=== PATIENT | female | born 1990 | race Caucasian/White ===

== ENCOUNTER 2022-08-02 18:51 | Emergency (ER) | payer SELFPAY ==
[2022-08-02 18:55] VITALS: BP 139/89; PULSE 86; RESP 18; TEMP 36.3; O2SAT 96; BMI 42.0
--- NOTE | 2022-08-02 19:04 | ED.NURSE ---
beata HARVEY contacted and will send an officier for report
--- NOTE | 2022-08-02 19:13 | ED_ITS ---
HPI - General Adult General Chief complaint: Animal Bite Stated complaint: scratch on face from dog Time Seen by Provider: 08/02/22 18:52 History of Present Illness HPI narrative: This 32-year-old female comes in with an injury to her left eyebrow that occurred just prior to arrival. She states that the family dog which is a Great Romario jumped up and accidentally hit her in the left eyebrow area. She is not sure if it was the dog's paw or head that hit her. She was wearing glasses. Her lens fell out of the glass but did not break. She has a 2 cm linear laceration on the upper border of her left eyebrow. She did not have loss of consciousness. She is not describing any other injury does not have any neurologic deficits. She states that her tetanus was updated about 6 or 7 years ago. Related Data Previous Rx's Medication Instructions Recorded levonorgestrel 0.15 mg-ethinyl 1 tab PO QDAY #91 ea 10/14/21 estradiol 30 mcg tablets,3 mos pack(91) (Jarrett) cetirizine 10 mg capsule (Zyrtec) 10 mg PO QDAY PRN allergy symptoms 12/31/21 #90 caps fluoxetine 40 mg capsule 40 mg PO QDAY #90 caps 12/31/21 Allergies Allergy/AdvReac Type Severity Reaction Status Date / Time doxycycline Allergy Unknown Verified 12/31/21 10:56 Penicillins Allergy Unknown Verified 12/31/21 10:56 Peanut-containing drug Allergy Unknown Uncoded 12/31/21 10:56 products Trazadone Allergy Unknown Uncoded 12/31/21 10:56 Review of Systems Status of ROS: Reports: 10 or more systems reviewed and unremarkable except as noted in History and below Narrative: Constitutional: No fevers, no weight gain or loss. Eyes: No discharge. No vision changes. HENT: No congestion, no sore throat, no ear pain. Cardiovascular: No chest pain, no palpitations. Respiratory: No shortness of breath, no wheezes, no cough. Gastrointestinal: No abdominal pain, no vomiting, no diarrhea. Genitourinary: No dysuria, no hematuria. Musculoskeletal: Normal range of motion. Skin: No rashes, no pruritis. Neurological: No dizziness, weakness, speech change. Endo/Heme/Allergies: No bruising or bleeding. No polydipsia. Pysch: no suicidality, no anxiety, no insomnia. All other systems reviewed and are negative. [facility] Medical History (Updated 08/02/22 @ 19:17 by Elmo Rubio MD) OCD (obsessive compulsive disorder) ?F42.9 - Obsessive-compulsive disorder, unspecified (ICD-10) Obesity ?E66.9 - Obesity, unspecified (ICD-10) Microscopic hematuria ?R31.29 - Other microscopic hematuria (ICD-10) Hepatitis B carrier ?B18.1 - Chronic viral hepatitis B without delta-agent (ICD-10) Depression ?F32.A - Depression, unspecified (ICD-10) Anxiety ?F41.9 - Anxiety disorder, unspecified (ICD-10) Surgical History (Updated 12/31/21 @ 08:31 by Zina Neumann PA-C) No history of previous surgery Family History (Updated 12/31/21 @ 08:30 by Zina Neumann PA-C) Unknown Adopted Social History (Updated 12/31/21 @ 08:32 by Zina Neumann PA-C) 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 Little interest or pleasure in doing things: not at all Feeling down, depressed, or hopeless: several days Exam Narrative: Exam Narrative: Constitutional: Well-developed, well-nourished, no acute distress. HEENT: 2 cm linear laceration just above the left eyebrow. Mild associated swelling. Neck: Normal range of motion. Nontender. Supple. Heart: Intact distal pulses. Lungs: No chest discomfort. No wheezes, rhonchi, or rales. Abdomen: Nontender. Back: Normal range of motion. Extremities: Normal range of motion. No injury. Skin: Intact. No rash. Warm. No erythema or pallor. Neurologic: No altered sensation. No weakness. Alert and oriented. Psychiatric: No suicidality. No anxiety or depression. No insomnia. Nursing notes and vitals signs are reviewed. Const: Vital Signs, click to edit/add: Vital Signs - 24 hr 08/02/22 18:55 Temperature 97.4 F L Pulse Rate [Right Pulse Oximeter] 86 Respiratory Rate 18 Blood Pressure [Ri ght Upper Arm] 139/89 Pulse Oximetry 96 Oxygen Delivery Me thod Room Air Course Vital Signs Vital signs: Initial Vital Signs Temperature 97.4 F L 05/02/23 18:55 Temperature Source Temporal Artery Scan 08/02/22 18:55 Pulse Rate 86 08/02/22 18:55 Respiratory Rate 18 08/02/22 18:55 Blood Pressure 139/89 08/02/22 18:55 Blood Pressure Mean 105 08/02/22 18:55 Blood Pressure Position Sitting 08/02/22 18:55 Pulse Oximetry 96 08/02/22 18:55 Oxygen Delivery Method Room Air 08/02/22 18:55 Vital Signs Temperature 97.4 F L 08/02/22 18:55 Pulse Rate 86 08/02/22 18:55 Respiratory Rate 18 08/02/22 18:55 Blood Pressure 139/89 08/02/22 18:55 Pulse Oximetry 96 08/02/22 18:55 Oxygen Delivery Method Room Air 08/02/22 18:55 Temperature 97.4 F L 08/02/22 18:55 Pulse Rate 86 08/02/22 18:55 Respiratory Rate 18 08/02/22 18:55 Blood Pressure 139/89 08/02/22 18:55 Pulse Oximetry 96 08/02/22 18:55 Oxygen Delivery Method Room Air 08/02/22 18:55 Medical Decision Making MDM Narrative Medical decision making narrative: This patient has a laceration to her left eyebrow from a a family dog who is up-to-date on all vaccinations and appears healthy. The wound edges of the laceration are very well approximated. I did cleanse the wound and recommended Dermabond repair. This was agreeable to the patient. Instructions were given regarding wound care. Discharge Plan Discharge Clinical Impression: Laceration of eyebrow, left Patient Disposition: Home, Self-Care Condition: Stable Additional Instructions: Keep wound clean and dry. Follow up with MD or return if worsening. Prescriptions: No Action fluoxetine 40 mg capsule 40 mg PO QDAY Qty: 90 3RF Zyrtec 10 mg capsule 10 mg PO QDAY PRN (Reason: allergy symptoms) Qty: 90 3RF levonorgestrel-ethinyl estrad [Jolessa] 0.15 mg-30 mcg (91) tablets,dose pack,3 month 1 tab PO QDAY Qty: 91 2RF Follow Up/Referrals: Provider,Not a Local [Primary Care Provider] - Stand Alone Forms: [employer] Info Instructions
== END 2022-08-02 19:47 | disposition home or self-care (01) ==
LOC: ED 19:30
PROVIDERS: Emergency Provider Emergency Medicine Emergency Medical Services
DX: S01.112A Laceration without foreign body of left eyelid and periocular area, initial encounter (principal); W54.1XXA Struck by dog, initial encounter
CPT/HCPCS: 99282; 99283; 99284

== ENCOUNTER 2022-10-27 08:53 | Outpatient (CLI) | payer BC, SELFPAY | END 2022-10-27 08:54 | disposition home or self-care (01) | PROVIDERS: Visit Provider Registered Nurse | DX: Z01.419 Encounter for gynecological examination (general) (routine) without abnormal findings (principal); R63.5 Abnormal weight gain; E66.9 Obesity, unspecified; N91.2 Amenorrhea, unspecified; Z13.6 Encounter for screening for cardiovascular disorders; Z13.1 Encounter for screening for diabetes mellitus | CPT/HCPCS: 80061; 82947; 84443 ==

== ENCOUNTER 2022-12-11 15:16 | Emergency (ER) | payer BC, SELFPAY ==
[2022-12-11 15:21] VITALS: BP 140/87; PULSE 81; RESP 16; TEMP 36.6; O2SAT 96; BMI 45.7
--- NOTE | 2022-12-11 15:52 | ED.PREGNANCY ---
HPI - General Time Seen by Provider: 15:52 Date Seen: 12/11/22 Chief complaint: Vaginal Bleeding Stated complaint: 6 wks , bleeding Time Seen by Provider: 12/11/22 15:47 Source: patient, RN notes reviewed and old records reviewed Mode of arrival: ambulatory Limitations: no limitations History of Present Illness HPI Narrative: Patient is a 32-year-old female coming in just over 6 weeks with complaint of vaginal bleeding and cramping. She states it feels like her menstrual cycle. She will get some GI symptoms with that, have stomach discomfort. She had 2 days of light spotting and then today started bleeding more like a menstrual cycle. She has had no fevers chills, no vaginal discharge prior to this, no urinary symptoms. She is going to follow up with Ob here. Her last was 14 years ago. Knows her blood type was O but does not recollect getting RhoGAM. Thus, reviewed with her that we will check her blood type. She is admittedly anxious about this. MD Complaint: vaginal bleeding Patient : Yes Related Data : 2 Para: 1 Total number of abortions (spontaneous and elective): 0 Home Medications Medication Instructions Recorded Confirmed magnesium 12/11/22 Previous Rx's Medication Instructions Recorded cetirizine 10 mg capsule (Zyrtec) 10 mg PO QDAY PRN allergy symptoms 12/31/21 #90 caps fluoxetine 40 mg capsule 40 mg PO QDAY #90 caps 10/27/22 multivitamin no.47-iron fum 27 1 cap PO DAILY #100 caps 10/27/22 mg-folate no.1 1 mg-dha 300 mg capsule (PNV-DHA) vitamin#30 30 mg iron-10 1 cap PO DAILY #90 caps 10/27/22 mg iron-folic acid 1 mg-omg3 capsule Allergies Allergy/AdvReac Type Severity Reaction Status Date / Time doxycycline Allergy Unknown Verified 12/11/22 15:26 Penicillins Allergy Unknown Verified 12/11/22 15:26 Peanut-containing drug Allergy Unknown Uncoded 10/27/22 08:34 products Trazadone Allergy Unknown Uncoded 10/27/22 08:34 Review of Systems Narrative: As per HPI. 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 Smoking Status: Never smoker How often do you have a drink containing alcohol: never AUDIT-C Alcohol total score: 0 Non-prescribed substance use: denies use Little interest or pleasure in doing things: not at all Feeling down, depressed, or hopeless: not at all service: No Exam Const: Vital Signs, click to edit/add: Vital Signs - 24 hr 12/11/22 15:21 Temperature 97.9 F Pulse Rate [Left P ulse Oximeter] 81 Respiratory Rate 16 Blood Pressure [Ri ght Upper Arm] 140/87 H Pulse Oximetry 96 Oxygen Delivery Me thod Room Air This 32-year-old female is alert, interactive no apparent distress. Pupils are equal round, sclera clear, conjugate gaze. Symmetrical facial function. Able to speak in complete sentences. Neck is supple, no masses, no thyromegaly masses or nodules. Lungs are clear, good air entry no wheezing or crackles. CV regular rate rhythm no murmur, normal S1 and S2. Abdomen is soft, nontender, no organomegaly noted. Certainly no rebound or guarding noted. Documenting provider has reviewed patient's vital signs: yes Course Course ED Course: We discussed that she will need a blood draw, do not feel with her presentation at this time that she needs any IV or resuscitation from fluids. She seems quite hemodynamically stable. Reviewed that we would be getting a quantitative beta HCG, CBC and a blood type. We did briefly review RhoGAM in patient's bleeding who have Rh negative factor. We will obtain an ultrasound as well. Reevaluation(s) Time of Reevaluation #1: 18:33 Reevaluation #1: Reviewed ultrasound report and labs with patient. The hCG is extremely low, it is unlikely if she was right about being just over 6 weeks that this is anything but a miscarriage. She does understand that the hCG needs to be followed however. If it is going up, further imaging will need to be done. She understands if she does have heavy symptomatic bleeding start, severe abdominal pain that she does need to return to the ER for further evaluation. Otherwise, schedule follow-up through [facility] next week. Vital Signs Vital signs: Initial Vital Signs Temperature 97.9 F 12/11/22 15:21 Temperature Source Temporal Artery Scan 12/11/22 15:21 Pulse Rate 81 12/11/22 15:21 Respiratory Rate 16 12/11/22 15:21 Blood Pressure 140/87 H 12/11/22 15:21 Blood Pressure Mean 104 12/11/22 15:21 Blood Pressure Position Sitting 12/11/22 15:21 Pulse Oximetry 96 12/11/22 15:21 Oxygen Delivery Method Room Air 12/11/22 15:21 Vital Signs Temperature 97.9 F 12/11/22 15:21 Pulse Rate 81 12/11/22 15:21 Respiratory Rate 16 12/11/22 15:21 Blood Pressure 140/87 H 12/11/22 15:21 Pulse Oximetry 96 12/11/22 15:21 Oxygen Delivery Method Room Air 12/11/22 15:21 Temperature 97.9 F 12/11/22 15:21 Pulse Rate 81 12/11/22 15:21 Respiratory Rate 16 12/11/22 15:21 Blood Pressure 140/87 H 12/11/22 15:21 Pulse Oximetry 96 12/11/22 15:21 Oxygen Delivery Method Room Air 12/11/22 15:21 MDM - OB/Uterine Contractions Lab Data Attestation: I reviewed the patient's lab results. Labs: Lab Results 12/11/22 Range/Units 16:23 WBC 13.11 H (4.50-11.00) K/uL RBC 5.37 H (4.00-5.20) m/uL Hgb 15.0 (12.0-16.0) gm/dL Hct 45.9 (33.0-51.0) % MCV 86 (80-100) fL MCH 28 (26-34) pg MCHC 33 (32-36) gm/dL RDW Coeff of Bertha 12.4 (11.5-15.5) % Plt Count 326 (140-440) K/uL Neut % (Auto) 66.8 (42.0-72.0) % Lymph % (Auto) 21.1 (20-44) % Millard % (Auto) 9.6 (0.0-11.0) % Eos % (Auto) 1.6 (0.0-7.0) % Baso % (Auto) 0.2 (0.0-3.0) % Neut # (Auto) 8.80 H (1.7-7.0) K/uL Lymph # (Auto) 2.80 (0.90-2.90) K/uL Millard # (Auto) 1.30 H (0.00-0.90) K/UL Eos # (Auto) 0.20 (0.00-0.50) K/uL Baso # (Auto) 0.00 (0.00-0.30) K/uL Abs Immat Gran (auto) 0.10 (0.00-0.30) K/uL Imm/Tot Granulo (auto) 0.7 % Sodium 139 (135-149) mmol/L Potassium 3.8 (3.6-5.1) mmol/L Chloride 105 (96-114) mmol/L Carbon Dioxide 24 (20-32) mmol/L Anion Gap 10 (7-15) mEq/L BUN 14 (5-24) mg/dL Creatinine 0.7 (0.5-1.5) mg/dL Estimated Creat Clear 82.88 Estimated GFR 118 ml/min Glucose 79 (60-115) mg/dL Calcium 9.6 (8.4-10.6) mg/dL HCG, Quant 7.83 mIU/mL Blood Type O Positive Imaging Data US early OB: Attestation: I have reviewed the pertinent imaging results. Radiologist's impression: Patient: JULY AUNDREA Facility:?[facility] Patient ID:?[id number] Site Patient ID:?[id number]. Site :?1990 Study:?US OB Pelvis OB TV-12/11/2022 5:02:31 PM Ordering Physician:Lynnette Sanderson Final Report: INDICATION: Bleeding, cramping COMPARISON: None. TECHNIQUE: Real-time gagnon-scale imaging of the pelvis was performed. FINDINGS: No intrauterine is present. The endometrium is mildly heterogeneous and measures 1.1 cm. No endometrial fluid. The uterus measures 8.4 x 3.5 x 5.0 cm. No uterine fibroid. Right ovary measures 4.0 x 1.9 x 2.1 cm. Right parovarian cyst is present measuring 1.6 x 1.5 x 1.5 cm. Left ovary measures 2.6 x 2.0 x 1.9 cm. Normal blood flow to both ovaries. No ectopic or excess pelvic free fluid. IMPRESSION: No intrauterine or ectopic . Dictated by Esau Solomon MD @ 12/11/2022 5:56:37 PM (Electronic Signature) Critical Care Time Critical Care Time Critical Care Time: No Discharge Plan Discharge Clinical Impression: Miscarriage Patient Disposition: Home, Self-Care Condition: Stable Instructions: Miscarriage (ED) Additional Instructions: HCG level is only at 7.83, but still needs to be followed. [facility] to have follow up scheduled and the repeat level of the HCG done. If the bleeding is becoming so heavy that you are symptomatic (like lightheaded, dizzy with standing) or profuse bleeding, need to return to the ED for further evaluation. A miscarriage usually is like a heavy more prolonged period that you would normally experience. Prescriptions: No Action Zyrtec 10 mg capsule 10 mg PO QDAY PRN (Reason: allergy symptoms) Qty: 90 3RF PNV #[id number] acid-omega3 30 mg iron-10 mg iron-1 mg capsule 1 cap PO DAILY Qty: 90 3RF fluoxetine 40 mg capsule 40 mg PO QDAY Qty: 90 3RF magnesium PNV-DHA 27 mg iron-1 mg -300 mg capsule 1 cap PO DAILY Qty: 100 0RF Hold Instructions: pg Follow Up/Referrals: Provider,Not a Local [Referring] - Stand Alone [facility]
--- NOTE | 2022-12-11 16:02 | CRLHL7_ITS ---
For Patients: As a result of the Century Cures Act, medical imaging exams and procedure reports are released immediately into your electronic medical record. You may view this report before your referring provider. If you have questions, please contact your health care provider. INDICATION: Bleeding, cramping COMPARISON: None. TECHNIQUE: Real-time gagnon-scale imaging of the pelvis was performed. FINDINGS: No intrauterine is present. The endometrium is mildly heterogeneous and measures 1.1 cm. No endometrial fluid. The uterus measures 8.4 x 3.5 x 5.0 cm. No uterine fibroid. Right ovary measures 4.0 x 1.9 x 2.1 cm. Right parovarian cyst is present measuring 1.6 x 1.5 x 1.5 cm. Left ovary measures 2.6 x 2.0 x 1.9 cm. Normal blood flow to both ovaries. No ectopic or excess pelvic free fluid. IMPRESSION: No intrauterine or ectopic . Dictated by Esau Solomon MD @ 12/11/2022 5:56:37 PM (Electronically Signed)
[2022-12-11 16:33] LABS: Basophils Percent Auto 0.2 % (0.0-3.0); Eosinophils Percent Auto 1.6 % (0.0-7.0); Hematocrit 45.9 % (33.0-51.0); Immature Granulocytes Pct Auto 0.7 %; Lymphocytes Percent Auto 21.1 % (20-44); Mean Corpuscular HGB Conc 33 gm/dL (32-36); Mean Corpuscular Hemoglobin 28 pg (26-34); Mean Corpuscular Volume 86 fL (80-100); Monocytes Percent Auto 9.6 % (0.0-11.0); Neutrophils Percent Auto 66.8 % (42.0-72.0); Platelet Count* 326 K/uL (140-440); RDW Coefficient of Variation % 12.4 % (11.5-15.5); Red Blood Count 5.37 m/uL (4.00-5.20); White Blood Count* 13.11 K/uL (4.50-11.00)
[2022-12-11 16:42] LABS: Slide Review Reflex No
[2022-12-11 16:46] LABS: Chloride* 105 mmol/L (96-114); Potassium* 3.8 mmol/L (3.6-5.1); Sodium* 139 mmol/L (135-149)
[2022-12-11 16:48] LABS: Creatinine* 0.7 mg/dL (0.5-1.5); Est. Creatinine Clearance* 82.88; Estimated Glomerular Filt Rate 118 ml/min
[2022-12-11 16:49] LABS: Anion Gap 10 mEq/L (7-15); Blood Urea Nitrogen* 14 mg/dL (5-24); Calcium* 9.6 mg/dL (8.4-10.6); Carbon Dioxide* 24 mmol/L (20-32); Glucose* 79 mg/dL (60-115)
[2022-12-11 17:06] LABS: HCG Quantitative* 7.83 mIU/mL
== END 2022-12-11 18:55 | disposition home or self-care (01) ==
PROVIDERS: Emergency Provider Family Medicine; PCP Physician Assistant
DX: O03.9 Complete or unspecified spontaneous abortion without complication (principal)
CPT/HCPCS: 36415; 76817; 80048; 84702; 85025; 86900; 86901; 93976; 99284

== ENCOUNTER 2022-12-14 08:01 | Outpatient (CLI) | payer BC, SELFPAY | END 2022-12-14 08:02 | disposition home or self-care (01) | LOC: NFLDREF 08:02 | PROVIDERS: PCP Physician Assistant; Visit Provider Obstetrics & Gynecology | DX: O03.9 Complete or unspecified spontaneous abortion without complication (principal) | CPT/HCPCS: 84702 ==

== ENCOUNTER 2023-01-24 11:26 | Outpatient (CLI) | payer BC, SELFPAY | END 2023-01-24 11:27 | disposition home or self-care (01) | LOC: FRMREF 16:00 | PROVIDERS: PCP Physician Assistant; Visit Provider Obstetrics & Gynecology | DX: O03.9 Complete or unspecified spontaneous abortion without complication (principal) | CPT/HCPCS: 84702 ==

== ENCOUNTER 2023-02-17 09:57 | Outpatient (CLI) | payer BC, SELFPAY ==
--- NOTE | 2023-02-17 10:15 | CRLHL7_ITS ---
For Patients: As a result of the Century Cures Act, medical imaging exams and procedure reports are released immediately into your electronic medical record. You may view this report before your referring provider. If you have questions, please contact your health care provider. INDICATION: First trimester scan, establish dates. COMPARISON: 12/11/2022 TECHNIQUE: Real-time gagnon-scale imaging of the pelvis was performed. FINDINGS: Sonographic imaging demonstrates a single living intrauterine gestation. The embryo demonstrates a regular cardiac rate measuring 139 beats per minute. The embryo`s crown-rump length measurement of 1.2 cm corresponds to a gestational age of 7 weeks 3 days with a sonographic due date of 10/03/2023. There is a normal-appearing yolk sac. There are no gross abnormalities noted within the embryo at this early state of development. The gestational sac has a normal appearance. There is no evidence of a perigestational hemorrhage. The amount of fluid within the sac appears appropriate for gestational age. The cervix is closed. The myometrium appears normal. The ovaries are of normal size. Simple paraovarian cyst measures 1.9 x 1.6 x 1.8 cm. Corpus luteal right ovarian cyst measures 2.0 x 1.6 x 2.0 cm. There are no suspicious fluid collections noted in the cul-de-sac. IMPRESSION: Single living intrauterine with sonographic gestational age 7 weeks 3 days and sonographic due date 10/03/2023. Dictated by Esau Solomon MD @ 02/17/2023 11:14:48 AM (Electronically Signed)
== END 2023-02-17 09:58 | disposition home or self-care (01) ==
LOC: US 09:59
PROVIDERS: Visit Provider Physician Assistant
DX: Z34.91 Encounter for supervision of normal pregnancy, unspecified, first trimester (principal); Z3A.01 Less than 8 weeks gestation of pregnancy
CPT/HCPCS: 76817; 86592; 86703; 86704; 86706; 86762; 86787; 86803; 86850; 86900; 86901; 87086; 87340

== ENCOUNTER 2023-06-15 08:15 | Outpatient (CLI) | payer BC, SELFPAY | END 2023-06-15 08:16 | disposition home or self-care (01) | LOC: NFLDREF 06-16 07:47 | PROVIDERS: Visit Provider Advanced Practice Midwife | DX: Z34.82 Encounter for supervision of other normal pregnancy, second trimester (principal) | CPT/HCPCS: 82951; 82952 ==

== ENCOUNTER 2023-07-19 13:40 | Outpatient (CLI) | payer BC, SELFPAY ==
[2023-07-19] VITALS (7 sets, daily range): BP systolic 119–122; BP diastolic 62–64; PULSE 94–102; RESP 18; TEMP 37.1; O2SAT 90–95
--- OUTSIDE RECORDS SUMMARY | 2023-07-19 13:53 | XMS_ITS | Encounter Summary ---
Author Name Unknown Organization [place] Address [address] [place] [address] Care Team Providers Care Clay Dry Press Helper Name Role Phone Mj Oliver PA-C Primary Care Provide r Reason for Referral * Consultation (Routine: Next available opening) - Pending Review Specialty Diagnoses / Procedures Referred By Contac t Referred To Contact Diagnoses Hepatitis B carrier (H) Mohsen Lundy MD [address] [address] Referral ID Status Reason Start Date Expiration Date V isits Requested Visits Authorized [id number] Pending Review 03/23/2023 03/22/2024 1 1 Question Answer MFM Consult Yes Comments [facility] radiologic and comp Us OS ANALYST * Diagnostic Imaging Ultrasound (Routine) - Pending Review Specialty Diagnoses / Procedures Referred By Contac t Referred To Contact Radiology. Diagnoses Hepatitis B carrier (H) Procedures [facility] US Comprehensive Single Mohsen Lundy MD [address] [address] Referral ID Status Reason Start Date Expiration Date V isits Requested Visits Authorized [id number] Pending Review 03/23/2023 03/22/2024 1 1 OS ANALYST Encounter Details Date Type Department Care Team (Late st Contact Info) Description 03/23/2023 Orders Only [facility] Maternal Medicine [place] [id number] Marquita To RN Hepatitis B carrier (H) (Primary Dx) Social History Tobacco Use Types Packs/Day Years Used Date Smoking Tobacco: Every Day Cigarettes Smokeless Tobacco: Never Comments:7-9 cigs a day Alcohol Use Standard Drinks/Week Comments No 0 (1 standard drink = 0.6 oz pur e alcohol) Adolescent Education Answer Date Record ed Getting School Help Needed Not on file 01/08 Sex and Gender Information Value Date Recorded Sex Assigned at Not on file Gender Identity Not on file Sexual Orientation Not on file documented as of this encounter Plan of Treatment Scheduled Referrals Name Type Priority Associated Diagnoses Orde r Schedule [facility] Office Visit Referral Routine: Next available opening Hepatitis B carrier (H) Expected: 03/23/2023 (Approximate), Expires: 03/23/2024 documented as of this encounter Results * [facility] Comprehensive Single (05/05/2023 2:39 PM COGNOS ANALYST) Anatomical Region Laterality Modality Ultrasound 05/05/2023 1:32 PM COGNOS ANALYST Impressions 05/05/2023 4:01 PM COGNOS ANALYST IMPRESSION ----- 1. Forman intrauterine at 18w 3d gestational age here for evaluation of anatomy. 2. No anomalies commonly detected by ultrasound or soft markers of aneuploidy were identified in the detailed anatomic survey within the limits of ultrasound, however some views were suboptimal, as described above. 3. Growth parameters and estimated weight were consistent with established dates. 4. The amniotic fluid volume appeared normal. 5. On transabdominal imaging the cervix appears long and closed. Narrative 05/05/2023 4:01 PM COGNOS ANALYST ?Comprehensive ----- Pat. Name: July ? Study Date: ??05/05/2023 1:32pm Pat. NO: ??[id number] ?Referring ??MD: JONN GIRON Site: [facility] ? Aurist: Bladimir Cox RDMS : ??1990 ?Age: ?? 33 ----- INDICATION ----- Elevated BMI: 46. Chronic viral Hepatitis B. METHOD ----- Transabdominal ultrasound examination. View: Suboptimal view: limited by maternal body habitus. Suboptimal view: limited by position ----- Forman . Number of fetuses: 1 DATING ----- ? Date ?Details ?Gest. age ?KIARA Prior assessment ? 02/17/2023 ? GA: 7 w + 3 d ? 18 w + 3 d ? 10/03/2023 U/S ? 05/05/2023 ?based upon AC, BPD, Femur, HC ? 18 w + 1 d ? 10/05/2023 Assigned dating ?Dating performed on 05/05/2023, based on the prior assessment (on 02/17/2023) ? 18 w + 3 d ? 10/03/2023 GENERAL EVALUATION ----- Cardiac activity present. FHR 144 bpm. movements present. Presentation cephalic. Placenta Anterior, No Previa, > 2 cm from internal os. Umbilical cord 3 vessel cord. Amniotic fluid Amount of AF: normal. MVP 3.3 cm. BIOMETRY ----- Main Biometry: BPD ?38.4 ?mm ? 17w 5d ?Hadlock OFD ?56.4 ?mm ? 18w 4d ?Nicolaides HC ?152.8 ?mm ?18w 2d ?Hadlock Cerebellum tr ?18.3 ? mm ?18w 1d ?Nicolaides AC ?130.3 ?mm ?18w 4d ?51% ?Hadlock Femur ?26.8 ? mm ?18w 1d ?Hadlock Humerus ?26.5 ?mm ? 18w 3d ?Viral Weight Calculation: EFW ? 235 ? g ? 39% ?Hadlock EFW (lb,oz) ? 0 lb 8 ?oz EFW by ?[facility] ([id number]) Head / Face / Neck Biometry: Screen Printing Stencil Preparer ? 6.0 ? mm CM ?1.9 ? mm Nasal bone ? 5.7 ? mm Nuchal fold ? 3.4 ? mm ANATOMY ----- The following structures appear normal: Head / Neck ? Cranium. Head size. Head shape. Lateral ventricles. Choroid plexus. Midline falx. Cavum septi pellucidi. Cerebellum. Cisterna magna. ? Parenchyma. Thalami. Vermis. ? Neck. Nuchal fold. Face ? Lips. Profile. Nose. Maxilla. Orbits. Lens. Heart / Thorax ?LVOT view. Situs. Bicaval view. Ductal arch view. Superior vena cava. Inferior vena cava. 3-vessel view. Cardiac position. Cardiac size. Cardiac ? rhythm. ? Right lung. Left lung. Abdomen ? Abdominal wall. Cord insertion. Stomach. Bladder. Liver. Bowel. Genitals. Spine ?Cervical spine. Thoracic spine. Lumbar spine. Extremities / Skeleton ?Right arm. Right hand. Left arm. Left hand. Right leg. Left leg. Left foot. The following structures could not be adequately visualized: Face ? Mandible. Heart / Thorax ?4-chamber view: Suboptimal apical view. RVOT view. Aortic arch view. 1-uzikzy-gbccuzs view. ? Diaphragm. Abdomen ? Kidneys. Spine ?Sacral spine. Extremities / Skeleton ?Right foot. Gender: female. MATERNAL STRUCTURES ----- Cervix ?Visualized ? Appearance: Appears Closed ? Approach - Transabdominal: Cervical length 43.5 mm Right Ovary ?Visualized Left Ovary ?Visualized RECOMMENDATION ----- Thank-you for referring your patient for ultrasound assessment. I discussed the findings on today's ultrasound with the patient. I reviewed the limitations of ultrasound both in detecting aneuploidy and structural abnormalities. Ultrasound, when views completed, can routinely detect 80-90% of structural abnormalities. She had low risk cell free DNA for genetic screening this per patient report, however, results are not available for review. Follow-up is scheduled here in three weeks to reassess anatomy that was suboptimally seen today. Following this recommend growth assessment at 28 and 34 weeks followed by weekly testing at 34 weeks. Return to primary provider for continued care. If you have questions regarding today's evaluation or if we can be of further service, please contact the [facility]. anomalies may be present but not detected Please see separate note in epic for the complete details of today's MFM consultation. Procedure Note Chloe Crowder MD - 05/05/2023 Comprehensive ----- Pat. Name: AUNDREAJuly Study Date: 05/05/2023 1:32pm Pat. NO: [id number] Referring MD: JONN GIRON Site: [facility] Aurist: Bladimir Cox RDMS : 1990 Age: 33 ----- INDICATION ----- Elevated BMI: 46. Chronic viral Hepatitis B. METHOD ----- Transabdominal ultrasound examination. View: Suboptimal view: limited bymaternal body habitus. Suboptimal view: limited by position ----- Forman . Number of fetuses: 1 DATING ----- DateDetailsGest. age KIARA Prior assessment 02/17/2023 GA: 7 w +3 d18 w + 3 d 10/03/2023 U/S 05/05/2023ased upon AC, BPD, Femur, HC18 w + 1 d 10/05/2023 Assigned dating Dating performed on 05/05/2023, based onthe prior assessment (on 02/17/2023) 18 w + 3 10/03/2023 GENERAL EVALUATION ----- Cardiac activity present. FHR 144 bpm. movements present. Presentation cephalic. Placenta Anterior, No Previa, > 2 cm from internal os. Umbilical cord 3 vessel cord. Amniotic fluid Amount of AF: normal. MVP 3.3 cm. BIOMETRY ----- Main Biometry: BPD 38.4 mm17w 5d Hadlock OFD 56.4 mm18w 4d Nicolaides HC 152.8 mm18w 2d Hadlock Cerebellum tr 18.3 mm18w 1d Nicolaides AC 130.3 mm18w 4d 51% Hadlock Femur 26.8 mm18w 1d Hadlock Humerus 26.5 mm18w 3d Viral Weight Calculation: EFW 235 g39% Hadlock EFW (lb,oz) 0 lb 8 oz EFW by Hadlock ([id number]) Head / Face / Neck Biometry: Screen Printing Stencil Preparer 6.0 mm CM 1.9 mm Nasal bone 5.7 mm Nuchal fold 3.4 mm ANATOMY ----- The following structures appear normal: Head / Neck Cranium. Head size. Head shape.Lateral ventricles. Choroid plexus. Midline falx. Cavum septi pellucidi.Cerebellum. Cisterna magna. Parenchyma. Thalami. Vermis. Neck. Nuchal fold. Face Lips. Profile. Nose. Maxilla.Orbits. Lens. Heart / Thorax LVOT view. Situs. Bicaval view. Ductalarch view. Superior vena cava. Inferior vena cava. 3-vessel view. Cardiacposition. Cardiac size. Cardiac rhythm. Right lung. Left lung. Abdomen Abdominal wall. Cord insertion.Stomach. Bladder. Liver. Bowel. Genitals. Spine Cervical spine. Thoracic spine.Lumbar spine. Extremities / Skeleton Right arm. Right hand. Left arm. Lefthand. Right leg. Left leg. Left foot. The following structures could not be adequately visualized: Face Mandible. Heart / Thorax 4-chamber view: Suboptimal apicalview. RVOT view. Aortic arch view. 3-snqqqt-uwrqbeh view. Diaphragm. Abdomen Kidneys. Spine Sacral spine. Extremities / Skeleton Right foot. Gender: female. MATERNAL STRUCTURES ----- Cervix Visualized Appearance: Appears Closed Approach - Transabdominal:Cervical length 43.5 mm Right Ovary Visualized Left Ovary Visualized RECOMMENDATION ----- Thank-you for referring your patient for ultrasound assessment. I discussed the findings on today's ultrasound with the patient. Ireviewed the limitations of ultrasound both in detecting aneuploidy andstructural abnormalities. Ultrasound, when views completed, can routinely detect 80-90% of structuralabnormalities. She had low risk cell free DNA for genetic screeningthis per patient report, however, results are not available for review. Follow-up is scheduled here in three weeks to reassess anatomy that wassuboptimally seen today. Following this recommend growth assessment at 28and 34 weeks followed by weekly testing at 34 weeks. Return to primary provider for continued care. If you have questions regarding today's evaluation or if we can be offurther service, please contact the [facility]. anomalies may be present but not detected Please see separate note in epic for the complete details of today's MFMconsultation. IMPRESSION ----- 1. Forman intrauterine at 18w 3d gestational age here forevaluation of anatomy. 2. No anomalies commonly detected by ultrasound or soft markers ofaneuploidy were identified in the detailed anatomic survey withinthe limits of ultrasound, however some views were suboptimal, as described above. 3. Growth parameters and estimated weight were consistent withestablished dates. 4. The amniotic fluid volume appeared normal. 5. On transabdominal imaging the cervix appears long and closed. Mohsen Lundy MD [facility] US ORDERABLE S documented in this encounter Visit Diagnoses Diagnosis Hepatitis B carrier (H)- Primary Hepatitis B carrier Hepatitis B carrier (H) Hepatitis B carrier documented in this encounter Care Teams Clay Dry Press Helper Relationship Specialty Start Date End Date Mj Oliver PA-C [address] [address] PCP - General Family Practice 04/24/11 documented as of this encounter
--- OUTSIDE RECORDS SUMMARY | 2023-07-19 13:53 | XMS_ITS | Encounter Summary ---
Author Name Unknown Organization [place] Address [address] [place] [address] Care Team Providers Care Director Of Food And Nutrition Services Name Role Phone Mj Oliver PA-C Primary Care Provide r Reason for Referral * Diagnostic Imaging Ultrasound (Routine) - Pending Review Specialty Diagnoses / Procedures Referred By Contac t Referred To Contact Radiology. Diagnoses Encounter for follow-up ultrasound of anatomy Procedures [facility] US Comprehensive Single F/U Chloe Crowder MD [address] [place] [address] Referral ID Status Reason Start Date Expiration Date V isits Requested Visits Authorized [id number] Pending Review 05/05/2023 05/04/2024 1 1 UTER SYSTEMS TECHNOLOGY INSTRUCTOR Reason for Visit * Diagnostic Imaging Ultrasound (Routine) - Pending Review Specialty Diagnoses / Procedures Referred By Contac t Referred To Contact Radiology. Diagnoses Encounter for follow-up ultrasound of anatomy Procedures [facility] US Comprehensive Single F/U Chloe Crowder MD [address] [facility] [address] [facility] [address] [place] [address] Referral ID Status Reason Start Date Expiration Date V isits Requested Visits Authorized [id number] Pending Review 05/05/2023 05/04/2024 1 1 Encounter Details Date Type Department Care Team (Latest Contact Info) Description 06/09/2023 2:11 PM COMPUTER SYSTEMS TECHNOLOGY INSTRUCTOR - 06/09/2023 11:59 PM COMPUTER SYSTEMS TECHNOLOGY INSTRUCTOR Hospital Encounter [facility] [place] [address] [place] [address] Chloe Crowder MD [address] [place] [address] Skip Hilliard MD [address] [place] [address] Encounter for follow-up ultrasound of anatomy Discharge Disposition: Home or Self Care Social History Tobacco Use Types Packs/Day Years Used Date Smoking Tobacco: Every Day Cigarettes Smokeless Tobacco: Never Comments:7-9 cigs a day Alcohol Use Standard Drinks/Week Comments No 0 (1 standard drink = 0.6 oz pur e alcohol) Adolescent Education Answer Date Record ed Getting School Help Needed Not on file 01/08 Estimated Date of Delivery Comme nts Yes 10/03/2023 Based on Ultraso und Sex and Gender Information Value Date Recorded Sex Assigned at Not on file Gender Identity Not on file Sexual Orientation Not on file documented as of this encounter Medications at Time of Discharge Medication Sig Dispensed Refills Start Date End Date albuterol (PROVENTIL HFA: VENTOLIN HFA) 108 (90 BASE) MCG/ACT inhalerIndications:Int ermittent asthma Inhale 2 puffs into the lungs every 6 hours as needed for shortness of breath / dyspnea. 1 Inhaler 0 05/19/2011 cephALEXin (KEFLEX) 500 MG capsuleIndications:Hid radenitis suppurativa Take 1 capsule (500 mg) by mouth 2 times daily 60 capsule 1 02/19/2016 cetirizine (ZYRTEC) 10 MG tabletIndications:Itch ing Take 1 tablet (10 mg) by mouth daily Need appointment for refills 30 tablet 03/08/2017 clindamycin (CLINDAMAX) 1 % lotionIndications:Hidr adenitis suppurativa Apply topically 2 times daily 60 mL 11 06/23/2015 CLONAZEPAM PO Take 5 mg by mouth Once daily doxycycline Monohydrate 100 MG TABSIndications:Hidrad enitis suppurativa 1 tab PO BID 60 tablet 2 06/23/2015 fluconazole (DIFLUCAN) 200 MG tabletIndications:Hidr adenitis suppurativa 1 tab PO at symptom onset, 1 tab PO 3 days later if sx still present 30 tablet 2 06/23/2015 hydrOXYzine (ATARAX) 25 MG tabletIndications:Itch ing Take 1-2 tablets (25-50 mg) by mouth At Bedtime 180 tablet 06/27/2017 levonorgestrel-ethinyl estradiol (SEASONALE) 0.15-0.03 MG per tabletIndications:Cont raception Take 1 tablet by mouth daily 91 tablet 3 04/29/2014 documented as of this encounter Plan of Treatment Not on file documented as of this encounter Procedures Procedure Name Priority Date/Time Associated Diagnosis Comments [facility] US COMPREHENSIVE SINGLE F/U Routine 06/09/2023 3:09 PM COMPUTER SYSTEMS TECHNOLOGY INSTRUCTOR Encounter for follow-up ultrasound of anatomy documented in this encounter Results * [facility] US Comprehensive Single F/U (06/09/2023 3:09 PM COMPUTER SYSTEMS TECHNOLOGY INSTRUCTOR) Anatomical Region Laterality Modality Ultrasound 06/09/2023 2:18 PM COMPUTER SYSTEMS TECHNOLOGY INSTRUCTOR Impressions 06/09/2023 3:19 PM COMPUTER SYSTEMS TECHNOLOGY INSTRUCTOR IMPRESSION ----- 1) Growth parameters and estimated weight were consistent with appropriate for gestational age pattern of growth. 2) anatomy appeared normal for gestational age. Narrative 06/09/2023 3:19 PM COMPUTER SYSTEMS TECHNOLOGY INSTRUCTOR ?Comp Follow Up ----- Pat. Name: AUNDREA, JULY ? Study Date: ??06/09/2023 2:18pm Pat. NO: ??[id number] ?Referring ??MD: JONN GIRON Site: [facility] ? Blending Tank Helper: Bladimir Cox RDMS : ??1990 ?Age: ?? 33 ----- INDICATION ----- Suboptimal anatomy on prior u/s. Elevated BMI: 46. Chronic viral Hepatitis B. METHOD ----- Transabdominal ultrasound examination. View: Sufficient ----- Forman . Number of fetuses: 1 DATING ----- ? Date ?Details ?Gest. age ?KIARA Prior assessment ? 02/17/2023 ? GA: 7 w + 3 d ? 23 w + 3 d ? 10/03/2023 U/S ? 06/09/2023 ?based upon AC, BPD, Femur, HC ? 22 w + 5 d ? 10/08/2023 Assigned dating ?Dating performed on 05/05/2023, based on the prior assessment (on 02/17/2023) ? 23 w + 3 d ? 10/03/2023 GENERAL EVALUATION ----- Cardiac activity present. FHR 146 bpm. movements present. Presentation cephalic. Placenta Anterior, No Previa, > 2 cm from internal os. Umbilical cord 3 vessel cord. Amniotic fluid Amount of AF: normal. MVP 3.9 cm. BIOMETRY ----- Main Biometry: BPD ?52.0 ?mm ? 21w 5d ?Hadlock OFD ?74.8 ?mm ? 23w 0d ?Nicolaides HC ?203.8 ?mm ?22w 4d ?Hadlock Cerebellum tr ?25.6 ? mm ?23w 4d ?Nicolaides AC ?182.5 ?mm ?23w 1d ?30% ?Hadlock Femur ?40.9 ? mm ?23w 2d ?Hadlock Weight Calculation: EFW ? 556 ? g ? 25% ?Hadlock EFW (lb,oz) ? 1 lb 4 ?oz EFW by ?Hadlock ([id number]) Head / Face / Neck Biometry: CM ?5.9 ? mm ANATOMY ----- The following structures appear normal: Head / Neck ? Cranium. Head size. Head shape. Lateral ventricles. Midline falx. Cavum septi pellucidi. Cerebellum. Cisterna magna. Thalami. Face ? Lips. Profile. Nose. Maxilla. Mandible. Heart / Thorax ?4-chamber view. RVOT view. LVOT view. Aortic arch view. 6-qmijgn-aiwmqmg view. ? Diaphragm. Abdomen ? Stomach. Kidneys. Bladder. Spine ?Cervical spine. Thoracic spine. Lumbar spine. Sacral spine. Extremities / Skeleton ?Right foot. Gender: female. MATERNAL STRUCTURES ----- Cervix ?Suboptimal Right Ovary ?Not examined Left Ovary ?Not examined RECOMMENDATION ----- We discussed the findings on today's ultrasound with the patient. We recommend that you assess growth at 28 and 34 weeks and begin weekly testing at 34 weeks. Return to primary provider for continued care. Thank-you for the opportunity to participate in the care of this patient. If you have questions regarding today's evaluation or if we can be of further service, please contact the [facility]. anomalies may be present but not detected Procedure Note Skip Hilliard MD - 06/09/2023 Comp Follow Up ----- Pat. Name: AUNDREAJuly Study Date: 06/09/2023 2:18pm Pat. NO: [id number] Referring MD: JONN GIRON Site: [facility] Blending Tank Helper: Bladimir Cox RDMS : 1990 Age: 33 ----- INDICATION ----- Suboptimal anatomy on prior u/s. Elevated BMI: 46. Chronic viral Hepatitis B. METHOD ----- Transabdominal ultrasound examination. View: Sufficient ----- Forman . Number of fetuses: 1 DATING ----- DateDetailsGest. age KIARA Prior assessment 02/17/2023 GA: 7 w +3 d23 w + 3 d 10/03/2023 U/S 06/09/2023ased upon AC, BPD, Femur, HC22 w + 5 d 10/08/2023 Assigned dating Dating performed on 05/05/2023, based onthe prior assessment (on 02/17/2023) 23 w + 3 10/03/2023 GENERAL EVALUATION ----- Cardiac activity present. FHR 146 bpm. movements present. Presentation cephalic. Placenta Anterior, No Previa, > 2 cm from internal os. Umbilical cord 3 vessel cord. Amniotic fluid Amount of AF: normal. MVP 3.9 cm. BIOMETRY ----- Main Biometry: BPD 52.0 mm21w 5d Hadlock OFD 74.8 mm23w 0d Nicolaides HC 203.8 mm22w 4d Hadlock Cerebellum tr 25.6 mm23w 4d Nicolaides AC 182.5 mm23w 1d 30% Hadlock Femur 40.9 mm23w 2d Hadlock Weight Calculation: EFW 556 g25% Hadlock EFW (lb,oz) 1 lb 4 oz EFW by Serjio ([id number]) Head / Face / Neck Biometry: CM 5.9 mm ANATOMY ----- The following structures appear normal: Head / Neck Cranium. Head size. Head shape.Lateral ventricles. Midline falx. Cavum septi pellucidi. Cerebellum.Cisterna magna. Thalami. Face Lips. Profile. Nose. Maxilla.Mandible. Heart / Thorax 4-chamber view. RVOT view. LVOT view.Aortic arch view. 4-xdpapp-vvnwjgh view. Diaphragm. Abdomen Stomach. Kidneys. Bladder. Spine Cervical spine. Thoracic spine.Lumbar spine. Sacral spine. Extremities / Skeleton Right foot. Gender: female. MATERNAL STRUCTURES ----- Cervix Suboptimal Right Ovary Not examined Left Ovary Not examined RECOMMENDATION ----- We discussed the findings on today's ultrasound with the patient. We recommend that you assess growth at 28 and 34 weeks and beginweekly testing at 34 weeks. Return to primary provider for continued care. Thank-you for the opportunity to participate in the care of this patient.If you have questions regarding today's evaluation or if we can be offurther service, please contact the [facility]. anomalies may be present but not detected IMPRESSION ----- 1) Growth parameters and estimated weight were consistent withappropriate for gestational age pattern of growth. 2) anatomy appeared normal for gestational age. Chloe Crowder MD [facility] US ORDERABLE S documented in this encounter Visit Diagnoses Diagnosis Encounter for follow-up ultrasound of anatomy documented in this encounter Care Teams Director Of Food And Nutrition Services Relationship Specialty Start Date End Date Mj Oliver PA-C [address] [address] PCP - General Family Practice 04/24/11 documented as of this encounter
--- OUTSIDE RECORDS SUMMARY | 2023-07-19 13:53 | XMS_ITS | Encounter Summary ---
Author Name Unknown Organization [place] Address [address] [place] [address] Care Team Providers Care Composing Room Machinist Apprentice Name Role Phone Unavailable Primary Care Provider Unavailabl e Encounter Details Date Type Department Care Team (Late st Contact Info) Description 04/06/2008 11:30 AM [facility] [address] [place] [phone] Elmo Roa MD [address] [place] [address] Social History Tobacco Use Types Packs/Day Years [...]
--- OUTSIDE RECORDS SUMMARY | 2023-07-19 13:53 | XMS_ITS | Encounter Summary ---
Author Name Unknown Organization [place] Address [address] [place] [address] Care Team Providers Care Dielectric Tester Name Role Phone Mj Oliver PA-C Primary Care Provide r Encounter Details Date Type Department Care Team (Late st Contact Info) Description 12/13/2011 [facility] [place] [address] [address] [facility] Social History Tobacco Use Types Packs/Day Years Used Date Smoking Tobacco: Every Day Cigarettes Smokeless Tobacco: Never Comments:7-9 cigs a day Alcohol Use Standard Drinks/Week Comments No 0 (1 standard drink = 0.6 oz pur e alcohol) Sex and Gender Information Value Date Recorded Sex Assigned at Not on file Gender Identity Not on file Sexual Orientation Not on file documented as of this encounter Plan of Treatment Not on file documented as of this encounter Visit Diagnoses Not on filedocumented in this encounter Care Teams Dielectric Tester Relationship Specialty Start Date End Date jM Oliver PA-C [address] [address] PCP - General Family Practice 04/24/11 documented as of this encounter
--- OUTSIDE RECORDS SUMMARY | 2023-07-19 13:53 | XMS_ITS | Encounter Summary ---
Author Name Unknown Organization [place] Address [address] [place] [address] Care Team Providers Care Press Supervisor Name Role Phone Mj Oliver PA-C Primary Care Provide r Encounter Details Date Type Department Care Team (Late st Contact Info) Description 07/06/2012 [facility] [place] [address] [address] [facility] Social History Tobacco Use Types Packs/Day [...] on filedocumented in this encounter Care Teams Press Supervisor Relationship Specialty Start Date End Date Mj Oliver PA-C [address] [address] PCP - General Family Practice 04/24/11 documented as of this encounter
--- OUTSIDE RECORDS SUMMARY | 2023-07-19 13:53 | XMS_ITS | Clinical Summary ---
Author Name Unknown Organization [facility] Address [address] [place] [address] Care Team Providers Care Compressed Air Pile Driver Operator Name Role Phone Mj Oliver PA-C Primary Care Provide r Allergies Active Allergy Reactions Criticality Noted Date Comments Doxycycline Diarrhea,GI Disturbance 07/21/2015 Penicillins Rash Low 07/21/2015 Medications Medication Sig Dispensed Refills Start Date End Date Status albuterol (PROVENTIL HFA: VENTOLIN HFA) 108 (90 BASE) MCG/ACT inhalerIndications: Intermittent asthma Inhale 2 puffs into the lungs every 6 hours as needed for shortness of breath / dyspnea. 1 Inhaler 0 05/19/2011 Active CLONAZEPAM PO Take 5 mg by mouth Once daily Active levonorgestrel-ethi nyl estradiol (SEASONALE) 0.15-0.03 MG per tabletIndications:C ontraception Take 1 tablet by mouth daily 91 tablet 3 04/29/2014 Active clindamycin (CLINDAMAX) 1 % lotionIndications:H idradenitis suppurativa Apply topically 2 times daily 60 mL 11 06/23/2015 Active doxycycline Monohydrate 100 MG TABSIndications:Hid radenitis suppurativa 1 tab PO BID 60 tablet 2 06/23/2015 Active fluconazole (DIFLUCAN) 200 MG tabletIndications:H idradenitis suppurativa 1 tab PO at symptom onset, 1 tab PO 3 days later if sx still present 30 tablet 2 06/23/2015 Active cephALEXin (KEFLEX) 500 MG capsuleIndications: Hidradenitis suppurativa Take 1 capsule (500 mg) by mouth 2 times daily 60 capsule 1 02/19/2016 Active cetirizine (ZYRTEC) 10 MG tabletIndications:I rani Take 1 tablet (10 mg) by mouth daily Need appointment for refills 30 tablet 03/08/2017 Active hydrOXYzine (ATARAX) 25 MG tabletIndications:I tching Take 1-2 tablets (25-50 mg) by mouth At Bedtime 180 tablet 06/27/2017 Active Active Problems Problem Noted Date Diagnosed Date Encounter for routine gynecological examination 05/18/2013 Overview: Problem list name updated by automated process. Provider to review GERD (gastroesophageal reflux disease) 1 Mixed anxiety depressive disorder 01/20/2011 Overview: (Problem list name updated by automated process. 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 Age 20. Plan colp per MD 03/16/11: [facility] - BRAEDEN I. Plan pap in 6 months. 11/03/11: NIL pap. Plan pap in 6 months. 07/03/12 Lost to pap tracking 05/14/13: NIL pap, neg HPV. Plan pap in 3 years. Hepatitis B carrier 03/05/2008 Overview: Hep B core arnav + LFTs normal 02/2008. Notify peds at delivery, baby will need Hep B immunoglobulin and vaccine AVOID OPERATIVE DELIVERY, SCALP ELECTRODES, ETC Estimated Date of Delivery Comme nts Yes 10/03/2023 Based on Ultraso und Resolved Problems Problem Noted Date Diagnosed Date Resolved Date Asthma, mild intermittent 01/20/2011 Asthma, mild intermittent 01/20/2011 Depressive state 04/30/2008 01/20/2011 Supervision of other high-risk 03/25/2008 01/20/2011 Overview: Problem list name updated by automated process. Provider to review Encounters Date Type Department Care Team Description 06/09/2023 2:45 PM SOCIAL SCIENCE TEACHER Office Visit [facility] [place] [address] [place] [address] Chloe Crowder MD Rauk, Skip Stone MD Encounter for follow-up ultrasound of anatomy (Primary Dx) 06/09/2023 2:11 PM SOCIAL SCIENCE TEACHER - 06/09/2023 11:59 PM SOCIAL SCIENCE TEACHER Hospital Encounter [facility] [place] [address] [place] [phone] Chloe Crowder MD Rauk, Skip Stone MD Encounter for follow-up ultrasound of anatomy Discharge Disposition: Home or Self Care 06/09/2023 Travel 05/05/2023 2:15 PM SOCIAL SCIENCE TEACHER Office Visit [facility] [place] [address] [place] [phone] Chloe Crowder MD Encounter for follow-up ultrasound of anatomy (Primary Dx); Hepatitis B carrier (H) 05/05/2023 1:30 PM SOCIAL SCIENCE TEACHER - 05/05/2023 11:59 PM SOCIAL SCIENCE TEACHER Hospital Encounter [facility] [place] [address] [place] [phone] Chloe Crowder MD Hepatitis B carrier (H) Discharge Disposition: Home or Self Care 05/05/2023 Travel 04/26/2023 PRE VISIT [place] [address] [place] [phone] Anuja Jimenez, ANAY Ultrasound (L2-chronic hep B) from Last 3 Months Immunizations Name Administration Dates Next Due HPV 10/26/2006 MMR 11/19/2002 TD,PF 7+ (Tenivac) 10/02/2003,11/19/2002 TDAP (Adacel,Boostrix) 04/22/2011 Family History * Patient is adopted Medical History Relation Comments Unknown/Adopted No family hx of Social History Tobacco Use Types Packs/Day Years [...] on file Sexual Orientation Not on file Last Filed Vital Signs Vital Sign Reading Time Taken Comments Blood Pressure 135/75 02/19/2016 11:55 AM SOCIAL SCIENCE TEACHER Pulse 93 02/19/2016 11:55 AM SOCIAL SCIENCE TEACHER Temperature 36.6 ??C (97.9 ??F) 05/30/2013 9:57 AM CS T Respiratory Rate 16 06/20/2011 2:44 PM CDT Oxygen Saturation 97% 02/19/2016 11:55 AM SOCIAL SCIENCE TEACHER Inhaled Oxygen Concentration - - Weight 59 kg (130 lb) 05/30/2013 9:57 AM SOCIAL SCIENCE TEACHER Height 152.4 cm (5') 05/30/2013 9:57 AM SOCIAL SCIENCE TEACHER Body Mass Index 25.39 05/30/2013 9:57 AM SOCIAL SCIENCE TEACHER Plan of Treatment Health Maintenance Due Date Last Done Comments ADVANCE CARE PLANNING 1990 ANNUAL REVIEW OF HM ORDERS 1990 ASTHMA CONTROL TEST 1990 Pneumococcal Vaccine: Pediatrics (0 to 5 Years) and At-Risk Patients (6 to 64 Years) (1 of 2 - PCV) 02/24/1996 HEPATITIS C SCREENING 02/24/2008 HEPATITIS A IMMUNIZATION (1 of 2 - Risk 2-dose series) 2009 NICOTINE/TOBACCO CESSATION COUNSELING Q 1 YR 04/30/2009 04/30/2008, 04/09/2008, 02/29/2008 ASTHMA ACTION PLAN 02/20/2014 02/20/2013, 0 04/22/2011, 01/20/2011 HPV IMMUNIZATION (3 - 3-dose series) 03/04/2014 12/10/2013, 10/26/2006, 10/26/2006 YEARLY PREVENTIVE VISIT 04/13/2018 04/13/19 18, 05/14/2013, 05/13/2013, Additional history exists COVID-19 Vaccine ( - 2022- season) 2022 INFLUENZA VACCINE (#1) 2022 MATERNAL SCREENING DISCUSSION 03/07/2023 PHQ-2 (once per calendar year) 2023 OBGCT (OB) 06/13/2023 DTAP/TDAP/TD IMMUNIZATION (5 - Td or Tdap) 12/11/2023 12/10/2013, 04/22/2011, 10/02/2003, Additional history exists PAP 07/13/2024 07/13/2021, 07/02, 05/14/2013, Additional history exists HIV SCREENING Completed 02/29/2008 IPV IMMUNIZATION Aged Out No longer e ligible based on patient's age to complete this topic MENINGITIS IMMUNIZATION Aged Out No l onger eligible based on patient's age to complete this topic RSV MONOCLONAL ANTIBODY Aged Out No l onger eligible based on patient's age to complete this topic RSV VACCINE ( & 60+) (No Doses Required) Completed Procedures Procedure Name Priority Date/Time Associated Diagnosis Comments [facility] US COMPREHENSIVE SINGLE F/U Routine 06/09/2023 3:09 PM SOCIAL SCIENCE TEACHER Encounter for follow-up ultrasound of anatomy [facility] US COMPREHENSIVE SINGLE Routine 05/05/2023 2:39 PM SOCIAL SCIENCE TEACHER Hepatitis B carrier (H) ASTHMA ACTION PLAN Routine 02/20/2013 10 :19 AM SOCIAL SCIENCE TEACHER Intermittent asthma HCL HIV 1 & 2 ANTIBODY Routine 8 1:52 PM SOCIAL SCIENCE TEACHER Supervision of Other Normal HCL PAP SMEAR Routine 08/26/1998 1:18 PM CDT Gynecologic Examination from Last 3 Months or Most Recently Relevant to Health Maintenance Results * [facility] US Comprehensive Single F/U (06/09/2023 3:09 PM SOCIAL SCIENCE TEACHER) Anatomical Region Laterality Modality Ultrasound 06/09/2023 2:18 PM SOCIAL SCIENCE TEACHER Impressions 06/09/2023 3:19 PM SOCIAL SCIENCE TEACHER IMPRESSION ----- 1) Growth parameters and estimated weight were consistent with appropriate for gestational age pattern of growth. 2) anatomy appeared normal for gestational age. Narrative 06/09/2023 3:19 PM SOCIAL SCIENCE TEACHER ?Comp Follow Up ----- Pat. Name: AUNDREAJuly ? Study Date: ??06/09/2023 2:18pm Pat. NO: ??[id number] ?Referring ??MD: JONN GIRON Site: ??[facility] ? Tablet Tester: Bladimir Cox RDMS : ??1990 ?Age: ?? [...] 1 lb 4 ?oz EFW by ?Hadlock ([id number]) Head / Face / Neck Biometry: CM ?5.9 ? mm ANATOMY ----- The following structures appear normal: Head / Neck ? Cranium. Head size. Head shape. Lateral ventricles. Midline falx. Cavum septi pellucidi. Cerebellum. Cisterna magna. Thalami. Face ? Lips. Profile. Nose. Maxilla. Mandible. Heart / Thorax ?4-chamber view. RVOT view. LVOT view. Aortic arch view. 6-ixydod-rpzcqoh view. ? Diaphragm. Abdomen ? Stomach. Kidneys. [...] AUNDREAJuly Study Date: 06/09/2023 2:18pm Pat. NO: [id number] Referring MD: JONN GIRON Site: [facility] Tablet Tester: Bladimir Cox RDMS : 1990 Age: 33 [...] (lb,oz) 1 lb 4 oz EFW by Hadlock ([id number]-FL) Head / Face / Neck Biometry: CM 5.9 mm ANATOMY ----- The following structures appear normal: Head / Neck Cranium. Head size. Head shape.Lateral ventricles. Midline falx. Cavum septi pellucidi. Cerebellum.Cisterna magna. Thalami. Face Lips. Profile. Nose. Maxilla.Mandible. Heart / Thorax 4-chamber view. RVOT view. LVOT view.Aortic arch view. 2-iqntcl-tmhepmk view. Diaphragm. Abdomen Stomach. Kidneys. Bladder. Spine [...] normal for gestational age. Chloe Crowder MD [facility] US ORDERABLE S * [facility] US Comprehensive Single (05/05/2023 2:39 PM SOCIAL SCIENCE TEACHER) Anatomical Region Laterality Modality Ultrasound 05/05/2023 1:32 PM SOCIAL SCIENCE TEACHER Impressions 05/05/2023 4:01 PM SOCIAL SCIENCE TEACHER IMPRESSION ----- 1. Forman intrauterine at 18w [...] long and closed. Narrative 05/05/2023 4:01 PM SOCIAL SCIENCE TEACHER ?Comprehensive ----- Pat. Name: July ? Study Date: ??05/05/2023 1:32pm Pat. NO: ??[id number] ?Referring ??: JONN GIRON Site: ??[facility] ? Tablet Tester: Bladimir Cox RDMS : ??1990 ?Age: ?? [...] Biometry: BPD ?38.4 ?mm ? 17w 5d ?Serjio OFMaria Teresa ?56.4 ?mm ? 18w 4d ?Nicolaides HC ?152.8 ?mm ?18w 2d ?Hadlock Cerebellum tr ?18.3 ? mm ?18w 1d ?Nicolaides AC ?130.3 ?mm ?18w 4d ?51% ?Hadlock Femur ?26.8 ? mm ?18w 1d ?Hadlock Humerus ?26.5 ?mm ? 18w 3d ?Viral Weight Calculation: EFW ? 235 ? g ? 39% ?Hadlock EFW (lb,oz) ? 0 lb 8 ?oz EFW by ?Hadlock ([id number]) Head / Face / Neck Biometry: Medical Equipment Repairer ? 6.0 ? mm CM ?1.9 ? [...] apical view. RVOT view. Aortic arch view. 0-hwvysk-yvfraby view. ? Diaphragm. Abdomen ? Kidneys. Spine [...] AUNDREAJuly Study Date: 05/05/2023 1:32pm Pat. NO: [id number] Referring MD: JONN GIRON Site: [facility] Tablet Tester: Bladimir Cox RDMS : 1990 Age: 33 [...] 0 lb 8 oz EFW by Hadlock ([id number]-FL) Head / Face / Neck Biometry: Medical Equipment Repairer 6.0 mm CM 1.9 mm Nasal bone [...] Suboptimal apicalview. RVOT view. Aortic arch view. 8-tqnzdz-lpaozrr view. Diaphragm. Abdomen Kidneys. Spine Sacral spine. [...] appears long and closed. Mohsen Lundy MD [facility] US ORDERABLE S * HIV Screening (02/29/2008 1:52 PM SOCIAL SCIENCE TEACHER) Pathologist [facility] HIV 1&2 Antibody Negative NEG [facility] 02/29/2008 1:52 PM SOCIAL SCIENCE TEACHER 02/29/2008 1:53 PM SOCIAL SCIENCE TEACHER Iza Mancilla MD LABORATORY [facility] * PAP SMEAR (08/26/1998 1:18 PM CDT) Pathologist [facility] Unlabelled [facility] Source VAG,CERV,E NDOCERV [facility] LMP POST [facility] PARA 3 [facility] 2 [facility] Clinical History DNR [facility] Therapy DNR [facility] Last Pap Diagnosis WITHIN NORMAL LIMITS [facility] PAP Date [id number] [facility] Specimen # DNR [facility] Tissue DNR [facility] Tissue Date DNR [facility] Statement of Adequacy [facility] Comment: SATISFACTORY FOR INTERPRETATION POST MENOPAUSAL PATIENT. ??NO ENDOCERVICAL CELLS SEEN. General Categorization DNR [facility] Descriptive Diagnosis [facility] Comment: WITHIN NORMAL LIMITS ATROPHIC CELL PATTERN Recommendations DNR QUES [facility] DNR 114,,,,,, [facility] DNR DNR [facility] DNR DNR [facility] DNR DNR [facility] . [facility] Comment: ?PAP SMEARS ARE SUBJECT TO BOTH FALSE NEGATIVE AND FALSE ? POSITIVE RESULTS EVIDENCED BY DATA PUBLISHED IN THE ? MEDICAL LITERATURE. ??YOUR PATIENT'S RESULT SHOULD BE ? INTERPRETED IN THIS CONTEXT, TOGETHER WITH THE PATIENT'S ? HISTORY AND CLINICAL FINDINGS. TESTING LOCATION ? THIS TEST [facility]FOR[facility] AT [facility] ? [address] [facility]. [id number] ? PHONE NUMBERS FOR CYTOLOGY INQUIRES, INCLUDING SLIDE REQUESTS ? EXT. [id number] ?? EXT. [id number] 08/24/1998 Fannie Hart MD LABORATORY Performing Organization Address City/State/[facility] Co de Phone Number [facility] from Last 3 Months or Most Recently Relevant to Health Maintenance Care Teams Compressed Air Pile Driver Operator Relationship Specialty Start Date End Date Mj Oliver PA-C [address] [address] PCP - General Family Practice 04/24/11
--- OUTSIDE RECORDS SUMMARY | 2023-07-19 13:53 | XMS_ITS | Encounter Summary ---
Author Name Unknown Organization [facility] Address [address] [address] Care Team Providers Care Music Box Mechanic Name Role Phone Mj Oliver PA-C Primary Care Provide r Reason for Visit * Reason Comments Ultrasound L2-chronic hep B Encounter Details Date Type Department Care Team (Late st Contact Info) Description 04/26/2023 PRE VISIT [facility] [place] [address] [facility] [place] [address] Anuja Jimenez RN Ultrasound (L2-chronic hep B) Social History Tobacco Use Types Packs/Day Years [...] on filedocumented in this encounter Care Teams Music Box Mechanic Relationship Specialty Start Date End Date Mj Oliver PA-C [address] [address] PCP - General Family Practice 04/24/11 documented as of this encounter
--- OUTSIDE RECORDS SUMMARY | 2023-07-19 13:53 | XMS_ITS | Encounter Summary ---
Author Name Unknown Organization [place] Address [facility] [place] [address] Care Team Providers Care Visual Lead Name Role Phone Mj Oliver PA-C Primary Care Provide r Reason for Visit * Reason Comments Ultrasound RL2- Subopt anatomy Encounter Details Date Type Department Care Team (Late st Contact Info) Description 06/09/2023 2:45 PM BANK SALES AND SERVICE MANAGER Office Visit [facility] [place] [address] [place] [address] Chloe Crowder MD [address] [place] [address] Skip Hilliard MD [address] [place] [address] Encounter for follow-up ultrasound of anatomy (Primary Dx) Social History Tobacco Use Types [...] on file documented as of this encounter Progress Notes * Skip Hilliard MD - 06/09/2023 2:45 PM CST Please see Imaging tab under Chart Review for details of today's US at the [facility]. Skip Hilliard MD Maternal- Medicine SALES AND SERVICE MANAGER documented in this encounter Nursing Notes * Loretta Zapata RN - 06/09/2023 2:45 PM CST Patient reports positive movement, denies pain, denies contractions/pre- term labor, leaking of fluid, or bleeding. Patient denies headache, visual changes, nausea/vomiting, epigastric pain related to preeclampsia. Education provided to patient on RL2. SBAR given to [facility] MD, see their note in Epic. Loretta Zapata RN SALES AND SERVICE MANAGER documented in this encounter Plan of Treatment Not on file documented as of this encounter Visit Diagnoses Diagnosis Encounter for follow-up ultrasound of anatomy- Primary documented in this encounter Care Teams Visual Lead Relationship Specialty Start Date End Date Mj Oliver PA-C [address] [address] PCP - General Family Practice 04/24/11 documented as of this encounter
--- OUTSIDE RECORDS SUMMARY | 2023-07-19 13:53 | XMS_ITS | Encounter Summary ---
Author Name Unknown Organization [place] Address [facility] [place] [address] Care Team Providers Care Clerk Name Role Phone Mj Oliver PA-C Primary Care Provide r Reason for Referral * Diagnostic Imaging Ultrasound (Routine) - Pending Review Specialty Diagnoses / Procedures Referred By Juana morales Referred To Contact Radiology. Diagnoses Encounter for follow-up ultrasound of anatomy Procedures [facility] US Comprehensive Single F/U Chloe Crowder MD [address] [facility] [address] [place] [address] Referral ID Status Reason Start Date Expiration Date V isits Requested Visits Authorized [id number] Pending Review 05/05/2023 05/04/2024 1 1 CONSULTANT Reason for Visit * Reason Comments Ultrasound L2-chronic viral hep atitis b * Consultation (Routine: Next available opening) - Pending Review Specialty Diagnoses / Procedures Referred By Juana morales Referred To Contact Diagnoses Hepatitis B carrier (H) Mohsen Lundy MD [address] [place] [address] Referral ID Status Reason Start Date Expiration Date V isits Requested Visits Authorized [id number] Pending Review 03/23/2023 03/22/2024 1 1 Encounter Details Date Type Department Care Team ([facility] st Contact Info) Description 05/05/2023 2:15 PM FARM CONSULTANT Office Visit [facility] Maternal Medicine [facility] [address] [place] [address] Chloe Crowder MD [address] [facility] [address] [place] [address] Encounter for follow-up ultrasound of anatomy (Primary Dx); Hepatitis B carrier (H) Social History Tobacco Use Types Packs/Day Years [...] as of this encounter Progress Notes * Chloe Crowder MD - 05/05/2023 2:15 PM CST Images from the original note were not included. Maternal- Medicine Consultation Zina Hernandez : 1990 REFERRAL: Zina Hernandez is a [address] by Dr[address] Giron for MFM consultation. HPI: Zina Hernandez is a 33 year old at 18w3d by 7w3d US in the setting of no LMP here for MFM consultation regarding Hepatitis B infection. She is here with her partner. Regarding her hepatitis B diagnosis, she has had this diagnosis since childhood. 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 On review of records, only relevant labs available for review include Hep BsAntigen positive; Hep Bs Antibody negative; Hep Bc Antibody positive. There is no viral load, Hep Be Antigen or liver enzymes available for review. Regarding her anxiety/depression, she is doing well on fluoxetine 40mg daily. She has a history of PCN allergy, she reports about 8 years ago after exposure to penicillin she noted hives. She took benadryl for this reaction. She has not had repeat exposure since. Obstetrics History: OB History Para Term AB Living 3 1 1 0 1 1 SAB IAB Ectopic Multiple Live Births 1 0 0 0 0 # Outcome Date GA Lbr Matt/2nd Weight Sex Delivery Anes PTL Lv 3 Current 2 SAB 12/2022 1 Term 10/15/08 38w0d 2.551 kg (5 lb 10 oz) F Vag-Spont Gynecologic History: - Menstrual history: LMP: unknown Past Medical History: Past Medical History: Diagnosis Date ADD (attention deficit disorder with hyperactivity) Asthma, mild intermittent Depression, anxiety 01/20/2011 Generalized anxiety disorder Hepatitis B dormant LSIL (low grade squamous intraepithelial lesion) on Pap smear 01/2011 BRAEDEN I on colp Past Surgical History: Past Surgical History: Procedure Laterality Date NO HISTORY OF SURGERY Current Medications: Prior to Admission medications Medication Sig Last Dose Taking? Auth Provider Longterm End Date albuterol (PROVENTIL HFA: VENTOLIN HFA) 108 (90 BASE) MCG/ACT inhaler Inhale 2 puffs into the lungsevery 6 hours as needed for shortness of breath / dyspnea. Mj Oliver PA-C cephALEXin (KEFLEX) 500 MG capsule Take 1 capsule (500 mg) by mouth 2 times daily Pauly Jimenes PA-C cetirizine (ZYRTEC) 10 MG tablet Take 1 tablet (10 mg) by mouth daily Need appointment for refills Pauly Jimenes PA-C clindamycin (CLINDAMAX) 1 % lotion Apply topically 2 times daily Pauly Jimenes PA-C CLONAZEPAM PO Take 5 mg by mouth Once daily Reported, Patient Yes doxycycline Monohydrate 100 MG TABS 1 tab PO BID Pauly Jimenes PA-C fluconazole (DIFLUCAN) 200 MG tablet 1 tab PO at symptom onset, 1 tab PO 3 days later if sx still present Pauly Jimenes PA-C hydrOXYzine (ATARAX) 25 MG tablet Take 1-2 tablets (25-50 mg) by mouth At Bedtime Pauly Jimenes PA-C levonorgestrel-ethinyl estradiol (SEASONALE) 0.15-0.03 MG per tablet Take 1 tablet by mouth daily Claire Pierre, DO Yes Allergies: Doxycycline and Penicillins Social History: Denies use of alcohol, drugs or smoking. Family History: Denies history of genetic disorders or congenital anomalies for her partner (she is adopted). ROS: 10-point ROS negative except as in HPI PHYSICAL EXAM: Deferred ASSESSMENT/PLAN: Zina Hernandez is a 33 year old at 18w3d by 7w3d US in the setting of no LMP here for MFM consultation regarding Hepatitis B infection. Hepatitis B Hepatitis B is virus which is typically acquired through direct contact with bodily fluids of a carrier, and may also be vertically transmitted between the mother and the child during childbirth or transplacentally. Chronic carriers with persistent viral load have increased risks of longer term sequelae such as liver damage, cirrhosis and hepatocellular carcinoma (patient with unknown viral load). Although vertical transmission of Hepatitis B may be as high as 85-95% in women with primary infection in , chronic carriers have a lower transmission rate dependent upon whether the EAg/EAb are postiive or negative. It is important to assess for co-infection with other viruses including h epatitis A, hepatitis C (negative), and HIV (negative). immunoprophylaxis reduces the riskof HB transmission by 85-95%. Lamivudine and tenofovir are being explored to decrease transmission,especially in patients co- infected with HIV and HBV, and those with HBEAg. Recommendations: Strongly encourage establishing care with gastroenterology for both and lifetime management. Obtain HB DNA viral load level, liver panel, and HBeAg and anti-HBe. Based on results of above labs may be candidate for antiviral treatment by gastroenterology if viral load is high. If initial viral load is low, repeat testing at 26-28 weeks and consider initiating antiviral medication for reduction of maternal to child transmission. Check liver function tests every trimester or as indicated. Send laboratory tests to evaluate for co-infection with hepatitis A. If non- immune to hepatitis A, recommend immunization. Avoid internal monitoring or invasive procedures intrapartum. Avoid operative vaginal delivery if possible. delivery reserved for routine obstetric conditions. Evaluation of by pediatricians after delivery. Hepatitis B IgG and vaccination should be provided to the within 12 hours of delivery. is not contraindicated if the receives both. Other Recommendations: referral to allergy/immunology for penicillin allergy testing (patient declines in ) Follow up in 3 weeks to reassess suboptimally visualized anatomy. Growth ultrasound at 28 and 34 weeks. Weekly testing starting at 34 weeks. Continue low dose aspirin. Thank you for allowing us to participate in the care of your patient. Please do not hesitate to contact us if you have further questions regarding the management of your patient. I have seen and evaluated the patient. I spent a total of 60 minutes on the date of this encounter including preparing to see the patient (reviewing medical records/tests), counseling and discussing the plan of care, documenting the visit in the electronic medical record, and communicating with other health rn home care and/or care coordination. Chloe Crowder MD Maternal Medicine 05/05/2023 3:36 PM CONSULTANT documented in this encounter Nursing Notes * Anuja Jimenez, NAAY - 05/05/2023 2:15 PM CST Patient presents to [facility] for L2 at 18w3d due to chronic viral hep b. Positive movement. DeniesLOF, vaginal bleeding or cramping/contractions. SBAR given to [facility] MD, see their note in Epic. CONSULTANT documented in this encounter Plan of Treatment Not on file documented as of this encounter Results * [facility] US Comprehensive Single F/U (06/09/2023 3:09 PM FARM CONSULTANT) Anatomical Region Laterality Modality Ultrasound 06/09/2023 2:18 PM FARM CONSULTANT Impressions 06/09/2023 3:19 PM FARM CONSULTANT IMPRESSION ----- 1) Growth parameters and estimated weight were consistent with appropriate for gestational age pattern of growth. 2) anatomy appeared normal for gestational age. Narrative 06/09/2023 3:19 PM FARM CONSULTANT ?Comp Follow Up ----- Pat. Name: July ? Study Date: ??06/09/2023 2:18pm Pat. NO: ??[id number] ?Referring ??MD: JONN GIRON Site: ??[facility] ? Incubator Operator: Bladimir Cox RDMS : ??1990 ?Age: ?? [...] 1 lb 4 ?oz EFW by ?Hadlock ([id number]) Head / Face / Neck Biometry: CM ?5.9 ? mm ANATOMY ----- The following structures appear normal: Head / Neck ? Cranium. Head size. Head shape. Lateral ventricles. Midline falx. Cavum septi pellucidi. Cerebellum. Cisterna magna. Thalami. Face ? Lips. Profile. Nose. Maxilla. Mandible. Heart / Thorax ?4-chamber view. RVOT view. LVOT view. Aortic arch view. 6-jkxcud-zirxanh view. ? Diaphragm. Abdomen ? Stomach. Kidneys. [...] AUNDREAJuly Study Date: 06/09/2023 2:18pm Pat. NO: [id number] Referring MD: JONN GIRON Site: [facility] Incubator Operator: Bladimir Cox RDMS : 1990 Age: 33 [...] 1 lb 4 oz EFW by Hadlock ([id number]) Head / Face / Neck Biometry: CM 5.9 mm ANATOMY ----- The following structures appear normal: Head / Neck Cranium. Head size. Head shape.Lateral ventricles. Midline falx. Cavum septi pellucidi. Cerebellum.Cisterna magna. Thalami. Face Lips. Profile. Nose. Maxilla.Mandible. Heart / Thorax 4-chamber view. RVOT view. LVOT view.Aortic arch view. 2-mzfqlr-nbxkhyb view. Diaphragm. Abdomen Stomach. Kidneys. Bladder. Spine [...] normal for gestational age. Chloe Crowder MD [facility] US ORDERABLE S documented in this encounter Visit Diagnoses Diagnosis Encounter for follow-up ultrasound of anatomy- Primary Hepatitis B carrier (H) Hepatitis B carrier Encounter for follow-up ultrasound of anatomy documented in this encounter Care Teams Clerk Relationship Specialty Start Date End Date Mj Oliver PA-C [address] [address] PCP - General Family Practice 04/24/11 documented as of this encounter
--- OUTSIDE RECORDS SUMMARY | 2023-07-19 13:53 | XMS_ITS | Encounter Summary ---
Author Name Unknown Organization [place] Address [address] [place] [address] Care Team Providers Care Aviation Ordnance Officer Name Role Phone Mj Oliver PA-C Primary Care Provide r Encounter Details Date Type Department Care Team (Late st Contact Info) Description 11/18/2011 [facility] Medical Advice [address] [address] [facility] Social History Tobacco Use Types Packs/Day [...] on filedocumented in this encounter Care Teams Aviation Ordnance Officer Relationship Specialty Start Date End Date Mj Oliver PA-C [address] [address] PCP - General Family Practice 04/24/11 documented as of this encounter
--- OUTSIDE RECORDS SUMMARY | 2023-07-19 13:53 | XMS_ITS | Referral Summary ---
Author Name Unknown Organization [place] Address [address] [place] [address] Care Team Providers Care Javascript Programmer Name Role Phone jM Oliver PA-C Primary Care Provide r Encounters Date Type Department Care Team Description 06/09/2023 Travel 06/09/2023 2:45 PM CANINE SERVICE TEACHER Office Visit [facility] Medicine [place] [address] [place] [address] Chloe Crowedr MD Rauk, Skip Stone MD Encounter for follow-up ultrasound of anatomy (Primary Dx) 06/09/2023 2:11 PM CANINE SERVICE TEACHER - 06/09/2023 11:59 PM CANINE SERVICE TEACHER Hospital Encounter [facility] Medicine [facility] [address] [place] [address] Chloe Crowder MD Rauk, Phillip Neil, MD Encounter for follow-up ultrasound of anatomy Discharge Disposition: Home or Self Care 05/05/2023 Travel 05/05/2023 1:30 PM CANINE SERVICE TEACHER - 05/05/2023 11:59 PM CANINE SERVICE TEACHER Hospital Encounter [facility] Medicine [facility] [address] [place] [address] Chloe Crowder MD Hepatitis B carrier (H) Discharge Disposition: Home or Self Care 05/05/2023 2:15 PM CANINE SERVICE TEACHER Office Visit [facility] Medicine [facility] [address] [place] [address] Chloe Crowder MD Encounter for follow-up ultrasound of anatomy (Primary Dx); Hepatitis B carrier (H) 04/26/2023 PRE VISIT [facility] Maternal Medicine [facility] [address] [place] [address] Anuja Jimenez RN Ultrasound (L2-chronic hep B) from Last 3 Months Allergies Active Allergy Reactions Criticality Noted Date [...] 02/19/2016 Active cetirizine (ZYRTEC) 10 MG tabletIndications:I tching Take 1 tablet (10 mg) by mouth [...] Age 20. Plan colp per MD 03/16/11: [place] - BRAEDEN I. Plan pap in 6 [...] updated by automated process. Provider to review Immunizations Name Administration Dates Next Due HPV 10/26/2006 MMR 11/19/2002 TD,PF 7+ (Tenivac) 10/02/2003,11/19/2002 TDAP (Adacel,Boostrix) 04/22/2011 Social History Tobacco Use Types Packs/Day Years [...] Comments Blood Pressure 135/75 02/19/2016 11:55 AM CANINE SERVICE TEACHER Pulse 93 02/19/2016 11:55 AM CANINE SERVICE TEACHER Temperature 36.6 ??C (97.9 ??F) 05/30/2013 9:57 AM CS T Respiratory Rate 16 06/20/2011 2:44 PM CDT Oxygen Saturation 97% 02/19/2016 11:55 AM CANINE SERVICE TEACHER Inhaled Oxygen Concentration - - Weight 59 kg (130 lb) 05/30/2013 9:57 AM CANINE SERVICE TEACHER Height 152.4 cm (5') 05/30/2013 9:57 AM CANINE SERVICE TEACHER Body Mass Index 25.39 05/30/2013 9:57 AM CANINE SERVICE TEACHER Plan of Treatment Not on file Procedures Procedure Name Priority Date/Time Associated Diagnosis Comments [facility] US COMPREHENSIVE SINGLE F/U Routine 06/09/2023 3:09 PM CANINE SERVICE TEACHER Encounter for follow-up ultrasound of anatomy [facility] US COMPREHENSIVE SINGLE Routine 05/05/2023 2:39 PM CANINE SERVICE TEACHER Hepatitis B carrier (H) ASTHMA ACTION PLAN Routine 02/20/2013 10 :19 AM CANINE SERVICE TEACHER Intermittent asthma HCL HIV 1 & 2 ANTIBODY Routine 8 1:52 PM CANINE SERVICE TEACHER Supervision of Other Normal HCL PAP SMEAR Routine 08/26/1998 1:18 PM CDT Gynecologic Examination from Last 3 Months or Most Recently Relevant to Health Maintenance Results * [facility] US Comprehensive Single F/U (06/09/2023 3:09 PM CANINE SERVICE TEACHER) Anatomical Region Laterality Modality Ultrasound 06/09/2023 2:18 PM CANINE SERVICE TEACHER Impressions 06/09/2023 3:19 PM CANINE SERVICE TEACHER IMPRESSION ----- 1) Growth parameters and estimated weight were consistent with appropriate for gestational age pattern of growth. 2) anatomy appeared normal for gestational age. Narrative 06/09/2023 3:19 PM CANINE SERVICE TEACHER ?Comp Follow Up ----- Pat. Name: July ? Study Date: ??06/09/2023 2:18pm Pat. NO: ??[id number] ?Referring ??MD: JONN GIRON Site: ??[facility] ? Assistant Professor Of Surgery: Bladimir Cox RDMS : ??1990 ?Age: ?? [...] Biometry: BPD ?52.0 ?mm ? 21w 5d ?Serjio JIANG ?74.8 ?mm ? 23w 0d ?Nicolaides ?203.8 ?mm ?22w 4d ?Hadlock Cerebellum tr ?25.6 ? mm ?23w 4d ?Nicolaides AC ?182.5 ?mm ?23w 1d ?30% ?Hadlock Femur ?40.9 ? mm ?23w 2d ?Hadlock Weight Calculation: EFW ? 556 ? g ? 25% ?Hadlock EFW (lb,oz) ? 1 lb 4 ?oz EFW by ?Hadlock ([id number]-FL) Head / Face / Neck Biometry: CM ?5.9 ? mm ANATOMY ----- The following structures appear normal: Head / Neck ? Cranium. Head size. Head shape. Lateral ventricles. Midline falx. Cavum septi pellucidi. Cerebellum. Cisterna magna. Thalami. Face ? Lips. Profile. Nose. Maxilla. Mandible. Heart / Thorax ?4-chamber view. RVOT view. LVOT view. Aortic arch view. 8-ggbwpu-cqfnetg view. ? Diaphragm. Abdomen ? Stomach. Kidneys. [...] AUNDREAJuly Study Date: 06/09/2023 2:18pm Pat. NO: [id number] Referring MD: JONN GIRON Site: [facility] Assistant Professor Of Surgery: Bladimir Cox RDMS : 1990 Age: 33 ----- INDICATION ----- Suboptimal anatomy on prior u/s. Elevated BMI: 46. Chronic viral Hepatitis B. METHOD ----- Transabdominal ultrasound examination. View: Sufficient ----- Forman . Number of fetuses: 1 DATING ----- DateDetailsGest. age KIARA Prior assessment 02/17/2023 GA: 7 w +3 d23 w + 3 d 10/03/2023 U/S 4based upon AC, BPD, Femur, HC22 w + [...] 1 lb 4 oz EFW by Hadlock ([id number]-HG-HB-FL) Head / Face / Neck Biometry: CM 5.9 mm ANATOMY ----- The following structures appear normal: Head / Neck Cranium. Head size. Head shape.Lateral ventricles. Midline falx. Cavum septi pellucidi. Cerebellum.Cisterna magna. Thalami. Face Lips. Profile. Nose. Maxilla.Mandible. Heart / Thorax 4-chamber view. RVOT view. LVOT view.Aortic arch view. 6-ysejtm-kxtomdn view. Diaphragm. Abdomen Stomach. Kidneys. Bladder. Spine [...] normal for gestational age. Chloe Crowder MD [facility] US ORDERABLE S [facility] Comprehensive Single (05/05/2023 2:39 PM CANINE SERVICE TEACHER) Anatomical Region Laterality Modality Ultrasound 05/05/2023 1:32 PM CANINE SERVICE TEACHER Impressions 05/05/2023 4:01 PM CANINE SERVICE TEACHER IMPRESSION ----- 1. Forman intrauterine at [...] long and closed. Narrative 05/05/2023 4:01 PM CANINE SERVICE TEACHER ?Comprehensive ----- Pat. Name: July ? Study Date: ??05/05/2023 1:32pm Pat. NO: ??[id number] ?Referring ??: JONN GIRON Site: ??[facility] ? Assistant Professor Of Surgery: Bladimir Cox RDMS : ??1990 ?Age: ?? [...] 0 lb 8 ?oz EFW by ?Hadlock ([id number]-EX-MF-FL) Head / Face / Neck Biometry: Outcomes Analyst ? 6.0 ? mm CM ?1.9 ? [...] apical view. RVOT view. Aortic arch view. 1-vcvxlr-lvswyrl view. ? Diaphragm. Abdomen ? Kidneys. Spine [...] MD - 05/05/2023 Comprehensive ----- Pat. Name: July Study Date: 05/05/2023 1:[facility] Pat. NO: [id number] Referring MD: JONN GIRON Site: [facility] Assistant Professor Of Surgery: Bladimir Cox RDMS : 1990 Age: 33 [...] 0 lb 8 oz EFW by Hadlock ([id number]-FL) Head / Face / Neck Biometry: Outcomes Analyst 6.0 mm CM 1.9 mm Nasal bone [...] Suboptimal apicalview. RVOT view. Aortic arch view. 7-zlstxh-ppumbza view. Diaphragm. Abdomen Kidneys. Spine Sacral spine. [...] epic [facility] the [facility] IMPRESSION ----- 1. Forman intrauterine at 18w [...] appears long and closed. Mohsen Lundy MD [facility] US ORDERABLE S * HIV Screening (02/29/2008 1:52 PM CANINE SERVICE TEACHER) Pathologist [facility] HIV 1&2 Antibody Negative NEG [facility] 02/29/2008 1:52 PM CANINE SERVICE TEACHER 02/29/2008 1:53 PM CANINE SERVICE TEACHER Iza Mancilla MD LABORATORY [facility] * PAP SMEAR (08/26/1998 1:18 PM CDT) Pathologist [facility] Biopsy Sent DNR [facility] Source VAG,CERV,E NDOCERV [facility] LMP POST [facility] PARA 3 [facility] 2 [facility] Clinical History DNR [facility] Therapy DNR [facility] Last Pap Diagnosis WITHIN NORMAL LIMITS [facility] PAP Date [id number] [facility] Specimen # DNR [facility] Tissue DNR [facility] Tissue Date DNR [facility] Statement of Adequacy [facility] Comment: SATISFACTORY FOR INTERPRETATION POST MENOPAUSAL PATIENT. ??NO ENDOCERVICAL CELLS SEEN. General Categorization DNR [facility] Descriptive Diagnosis [facility] Comment: WITHIN NORMAL LIMITS ATROPHIC CELL PATTERN Recommendations DNR [facility] DNR 114,,,,,, [facility] DNR DNR [facility] DNR DNR [facility] DNR DNR [facility] . [facility] Comment: ?PAP SMEARS ARE SUBJECT TO BOTH FALSE NEGATIVE AND FALSE ? POSITIVE RESULTS EVIDENCED BY DATA PUBLISHED IN THE ? MEDICAL LITERATURE. ??YOUR PATIENT'S RESULT SHOULD BE ? INTERPRETED IN THIS CONTEXT, TOGETHER WITH THE PATIENT'S ? HISTORY AND CLINICAL FINDINGS. TESTING LOCATION ? THIS [facility]FOR[facility] [address]. [id number] ? PHONE NUMBERS FOR CYTOLOGY INQUIRES, INCLUDING SLIDE REQUESTS ? EXT. [id number] ?? EXT. [id number] 08/24/1998 Fannie Hart MD LABORATORY Performing Organization Address City/State/[facility] Co de Phone Number [facility] from Last 3 Months or Most Recently Relevant to Health Maintenance Care Teams Javascript Programmer Relationship Specialty Start Date End Date Mj Oliver PA-C [address] [address] PCP - General Family Practice 04/24/11
--- OUTSIDE RECORDS SUMMARY | 2023-07-19 13:53 | XMS_ITS | Clinical Summary ---
Author Name Unknown Organization [facility] Address [place], [place] [address] Care Team Providers Care Director Advertising Name Role Phone None Primary Care Provider Unavailabl e Allergies Active Allergy Reactions Criticality Noted Date Comments Morphine Nausea And Vomiting 12/08/2012 Medications Medication Sig Dispensed Refills Start Date End Date Status clonazePAM (KLONOPIN) 0.5 mg tablet Take 0.5 mg by mouth 2 times daily if needed. Active HYDROcodone-acetam inophen, 5-325 mg, (NORCO) per tablet Take 1 tablet by mouth every 4 hours if needed for Pain. Max acetaminophen dose: 4000mg in 24 hrs. 15 tablet 0 12/08/2012 Active Active Problems Problem Noted Date Diagnosed Date Normal vaginal delivery 10/15/2008 Smoker 10/15/2008 Depression 10/15/2008 Hepatitis B carrier 10/15/2008 Adult BMI 30+ 10/15/2008 Unspecified asthma(493.90) 10/15/2008 Resolved Problems Problem Noted Date Diagnosed Date Resolved Date Supervision of normal first 10/15/2008 10/17/2008 Social History Tobacco Use Types Packs/Day Years Used Date Smoking Tobacco: Every Day Cigarettes 0.5 4 Alcohol Use Standard Drinks/Week Comments No 0 (1 standard drink = 0.6 oz pur e alcohol) Sex and Gender Information Value Date Recorded Sex Assigned at Not on file Gender Identity Not on file Sexual Orientation Not on file Obstetrics History Para Term AB IAB SAB Ectopic Multiple Livin g Live Births 1 0 0 0 0 0 0 0 0 0 Date Outcome GA Total Labor Labor/2nd/3rd Weight Sex Delivery Anes PTL Lynne A1 A5 Name Cl in Comments:System Genera doyle. Please review and update details. Last Filed Vital Signs Vital Sign Reading Time Taken Comments Blood Pressure 128/56 12/08/2012 2:09 AM CDT Pulse 92 12/08/2012 2:09 AM CDT Temperature 37.1 ??C (98.8 ??F) 12/08/2012 12:47 AM C DT Respiratory Rate 16 12/08/2012 12:47 AM CDT Oxygen Saturation 99% 12/08/2012 2:09 AM CDT Inhaled Oxygen Concentration - - Weight 48.5 kg (107 lb) 12/08/2012 12:47 AM CDT Height 152.4 cm (5') 12/08/2012 12:47 AM CDT Body Mass Index 20.9 12/08/2012 12:47 AM CDT Plan of Treatment Health Maintenance Due Date Last Done Comments Tdap 2001 Depression screening for age 12+ 2002 HIV for age 15-65 2005 BMI (ht and wt on same day) for age 18+ 02/24/2008 Hepatitis C screening for ag e 18-79 02/24/2008 Tetanus booster 2010 COVID-19 vaccine series (2022- season) 2022 Influenza for age 9-49 12/03/2023 Pap test for age 21-65 07/13/2024 , 07/13/2021 Pneumococcal series for age 6-64 Aged Out No longer eligible b ased on patient's age to complete this topic Procedures Procedure Name Priority Date/Time Associated Diagnosis Comments HPV THIN PREP Routine 07/13/2021 5:30 PM CDT from Last 3 Months or Most Recently Relevant to Health Maintenance Results * HPV HIGH RISK (07/13/2021 5:30 PM CDT) TYPE 16 Negative Negative 07/16/2021 2:43 PM CDT [facility] TYPE 18 Negative Negative 07/16/2021 2:43 PM CDT [facility] OTHER HIGH RISK TYPES Negative Negative 07/16/2021 2:43 PM CDT [facility] Other (Cervical/Vagina l) 07/13/2021 5:30 PM CDT 07/15/2021 8:15 AM CDT Narrative [facility] - 07/16/2021 2:43 PM CDT HPV types 16, 18, 31, 33, 35, 39, 45, 51, 52, 56, 58, 59, 66 and 68 DNA were undetectable or below the pre-set threshold. Methodology: Junior Job 4800 HPV Test July Nel [facility] [address] [place] [address], from Last 3 Months or Most Recently Relevant to Health Maintenance Advance Directives * Full Code (Latest Code Status on File) Date Activated Date Inactivated Comments 10/15/2008 7:15 AM 10/17/2008 7:25 PM * Full Code Date Activated Date Inactivated Comments 10/14/2008 7:48 PM 10/15/2008 7:15 AM Care Teams Director Advertising Relationship Specialty Start Date End Date None . PCP - General 12/08/12
--- OUTSIDE RECORDS SUMMARY | 2023-07-19 13:53 | XMS_ITS | Encounter Summary ---
Author Name Unknown Organization [facility] Address [address] [place] [address] Care Team Providers Care Hay Sorter Name Role Phone Mj Oliver PA-C Primary Care Provide r Encounter Details Date Type Department Care Team (Latest Contact Info) Description 06/09/2023 Travel Social History Tobacco Use Types Packs/Day Years [...] on filedocumented in this encounter Care Teams Hay Sorter Relationship Specialty Start Date End Date Mj Oliver PA-C [address] [address] PCP - General Family Practice 04/24/11 documented as of this encounter
--- OUTSIDE RECORDS SUMMARY | 2023-07-19 13:53 | XMS_ITS | Encounter Summary ---
Author Name Unknown Organization [facility] Address [address] [place] [address] Care Team Providers Care Supervisor Pre Wave Name Role Phone Mj Oliver PA-C Primary Care Provide r Encounter Details Date Type Department Care Team (Latest Contact Info) Description 05/05/2023 Travel Social History Tobacco Use Types Packs/Day [...] on filedocumented in this encounter Care Teams Supervisor Pre Wave Relationship Specialty Start Date End Date Mj Oliver PA-C [address] [address] PCP - General Family Practice 04/24/11 documented as of this encounter
--- OUTSIDE RECORDS SUMMARY | 2023-07-19 13:53 | XMS_ITS | Encounter Summary ---
Author Name Unknown Organization [facility] Address [address] [place] [address] Care Team Providers Care Medicaid Nurse Name Role Phone Mj Oliver PA-C Primary Care Provide r Encounter Details Date Type Department Care Team (Late st Contact Info) Description 07/06/2017 MyC Medical Advice [address] [address] Peri Carter RN Social History Tobacco Use Types Packs/Day Years [...] on filedocumented in this encounter Care Teams Medicaid Nurse Relationship Specialty Start Date End Date Mj Oliver PA-C [address] [address] PCP - General Family Practice 04/24/11 documented as of this encounter
--- OUTSIDE RECORDS SUMMARY | 2023-07-19 13:53 | XMS_ITS | Encounter Summary ---
Author Name Unknown Organization [facility] Address [address] [place] [address] Care Team Providers Care Acupressurist Name Role Phone Mj Oliver PA-C Primary Care Provide r Reason for Referral * Diagnostic Imaging Ultrasound (Routine) - Pending Review Specialty Diagnoses / Procedures Referred By Contac t Referred To Contact Radiology. Diagnoses Hepatitis B carrier (H) Procedures [facility] US Comprehensive Single Mohsen Lundy MD [address] [place] [address] Referral ID Status Reason Start Date Expiration Date V isits Requested Visits Authorized [id number] Pending Review 03/23/2023 03/22/2024 1 1 PAINTER Reason for Visit * Diagnostic Imaging Ultrasound (Routine) - Pending Review Specialty Diagnoses / Procedures Referred By Contac t Referred To Contact Radiology. Diagnoses Hepatitis B carrier (H) Procedures [facility] US Comprehensive Mohsen Elizabeth MD [address] [address] Referral ID Status Reason Start Date Expiration Date V isits Requested Visits Authorized [id number] Pending Review 03/23/2023 03/22/2024 1 1 Encounter Details Date Type Department Care Team (Latest Contact Info) Description 05/05/2023 1:30 PM ACID PAINTER - 05/05/2023 11:59 PM ACID PAINTER Hospital Encounter [facility] Maternal Medicine [facility] [address] [facility] [address] [place] [address] Chloe Crowder MD [address] [place] [address] Hepatitis B carrier (H) Discharge Disposition: Home or Self Care Social [...] Procedure Name Priority Date/Time Associated Diagnosis Comments [facility] US COMPREHENSIVE SINGLE Routine 05/05/2023 2:39 PM ACID PAINTER Hepatitis B carrier (H) documented in this encounter Results * [facility] US Comprehensive Single (05/05/2023 2:39 PM ACID PAINTER) Anatomical Region Laterality Modality Ultrasound 05/05/2023 1:32 PM ACID PAINTER Impressions 05/05/2023 4:01 PM ACID PAINTER IMPRESSION ----- 1. Forman intrauterine at 18w [...] long and closed. Narrative 05/05/2023 4:01 PM ACID PAINTER ?Comprehensive ----- Pat. Name: AUNDREA, JULY ? Study Date: ??05/05/2023 1:32pm Pat. NO: ??[id number] ?Referring ??MD: JONN GIRON Site: [facility] ? Traffic Signal Mechanic: Bladimir Cox RDMS : ??1990 ?Age: ?? [...] 0 lb 8 ?oz EFW by ?Hadlock ([id number]) Head / Face / Neck Biometry: Relations Liaison ? 6.0 ? mm CM ?1.9 ? [...] apical view. RVOT view. Aortic arch view. 6-yklqbl-qvqfxvg view. ? Diaphragm. Abdomen ? Kidneys. Spine [...] ----- Pat. Name: July Study Date: 05/05/2023 1:32pm Pat. NO: [id number] Referring MD: JONN GIRON Site: [facility] Traffic Signal Mechanic: Bladimir Cox RDMS : 1990 Age: 33 [...] 0 lb 8 oz EFW by Hadlock ([id number]) Head / Face / Neck Biometry: Relations Liaison 6.0 mm CM 1.9 mm Nasal bone [...] Suboptimal apicalview. RVOT view. Aortic arch view. 3-ybiibg-lmcwlth view. Diaphragm. Abdomen Kidneys. Spine Sacral spine. [...] today's evaluation or if [facility], please contact the [facility]. [...] appears long and closed. Mohsen Lundy MD [facility] US ORDERABLE S documented in this encounter Visit Diagnoses Diagnosis Hepatitis B carrier (H) Hepatitis B carrier documented in this encounter Care Teams Acupressurist Relationship Specialty Start Date End Date Mj Oliver PA-C [address] [address] PCP - General Family Practice 04/24/11 documented as of this encounter
--- NOTE | 2023-07-19 15:35 | PC.OBNST ---
NST Note NST Note Start: 07/19/23 13:56 Freq: ONCE Status: Active Protocol: Document 07/19/23 14:42 WK (Rec: 07/19/23 15:35 WK [id number]) NST Note 3 Para (# of births) 1 EDC 10/03/23 Gestational Age In Weeks & Days 29 Weeks & 1 Days Patient Presented with Complaint(s) of Other Other Complaints Pt presents to the Center for evaluation after talking to [facility] triage nurse. Pt c/o eye floaters and at times appear metallic. HUTCHISON, intense heartburn and edema. Upon arrival pt denies floaters and HUTCHISON. Does c/o intense heartburn and edema of her hands. Reactive Yes ANAY Green RNC Date 07/19/23 Reactive Yes ANAY Mueller cNM Date 07/19/23 OB NST charge Yes Complete NST Note via Write Note Yes The provider's electronic signature indicates the NST is reactive/appropriate for gestational age. *Note to provider: If an addendum is required, open the patient's chart and click on the note under the Nurse/Allied Health tab.
== END 2023-07-19 15:02 | disposition home or self-care (01) ==
LOC: OB OUT 13:49 → OB 13:50
PROVIDERS: Visit Provider Advanced Practice Midwife
DX: O26.893 Other specified pregnancy related conditions, third trimester (principal); R51.9 Headache, unspecified; R12 Heartburn; Z3A.29 29 weeks gestation of pregnancy
CPT/HCPCS: 59025; G0463

== ENCOUNTER 2023-07-28 14:55 | Outpatient (CLI) | payer BC, SELFPAY ==
--- OUTSIDE RECORDS SUMMARY | 2023-08-02 07:22 | XMS_ITS | Referral Summary ---
Author Name Unknown Organization [facility] Address [address] [place] [address] Care Team Providers Care Marketing Teacher Name Role Phone Mj Oliver PA-C Primary Care Provide r Encounters Date Type Department Care Team Description 06/09/2023 Travel 06/09/2023 2:45 PM CHURCH BUSINESS ADMINISTRATOR Office Visit [facility] Medicine [place] [address] [place] [address] Chloe Crowder MD Rauk, Skip Stone MD Encounter for follow-up ultrasound of anatomy (Primary Dx) 06/09/2023 2:11 PM CHURCH BUSINESS ADMINISTRATOR - 06/09/2023 11:59 PM CHURCH BUSINESS ADMINISTRATOR Hospital Encounter [facility] Medicine [facility] [address] [place] [address] Chloe Crowder MD Rauk, Phillip Neil, MD Encounter for follow-up ultrasound of anatomy Discharge Disposition: Home or Self Care 05/05/2023 Travel 05/05/2023 1:30 PM CHURCH BUSINESS ADMINISTRATOR - 05/05/2023 11:59 PM CHURCH BUSINESS ADMINISTRATOR Hospital Encounter [facility] Medicine [facility] [address] [place] [address] Chloe Crowder MD Hepatitis B carrier (H) Discharge Disposition: Home or Self Care 05/05/2023 2:15 PM CHURCH BUSINESS ADMINISTRATOR Office Visit [facility] Medicine [facility] [address] [place] [address] Chloe Crowder MD Encounter for follow-up ultrasound of anatomy (Primary Dx); Hepatitis B carrier (H) from Last 3 Months Allergies Active Allergy [...] Age 20. Plan colp per MD 03/16/11: [place] - BRAEDEN I. Plan pap in 6 [...] Comments Blood Pressure 135/75 02/19/2016 11:55 AM CHURCH BUSINESS ADMINISTRATOR Pulse 93 02/19/2016 11:55 AM CHURCH BUSINESS ADMINISTRATOR Temperature 36.6 ??C (97.9 ??F) 05/30/2013 9:57 AM CS T Respiratory Rate 16 06/20/2011 2:44 PM CDT Oxygen Saturation 97% 02/19/2016 11:55 AM CHURCH BUSINESS ADMINISTRATOR Inhaled Oxygen Concentration - - Weight 59 kg (130 lb) 05/30/2013 9:57 AM CHURCH BUSINESS ADMINISTRATOR Height 152.4 cm (5') 05/30/2013 9:57 AM CHURCH BUSINESS ADMINISTRATOR Body Mass Index 25.39 05/30/2013 9:57 AM CHURCH BUSINESS ADMINISTRATOR Plan of Treatment Not on file Procedures Procedure Name Priority Date/Time Associated Diagnosis Comments [facility] US COMPREHENSIVE SINGLE F/U Routine 06/09/2023 3:09 PM CHURCH BUSINESS ADMINISTRATOR Encounter for follow-up ultrasound of anatomy [facility] US COMPREHENSIVE SINGLE Routine 05/05/2023 2:39 PM CHURCH BUSINESS ADMINISTRATOR Hepatitis B carrier (H) ASTHMA ACTION PLAN Routine 02/20/2013 10 :19 AM CHURCH BUSINESS ADMINISTRATOR Intermittent asthma HCL HIV 1 & 2 ANTIBODY Routine 8 1:52 PM CHURCH BUSINESS ADMINISTRATOR Supervision of Other Normal HCL PAP SMEAR Routine 08/26/1998 1:18 PM CDT Gynecologic Examination from Last 3 Months or Most Recently Relevant to Health Maintenance Results * [facility] US Comprehensive Single F/U (06/09/2023 3:09 PM CHURCH BUSINESS ADMINISTRATOR) Anatomical Region Laterality Modality Ultrasound 06/09/2023 2:18 PM CHURCH BUSINESS ADMINISTRATOR Impressions 06/09/2023 3:19 PM CHURCH BUSINESS ADMINISTRATOR IMPRESSION ----- 1) Growth parameters and estimated weight were consistent with appropriate for gestational age pattern of growth. 2) anatomy appeared normal for gestational age. Narrative 06/09/2023 3:19 PM CHURCH BUSINESS ADMINISTRATOR ?Comp Follow Up ----- Pat. Name: AUNDREAJuly ? Study Date: ??06/09/2023 2:18pm Pat. NO: ??[id number] ?Referring ??MD: JONN GIRON Site: ??[facility] ? Composite Assembler: Bladimir Cox RDMS : ??1990 ?Age: ?? [...] 1 lb 4 ?oz EFW by ?Hadlock ([id number]) Head / Face / Neck Biometry: CM ?5.9 ? mm ANATOMY ----- The following structures appear normal: Head / Neck ? Cranium. Head size. Head shape. Lateral ventricles. Midline falx. Cavum septi pellucidi. Cerebellum. Cisterna magna. Thalami. Face ? Lips. Profile. Nose. Maxilla. Mandible. Heart / Thorax ?4-chamber view. RVOT view. LVOT view. Aortic arch view. 1-hajaqw-jebtdmm view. ? Diaphragm. Abdomen ? Stomach. Kidneys. [...] AUNDREAJuly Study Date: 06/09/2023 2:18pm Pat. NO: [id number] Referring MD: JONN GIRON Site: [facility] Composite Assembler: Bladimir Cox RDMS : 1990 Age: 33 [...] 1 lb 4 oz EFW by Hadlock ([id number]-FL) Head / Face / Neck Biometry: CM 5.9 mm ANATOMY ----- The following structures appear normal: Head / Neck Cranium. Head size. Head shape.Lateral ventricles. Midline falx. Cavum septi pellucidi. Cerebellum.Cisterna magna. Thalami. Face Lips. Profile. Nose. Maxilla.Mandible. Heart / Thorax 4-chamber view. RVOT view. LVOT view.Aortic arch view. 8-favzzn-inkckvo view. Diaphragm. Abdomen Stomach. Kidneys. Bladder. Spine [...] anatomy appeared normal for gestational age. Chloe VOGT [facility] US ORDERABLE S * [facility] US Comprehensive Single (05/05/2023 2:39 PM CHURCH BUSINESS ADMINISTRATOR) Anatomical Region Laterality Modality Ultrasound 05/05/2023 1:32 PM CHURCH BUSINESS ADMINISTRATOR Impressions 05/05/2023 4:01 PM CHURCH BUSINESS ADMINISTRATOR IMPRESSION ----- 1. Forman intrauterine at 18w [...] long and closed. Narrative 05/05/2023 4:01 PM CHURCH BUSINESS ADMINISTRATOR ?Comprehensive ----- Pat. Name: July ? Study Date: ??05/05/2023 1:32pm Pat. NO: ??[id number] ?Referring ??MD: JONN GIRON Site: ??[facility] ? Composite Assembler: Bladimir Cox RDMS : ??1990 ?Age: ?? [...] 0 lb 8 ?oz EFW by ?Hadlock ([id number]) Head / Face / Neck Biometry: Biscuit Packer ? 6.0 ? mm CM ?1.9 ? [...] apical view. RVOT view. Aortic arch view. 9-gcnwnr-xtikhxh view. ? Diaphragm. Abdomen ? Kidneys. Spine [...] AUNDREAJuly Study Date: 05/05/2023 1:32pm Pat. NO: [id number] Referring MD: JONN GIRON Site: [facility] Composite Assembler: Bladimir Cox RDMS : 1990 Age: 33 [...] 0 lb 8 oz EFW by Hadlock ([id number]-FL) Head / Face / Neck Biometry: Biscuit Packer 6.0 mm CM 1.9 mm Nasal bone [...] Suboptimal apicalview. RVOT view. Aortic arch view. 9-rmdxfu-qkwbqhb view. Diaphragm. Abdomen Kidneys. Spine Sacral spine. [...] [facility] US ORDERABLE S * HIV Screening (02/29/2008 1:52 PM CHURCH BUSINESS ADMINISTRATOR) Pathologist [facility] HIV 1&2 Antibody Negative NEG [facility] 02/29/2008 1:52 PM CHURCH BUSINESS ADMINISTRATOR 02/29/2008 1:53 PM CHURCH BUSINESS ADMINISTRATOR Iza Mancilla MD LABORATORY [facility] * PAP SMEAR (08/26/1998 1:18 PM CDT) Pathologist [facility] Unlabelled R [facility] Biopsy Sent DNR [facility] Source VAG,CERV,E NDOCERV [facility] LMP POST [facility] PARA 3 [facility] 2 [facility] Clinical History DNR [facility] Therapy DNR [facility] Last Pap Diagnosis WITHIN NORMAL LIMITS [facility] PAP Date [id number] [facility] Specimen # DNR [facility] Tissue DNR [facility] Tissue Date DNR [facility] Statement of Adequacy [facility] Comment: SATISFACTORY FOR INTERPRETATION POST MENOPAUSAL PATIENT. ??NO ENDOCERVICAL CELLS SEEN. General Categorization DNR [facility] Descriptive Diagnosis [facility] Comment: WITHIN NORMAL LIMITS ATROPHIC CELL PATTERN Recommendations DNR QUES [facility] DNR 114,,,,,, [facility] DNR DNR [facility] DNR DNR [facility] DNR DNR [facility] . [facility] Comment: ?PAP SMEARS ARE SUBJECT TO BOTH FALSE NEGATIVE AND FALSE ? POSITIVE RESULTS EVIDENCED BY DATA PUBLISHED IN THE ? MEDICAL LITERATURE. ??YOUR PATIENT'S RESULT SHOULD BE ? INTERPRETED IN THIS CONTEXT, TOGETHER WITH THE PATIENT'S ? HISTORY AND CLINICAL FINDINGS. TESTING LOCATION ? THIS TEST WAS PERFORMED AT [facility] ? [address] [facility]. [id number] ? PHONE NUMBERS FOR CYTOLOGY INQUIRES, INCLUDING SLIDE REQUESTS ? EXT. [id number] ?? EXT. [id number] 08/24/1998 Fannie Hart MD LABORATORY [facility] from Last 3 Months or Most Recently Relevant to Health Maintenance Care Teams Marketing Teacher Relationship Specialty Start Date End Date Mj Oliver PA-C [address] [address] PCP - General Family Practice 04/24/11
--- OUTSIDE RECORDS SUMMARY | 2023-08-02 07:22 | XMS_ITS | Encounter Summary ---
Author Name Unknown Organization [facility] Address [address] [place] [address] Care Team Providers Care Aerial Survey Technician Name Role Phone Mj Oliver PA-C Primary Care Provide r Reason for Referral * Diagnostic Imaging Ultrasound (Routine) - Pending Review Specialty Diagnoses / Procedures Referred By Contac t Referred To Contact Radiology. Diagnoses Encounter for follow-up ultrasound of anatomy Procedures [facility] US Comprehensive Single F/U Chloe Crowder MD [address] [place] [address] Referral ID Status Reason Start Date Expiration Date V isits Requested Visits Authorized [id number] Pending Review 05/05/2023 05/04/2024 1 1 COORDINATOR Reason for Visit * Diagnostic Imaging Ultrasound (Routine) - Pending Review Specialty Diagnoses / Procedures Referred By Contac t Referred To Contact Radiology. Diagnoses Encounter for follow-up ultrasound of anatomy Procedures [facility] US Comprehensive Single F/U Chloe Crowder MD [address] [address] [facility] [address] [place] [address] Referral ID Status Reason Start Date Expiration Date V isits Requested Visits Authorized [id number] Pending Review 05/05/2023 05/04/2024 1 1 Encounter Details Date Type Department Care Team (Latest Contact Info) Description 06/09/2023 2:11 PM FIRE COORDINATOR - 06/09/2023 11:59 PM FIRE COORDINATOR Hospital Encounter [facility] Maternal Medicine [facility] [place] [address] [place] [address] Chloe Crowder MD [address] [place] [address] Skip Hilliard MD [address] [place] [address] Encounter for follow-up ultrasound of [...] Procedure Name Priority Date/Time Associated Diagnosis Comments [facility] US COMPREHENSIVE SINGLE F/U Routine 06/09/2023 3:09 PM FIRE COORDINATOR Encounter for follow-up ultrasound of anatomy documented in this encounter Results * [facility] US Comprehensive Single F/U (06/09/2023 3:09 PM FIRE COORDINATOR) Anatomical Region Laterality Modality Ultrasound 06/09/2023 2:18 PM FIRE COORDINATOR Impressions 06/09/2023 3:19 PM FIRE COORDINATOR IMPRESSION ----- 1) Growth parameters and estimated weight were consistent with appropriate for gestational age pattern of growth. 2) anatomy appeared normal for gestational age. Narrative 06/09/2023 3:19 PM FIRE COORDINATOR ?Comp Follow Up ----- Pat. Name: AUNDREA, JULY ? Study Date: ??06/09/2023 2:18pm Pat. NO: ??[id number] ?Referring ??MD: JONN GIRON Site: ??[facility] ? Firefighting Equipment Specialist: Bladimir Cox RDMS : ??1990 ?Age: ?? [...] 1 lb 4 ?oz EFW by ?Hadlock ([id number]) Head / Face / Neck Biometry: CM ?5.9 ? mm ANATOMY ----- The following structures appear normal: Head / Neck ? Cranium. Head size. Head shape. Lateral ventricles. Midline falx. Cavum septi pellucidi. Cerebellum. Cisterna magna. Thalami. Face ? Lips. Profile. Nose. Maxilla. Mandible. Heart / Thorax ?4-chamber view. RVOT view. LVOT view. Aortic arch view. 4-ycjvmb-kqqwkra view. ? Diaphragm. Abdomen ? Stomach. Kidneys. [...] AUNDREAJuly Study Date: 06/09/2023 2:18pm Pat. NO: [id number] Referring MD: JONN GIRON Site: [facility] Firefighting Equipment Specialist: Bladimir Cox RDMS : 1990 Age: 33 [...] 1 lb 4 oz EFW by Serjio ([id number]) Head / Face / Neck Biometry: CM 5.9 mm ANATOMY ----- The following structures appear normal: Head / Neck Cranium. Head size. Head shape.Lateral ventricles. Midline falx. Cavum septi pellucidi. Cerebellum.Cisterna magna. Thalami. Face Lips. Profile. Nose. Maxilla.Mandible. Heart / Thorax 4-chamber view. RVOT view. LVOT view.Aortic arch view. 9-paxoob-zykgjkd view. Diaphragm. Abdomen Stomach. Kidneys. Bladder. Spine [...] anatomy documented in this encounter Care Teams Aerial Survey Technician Relationship Specialty Start Date End Date Mj Oliver PA-C [address] [address] PCP - General Family Practice 04/24/11 documented as of this encounter
--- OUTSIDE RECORDS SUMMARY | 2023-08-02 07:22 | XMS_ITS | Clinical Summary ---
Author Name Unknown Organization [facility] Address [address] [place] [address] Care Team Providers Care Relay Worker Name Role Phone Mj Oliver PA-C Primary [...] Age 20. Plan colp per MD 03/16/11: [place] - [place] I. Plan pap in 6 [...] Department Care Team Description 06/09/2023 2:45 PM LABORER CONSTRUCTION OR LEAK GANG Office Visit [facility] [place] [address] [place] [address] Chloe Crowder MD Rauk, Skip Stone MD Encounter for follow-up ultrasound of anatomy (Primary Dx) 06/09/2023 2:11 PM LABORER CONSTRUCTION OR LEAK GANG - 06/09/2023 11:59 PM LABORER CONSTRUCTION OR LEAK GANG Hospital Encounter [facility] Medicine [place] [address] [place] [address] Chloe Crowder MD Rauk, Skip Stone MD Encounter for follow-up ultrasound of anatomy Discharge Disposition: Home or Self Care 06/09/2023 Travel 05/05/2023 2:15 PM LABORER CONSTRUCTION OR LEAK GANG Office Visit [facility] [place] [address] [place] [address] Chloe Crowder MD Encounter for follow-up ultrasound of anatomy (Primary Dx); Hepatitis B carrier (H) 05/05/2023 1:30 PM LABORER CONSTRUCTION OR LEAK GANG - 05/05/2023 11:59 PM LABORER CONSTRUCTION OR LEAK GANG Hospital Encounter [facility] Medicine [place] [address] [place] [address] Chloe Crowder MD Hepatitis B carrier (H) Discharge Disposition: Home or Self Care 05/05/2023 Travel from Last 3 Months Immunizations Name Administration [...] Comments Blood Pressure 135/75 02/19/2016 11:55 AM LABORER CONSTRUCTION OR LEAK GANG Pulse 93 02/19/2016 11:55 AM LABORER CONSTRUCTION OR LEAK GANG Temperature 36.6 ??C (97.9 ??F) 05/30/2013 9:57 AM CS T Respiratory Rate 16 06/20/2011 2:44 PM CDT Oxygen Saturation 97% 02/19/2016 11:55 AM LABORER CONSTRUCTION OR LEAK GANG Inhaled Oxygen Concentration - - Weight 59 kg (130 lb) 05/30/2013 9:57 AM LABORER CONSTRUCTION OR LEAK GANG Height 152.4 cm (5') 05/30/2013 9:57 AM LABORER CONSTRUCTION OR LEAK GANG Body Mass Index 25.39 05/30/2013 9:57 AM LABORER CONSTRUCTION OR LEAK GANG Plan of Treatment Health Maintenance Due Date [...] 05/14/2013, 05/13/2013, Additional history exists COVID-19 Vaccine (2022- season) 2022 INFLUENZA VACCINE (#1) 2022 MATERNAL [...] Procedure Name Priority Date/Time Associated Diagnosis Comments [facility] US COMPREHENSIVE SINGLE F/U Routine 06/09/2023 3:09 PM LABORER CONSTRUCTION OR LEAK GANG Encounter for follow-up ultrasound of anatomy [facility] US COMPREHENSIVE SINGLE Routine 05/05/2023 2:39 PM LABORER CONSTRUCTION OR LEAK GANG Hepatitis B carrier (H) ASTHMA ACTION PLAN Routine 02/20/2013 10 :19 AM LABORER CONSTRUCTION OR LEAK GANG Intermittent asthma HCL HIV 1 & 2 ANTIBODY Routine 1:52 PM LABORER CONSTRUCTION OR LEAK GANG Supervision of Other Normal HCL PAP SMEAR Routine 08/26/1998 1:18 PM CDT Gynecologic Examination from Last 3 Months or Most Recently Relevant to Health Maintenance Results * [facility] US Comprehensive Single F/U (06/09/2023 3:09 PM LABORER CONSTRUCTION OR LEAK GANG) Anatomical Region Laterality Modality Ultrasound 06/09/2023 2:18 PM LABORER CONSTRUCTION OR LEAK GANG Impressions 06/09/2023 3:19 PM LABORER CONSTRUCTION OR LEAK GANG IMPRESSION ----- 1) Growth parameters and estimated weight were consistent with appropriate for gestational age pattern of growth. 2) anatomy appeared normal for gestational age. Narrative 06/09/2023 3:19 PM LABORER CONSTRUCTION OR LEAK GANG ?Comp Follow Up ----- Pat. Name: July ? Study Date: ??06/09/2023 2:18pm Pat. NO: ??[id number] ?Referring ??MD: JONN GIRON Site: ??[facility] ? Form Setter Steel Forms: Bladimir Cox RDMS : ??1990 ?Age: ?? [...] 1 lb 4 ?oz EFW by ?Hadlock ([id number]) Head / Face / Neck Biometry: CM ?5.9 ? mm ANATOMY ----- The following structures appear normal: Head / Neck ? Cranium. Head size. Head shape. Lateral ventricles. Midline falx. Cavum septi pellucidi. Cerebellum. Cisterna magna. Thalami. Face ? Lips. Profile. Nose. Maxilla. Mandible. Heart / Thorax ?4-chamber view. RVOT view. LVOT view. Aortic arch view. 5-yogwvs-jwihtyj view. ? Diaphragm. Abdomen ? Stomach. Kidneys. [...] AUNDREAJuly Study Date: 06/09/2023 2:18pm Pat. NO: [id number] Referring MD: JONN GIRON Site: [facility] Form Setter Steel Forms: Bladimir Cox RDMS : 1990 Age: 33 [...] 1 lb 4 oz EFW by Hadlock ([id number]) Head / Face / Neck Biometry: CM 5.9 mm ANATOMY ----- The following structures appear normal: Head / Neck Cranium. Head size. Head shape.Lateral ventricles. Midline falx. Cavum septi pellucidi. Cerebellum.Cisterna magna. Thalami. Face Lips. Profile. Nose. Maxilla.Mandible. Heart / Thorax 4-chamber view. RVOT view. LVOT view.Aortic arch view. 5-jloyij-ueejtbf view. Diaphragm. Abdomen Stomach. Kidneys. Bladder. Spine [...] normal for gestational age. Chloe Crowder MD [facility] US ORDERABLE S [facility] US Comprehensive Single (05/05/2023 2:39 PM LABORER CONSTRUCTION OR LEAK GANG) Anatomical Region Laterality Modality Ultrasound 05/05/2023 1:32 PM LABORER CONSTRUCTION OR LEAK GANG Impressions 05/05/2023 4:01 PM LABORER CONSTRUCTION OR LEAK GANG IMPRESSION ----- 1. Forman intrauterine at 18w [...] long and closed. Narrative 05/05/2023 4:01 PM LABORER CONSTRUCTION OR LEAK GANG ?Comprehensive ----- Pat. Name: July ? Study Date: ??05/05/2023 1:32pm Pat. NO: ??[id number] ?Referring ??MD: JONN GIRON Site: ??[facility] ? Form Setter Steel Forms: Bladimir Cox RDMS : ??1990 ?Age: ?? [...] BPD ?38.4 ?mm ? 17w 5d ?Serjio JIANG ?56.4 ?mm ? 18w 4d ?Nicolaides HC ?152.8 ?mm ?18w 2d ?Hadlock Cerebellum tr ?18.3 ? mm ?18w 1d ?Nicolaides AC ?130.3 ?mm ?18w 4d ?51% ?Hadlock Femur ?26.8 ? mm ?18w 1d ?Hadlock Humerus ?26.5 ?mm ? 18w 3d ?Viral Weight Calculation: EFW ? 235 ? g ? 39% ?Hadlock EFW (lb,oz) ? 0 lb 8 ?oz EFW by ?Hadlock ([id number]) Head / Face / Neck Biometry: Upholstered Goods Crafter ? 6.0 ? mm CM ?1.9 ? [...] apical view. RVOT view. Aortic arch view. 4-awemdn-tcghwym view. ? Diaphragm. Abdomen ? Kidneys. Spine [...] AUNDREAJuly Study Date: 05/05/2023 1:32pm Pat. NO: [id number] Referring MD: JONN GIRON Site: [facility] Form Setter Steel Forms: Bladimir Cox RDMS : 1990 Age: 33 [...] 0 lb 8 oz EFW by Hadlock ([id number]) Head / Face / Neck Biometry: Upholstered Goods Crafter 6.0 mm CM 1.9 mm Nasal bone [...] Suboptimal apicalview. RVOT view. Aortic arch view. 2-lzeohc-zcojytg view. Diaphragm. Abdomen Kidneys. Spine Sacral spine. [...] epic for the complete [facility] IMPRESSION ----- 1. Forman intrauterine at 18w [...] appears long and closed. Mohsen Lundy MD [facility] US ORDERABLE S * HIV Screening (02/29/2008 1:52 PM LABORER CONSTRUCTION OR LEAK GANG) HIV 1&2 Antibody Negative NEG [facility] 02/29/2008 1:52 PM LABORER CONSTRUCTION OR LEAK GANG 02/29/2008 1:53 PM LABORER CONSTRUCTION OR LEAK GANG Iza Mancilla MD LABORATORY [facility] * PAP SMEAR (08/26/1998 1:18 PM CDT) Unlabelled [facility] Biopsy Sent [facility] Source VAG,CERV,E NDOCERV [facility] LMP POST [facility] PARA 3 [facility] 2 [facility] Clinical History DNR [facility] Last Pap Diagnosis WITHIN NORMAL LIMITS [facility] PAP Date [id number] [facility] Specimen # DNR [facility] Tissue DNR [facility] Tissue Date [facility] Statement of Adequacy [facility] Comment: SATISFACTORY FOR INTERPRETATION POST MENOPAUSAL PATIENT. ??NO ENDOCERVICAL CELLS SEEN. General Categorization [facility] Descriptive Diagnosis [facility] Comment: WITHIN NORMAL LIMITS ATROPHIC CELL PATTERN Recommendations DNR [facility] [place] DNR 114,,,,,, [facility] DNR DNR [facility] DNR DNR [facility] DNR DNR [facility] . [facility] Comment: ?PAP SMEARS ARE SUBJECT TO BOTH FALSE NEGATIVE AND FALSE ? POSITIVE RESULTS EVIDENCED BY DATA PUBLISHED IN THE ? MEDICAL LITERATURE. ??YOUR PATIENT'S RESULT SHOULD BE ? INTERPRETED IN THIS CONTEXT, TOGETHER WITH THE PATIENT'S ? HISTORY AND CLINICAL FINDINGS. TESTING LOCATION ? THIS [facility] ? [address]. [address] ? PHONE NUMBERS FOR CYTOLOGY INQUIRES, INCLUDING SLIDE REQUESTS ? EXT. [id number] ?? EXT. [id number] 08/24/1998 Fannie Hart MD LABORATORY Performing Organization Address City/State/[facility] Co or Phone Number [facility] from Last 3 Months or Most Recently Relevant to Health Maintenance Care Teams Relay Worker Relationship Specialty Start Date End Date Mj Oliver PA-C [address] [address] PCP - General Family Practice 04/24/11
--- OUTSIDE RECORDS SUMMARY | 2023-08-02 07:22 | XMS_ITS | Encounter Summary ---
Author Name Unknown Organization [place] Address [address] [facility] [place] [address] Care Team Providers Care Dental Office Coordinator Name Role Phone Mj Oliver PA-C Primary Care Provide r Reason for Visit * Reason Comments Ultrasound RL2- Subopt anatomy Encounter Details Date Type Department Care Team (Late st Contact Info) Description 06/09/2023 2:45 PM BODY SHOP MANAGER Office Visit [facility] [place] [address] [place] [address] Chloe Crowder MD [address] [place] [address] Skip Hilliard MD [address] [place] [address] Encounter for follow-up ultrasound of [...] for details of today's US at the [facility] Center [facility]. Skip Hilliard MD Maternal- Medicine SHOP MANAGER documented in this encounter Nursing Notes * Loretta Zapata RN - 06/09/2023 2:45 PM CST Patient reports positive movement, denies pain, denies contractions/pre- term labor, leaking of fluid, or bleeding. Patient denies headache, visual changes, nausea/vomiting, epigastric pain related to preeclampsia. Education provided to patient on RL2. SBAR given to [facility] MD, see their note in Epic. Loretta Zapata RN SHOP MANAGER documented in this encounter Plan of Treatment Not on file documented as of this encounter Visit Diagnoses Diagnosis Encounter for follow-up ultrasound of anatomy- Primary documented in this encounter Care Teams Dental Office Coordinator Relationship Specialty Start Date End Date Mj Oliver PA-C [address] [address] PCP - General Family Practice 04/24/11 documented as of this encounter
--- OUTSIDE RECORDS SUMMARY | 2023-08-02 07:22 | XMS_ITS | Encounter Summary ---
Author Name Unknown Organization [place] Address [address] [place] [address] Care Team Providers Care Application Support Analyst Name Role Phone Mj Oliver PA-C Primary [...] on filedocumented in this encounter Care Teams Application Support Analyst Relationship Specialty Start Date End Date Mj Oliver PA-C [address] [address] PCP - General Family Practice 04/24/11 documented as of this encounter
--- OUTSIDE RECORDS SUMMARY | 2023-08-02 07:23 | XMS_ITS | Encounter Summary ---
Author Name Unknown Organization [place] Address [address] [place] [address] Care Team Providers Care Cloth Neutralizer Name Role Phone Mj Oliver PA-C Primary Care Provide r Encounter Details Date Type Department Care Team (Late st Contact Info) Description 07/06/2017 [facility] Medical Advice [address] [address] Peri Carter RN Social History [...] on filedocumented in this encounter Care Teams Cloth Neutralizer Relationship Specialty Start Date End Date Mj Oliver PA-C [address] [address] PCP - General Family Practice 04/24/11 documented as of this encounter
--- OUTSIDE RECORDS SUMMARY | 2023-08-02 07:23 | XMS_ITS | Encounter Summary ---
Author Name Unknown Organization [place] Address [address] [place] [address] Care Team Providers Care Financial Assistant Name Role Phone Mj Oliver PA-C Primary Care Provide r Encounter Details Date Type Department Care Team (Late st Contact Info) Description 07/06/2012 [facility] Medical Advice [address] [address] [facility] Social History Tobacco Use Types Packs/Day Years [...] on filedocumented in this encounter Care Teams Financial Assistant Relationship Specialty Start Date End Date Mj Oliver PA-C [address] [address] PCP - General Family Practice 04/24/11 documented as of this encounter
--- OUTSIDE RECORDS SUMMARY | 2023-08-02 07:23 | XMS_ITS | Clinical Summary ---
Author Name Unknown Organization [employer] [facility] Address [place], [place] [address] Care Team Providers Care Automotive Generator Repairer Name Role Phone None Primary Care Provider [...] 16 Negative Negative 07/16/2021 2:43 PM CDT [facility] TRAL LABORATORY TYPE 18 Negative Negative 07/16/2021 2:43 PM CDT [facility] TRAL LABORATORY OTHER HIGH RISK TYPES Negative Negative 07/16/2021 2:43 PM CDT [facility] TRAL LABORATORY Other (Cervical/Vagina l) 07/13/2021 5:30 PM CDT 07/15/2021 8:15 AM CDT Narrative [facility] [place] LABORATORY-CENTRAL LABORATORY - 07/16/2021 2:43 PM CDT HPV types 16, 18, 31, 33, 35, 39, 45, 51, 52, 56, 58, 59, 66 and 68 DNA were undetectable or below the pre-set threshold. Methodology: Junior Job 4800 HPV Test July [facility] [address] [place] [address], from Last 3 Months or Most Recently Relevant to Health Maintenance Advance Directives * Full Code (Latest Code Status on File) Date Activated Date Inactivated Comments 10/15/2008 7:15 AM 10/17/2008 7:25 PM * Full Code Date Activated Date Inactivated Comments 10/14/2008 7:48 PM 10/15/2008 7:15 AM Care Teams Automotive Generator Repairer Relationship Specialty Start Date End Date None . PCP - General 12/08/12
--- OUTSIDE RECORDS SUMMARY | 2023-08-02 07:23 | XMS_ITS | Encounter Summary ---
Author Name Unknown Organization [facility] Address [address] [place] [address] Care Team Providers Care Program Strategist Name Role Phone Mj Oliver PA-C Primary Care Provide r Reason for Visit * Reason Comments Ultrasound L2-chronic hep B Encounter Details Date Type Department Care Team (Late st Contact Info) Description 04/26/2023 PRE VISIT [facility] [place] [address] [facility] [facility] [address] [place] [address] Anuja Jimenez RN Ultrasound (L2-chronic [...] on filedocumented in this encounter Care Teams Program Strategist Relationship Specialty Start Date End Date Mj Oliver PA-C [address] [address] PCP - General Family Practice 04/24/11 documented as of this encounter
--- OUTSIDE RECORDS SUMMARY | 2023-08-02 07:23 | XMS_ITS | Encounter Summary ---
Author Name Unknown Organization [place] Address [address] [place] [address] Care Team Providers Care Atomic Spectroscopist Name Role Phone Mj Oliver PA-C Primary Care Provide r Encounter Details Date Type Department Care Team (Late st Contact Info) Description 11/18/2011 [facility] Medical Advice [address] [address] [place] [facility] Social History Tobacco Use Types Packs/Day [...] on filedocumented in this encounter Care Teams Atomic Spectroscopist Relationship Specialty Start Date End Date Mj Oliver PA-C [address] [address] PCP - General Family Practice 04/24/11 documented as of this encounter
--- OUTSIDE RECORDS SUMMARY | 2023-08-02 07:23 | XMS_ITS | Encounter Summary ---
Author Name Unknown Organization [place] Address [address] [place] [address] Care Team Providers Care Contact Center Analyst Name Role Phone Mj Oliver PA-C Primary Care Provide r Encounter Details Date Type Department Care Team (Late st Contact Info) Description 12/13/2011 [facility] Medical Advice [address] [address] [facility] Social History Tobacco Use Types Packs/Day Years [...] on filedocumented in this encounter Care Teams Contact Center Analyst Relationship Specialty Start Date End Date Mj Oliver PA-C [address] [address] PCP - General Family Practice 04/24/11 documented as of this encounter
--- OUTSIDE RECORDS SUMMARY | 2023-08-02 07:23 | XMS_ITS | Encounter Summary ---
Author Name Unknown Organization [place] Address [address] [place] [address] Care Team Providers Care Water Valve Repairer Name Role Phone Unavailable Primary Care Provider Unavailabl e Encounter Details Date Type Department Care Team (Late st Contact Info) Description 04/06/2008 11:30 AM [facility] in [facility] [address] [place] [phone] Elmo Roa MD [address] [place] [address] Social History Tobacco Use Types Packs/Day Years [...]
--- OUTSIDE RECORDS SUMMARY | 2023-08-02 07:23 | XMS_ITS | Encounter Summary ---
Author Name Unknown Organization [place] Address [address] [place] [address] Care Team Providers Care Punch Press Feeder Name Role Phone Mj Oliver PA-C Primary Care Provide r Reason for Referral * Consultation (Routine: Next available opening) - Pending Review Specialty Diagnoses / Procedures Referred By Contac t Referred To Contact Diagnoses Hepatitis B carrier (H) Mohsen Lundy MD [address] [address] Referral ID Status Reason Start Date Expiration Date V isits Requested Visits Authorized [id number] Pending Review 03/23/2023 03/22/2024 1 1 Question Answer MFM Consult Yes Comments [facility] radiologic and comp Us MENTATION SUPERVISOR * Diagnostic Imaging Ultrasound (Routine) - Pending Review Specialty Diagnoses / Procedures Referred By Contac t Referred To Contact Radiology. Diagnoses Hepatitis B carrier (H) Procedures [facility] US Comprehensive Single Mohsen Lundy MD [address] [address] Referral ID Status Reason Start Date Expiration Date V isits Requested Visits Authorized [id number] Pending Review 03/23/2023 03/22/2024 1 1 MENTATION SUPERVISOR Encounter Details Date Type Department Care Team (Late st Contact Info) Description 03/23/2023 Orders Only [facility] Maternal Medicine [place] [phone] Marquita To RN Hepatitis B carrier (H) [...] Type Priority Associated Diagnoses Orde r Schedule [facility] Office Visit Referral Routine: Next available opening Hepatitis B carrier (H) Expected: 03/23/2023 (Approximate), Expires: 03/23/2024 documented as of this encounter Results * [facility] Comprehensive Single (05/05/2023 2:39 PM DOCUMENTATION SUPERVISOR) Anatomical Region Laterality Modality Ultrasound 05/05/2023 1:32 PM DOCUMENTATION SUPERVISOR Impressions 05/05/2023 4:01 PM DOCUMENTATION SUPERVISOR IMPRESSION ----- 1. Forman intrauterine at 18w [...] long and closed. Narrative 05/05/2023 4:01 PM DOCUMENTATION SUPERVISOR ?Comprehensive ----- Pat. Name: July ? Study Date: ??05/05/2023 1:32pm Pat. NO: ??[id number] ?Referring ??MD: JONN GIRON Site: ??[facility] ? Belt Sander: Bladimir Cox RDMS : ??1990 ?Age: ?? [...] ? 0 lb 8 ?oz EFW by ?[facility] ([id number]) Head / Face / Neck Biometry: Motor Home Electrical Foreman ? 6.0 ? mm CM ?1.9 ? [...] apical view. RVOT view. Aortic arch view. 9-oobwoh-kijgqps view. ? Diaphragm. Abdomen ? Kidneys. Spine [...] AUNDREAJuly Study Date: 05/05/2023 1:32pm Pat. NO: [id number] Referring MD: JONN GIRON Site: [facility] Belt Sander: Bladimir Cox RDMS : 1990 Age: 33 [...] 0 lb 8 oz EFW by Hadlock ([id number]) Head / Face / Neck Biometry: Motor Home Electrical Foreman 6.0 mm CM 1.9 mm Nasal bone [...] Suboptimal apicalview. RVOT view. Aortic arch view. 0-rkqmyp-qovxcqu view. Diaphragm. Abdomen Kidneys. Spine Sacral spine. [...] appears long and closed. Mohsen Lundy MD [facility] US ORDERABLE S documented in this encounter Visit Diagnoses Diagnosis Hepatitis B carrier (H)- Primary Hepatitis B carrier Hepatitis B carrier (H) Hepatitis B carrier documented in this encounter Care Teams Punch Press Feeder Relationship Specialty Start Date End Date Mj Oliver PA-C [address] [address] PCP - General Family Practice 04/24/11 documented as of this encounter
--- OUTSIDE RECORDS SUMMARY | 2023-08-02 07:23 | XMS_ITS | Encounter Summary ---
Author Name Unknown Organization [facility] Address [address] [place] [address] Care Team Providers Care Shell Trim Operator Name Role Phone Mj Oliver PA-C [...] on filedocumented in this encounter Care Teams Shell Trim Operator Relationship Specialty Start Date End Date Mj Oliver PA-C [address] [address] PCP - General Family Practice 04/24/11 documented as of this encounter
--- OUTSIDE RECORDS SUMMARY | 2023-08-02 07:23 | XMS_ITS | Encounter Summary ---
Author Name Unknown Organization [facility] Address [address] [place] [address] Care Team Providers Care Watch And Clock Repair Clerk Name Role Phone Mj Oliver PA-C Primary Care Provide r Reason for Referral * Diagnostic Imaging Ultrasound (Routine) - Pending Review Specialty Diagnoses / Procedures Referred By Contac t Referred To Contact Radiology. Diagnoses Hepatitis B carrier (H) Procedures [facility] US Comprehensive Single Mohsen Lundy MD [address] [place] [address] Referral ID Status Reason Start Date Expiration Date V isits Requested Visits Authorized [id number] Pending Review 03/23/2023 03/22/2024 1 1 OUT PERSON Reason for Visit * Diagnostic Imaging Ultrasound (Routine) - Pending Review Specialty Diagnoses / Procedures Referred By Contac t Referred To Contact Radiology. Diagnoses Hepatitis B carrier (H) Procedures [facility] US Comprehensive Mohsen Elizabeth MD [address] [address] Referral ID Status Reason Start Date Expiration Date V isits Requested Visits Authorized [id number] Pending Review 03/23/2023 03/22/2024 1 1 Encounter Details Date Type Department Care Team (Latest Contact Info) Description 05/05/2023 1:30 PM TRY OUT PERSON - 05/05/2023 11:59 PM TRY OUT PERSON Hospital Encounter [facility] Maternal Medicine [facility] [address] [place] [address] Chloe Crowder MD [address] [place] [address] Hepatitis B carrier (H) Discharge Disposition: Home [...] Procedure Name Priority Date/Time Associated Diagnosis Comments [facility] US COMPREHENSIVE SINGLE Routine 05/05/2023 2:39 PM TRY OUT PERSON Hepatitis B carrier (H) documented in this encounter Results * [facility] US Comprehensive Single (05/05/2023 2:39 PM TRY OUT PERSON) Anatomical Region Laterality Modality Ultrasound 05/05/2023 1:32 PM TRY OUT PERSON Impressions 05/05/2023 4:01 PM TRY OUT PERSON IMPRESSION ----- 1. Forman intrauterine at 18w [...] long and closed. Narrative 05/05/2023 4:01 PM TRY OUT PERSON ?Comprehensive ----- Pat. Name: AUNDREA, JULY ? Study Date: ??05/05/2023 1:32pm Pat. NO: ??[id number] ?Referring ??MD: JONN GIRON Site: ??[facility] ? Printer Repair Technician: Bladimir Cox RDMS : ??1990 ?Age: ?? [...] 0 lb 8 ?oz EFW by ?Hadlock ([id number]) Head / Face / Neck Biometry: Elementary Spanish Teacher ? 6.0 ? mm CM ?1.9 ? [...] apical view. RVOT view. Aortic arch view. 8-ddkghd-pnwxowg view. ? Diaphragm. Abdomen ? Kidneys. Spine [...] July Study Date: 05/05/2023 1:32pm Pat. NO: [id number] Referring MD: JONN GIRON Site: [facility] Printer Repair Technician: Bladimir Cox RDMS : 1990 Age: 33 [...] 0 lb 8 oz EFW by Hadlock ([id number]) Head / Face / Neck Biometry: Elementary Spanish Teacher 6.0 mm CM 1.9 mm Nasal bone [...] Suboptimal apicalview. RVOT view. Aortic arch view. 5-hdilbn-bjisgxa view. Diaphragm. Abdomen Kidneys. Spine Sacral spine. [...] today's evaluation or [email or web address], please contact the [facility]. [...] and closed. Mohsen Lundy MD [facility] US ORDERABLE S documented in this encounter Visit Diagnoses Diagnosis Hepatitis B carrier (H) Hepatitis B carrier documented in this encounter Care Teams Watch And Clock Repair Clerk Relationship Specialty Start Date End Date Mj Oliver PA-C [address] [address] PCP - General Family Practice 04/24/11 documented as of this encounter
--- OUTSIDE RECORDS SUMMARY | 2023-08-02 07:23 | XMS_ITS | Encounter Summary ---
Author Name Unknown Organization [facility] Address [facility] [place] [address] Care Team Providers Care Tire Inspector Name Role Phone Mj Oliver PA-C Primary Care Provide r Reason for Referral * Diagnostic Imaging Ultrasound (Routine) - Pending Review Specialty Diagnoses / Procedures Referred By Juana morales Referred To Contact Radiology. Diagnoses Encounter for follow-up ultrasound of anatomy Procedures [facility] US Comprehensive Single F/U Chloe Crowder MD [address] [facility] [address] [place] [address] Referral ID Status Reason Start Date Expiration Date V isits Requested Visits Authorized [id number] Pending Review 05/05/2023 05/04/2024 1 1 MACHINE OPERATOR Reason for Visit * Reason Comments Ultrasound L2-chronic viral hep atitis b * Consultation (Routine: Next available opening) - Pending Review Specialty Diagnoses / Procedures Referred By Juana morales Referred To Contact Diagnoses Hepatitis B carrier (H) Mohsen Lundy MD [address] [place] [address] Referral ID Status Reason Start Date Expiration Date V isits Requested Visits Authorized [id number] Pending Review 03/23/2023 03/22/2024 1 1 Encounter Details Date Type Department Care Team ([facility] st Contact Info) Description 05/05/2023 2:15 PM PIG MACHINE OPERATOR Office Visit [facility] Maternal Medicine [facility] [address] [place] [address] Chloe Crowder MD [address] [facility] [address] [place] [address] Encounter for follow-up ultrasound of anatomy (Primary [...] not had recent follow up with a concrete curer but is working to establish care with the [facility]. On review of records, only relevant [...] Medication Sig Last Dose Taking? Auth Provider Residential End Date albuterol (PROVENTIL HFA: VENTOLIN HFA) [...] medical record, and communicating with other health health care specialist and/or care coordination. Chloe Crowder MD Maternal Medicine 05/05/2023 3:36 PM MACHINE OPERATOR documented in this encounter Nursing Notes * Anuja Jimenez, ANAY - 05/05/2023 2:15 PM CST Patient presents to [facility] for L2 at 18w3d due to chronic viral hep b. Positive movement. DeniesLOF, vaginal bleeding or cramping/contractions. SBAR given to [facility] MD, see their note in Epic. MACHINE OPERATOR documented in this encounter Plan of Treatment Not on file documented as of this encounter Results * [facility] US Comprehensive Single F/U (06/09/2023 3:09 PM PIG MACHINE OPERATOR) Anatomical Region Laterality Modality Ultrasound 06/09/2023 2:18 PM PIG MACHINE OPERATOR Impressions 06/09/2023 3:19 PM PIG MACHINE OPERATOR IMPRESSION ----- 1) Growth parameters and estimated weight were consistent with appropriate for gestational age pattern of growth. 2) anatomy appeared normal for gestational age. Narrative 06/09/2023 3:19 PM PIG MACHINE OPERATOR ?Comp Follow Up ----- Pat. Name: July ? Study Date: ??06/09/2023 2:18pm Pat. NO: ??[id number] ?Referring ??MD: JONN GIRON Site: ??[facility] ? Ordnance Truck Installation Supervisor: Bladimir Cox RDMS : ??1990 ?Age: ?? [...] 1 lb 4 ?oz EFW by ?Hadlock ([id number]) Head / Face / Neck Biometry: CM ?5.9 ? mm ANATOMY ----- The following structures appear normal: Head / Neck ? Cranium. Head size. Head shape. Lateral ventricles. Midline falx. Cavum septi pellucidi. Cerebellum. Cisterna magna. Thalami. Face ? Lips. Profile. Nose. Maxilla. Mandible. Heart / Thorax ?4-chamber view. RVOT view. LVOT view. Aortic arch view. 0-mhhjog-iomwbqk view. ? Diaphragm. Abdomen ? Stomach. Kidneys. [...] AUNDREAJuly Study Date: 06/09/2023 2:18pm Pat. NO: [id number] Referring MD: JONN GIRON Site: [facility] Ordnance Truck Installation Supervisor: Bladimir Cox RDMS : 1990 Age: 33 [...] 1 lb 4 oz EFW by Hadlock ([id number]) Head / Face / Neck Biometry: CM 5.9 mm ANATOMY ----- The following structures appear normal: Head / Neck Cranium. Head size. Head shape.Lateral ventricles. Midline falx. Cavum septi pellucidi. Cerebellum.Cisterna magna. Thalami. Face Lips. Profile. Nose. Maxilla.Mandible. Heart / Thorax 4-chamber view. RVOT view. LVOT view.Aortic arch view. 4-dtvjsl-cojeacz view. Diaphragm. Abdomen Stomach. Kidneys. Bladder. Spine [...] normal for gestational age. Chloe Crowder MD [facility] US ORDERABLE S documented in this encounter Visit Diagnoses Diagnosis Encounter for follow-up ultrasound of anatomy- Primary Hepatitis B carrier (H) Hepatitis B carrier Encounter for follow-up ultrasound of anatomy documented in this encounter Care Teams Tire Inspector Relationship Specialty Start Date End Date Mj Oliver PA-C [address] [address] PCP - General Family Practice 04/24/11 documented as of this encounter
== END 2023-07-28 14:56 | disposition home or self-care (01) ==
LOC: NFLDREF 08-02 07:19
PROVIDERS: Visit Provider Advanced Practice Midwife
DX: Z34.93 Encounter for supervision of normal pregnancy, unspecified, third trimester (principal)
CPT/HCPCS: 86592

== ENCOUNTER 2023-08-11 13:49 | Outpatient (CLI) | payer BC, SELFPAY ==
--- OUTSIDE RECORDS SUMMARY | 2023-08-11 13:51 | XMS_ITS | Encounter Summary ---
Author Name Unknown Organization [facility] Address [address] [place] [address] Care Team Providers Care Sexologist Name Role Phone Mj Oliver PA-C Primary Care Provide r Encounter Details Date Type Department Care Team (Late st Contact Info) Description 07/06/2017 MyC Medical Advice [address] [address] Peri Carter RN Social History [...] on filedocumented in this encounter Care Teams Sexologist Relationship Specialty Start Date End Date Mj Oliver PA-C [address] [address] PCP - General Family Practice 04/24/11 documented as of this encounter
--- OUTSIDE RECORDS SUMMARY | 2023-08-11 13:51 | XMS_ITS | Encounter Summary ---
Author Name Unknown Organization [place] Address [address] [place] [address] Care Team Providers Care Manager Biologics Name Role Phone Mj Oliver PA-C Primary Care Provide r Reason for Referral * Diagnostic Imaging Ultrasound (Routine) - Pending Review Specialty Diagnoses / Procedures Referred By Contac t Referred To Contact Radiology. Diagnoses Hepatitis B carrier (H) Procedures [facility] US Comprehensive Single Mohsen Lundy MD [address] [place] [address] Referral ID Status Reason Start Date Expiration Date V isits Requested Visits Authorized [id number] Pending Review 03/23/2023 03/22/2024 1 1 ING INSPECTOR Reason for Visit * Diagnostic Imaging Ultrasound (Routine) - Pending Review Specialty Diagnoses / Procedures Referred By Contac t Referred To Contact Radiology. Diagnoses Hepatitis B carrier (H) Procedures [facility] US Comprehensive Mohsen Elizabeth MD [address] [address] Referral ID Status Reason Start Date Expiration Date V isits Requested Visits Authorized [id number] Pending Review 03/23/2023 03/22/2024 1 1 Encounter Details Date Type Department Care Team (Latest Contact Info) Description 05/05/2023 1:30 PM WEBBING INSPECTOR - 05/05/2023 11:59 PM WEBBING INSPECTOR Hospital Encounter [facility] Maternal Medicine [facility] [address] [facility] [address] [facility] [address] [place] [address] Chloe Crowder MD [address] [place] [address] Hepatitis B carrier (H) Discharge Disposition: Home [...] Procedure Name Priority Date/Time Associated Diagnosis Comments [facility] US COMPREHENSIVE SINGLE Routine 05/05/2023 2:39 PM WEBBING INSPECTOR Hepatitis B carrier (H) documented in this encounter Results * [facility] US Comprehensive Single (05/05/2023 2:39 PM WEBBING INSPECTOR) Anatomical Region Laterality Modality Ultrasound 05/05/2023 1:32 PM WEBBING INSPECTOR Impressions 05/05/2023 4:01 PM WEBBING INSPECTOR IMPRESSION ----- 1. Forman intrauterine at 18w [...] long and closed. Narrative 05/05/2023 4:01 PM WEBBING INSPECTOR ?Comprehensive ----- Pat. Name: AUNDREA, JULY ? Study Date: ??05/05/2023 1:32pm Pat. NO: ??[id number] ?Referring ??MD: JONN GIRON Site: ??[facility] ? Bread Molder: Bladimir Cox RDMS : ??1990 ?Age: ?? [...] 0 lb 8 ?oz EFW by ?Hadlock ([id number]) Head / Face / Neck Biometry: Rap Artist ? 6.0 ? mm CM ?1.9 ? [...] apical view. RVOT view. Aortic arch view. 9-sqqhim-zfedfsp view. ? Diaphragm. Abdomen ? Kidneys. Spine [...] July Study Date: 05/05/2023 1:32pm Pat. NO: [id number] Referring MD: JONN GIRON Site: [facility] Bread Molder: Bladimir Cox RDMS : 1990 Age: 33 [...] 0 lb 8 oz EFW by Hadlock ([id number]) Head / Face / Neck Biometry: Rap Artist 6.0 mm CM 1.9 mm Nasal bone [...] Suboptimal apicalview. RVOT view. Aortic arch view. 5-gqhbqe-oxidznv view. Diaphragm. Abdomen Kidneys. Spine Sacral spine. [...] today's evaluation or [facility]. [...] appears long and closed. Mohsen Lundy MD [facility] US ORDERABLE S documented in this encounter Visit Diagnoses Diagnosis Hepatitis B carrier (H) Hepatitis B carrier documented in this encounter Care Teams Manager Biologics Relationship Specialty Start Date End Date Mj Oliver PA-C [address] [address] PCP - General Family Practice 04/24/11 documented as of this encounter
--- OUTSIDE RECORDS SUMMARY | 2023-08-11 13:51 | XMS_ITS | Encounter Summary ---
Author Name Unknown Organization [place] Address [facility] [place] [address] Care Team Providers Care Gas Operations Superintendent Name Role Phone Mj Oliver PA-C Primary Care Provide r Reason for Referral * Diagnostic Imaging Ultrasound (Routine) - Pending Review Specialty Diagnoses / Procedures Referred By Juana morales Referred To Contact Radiology. Diagnoses Encounter for follow-up ultrasound of anatomy Procedures [facility] US Comprehensive Single F/U Chloe Crowder MD [address] [facility] [address] [place] [address] Referral ID Status Reason Start Date Expiration Date V isits Requested Visits Authorized [id number] Pending Review 05/05/2023 05/04/2024 1 1 L FURNITURE POLISHER Reason for Visit * Reason Comments Ultrasound L2-chronic viral hep atitis b * Consultation (Routine: Next available opening) - Pending Review Specialty Diagnoses / Procedures Referred By Juana morales Referred To Contact Diagnoses Hepatitis B carrier (H) Mohsen Lundy MD [address] [place] [address] Referral ID Status Reason Start Date Expiration Date V isits Requested Visits Authorized [id number] Pending Review 03/23/2023 03/22/2024 1 1 Encounter Details Date Type Department Care Team ([facility] st Contact Info) Description 05/05/2023 2:15 PM METAL FURNITURE POLISHER Office Visit [facility] Maternal Medicine [facility] [address] [facility] [address] [place] [address] Chloe Crowder MD [address] [facility] [address] [place] [address] Encounter for follow-up ultrasound of anatomy (Primary [...] not had recent follow up with a compensation administrator but is working to establish care with the [facility]. On review of records, only relevant [...] Medication Sig Last Dose Taking? Auth Provider Alf End Date albuterol (PROVENTIL HFA: VENTOLIN HFA) [...] medical record, and communicating with other health resident care aid and/or care coordination. Chloe Crowder MD Maternal Medicine 05/05/2023 3:36 PM L FURNITURE POLISHER documented in this encounter Nursing Notes * Anuja Jimenez, ANAY - 05/05/2023 2:15 PM CST Patient presents to [facility] for L2 at 18w3d due to chronic viral hep b. Positive movement. DeniesLOF, vaginal bleeding or cramping/contractions. SBAR given to [facility] MD, see their note in Epic. L FURNITURE POLISHER documented in this encounter Plan of Treatment Not on file documented as of this encounter Results * [facility] US Comprehensive Single F/U (06/09/2023 3:09 PM METAL FURNITURE POLISHER) Anatomical Region Laterality Modality Ultrasound 06/09/2023 2:18 PM METAL FURNITURE POLISHER Impressions 06/09/2023 3:19 PM METAL FURNITURE POLISHER IMPRESSION ----- 1) Growth parameters and estimated weight were consistent with appropriate for gestational age pattern of growth. 2) anatomy appeared normal for gestational age. Narrative 06/09/2023 3:19 PM METAL FURNITURE POLISHER ?Comp Follow Up ----- Pat. Name: July ? Study Date: ??06/09/2023 2:18pm Pat. NO: ??[id number] ?Referring ??MD: JONN GIRON Site: ??[facility] ? Rn Staffing: Bladimir Cox RDMS : ??1990 ?Age: ?? [...] 1 lb 4 ?oz EFW by ?Hadlock ([id number]) Head / Face / Neck Biometry: CM ?5.9 ? mm ANATOMY ----- The following structures appear normal: Head / Neck ? Cranium. Head size. Head shape. Lateral ventricles. Midline falx. Cavum septi pellucidi. Cerebellum. Cisterna magna. Thalami. Face ? Lips. Profile. Nose. Maxilla. Mandible. Heart / Thorax ?4-chamber view. RVOT view. LVOT view. Aortic arch view. 9-plpizg-jbicnul view. ? Diaphragm. Abdomen ? Stomach. Kidneys. [...] AUNDREAJuly Study Date: 06/09/2023 2:18pm Pat. NO: [id number] Referring MD: JONN GIRON Site: [facility] Rn Staffing: Bladimir Cox RDMS : 1990 Age: 33 [...] 1 lb 4 oz EFW by Hadlock ([id number]) Head / Face / Neck Biometry: CM 5.9 mm ANATOMY ----- The following structures appear normal: Head / Neck Cranium. Head size. Head shape.Lateral ventricles. Midline falx. Cavum septi pellucidi. Cerebellum.Cisterna magna. Thalami. Face Lips. Profile. Nose. Maxilla.Mandible. Heart / Thorax 4-chamber view. RVOT view. LVOT view.Aortic arch view. 5-rmyczh-svhhwhk view. Diaphragm. Abdomen Stomach. Kidneys. Bladder. Spine [...] normal for gestational age. Chloe Crowder MD [facility] documented in this encounter Visit Diagnoses Diagnosis Encounter for follow-up ultrasound of anatomy- Primary Hepatitis B carrier (H) Hepatitis B carrier Encounter for follow-up ultrasound of anatomy documented in this encounter Care Teams Gas Operations Superintendent Relationship Specialty Start Date End Date Mj Oliver PA-C [address] [address] PCP - General Family Practice 04/24/11 documented as of this encounter
--- OUTSIDE RECORDS SUMMARY | 2023-08-11 13:51 | XMS_ITS | Clinical Summary ---
Author Name Unknown Organization [facility] Address [address] [place] [address] Care Team Providers Care Community Planner Name Role Phone Mj Oliver PA-C Primary [...] Age 20. Plan colp per MD 03/16/11: [place] - BRAEDEN I. Plan pap in 6 [...] Department Care Team Description 06/09/2023 2:45 PM ULTIMATE HOOPS TRAINER Office Visit [facility] [place] [address] [place] [address] Chloe Crowder MD Rauk, Skip Stone MD Encounter for follow-up ultrasound of anatomy (Primary Dx) 06/09/2023 2:11 PM ULTIMATE HOOPS TRAINER - 06/09/2023 11:59 PM ULTIMATE HOOPS TRAINER Hospital Encounter [facility] [place] [address] [place] [address] Chloe Crowder MD Rauk, Skip Stone MD Encounter for follow-up ultrasound of anatomy Discharge Disposition: Home or Self Care 06/09/2023 Travel from Last 3 Months Immunizations Name [...] Comments Blood Pressure 135/75 02/19/2016 11:55 AM ULTIMATE HOOPS TRAINER Pulse 93 02/19/2016 11:55 AM ULTIMATE HOOPS TRAINER Temperature 36.6 ??C (97.9 ??F) 05/30/2013 9:57 AM CS T Respiratory Rate 16 06/20/2011 2:44 PM CDT Oxygen Saturation 97% 02/19/2016 11:55 AM ULTIMATE HOOPS TRAINER Inhaled Oxygen Concentration - - Weight 59 kg (130 lb) 05/30/2013 9:57 AM ULTIMATE HOOPS TRAINER Height 152.4 cm (5') 05/30/2013 9:57 AM ULTIMATE HOOPS TRAINER Body Mass Index 25.39 05/30/2013 9:57 AM ULTIMATE HOOPS TRAINER Plan of Treatment Health Maintenance Due Date [...] 05/13/2013, Additional history exists COVID-19 Vaccine ( season) 2022 MATERNAL SCREENING DISCUSSION 03/07/2023 PHQ-2 (once per calendar year) 2023 OBGCT (OB) 06/13/2023 INFLUENZA VACCINE (Season Ended) 2023 DTAP/TDAP/TD IMMUNIZATION (5 - Td or Tdap) [...] Procedure Name Priority Date/Time Associated Diagnosis Comments [facility] US COMPREHENSIVE SINGLE F/U Routine 06/09/2023 3:09 PM ULTIMATE HOOPS TRAINER Encounter for follow-up ultrasound of anatomy ASTHMA ACTION PLAN Routine 02/20/2013 10 :19 AM ULTIMATE HOOPS TRAINER Intermittent asthma HCL HIV 1 & 2 ANTIBODY Routine 8 1:52 PM ULTIMATE HOOPS TRAINER Supervision of Other Normal [facility] PAP SMEAR Routine 08/26/1998 1:18 PM CDT Gynecologic Examination from Last 3 Months or Most Recently Relevant to Health Maintenance Results * M US Comprehensive Single F/U (06/09/2023 3:09 PM ULTIMATE HOOPS TRAINER) Anatomical Region Laterality Modality Ultrasound 06/09/2023 2:18 PM ULTIMATE HOOPS TRAINER Impressions 06/09/2023 3:19 PM ULTIMATE HOOPS TRAINER IMPRESSION ----- 1) Growth parameters and estimated weight were consistent with appropriate for gestational age pattern of growth. 2) anatomy appeared normal for gestational age. Narrative 06/09/2023 3:19 PM ULTIMATE HOOPS TRAINER ?Comp Follow Up ----- Pat. Name: July ? Study Date: ??06/09/2023 2:18pm Pat. NO: ??[id number] ?Referring ??MD: JONN GIRON Site: ??[facility] ? Telecasting Technician: Bladimir Cox RDMS : ??1990 ?Age: [...] 1 lb 4 ?oz EFW by ?Hadlock ([id number]) Head / Face / Neck Biometry: CM ?5.9 ? mm ANATOMY ----- The following structures appear normal: Head / Neck ? Cranium. Head size. Head shape. Lateral ventricles. Midline falx. Cavum septi pellucidi. Cerebellum. Cisterna magna. Thalami. Face ? Lips. Profile. Nose. Maxilla. Mandible. Heart / Thorax ?4-chamber view. RVOT view. LVOT view. Aortic arch view. 1-hzdtuc-ngbdezv view. ? Diaphragm. Abdomen ? Stomach. Kidneys. [...] 06/09/2023 Comp Follow Up ----- Pat. Name: July Study Date: 06/09/2023 2:18pm Pat. NO: [id number] Referring MD: JONN GIRON Site: [facility] Telecasting Technician: Bladimir Cox RDMS : 1990 Age: [...] 1 lb 4 oz EFW by Hadlock ([id number]) Head / Face / Neck Biometry: CM 5.9 mm ANATOMY ----- The following structures appear normal: Head / Neck Cranium. Head size. Head shape.Lateral ventricles. Midline falx. Cavum septi pellucidi. Cerebellum.Cisterna magna. Thalami. Face Lips. Profile. Nose. Maxilla.Mandible. Heart / Thorax 4-chamber view. RVOT view. LVOT view.Aortic arch view. 1-lazpli-syheerk view. Diaphragm. Abdomen Stomach. Kidneys. Bladder. Spine [...] normal for gestational age. Chloe Crowder MD [facility] US ORDERABLE S * HIV Screening (02/29/2008 1:52 PM ULTIMATE HOOPS TRAINER) Pathologist [facility] HIV 1&2 Antibody Negative NEG [facility] 02/29/2008 1:52 PM ULTIMATE HOOPS TRAINER 02/29/2008 1:53 PM ULTIMATE HOOPS TRAINER Iza Mancilla MD LABORATORY [facility] * PAP SMEAR (08/26/1998 1:18 PM CDT) Unlabelled DNR [facility] Biopsy Sent R [facility] Source VAG,CERV,E NDOCERV [facility] LMP POST [facility] PARA 3 [facility] 2 [facility] Clinical History DNR [facility] Therapy DNR [facility] Last Pap Diagnosis WITHIN NORMAL LIMITS [facility] PAP Date [id number] [facility] Specimen # DNR [facility] Tissue DNR [facility] Tissue Date DNR [facility] Statement of Adequacy [facility] Comment: SATISFACTORY FOR INTERPRETATION POST MENOPAUSAL PATIENT. ??NO ENDOCERVICAL CELLS SEEN. General Categorization R [facility] Descriptive Diagnosis [facility] Comment: WITHIN NORMAL LIMITS ATROPHIC CELL PATTERN Recommendations DNR [facility] DNR 114,,,,,, [facility] DNR DNR [facility] DNR DNR [facility] DNR DNR [facility] . [facility] Comment: ?PAP SMEARS ARE SUBJECT TO BOTH FALSE NEGATIVE AND FALSE ? POSITIVE RESULTS EVIDENCED BY DATA PUBLISHED IN THE ? MEDICAL LITERATURE. ??YOUR PATIENT'S RESULT SHOULD BE ? INTERPRETED IN THIS CONTEXT, TOGETHER WITH THE PATIENT'S ? HISTORY AND CLINICAL FINDINGS. TESTING LOCATION ? THIS TEST WAS PERFORMED AT [facility] ? [address] [facility]. [address] ? PHONE NUMBERS FOR CYTOLOGY INQUIRES, INCLUDING SLIDE REQUESTS ? EXT. [id number] ?? EXT. [id number] 08/24/1998 Fannie Hart MD LABORATORY [facility] from Last 3 Months or Most Recently Relevant to Health Maintenance Care Teams Community Planner Relationship Specialty Start Date End Date Mj Oliver PA-C [address] [address] PCP - General Family Practice 04/24/11
--- OUTSIDE RECORDS SUMMARY | 2023-08-11 13:51 | XMS_ITS | Encounter Summary ---
Author Name Unknown Organization [facility] Address [address] [place] [address] Care Team Providers Care Activities Volunteer Name Role Phone jM Oliver PA-C Primary Care Provide r Encounter Details Date Type Department Care Team (Late st Contact Info) Description 11/18/2011 [facility] [place] [address] [address] [facility] Social History Tobacco Use Types [...] on filedocumented in this encounter Care Teams Activities Volunteer Relationship Specialty Start Date End Date Mj Oliver PA-C [address] [address] PCP - General Family Practice 04/24/11 documented as of this encounter
--- OUTSIDE RECORDS SUMMARY | 2023-08-11 13:51 | XMS_ITS | Encounter Summary ---
Author Name Unknown Organization [facility] Address [address] [place] [address] Care Team Providers Care Customer Service Representative Teller Name Role Phone Mj Oliver PA-C Primary Care Provide r Encounter Details Date Type Department Care Team (Late st Contact Info) Description 12/13/2011 [facility] Medical Advice [address] [address] [facility] Social History Tobacco Use Types [...] on filedocumented in this encounter Care Teams Customer Service Representative Teller Relationship Specialty Start Date End Date Mj Oliver PA-C [address] [address] PCP - General Family Practice 04/24/11 documented as of this encounter
--- OUTSIDE RECORDS SUMMARY | 2023-08-11 13:51 | XMS_ITS | Referral Summary ---
Author Name Unknown Organization [place] Address [address] [place] [address] Care Team Providers Care Supervisor Reclamation Name Role Phone Mj Oliver PA-C Primary Care Provide r Encounters Date Type Department Care Team Description 06/09/2023 Travel 06/09/2023 2:45 PM TRUSS MAKER Office Visit [facility] [address] [place] [phone] Chloe Crowder MD Rauk, Skip Stone MD Encounter for follow-up ultrasound of anatomy (Primary Dx) 06/09/2023 2:11 PM TRUSS MAKER - 06/09/2023 11:59 PM TRUSS MAKER Hospital Encounter [facility] [address] [place] [phone] Chloe Crowder MD Rauk, Skip Stone MD Encounter for follow-up ultrasound of anatomy Discharge Disposition: Home or Self Care from Last 3 Months Allergies Active Allergy [...] Age 20. Plan colp per MD 03/16/11: [place] - BRAEDEN I. Plan pap in 6 [...] Comments Blood Pressure 135/75 02/19/2016 11:55 AM TRUSS MAKER Pulse 93 02/19/2016 11:55 AM TRUSS MAKER Temperature 36.6 ??C (97.9 ??F) 05/30/2013 9:57 AM CS T Respiratory Rate 16 06/20/2011 2:44 PM CDT Oxygen Saturation 97% 02/19/2016 11:55 AM TRUSS MAKER Inhaled Oxygen Concentration - - Weight 59 kg (130 lb) 05/30/2013 9:57 AM TRUSS MAKER Height 152.4 cm (5') 05/30/2013 9:57 AM TRUSS MAKER Body Mass Index 25.39 05/30/2013 9:57 AM TRUSS MAKER Plan of Treatment Not on file Procedures Procedure Name Priority Date/Time Associated Diagnosis Comments [facility] COMPREHENSIVE SINGLE F/U Routine 06/09/2023 3:09 PM TRUSS MAKER Encounter for follow-up ultrasound of anatomy ASTHMA ACTION PLAN Routine 02/20/2013 10 :19 AM TRUSS MAKER Intermittent asthma HCL HIV 1 & 2 ANTIBODY Routine 8 1:52 PM TRUSS MAKER Supervision of Other Normal HCL PAP SMEAR Routine 08/26/1998 1:18 PM CDT Gynecologic Examination from Last 3 Months or Most Recently Relevant to Health Maintenance Results * [facility] US Comprehensive Single F/U (06/09/2023 3:09 PM TRUSS MAKER) Anatomical Region Laterality Modality Ultrasound 06/09/2023 2:18 PM TRUSS MAKER Impressions 06/09/2023 3:19 PM TRUSS MAKER IMPRESSION ----- 1) Growth parameters and estimated weight were consistent with appropriate for gestational age pattern of growth. 2) anatomy appeared normal for gestational age. Narrative 06/09/2023 3:19 PM TRUSS MAKER ?Comp Follow Up ----- Pat. Name: AUNDREA JULY ? Study Date: ??06/09/2023 2:18pm Pat. NO: ??[id number] ?Referring ??MD: JONN GIRON Site: ??[facility] ? Slotter Operator Helper: Bladimir Cox RDMS : ??1990 ?Age: [...] 1 lb 4 ?oz EFW by ?Hadlock ([id number]) Head / Face / Neck Biometry: CM ?5.9 ? mm ANATOMY ----- The following structures appear normal: Head / Neck ? Cranium. Head size. Head shape. Lateral ventricles. Midline falx. Cavum septi pellucidi. Cerebellum. Cisterna magna. Thalami. Face ? Lips. Profile. Nose. Maxilla. Mandible. Heart / Thorax ?4-chamber view. RVOT view. LVOT view. Aortic arch view. 5-xkawvk-jpfdfoi view. ? Diaphragm. Abdomen ? Stomach. Kidneys. [...] AUNDREAJuly Study Date: 06/09/2023 2:18pm Pat. NO: [id number] Referring MD: JONN GIRON Site: [facility] Slotter Operator Helper: Bladimir Cox RDMS : 1990 Age: [...] 1 lb 4 oz EFW by Hadlock ([id number]) Head / Face / Neck Biometry: CM 5.9 mm ANATOMY ----- The following structures appear normal: Head / Neck Cranium. Head size. Head shape.Lateral ventricles. Midline falx. Cavum septi pellucidi. Cerebellum.Cisterna magna. Thalami. Face Lips. Profile. Nose. Maxilla.Mandible. Heart / Thorax 4-chamber view. RVOT view. LVOT view.Aortic arch view. 1-drzhfx-werwxtf view. Diaphragm. Abdomen Stomach. Kidneys. Bladder. Spine [...] normal for gestational age. Chloe Crowder MD [facility] ORDERABLE S * HIV Screening (02/29/2008 1:52 PM TRUSS MAKER) HIV 1&2 Antibody Negative NEG [facility] 02/29/2008 1:52 PM TRUSS MAKER 02/29/2008 1:53 PM TRUSS MAKER Iza Mancilla MD LABORATORY [facility] * PAP SMEAR (08/26/1998 1:18 PM CDT) Unlabelled DNR [facility] Biopsy Sent DNR [facility] Source VAG,CERV,E NDOCERV [facility] LMP POST [facility] PARA 3 [facility] 2 [facility] Clinical History DNR [facility] Therapy DNR [facility] Last Pap Diagnosis WITHIN NORMAL LIMITS [facility] PAP Date [id number] [facility] Specimen # DNR [facility] Tissue DNR [facility] Tissue Date DNR [facility] Statement of Adequacy [facility] Comment: SATISFACTORY FOR INTERPRETATION POST MENOPAUSAL PATIENT. ??NO ENDOCERVICAL CELLS SEEN. General Categorization DNR [facility] Descriptive Diagnosis [facility] Comment: WITHIN NORMAL LIMITS ATROPHIC CELL PATTERN Recommendations DNR [facility] DNR 114,,,,,, [place] DNR DNR [facility] DNR DNR [facility] DNR DNR [facility] . [facility] Comment: ?PAP SMEARS ARE SUBJECT TO BOTH FALSE NEGATIVE AND FALSE ? POSITIVE RESULTS EVIDENCED BY DATA PUBLISHED IN THE ? MEDICAL LITERATURE. ??YOUR PATIENT'S RESULT SHOULD BE ? INTERPRETED IN THIS CONTEXT, TOGETHER WITH THE PATIENT'S ? HISTORY AND CLINICAL FINDINGS. TESTING LOCATION ? THIS TEST WAS PERFORMED AT [email or web address] ? [address] [facility]. [address] ? PHONE NUMBERS FOR CYTOLOGY INQUIRES, INCLUDING SLIDE REQUESTS ? EXT. [id number] ?? EXT. [id number] 08/24/1998 Fannie Hart MD LABORATORY [facility] from Last 3 Months or Most Recently Relevant to Health Maintenance Care Teams Supervisor Reclamation Relationship Specialty Start Date End Date Mj Oliver PA-C [address] [address] PCP - General Family Practice 04/24/11
--- OUTSIDE RECORDS SUMMARY | 2023-08-11 13:51 | XMS_ITS | Encounter Summary ---
Author Name Unknown Organization [facility] Address [address] [place] [address] Care Team Providers Care Tanning Salon Attendant Name Role Phone Mj Oliver PA-C Primary [...] on filedocumented in this encounter Care Teams Tanning Salon Attendant Relationship Specialty Start Date End Date Mj Oliver PA-C [address] [address] PCP - General Family Practice 04/24/11 documented as of this encounter
--- OUTSIDE RECORDS SUMMARY | 2023-08-11 13:51 | XMS_ITS | Encounter Summary ---
Author Name Unknown Organization [place] Address [address] [place] [address] Care Team Providers Care Director Of Sales Support Name Role Phone Mj Oliver PA-C Primary Care Provide r Reason for Referral * Diagnostic Imaging Ultrasound (Routine) - Pending Review Specialty Diagnoses / Procedures Referred By Contac t Referred To Contact Radiology. Diagnoses Encounter for follow-up ultrasound of anatomy Procedures [facility] US Comprehensive Single F/U Chloe Crowder MD [address] [place] [address] Referral ID Status Reason Start Date Expiration Date V isits Requested Visits Authorized [id number] Pending Review 05/05/2023 05/04/2024 1 1 SALES ASSOCIATE Reason for Visit * Diagnostic Imaging Ultrasound (Routine) - Pending Review Specialty Diagnoses / Procedures Referred By Contac t Referred To Contact Radiology. Diagnoses Encounter for follow-up ultrasound of anatomy Procedures [facility] US Comprehensive Single F/U Chloe Crowder MD [address] [facility] [address] [facility] [address] [place] [address] Referral ID Status Reason Start Date Expiration Date V isits Requested Visits Authorized [id number] Pending Review 05/05/2023 05/04/2024 1 1 Encounter Details Date Type Department Care Team (Latest Contact Info) Description 06/09/2023 2:11 PM CAR SALES ASSOCIATE - 06/09/2023 11:59 PM CAR SALES ASSOCIATE Hospital Encounter [facility] [place] [address] [place] [address] Chloe Crowder MD [address] [place] [address] Skip Hilliard MD [address] [place] [address] Encounter for follow-up ultrasound of [...] Procedure Name Priority Date/Time Associated Diagnosis Comments [facility] US COMPREHENSIVE SINGLE F/U Routine 06/09/2023 3:09 PM CAR SALES ASSOCIATE Encounter for follow-up ultrasound of anatomy documented in this encounter Results * [facility] US Comprehensive Single F/U (06/09/2023 3:09 PM CAR SALES ASSOCIATE) Anatomical Region Laterality Modality Ultrasound 06/09/2023 2:18 PM CAR SALES ASSOCIATE Impressions 06/09/2023 3:19 PM CAR SALES ASSOCIATE IMPRESSION ----- 1) Growth parameters and estimated weight were consistent with appropriate for gestational age pattern of growth. 2) anatomy appeared normal for gestational age. Narrative 06/09/2023 3:19 PM CAR SALES ASSOCIATE ?Comp Follow Up ----- Pat. Name: AUNDREA, JULY ? Study Date: ??06/09/2023 2:18pm Pat. NO: ??[id number] ?Referring ??MD: JONN GIRON Site: ??[facility] ? Channel Layer: Bladimir Cox RDMS : ??1990 ?Age: ?? [...] 1 lb 4 ?oz EFW by ?Hadlock ([id number]) Head / Face / Neck Biometry: CM ?5.9 ? mm ANATOMY ----- The following structures appear normal: Head / Neck ? Cranium. Head size. Head shape. Lateral ventricles. Midline falx. Cavum septi pellucidi. Cerebellum. Cisterna magna. Thalami. Face ? Lips. Profile. Nose. Maxilla. Mandible. Heart / Thorax ?4-chamber view. RVOT view. LVOT view. Aortic arch view. 7-migwjy-pzjcaks view. ? Diaphragm. Abdomen ? Stomach. Kidneys. [...] AUNDREAJuly Study Date: 06/09/2023 2:18pm Pat. NO: [id number] Referring MD: JONN GIRON Site: [facility] Channel Layer: Bladimir Cox RDMS : 1990 Age: 33 [...] 1 lb 4 oz EFW by Serjio ([id number]) Head / Face / Neck Biometry: CM 5.9 mm ANATOMY ----- The following structures appear normal: Head / Neck Cranium. Head size. Head shape.Lateral ventricles. Midline falx. Cavum septi pellucidi. Cerebellum.Cisterna magna. Thalami. Face Lips. Profile. Nose. Maxilla.Mandible. Heart / Thorax 4-chamber view. RVOT view. LVOT view.Aortic arch view. 7-bfzmri-mmdxiua view. Diaphragm. Abdomen Stomach. Kidneys. Bladder. Spine [...] in this encounter Care Teams Director Of Sales Support Relationship Specialty Start Date End Date Mj Oliver PA-C [address] [address] PCP - General Family Practice 04/24/11 documented as of this encounter
--- OUTSIDE RECORDS SUMMARY | 2023-08-11 13:51 | XMS_ITS | Encounter Summary ---
Author Name Unknown Organization [facility] Address [address] [place] [address] Care Team Providers Care Records Section Supervisor Name Role Phone Mj Oliver PA-C Primary Care Provide r Encounter Details Date Type Department Care Team (Late st Contact Info) Description 07/06/2012 [facility] Medical Advice [address] [address] [facility] Social History Tobacco Use Types Packs/Day [...] on filedocumented in this encounter Care Teams Records Section Supervisor Relationship Specialty Start Date End Date Mj Oliver PA-C [address] [address] PCP - General Family Practice 04/24/11 documented as of this encounter
--- OUTSIDE RECORDS SUMMARY | 2023-08-11 13:51 | XMS_ITS | Encounter Summary ---
Author Name Unknown Organization [facility] Address [address] [place] [address] Care Team Providers Care Recorder Helper Gravity Prospecting Name Role Phone Mj Oliver PA-C Primary Care Provide r Reason for Referral * Consultation (Routine: Next available opening) - Pending Review Specialty Diagnoses / Procedures Referred By Contac t Referred To Contact Diagnoses Hepatitis B carrier (H) Mohsen Lundy MD [address] [address] Referral ID Status Reason Start Date Expiration Date V isits Requested Visits Authorized [id number] Pending Review 03/23/2023 03/22/2024 1 1 Question Answer MFM Consult Yes Comments [facility] radiologic and comp Us IRONER * Diagnostic Imaging Ultrasound (Routine) - Pending Review Specialty Diagnoses / Procedures Referred By Contac t Referred To Contact Radiology. Diagnoses Hepatitis B carrier (H) Procedures [facility] US Comprehensive Single Mohsen Lundy MD [address] [address] Referral ID Status Reason Start Date Expiration Date V isits Requested Visits Authorized [id number] Pending Review 03/23/2023 03/22/2024 1 1 IRONER Encounter Details Date Type Department Care Team (Late st Contact Info) Description 03/23/2023 Orders Only [facility] Maternal [facility] [place] [phone] Marquita To RN Hepatitis B carrier (H) [...] Type Priority Associated Diagnoses Orde r Schedule [facility] Office Visit Referral Routine: Next available opening Hepatitis B carrier (H) Expected: 03/23/2023 (Approximate), Expires: 03/23/2024 documented as of this encounter Results * [facility] Comprehensive Single (05/05/2023 2:39 PM HAT IRONER) Anatomical Region Laterality Modality Ultrasound 05/05/2023 1:32 PM HAT IRONER Impressions 05/05/2023 4:01 PM HAT IRONER IMPRESSION ----- 1. Forman intrauterine at 18w [...] long and closed. Narrative 05/05/2023 4:01 PM HAT IRONER ?Comprehensive ----- Pat. Name: July ? Study Date: ??05/05/2023 1:32pm Pat. NO: ??[id number] ?Referring ??MD: JONN GIRON Site: ??[facility] ? Receiving Tank Operator: Bladimir Cox RDMS : ??1990 ?Age: [...] ? 0 lb 8 ?oz [facility]FW [facility] ([id number]) Head / Face / Neck Biometry: Crime Laboratory Analyst ? 6.0 ? mm CM ?1.9 [...] apical view. RVOT view. Aortic arch view. 9-klvgci-gthhqkp view. ? Diaphragm. Abdomen ? Kidneys. Spine [...] AUNDREAJuly Study Date: 05/05/2023 1:32pm Pat. NO: [id number] Referring MD: JONN GIRON Site: [facility] Receiving Tank Operator: Bladimir Cox RDMS : 1990 Age: [...] 0 lb 8 oz EFW by Hadlock ([id number]) Head / Face / Neck Biometry: Crime Laboratory Analyst 6.0 mm CM 1.9 mm Nasal [...] Suboptimal apicalview. RVOT view. Aortic arch view. 5-vcudjk-wtxclfe view. Diaphragm. Abdomen Kidneys. Spine Sacral spine. [...] appears long and closed. Mohsen Lundy MD [facility] US ORDERABLE S documented in this encounter Visit Diagnoses Diagnosis Hepatitis B carrier (H)- Primary Hepatitis B carrier Hepatitis B carrier (H) Hepatitis B carrier documented in this encounter Care Teams Recorder Helper [employer]ity Prospecting Relationship Specialty Start Date End Date Mj Oliver PA-C [address] [address] PCP - General Family Practice 04/24/11 documented as of this encounter
--- OUTSIDE RECORDS SUMMARY | 2023-08-11 13:51 | XMS_ITS | Encounter Summary ---
Author Name Unknown Organization [place] Address [address] [facility] [place] [address] Care Team Providers Care Digital Campaign Specialist Name Role Phone Mj Oliver PA-C Primary Care Provide r Reason for Visit * Reason Comments Ultrasound RL2- Subopt anatomy Encounter Details Date Type Department Care Team (Late st Contact Info) Description 06/09/2023 2:45 PM E LEARNING COORDINATOR Office Visit [facility] [place] [address] [facility] [address] [place] [address] Chloe Crowder MD [address] [place] [address] Skip Hilliard MD [address] [place] [address] Encounter for follow-up ultrasound of [...] for details of today's US at the [facility]. Skip Hilliard MD Maternal- Medicine E LEARNING COORDINATOR documented in this encounter Nursing Notes * Loretta Zapata RN - 06/09/2023 2:45 PM CST Patient reports positive movement, denies pain, denies contractions/pre- term labor, leaking of fluid, or bleeding. Patient denies headache, visual changes, nausea/vomiting, epigastric pain related to preeclampsia. Education provided to patient on RL2. SBAR given to [facility], see their note in Epic. Loretta Zapata RN E LEARNING COORDINATOR documented in this encounter Plan of Treatment Not on file documented as of this encounter Visit Diagnoses Diagnosis Encounter for follow-up ultrasound of anatomy- Primary documented in this encounter Care Teams Digital Campaign Specialist Relationship Specialty Start Date End Date Mj Oliver PA-C [address] [address] PCP - General Family Practice 04/24/11 documented as of this encounter
--- OUTSIDE RECORDS SUMMARY | 2023-08-11 13:51 | XMS_ITS | Encounter Summary ---
Author Name Unknown Organization [place] Address [address] [place] [address] Care Team Providers Care Coat Hanger Shaper Machine Operator Name Role Phone Unavailable Primary Care Provider Unavailabl e Encounter Details Date Type Department Care Team (Late st Contact Info) Description 04/06/2008 11:30 AM [facility] in [facility] [address] [place] [phone] Elmo Roa MD [address] [place] [address] Social History Tobacco Use Types Packs/Day Years [...]
--- OUTSIDE RECORDS SUMMARY | 2023-08-11 13:51 | XMS_ITS | Encounter Summary ---
Author Name Unknown Organization [place] Address [address] [place] [address] Care Team Providers Care Inspector And Clipper Name Role Phone Mj Oliver PA-C Primary [...] on filedocumented in this encounter Care Teams Inspector And Clipper Relationship Specialty Start Date End Date Mj Oliver PA-C [address] [address] PCP - General Family Practice 04/24/11 documented as of this encounter
--- OUTSIDE RECORDS SUMMARY | 2023-08-11 13:52 | XMS_ITS | Clinical Summary ---
Author Name Unknown Organization [facility] Address [place], [place] [address] Care Team Providers Care Procurement Intern Name Role Phone None Primary Care Provider [...] 16 Negative Negative 07/16/2021 2:43 PM CDT [facility] TRAL LABORATORY TYPE 18 Negative Negative 07/16/2021 2:43 PM CDT [facility] TRAL LABORATORY OTHER HIGH RISK TYPES Negative Negative 07/16/2021 2:43 PM CDT [facility] TRAL LABORATORY Other (Cervical/Vagina l) 07/13/2021 5:30 PM CDT 07/15/2021 8:15 AM CDT Narrative [facility] [email or web address] LABORATORY-CENTRAL LABORATORY - 07/16/2021 2:43 PM CDT HPV types 16, 18, 31, 33, 35, 39, 45, 51, 52, 56, 58, 59, 66 and 68 DNA were undetectable or below the pre-set threshold. Methodology: Junior Job 4800 HPV Test July Nel [facility] [address] [place] [address], from Last 3 Months or Most Recently Relevant to Health Maintenance Advance Directives * Full Code (Latest Code Status on File) Date Activated Date Inactivated Comments 10/15/2008 7:15 AM 10/17/2008 7:25 PM * Full Code Date Activated Date Inactivated Comments 10/14/2008 7:48 PM 10/15/2008 7:15 AM Care Teams Procurement Intern Relationship Specialty Start Date End Date None . PCP - General 12/08/12
--- NOTE | 2023-08-11 14:00 | US_ITS ---
Patient: July [facility] Facility:?[facility] RIS Patient ID:?[id number] Site Patient ID:?[id number]. Site :?1990 Study:?US-OB Pelvis OB BPP & F/U GROWTH-08/11/2023 2:33:36 PM Ordering Physician:ABRAM MERCER CNM Final Report: HISTORY: Follow-up growth. Obesity. Biophysical profile. COMPARISON: Ob ultrasound from 06/09/2023. measurements from this ultrasound are not included with the images submitted. A report is not available TECHNIQUE: Ultrasound examination of the is performed with transabdominal technique. A biophysical profile is also performed. FINDINGS: A single intrauterine gestation is seen in breech presentation with regular cardiac activity at 137 beats per minute. The placenta is anterior and is free of the cervical os. The placental grade is 2 and the amniotic fluid volume is normal. Single deepest vertical pocket: Normal at 5.3 cm. BPD: 7.7 cm 31 weeks 0 days HC: 30.3 cm 33 weeks 5 days AC: 27.1 cm 31 weeks 1 day FL: 5.9 cm 31 weeks 0 days The estimated age by ultrasound is 31 weeks 5 days, with an estimated date of delivery of 10/08/2023. This correlates well with the clinical age of 32 weeks 3 days. The ultrasound ratios are normal. The estimated weight of 1700 grams is at the 13th percentile based on the clinical dates. The biophysical profile score is 8/8, with no points off. IMPRESSION: 1. Single intrauterine gestation in breech presentation with regular cardiac activity. 2. Estimated gestational age is 31 weeks 5 days. 3. There has been appropriate interval growth when compared to the clinical age. 4. Estimated weight of 1700 grams is at the 13th percentile based on the clinical dates. 5. The biophysical profile score is 8/8, with no points off. Dictated by Semaj Hernandez MD @ 08/11/2023 8:58:46 PM Signed by:?Semaj Hernandez MD @08/11/2023 8:58:46 PM (Electronic Signature)
== END 2023-08-11 13:50 | disposition home or self-care (01) ==
LOC: US 13:49
PROVIDERS: Visit Provider Advanced Practice Midwife
DX: O99.213 Obesity complicating pregnancy, third trimester (principal); Z68.42 Body mass index [BMI] 45.0-49.9, adult; Z3A.31 31 weeks gestation of pregnancy
CPT/HCPCS: 76816; 76819

== ENCOUNTER 2023-09-08 14:39 | Outpatient (CLI) | payer BC, SELFPAY ==
--- OUTSIDE RECORDS SUMMARY | 2023-09-08 14:40 | XMS_ITS | Clinical Summary ---
Author Organization [place] Address [address] [place] [address] Care Team Providers Care Automatic Toe Laster Name Role Phone Mj Oliver PA-C Primary [...] Age 20. Plan colp per MD 03/16/11: [place] - BRAEDEN I. Plan pap in 6 [...] Department Care Team Description 06/09/2023 2:45 PM HOOP PUNCHER Office Visit [facility] [place] [address] [place] [address] Chloe Crowder MD Rauk, Skip Stone MD Encounter for follow-up ultrasound of anatomy (Primary Dx) 06/09/2023 2:11 PM HOOP PUNCHER - 06/09/2023 11:59 PM HOOP PUNCHER Hospital Encounter [facility] [place] [address] [facility] [address] [place] [address] Chloe Crowder MD Rauk, Skip Stone MD [...] Comments Blood Pressure 135/75 02/19/2016 11:55 AM HOOP PUNCHER Pulse 93 02/19/2016 11:55 AM HOOP PUNCHER Temperature 36.6 ??C (97.9 ??F) 05/30/2013 9:57 AM CS T Respiratory Rate 16 06/20/2011 2:44 PM CDT Oxygen Saturation 97% 02/19/2016 11:55 AM HOOP PUNCHER Inhaled Oxygen Concentration - - Weight 59 kg (130 lb) 05/30/2013 9:57 AM HOOP PUNCHER Height 152.4 cm (5') 05/30/2013 9:57 AM HOOP PUNCHER Body Mass Index 25.39 05/30/2013 9:57 AM HOOP PUNCHER Plan of Treatment Health Maintenance Due Date [...] per calendar year) 2023 OBGCT (OB) 06/13/2023 GROUP B STREP SCREENING 09/05/2023 INFLUENZA VACCINE (Season Ended) 2023 DTAP/TDAP/TD IMMUNIZATION [...] Procedure Name Priority Date/Time Associated Diagnosis Comments MFM US COMPREHENSIVE SINGLE F/U Routine 06/09/2023 3:09 PM HOOP PUNCHER Encounter for follow-up ultrasound of anatomy PAP IMAGED THIN LAYER, DIAGNOSTIC Routine 05/14/2013 12:00 AM HOOP PUNCHER LSIL (low grade squamous intraepithelial lesion) on Pap smear ASTHMA ACTION PLAN Routine 02/20/2013 10 :19 AM HOOP PUNCHER Intermittent asthma HCL HIV 1 & 2 ANTIBODY Routine 02/29/2008 1:52 PM HOOP PUNCHER Supervision of Other Normal from Last 3 Months or Most Recently Relevant to Health Maintenance Results * M US Comprehensive Single F/U (06/09/2023 3:09 PM HOOP PUNCHER) Anatomical Region Laterality Modality Ultrasound 06/09/2023 2:18 PM HOOP PUNCHER Impressions 06/09/2023 3:19 PM HOOP PUNCHER IMPRESSION ----- 1) Growth parameters and estimated weight were consistent with appropriate for gestational age pattern of growth. 2) anatomy appeared normal for gestational age. Narrative 06/09/2023 3:19 PM HOOP PUNCHER ?Comp Follow Up ----- Pat. Name: AUNDREAJuly ? Study Date: ??06/09/2023 2:18pm Pat. NO: ??[id number] ?Referring ??MD: JONN GIRON Site: ??[facility] ? Stabilizer Operator: lBadimir Cox RDMS : ??1990 ?Age: ?? 33 [...] 1 lb 4 ?oz EFW by ?Hadlock ([id number]) Head / Face / Neck Biometry: CM ?5.9 ? mm ANATOMY ----- The following structures appear normal: Head / Neck ? Cranium. Head size. Head shape. Lateral ventricles. Midline falx. Cavum septi pellucidi. Cerebellum. Cisterna magna. Thalami. Face ? Lips. Profile. Nose. Maxilla. Mandible. Heart / Thorax ?4-chamber view. RVOT view. LVOT view. Aortic arch view. 8-wzhitz-ohbzkln view. ? Diaphragm. Abdomen ? Stomach. Kidneys. [...] AUNDREAJuly Study Date: 06/09/2023 2:18pm Pat. NO: [id number] Referring MD: JONN GIRON Site: [facility] Stabilizer Operator: Bladimir Cox RDMS : 1990 Age: [...] 1 lb 4 oz EFW by Hadlock ([id number]) Head / Face / Neck Biometry: CM 5.9 mm ANATOMY ----- The following structures appear normal: Head / Neck Cranium. Head size. Head shape.Lateral ventricles. Midline falx. Cavum septi pellucidi. Cerebellum.Cisterna magna. Thalami. Face Lips. Profile. Nose. Maxilla.Mandible. Heart / Thorax 4-chamber view. RVOT view. LVOT view.Aortic arch view. 8-gvupxw-mnppmlp view. Diaphragm. Abdomen Stomach. Kidneys. Bladder. Spine [...] normal for gestational age. Chloe Crowder MD [facility] US ORDERABLE S * PAP imaged thin layer, diagnostic (05/14/2013 12:00 AM HOOP PUNCHER) PAP MARIE Alcazar Report Patient Name: ZINA HALL MR#: [id number] Specimen #: [id number] Collected: 05/14/2013 Received: 05/15/2013 Reported: 05/16/2013 11:24 Ordering Phy(s): CLAIRE PIERRE SPECIMEN/STAIN PROCESS: Pap Imaged thin layer prep diagnostic (SurePath, FocalPoint with guided screening) ? Pap-Cyto x 1, HPV ordered x 1 SOURCE: Cervical, endocervical Pap Imaged thin layer prep diagnostic (SurePath, FocalPoint with guided screening) SPECIMEN ADEQUACY: Satisfactory for evaluation. -Transformation zone component absent. CYTOLOGIC INTERPRETATION: Negative for Intraepithelial Lesion or Malignancy ? Other Non-Neoplastic Findings: -Inflammation present. Electronically signed out by: SHAHZAD Irizarry(ASCP) Processed and screened at [facility], [facility] CLINICAL HISTORY: LMP: 04/30/13 Oral Control Pill Intra-Uterine Device, Previous normal pap Date of Last Pap: 11/26/11, Papanicolaou Test Limitations: ??Cervical cytology is a screening test with limited sensitivity; regular screening is critical for cancer prevention; Pap tests are primarily effective for the diagnosis/preventi on of squamous cell carcinoma, not adenocarcinomas or other cancers. TESTING LAB LOCATION: [facility] [address] [place], [place] ??[id number] COLLECTION SITE: Client: ??[facility] Location: LVOB (R) COPATH Cytologic material (specimen) 05/14/2013 05/15/2013 2:17 PM HOOP PUNCHER Claire Pierre DO LAB - [facility] ICAL SPECIMEN COPATH * HIV Screening (02/29/2008 1:52 PM HOOP PUNCHER) HIV 1&2 Antibody Negative NEG [facility] 02/29/2008 1:52 PM HOOP PUNCHER 02/29/2008 1:53 PM HOOP PUNCHER Iza Mancilla MD LABORATORY [facility] LABS from Last 3 Months or Most Recently Relevant to Health Maintenance Care Teams Automatic Toe Laster Relationship Specialty Start Date End Date Mj Oliver PA-C [address] [address] PCP - General Family Practice 04/24/11
--- OUTSIDE RECORDS SUMMARY | 2023-09-08 14:41 | XMS_ITS | Encounter Summary ---
Author Organization [place] Address [address] [place] [address] Care Team Providers Care Machine Gun Mechanic Name Role Phone Unavailable Primary Care Provider Unavailabl e Encounter Details Date Type Department Care Team (Late st Contact Info) Description 04/06/2008 11:30 AM [facility] in [facility] [address] [place] [phone] Elmo Roa MD [address] [place] [address] Social History Tobacco Use Types Packs/Day Years [...]
--- OUTSIDE RECORDS SUMMARY | 2023-09-08 14:41 | XMS_ITS | Encounter Summary ---
Author Organization [place] Address [address] [place] [address] Care Team Providers Care Stage Hand Name Role Phone Mj Oliver PA-C Primary Care Provide r Encounter Details Date Type Department Care Team (Late st Contact Info) Description 12/13/2011 [facility] Medical Advice [address] [address] [facility] Social History Tobacco Use Types Packs/Day [...] on filedocumented in this encounter Care Teams Stage Hand Relationship Specialty Start Date End Date Mj Oliver PA-C [address] [address] PCP - General Family Practice 04/24/11 documented as of this encounter
--- OUTSIDE RECORDS SUMMARY | 2023-09-08 14:41 | XMS_ITS | Encounter Summary ---
Author Organization [place] Address [address] [place] [address] Care Team Providers Care Hopper Attendant Name Role Phone Mj Oliver PA-C [...] on filedocumented in this encounter Care Teams Hopper Attendant Relationship Specialty Start Date End Date Mj Oliver PA-C [address] [address] PCP - General Family Practice 04/24/11 documented as of this encounter
--- OUTSIDE RECORDS SUMMARY | 2023-09-08 14:41 | XMS_ITS | Encounter Summary ---
Author Organization [place] Address [address] [place] [address] Care Team Providers Care Air Marshal Name Role Phone Mj Oliver PA-C Primary Care Provide r Encounter Details Date Type Department Care Team (Late st Contact Info) Description 07/06/2012 [facility] Medical Advice [address] [address] [facility] Social History Tobacco Use Types Packs/Day [...] on filedocumented in this encounter Care Teams Air Marshal Relationship Specialty Start Date End Date Mj Oliver PA-C [address] [address] PCP - General Family Practice 04/24/11 documented as of this encounter
--- OUTSIDE RECORDS SUMMARY | 2023-09-08 14:41 | XMS_ITS | Encounter Summary ---
Author Organization [place] Address [address] [place] [address] Care Team Providers Care Puddler Pile Driving Name Role Phone Mj Oliver PA-C Primary Care Provide r Encounter Details Date Type Department Care Team (Late st Contact Info) Description 07/06/2017 [facility] Medical Advice [address] [address] Peri Carter RN Social History [...] on filedocumented in this encounter Care Teams Puddler Pile Driving Relationship Specialty Start Date End Date Mj Oliver PA-C [address] [address] PCP - General Family Practice 04/24/11 documented as of this encounter
--- OUTSIDE RECORDS SUMMARY | 2023-09-08 14:41 | XMS_ITS | Referral Summary ---
Author Organization [place] Address [address] [place] [address] Care Team Providers Care Diesel Truck Mechanic Name Role Phone Mj Oliver PA-C Primary Care Provide r Encounters Date Type Department Care Team Description 06/09/2023 Travel 06/09/2023 2:45 PM DRIVER RETRAINING INSTRUCTOR Office Visit [facility] Medicine [facility] [address] [facility] [address] [place] [phone] Chloe Crowder MD Rauk, Skip Stone MD Encounter for follow-up ultrasound of anatomy (Primary Dx) 06/09/2023 2:11 PM DRIVER RETRAINING INSTRUCTOR - 06/09/2023 11:59 PM DRIVER RETRAINING INSTRUCTOR Hospital Encounter [facility] Medicine [facility] [address] [facility] [address] [place] [phone] Chloe Crowder MD Rauk, Skip Stone MD [...] Age 20. Plan colp per MD 03/16/11: [place] - BRAEDEN I. Plan pap in 6 [...] Comments Blood Pressure 135/75 02/19/2016 11:55 AM DRIVER RETRAINING INSTRUCTOR Pulse 93 02/19/2016 11:55 AM DRIVER RETRAINING INSTRUCTOR Temperature 36.6 ??C (97.9 ??F) 05/30/2013 9:57 AM CS T Respiratory Rate 16 06/20/2011 2:44 PM CDT Oxygen Saturation 97% 02/19/2016 11:55 AM DRIVER RETRAINING INSTRUCTOR Inhaled Oxygen Concentration - - Weight 59 kg (130 lb) 05/30/2013 9:57 AM DRIVER RETRAINING INSTRUCTOR Height 152.4 cm (5') 05/30/2013 9:57 AM DRIVER RETRAINING INSTRUCTOR Body Mass Index 25.39 05/30/2013 9:57 AM DRIVER RETRAINING INSTRUCTOR Plan of Treatment Not on file Procedures Procedure Name Priority Date/Time Associated Diagnosis Comments [facility] COMPREHENSIVE SINGLE F/U Routine 06/09/2023 3:09 PM DRIVER RETRAINING INSTRUCTOR Encounter for follow-up ultrasound of anatomy PAP IMAGED THIN LAYER, DIAGNOSTIC Routine 05/14/2013 12:00 AM DRIVER RETRAINING INSTRUCTOR LSIL (low grade squamous intraepithelial lesion) on Pap smear ASTHMA ACTION PLAN Routine 02/20/2013 10 :19 AM DRIVER RETRAINING INSTRUCTOR Intermittent asthma HCL HIV 1 & 2 ANTIBODY Routine 02/29/2008 1:52 PM DRIVER RETRAINING INSTRUCTOR Supervision of Other Normal from Last 3 Months or Most Recently Relevant to Health Maintenance Results * [facility] US Comprehensive Single F/U (06/09/2023 3:09 PM DRIVER RETRAINING INSTRUCTOR) Anatomical Region Laterality Modality Ultrasound 06/09/2023 2:18 PM DRIVER RETRAINING INSTRUCTOR Impressions 06/09/2023 3:19 PM DRIVER RETRAINING INSTRUCTOR IMPRESSION ----- 1) Growth parameters and estimated weight were consistent with appropriate for gestational age pattern of growth. 2) anatomy appeared normal for gestational age. Narrative 06/09/2023 3:19 PM DRIVER RETRAINING INSTRUCTOR ?Comp Follow Up ----- Pat. Name: AUNDREA ZINA ? Study Date: ??06/09/2023 2:18pm Pat. NO: ??[id number] ?Referring ??MD: JONN GIRON Site: ??[facility] ? Brim Setter: Bladimir Cox RDMS : ??1990 ?Age: ?? [...] 1 lb 4 ?oz EFW by ?Hadlock ([id number]) Head / Face / Neck Biometry: CM ?5.9 ? mm ANATOMY ----- The following structures appear normal: Head / Neck ? Cranium. Head size. Head shape. Lateral ventricles. Midline falx. Cavum septi pellucidi. Cerebellum. Cisterna magna. Thalami. Face ? Lips. Profile. Nose. Maxilla. Mandible. Heart / Thorax ?4-chamber view. RVOT view. LVOT view. Aortic arch view. 2-uqjmow-rpqzegj view. ? Diaphragm. Abdomen ? Stomach. Kidneys. [...] AUNDREAJuly Study Date: 06/09/2023 2:18pm Pat. NO: [id number] Referring MD: JONN GIRON Site: [facility] Brim Setter: Bladimir Cox RDMS : 1990 Age: 33 [...] (lb,oz) 1 lb 4 oz EFW by [place] ([id number]) Head / Face / Neck Biometry: CM 5.9 mm ANATOMY ----- The following structures appear normal: Head / Neck Cranium. Head size. Head shape.Lateral ventricles. Midline falx. Cavum septi pellucidi. Cerebellum.Cisterna magna. Thalami. Face Lips. Profile. Nose. Maxilla.Mandible. Heart / Thorax 4-chamber view. RVOT view. LVOT view.Aortic arch view. 2-cytfop-zuixwdv view. Diaphragm. Abdomen Stomach. Kidneys. Bladder. Spine [...] normal for gestational age. Chloe Crowder MD [facility] US ORDERABLE S * PAP imaged thin layer, diagnostic (05/14/2013 12:00 AM DRIVER RETRAINING INSTRUCTOR) PAP MARIE Alcazar Report Patient Name: ZINA HALL MR#: [id number] Specimen #: [id number] Collected: 05/14/2013 Received: 05/15/2013 Reported: 05/16/2013 11:24 [...] by: SHAHZAD Irizarry(ASCP) Processed and screened at [facility] CLINICAL HISTORY: LMP: 04/30/13 Oral Control Pill Intra-Uterine Device, Previous normal pap Date of Last Pap: 11/26/11, Papanicolaou Test Limitations: ??Cervical cytology is a screening test with limited sensitivity; regular screening is critical for cancer prevention; Pap tests are primarily effective for the diagnosis/preventi on of squamous cell carcinoma, not adenocarcinomas or other cancers. TESTING LAB LOCATION: [facility] [address] [place], [place] ??[address] COLLECTION SITE: Client: ??[facility] Location: LVOB (R) COPATH Cytologic material (specimen) 05/14/2013 05/15/2013 2:17 PM DRIVER RETRAINING INSTRUCTOR Claire Pierre DO LAB - [facility] ICAL SPECIMEN COPATH * HIV Screening (02/29/2008 1:52 PM DRIVER RETRAINING INSTRUCTOR) HIV 1&2 Antibody Negative NEG [facility] 02/29/2008 1:52 PM DRIVER RETRAINING INSTRUCTOR 02/29/2008 1:53 PM DRIVER RETRAINING INSTRUCTOR Iza Mancilla MD LABORATORY [facility] from Last 3 Months or Most Recently Relevant to Health Maintenance Care Teams Diesel Truck Mechanic Relationship Specialty Start Date End Date Mj Oliver PA-C [address] [address] PCP - General Family Practice 04/24/11
--- OUTSIDE RECORDS SUMMARY | 2023-09-08 14:41 | XMS_ITS | Encounter Summary ---
Author Organization [facility] Address [address] [place] [address] Care Team Providers Care Automotive Accessory Installer Name Role Phone Mj Oliver PA-C Primary Care Provide r Reason for Referral * Diagnostic Imaging Ultrasound (Routine) - Pending Review Specialty Diagnoses / Procedures Referred By Contac t Referred To Contact Radiology. Diagnoses Encounter for follow-up ultrasound of anatomy Procedures [facility] US Comprehensive Single F/U Chloe Crowder MD [address] [place], [place] [address] Referral ID Status Reason Start Date Expiration Date V isits Requested Visits Authorized [id number] Pending Review 05/05/2023 05/04/2024 1 1 TRONICS ENGINEERING TECHNOLOGIST Reason for Visit * Diagnostic Imaging Ultrasound (Routine) - Pending Review Specialty Diagnoses / Procedures Referred By Contac t Referred To Contact Radiology. Diagnoses Encounter for follow-up ultrasound of anatomy Procedures [facility] US Comprehensive Single F/U Chloe Crowder MD [address] [place] [address] Referral ID Status Reason Start Date Expiration Date V isits Requested Visits Authorized [id number] Pending Review 05/05/2023 05/04/2024 1 1 Encounter Details Date Type Department Care Team (Latest Contact Info) Description 06/09/2023 2:11 PM ELECTRONICS ENGINEERING TECHNOLOGIST - 06/09/2023 11:59 PM ELECTRONICS ENGINEERING TECHNOLOGIST Hospital Encounter [facility] [place] [address] [facility] [address] [place] [phone] Chloe Crowder MD [address] [place] [address] Skip Hilliard MD [address] [place], [place] [phone] Encounter for follow-up ultrasound of anatomy Discharge [...] Procedure Name Priority Date/Time Associated Diagnosis Comments [facility] US COMPREHENSIVE SINGLE F/U Routine 06/09/2023 3:09 PM ELECTRONICS ENGINEERING TECHNOLOGIST Encounter for follow-up ultrasound of anatomy documented in this encounter Results * [facility] US Comprehensive Single F/U (06/09/2023 3:09 PM ELECTRONICS ENGINEERING TECHNOLOGIST) Anatomical Region Laterality Modality Ultrasound 06/09/2023 2:18 PM ELECTRONICS ENGINEERING TECHNOLOGIST Impressions 06/09/2023 3:19 PM ELECTRONICS ENGINEERING TECHNOLOGIST IMPRESSION ----- 1) Growth parameters and estimated weight were consistent with appropriate for gestational age pattern of growth. 2) anatomy appeared normal for gestational age. Narrative 06/09/2023 3:19 PM ELECTRONICS ENGINEERING TECHNOLOGIST ?Comp Follow Up ----- Pat. Name: AUNDREAJuly ? Study Date: ??06/09/2023 2:18pm Pat. NO: ??[id number] ?Referring ??MD: JONN GIRON Site: [facility] ? Community Marketing Manager: Bladimir Cox RDMS : ??1990 ?Age: ?? [...] 1 lb 4 ?oz EFW by ?Hadlock ([id number]) Head / Face / Neck Biometry: CM ?5.9 ? mm ANATOMY ----- The following structures appear normal: Head / Neck ? Cranium. Head size. Head shape. Lateral ventricles. Midline falx. Cavum septi pellucidi. Cerebellum. Cisterna magna. Thalami. Face ? Lips. Profile. Nose. Maxilla. Mandible. Heart / Thorax ?4-chamber view. RVOT view. LVOT view. Aortic arch view. 4-gesffa-bjvyckz view. ? Diaphragm. Abdomen ? Stomach. Kidneys. [...] July Study Date: 06/09/2023 2:18pm Pat. NO: [id number] Referring MD: JONN GIRON Site: [facility] Community Marketing Manager: Bladimir RUSTY Cox : 1990 Age: 33 ----- INDICATION ----- [...] 1 lb 4 oz EFW by Serjio ([id number]) Head / Face / Neck Biometry: CM 5.9 mm ANATOMY ----- The following structures appear normal: Head / Neck Cranium. Head size. Head shape.Lateral ventricles. Midline falx. Cavum septi pellucidi. Cerebellum.Cisterna magna. Thalami. Face Lips. Profile. Nose. Maxilla.Mandible. Heart / Thorax 4-chamber view. RVOT view. LVOT view.Aortic arch view. 1-lstebp-incgnhl view. Diaphragm. Abdomen Stomach. Kidneys. Bladder. Spine [...] normal for gestational age. Chloe Crowder MD IM MF US ORDERABLE S documented in this encounter Visit Diagnoses Diagnosis Encounter for follow-up ultrasound of anatomy documented in this encounter Care Teams Automotive Accessory Installer Relationship Specialty Start Date End Date Mj Oliver PA-C [address] [address] PCP - General Family Practice 04/24/11 documented as of this encounter
--- OUTSIDE RECORDS SUMMARY | 2023-09-08 14:41 | XMS_ITS | Clinical Summary ---
Author Organization [facility] Address [place], [place] [address] Care Team Providers Care Head Custodian Name Role Phone None Primary Care Provider [...] 12/03/2023 Pap test for age 21-65 07/13/2024 2, 07/13/2021 Pneumococcal series for age 6-64 Aged [...] 16 Negative Negative 07/16/2021 2:43 PM CDT [facility] TRAL LABORATORY TYPE 18 Negative Negative 07/16/2021 2:43 PM CDT [facility] TRAL LABORATORY OTHER HIGH RISK TYPES Negative Negative 07/16/2021 2:43 PM CDT [facility] TR[facility] LAB[facility]ORY Other (Cervical/Vagina l) 07/13/2021 5:30 PM CDT 07/15/2021 8:15 AM CDT Narrative [facility] - 07/16/2021 2:43 PM CDT HPV types 16, 18, 31, 33, 35, 39, 45, 51, 52, 56, 58, 59, 66 and 68 DNA were undetectable or below the pre-set threshold. Methodology: Junior Job 4800 HPV Test July Nel CASTELLANO [facility]CRO[facility] [address] [place] [address], from Last 3 Months or Most Recently Relevant to Health Maintenance Advance Directives * Full Code (Latest Code Status on File) Date Activated Date Inactivated Comments 10/15/2008 7:15 AM 10/17/2008 7:25 PM * Full Code Date Activated Date Inactivated Comments 10/14/2008 7:48 PM 10/15/2008 7:15 AM Care Teams Head Custodian Relationship Specialty Start Date End Date None . PCP - General 12/08/12
--- OUTSIDE RECORDS SUMMARY | 2023-09-08 14:41 | XMS_ITS | Encounter Summary ---
Author Organization [facility] Address [address] [place] [address] Care Team Providers Care Parts Inspector Name Role Phone Mj Oliver PA-C Primary Care Provide r Reason for Referral * Consultation (Routine: Next available opening) - Pending Review Specialty Diagnoses / Procedures Referred By Contac t Referred To Contact Diagnoses Hepatitis B carrier (H) Mohsen Lundy MD [address] [address] Referral ID Status Reason Start Date Expiration Date V isits Requested Visits Authorized [id number] Pending Review 03/23/2023 03/22/2024 1 1 Question Answer MFM Consult Yes Comments [facility] radiologic and comp Us F NURSE ICU RESOURCE TEAM * Diagnostic Imaging Ultrasound (Routine) - Pending Review Specialty Diagnoses / Procedures Referred By Contac t Referred To Contact Radiology. Diagnoses Hepatitis B carrier (H) Procedures [facility] US Comprehensive Single Mohsen Lundy MD [address] [address] Referral ID Status Reason Start Date Expiration Date V isits Requested Visits Authorized [id number] Pending Review 03/23/2023 03/22/2024 1 1 F NURSE ICU RESOURCE TEAM Encounter Details Date Type Department Care Team (Late st Contact Info) Description 03/23/2023 Orders Only [facility] Maternal Medicine [address] [place], [place] [address] Marquita To RN Hepatitis B carrier (H) [...] Type Priority Associated Diagnoses Orde r Schedule [facility] Office Visit Referral Routine: Next available opening Hepatitis B carrier (H) Expected: 03/23/2023 (Approximate), Expires: 03/23/2024 documented as of this encounter Results * [facility] US Comprehensive Single (05/05/2023 2:39 PM STAFF NURSE ICU RESOURCE TEAM) Anatomical Region Laterality Modality Ultrasound 05/05/2023 1:32 PM STAFF NURSE ICU RESOURCE TEAM Impressions 05/05/2023 4:01 PM STAFF NURSE ICU RESOURCE TEAM IMPRESSION ----- 1. Forman intrauterine at 18w [...] long and closed. Narrative 05/05/2023 4:01 PM STAFF NURSE ICU RESOURCE TEAM ?Comprehensive ----- Pat. Name: July ? Study Date: ??05/05/2023 1:32pm Pat. NO: ??[id number] ?Referring ??MD: JONN GIRON Site: ??[facility] ? Director Of Flight Operations: Bladimir Cox RDMS : ??1990 ?Age: ?? [...] ? 0 lb 8 ?oz EFW by ?[facility] ([id number]) Head / Face / Neck Biometry: Webbing Tacker ? 6.0 ? mm CM ?1.9 ? [...] apical view. RVOT view. Aortic arch view. 9-hfhfzk-zpvynoz view. ? Diaphragm. Abdomen ? Kidneys. Spine [...] AUNDREAJuly Study Date: 05/05/2023 1:32pm Pat. NO: [id number] Referring MD: JONN GIRON Site: [facility] Director Of Flight Operations: Bladimir Cox RDMS : 1990 Age: 33 [...] 0 lb 8 oz EFW by Hadlock ([id number]) Head / Face / Neck Biometry: Webbing Tacker 6.0 mm CM 1.9 mm Nasal bone [...] Suboptimal apicalview. RVOT view. Aortic arch view. 2-uhdcbj-aaalixc view. Diaphragm. Abdomen Kidneys. Spine Sacral spine. [...] long and closed. Mohsen Lundy MD [facility] US ORDERABLE S documented in this encounter Visit Diagnoses Diagnosis Hepatitis B carrier (H)- Primary Hepatitis B carrier Hepatitis B carrier (H) Hepatitis B carrier documented in this encounter Care Teams Parts Inspector Relationship Specialty Start Date End Date Mj Oliver PA-C [address] [address] PCP - General Family Practice 04/24/11 documented as of this encounter
--- OUTSIDE RECORDS SUMMARY | 2023-09-08 14:41 | XMS_ITS | Encounter Summary ---
Author Organization [place] Address [facility] [place] [address] Care Team Providers Care Senior Accounting Manager Name Role Phone Mj Oliver PA-C Primary Care Provide r Reason for Visit * Reason Comments Ultrasound RL2- Subopt anatomy Encounter Details Date Type Department Care Team (Late st Contact Info) Description 06/09/2023 2:45 PM WEB SOLUTIONS ARCHITECT Office Visit [facility] M[facility] Medicine [facility] [place] [address] [facility] [address] [place] [address] Chloe Crowder MD [address] [place] [address] Skip Hilliard MD [address] [place] [address] Encounter for follow-up ultrasound of [...] for details of today's US at the [facility]. Skip Hilliard MD Maternal- Medicine SOLUTIONS ARCHITECT documented in this encounter Nursing Notes * Loretta Zapata RN - 06/09/2023 2:45 PM CST Patient reports positive movement, denies pain, denies contractions/pre- term labor, leaking of fluid, or bleeding. Patient denies headache, visual changes, nausea/vomiting, epigastric pain related to preeclampsia. Education provided to patient on RL2. SBAR given to [facility] MD, see their note in Epic. Loretta Zapata RN SOLUTIONS ARCHITECT documented in this encounter Plan of Treatment Not on file documented as of this encounter Visit Diagnoses Diagnosis Encounter for follow-up ultrasound of anatomy- Primary documented in this encounter Care Teams Senior Accounting Manager Relationship Specialty Start Date End Date Mj Oliver PA-C [address] [address] PCP - General Family Practice 04/24/11 documented as of this encounter
--- OUTSIDE RECORDS SUMMARY | 2023-09-08 14:41 | XMS_ITS | Encounter Summary ---
Author Organization [facility] Address [address] [place] [address] Care Team Providers Care Materials Tech Name Role Phone Mj Oliver PA-C Primary Care Provide r Encounter Details Date Type Department Care Team (Late st Contact Info) Description 11/18/2011 [facility] Medical Advice [address] [address] [facility] Social History Tobacco Use Types Packs/Day [...] on filedocumented in this encounter Care Teams Materials Tech Relationship Specialty Start Date End Date Mj Oliver PA-C [address] [address] PCP - General Family Practice 04/24/11 documented as of this encounter
[2023-09-09 14:26] LABS: Strep B DNA Probe Negative (Negative)
[2023-09-09 14:41] LABS: Strep B Susceptibility Needed? No
== END 2023-09-08 14:40 | disposition home or self-care (01) ==
LOC: NFLDREF 14:39
PROVIDERS: Visit Provider Obstetrics & Gynecology
DX: Z34.93 Encounter for supervision of normal pregnancy, unspecified, third trimester (principal); Z3A.36 36 weeks gestation of pregnancy
CPT/HCPCS: 76816; 76819; 87081; 87653

== ENCOUNTER 2023-09-12 08:22 | Outpatient (CLI) | payer BC, SELFPAY ==
--- OUTSIDE RECORDS SUMMARY | 2023-09-12 08:27 | XMS_ITS | Encounter Summary ---
Author Organization [place] Address [address] [place] [address] Care Team Providers Care Rn Placement Name Role Phone Mj Oliver PA-C Primary Care Provide r Encounter Details Date Type Department Care Team (Late st Contact Info) Description 07/06/2012 [facility] Medical Advice [address] [address] [facility] Social History Tobacco Use Types Packs/Day Years [...] on filedocumented in this encounter Care Teams Rn Placement Relationship Specialty Start Date End Date Mj Oliver PA-C [address] [address] PCP - General Family Practice 04/24/11 documented as of this encounter
--- OUTSIDE RECORDS SUMMARY | 2023-09-12 08:27 | XMS_ITS | Encounter Summary ---
Author Organization [place] Address [address] [place] [address] Care Team Providers Care Education Diagnostician Name Role Phone Mj Oliver PA-C Primary Care Provide r Encounter Details Date Type Department Care Team (Late st Contact Info) Description 12/13/2011 [facility] Medical Advice [address] [address] [facility] Social History Tobacco Use Types Packs/Day [...] on filedocumented in this encounter Care Teams Education Diagnostician Relationship Specialty Start Date End Date Mj Oliver PA-C [address] [address] PCP - General Family Practice 04/24/11 documented as of this encounter
--- OUTSIDE RECORDS SUMMARY | 2023-09-12 08:27 | XMS_ITS | Encounter Summary ---
Author Organization [facility] Address [address] [place] [address] Care Team Providers Care Adult Basic Education Instructor Name Role Phone Mj Oliver PA-C Primary Care Provide r Reason for Referral * Diagnostic Imaging Ultrasound (Routine) - Pending Review Specialty Diagnoses / Procedures Referred By Contac t Referred To Contact Radiology. Diagnoses Encounter for follow-up ultrasound of anatomy Procedures [facility] US Comprehensive Single F/U Chloe Crowder MD [address] [place], [place] [address] Referral ID Status Reason Start Date Expiration Date V isits Requested Visits Authorized [id number] Pending Review 05/05/2023 05/04/2024 1 1 RUNNER Reason for Visit * Diagnostic Imaging Ultrasound (Routine) - Pending Review Specialty Diagnoses / Procedures Referred By Contac t Referred To Contact Radiology. Diagnoses Encounter for follow-up ultrasound of anatomy Procedures [facility] US Comprehensive Single F/U Chloe Crowder MD [address] [place] [address] Referral ID Status Reason Start Date Expiration Date V isits Requested Visits Authorized [id number] Pending Review 05/05/2023 05/04/2024 1 1 Encounter Details Date Type Department Care Team (Latest Contact Info) Description 06/09/2023 2:11 PM SHIP RUNNER - 06/09/2023 11:59 PM SHIP RUNNER Hospital Encounter [facility] Maternal Medicine [facility] [place] [address] [facility] [address] [place] [address] Chloe Crowder MD [address] [place] [address] Skip Hilliard MD [address] [place], [place] [address] Encounter for follow-up ultrasound of anatomy Discharge [...] Procedure Name Priority Date/Time Associated Diagnosis Comments [facility] US COMPREHENSIVE SINGLE F/U Routine 06/09/2023 3:09 PM SHIP RUNNER Encounter for follow-up ultrasound of anatomy documented in this encounter Results * [facility] US Comprehensive Single F/U (06/09/2023 3:09 PM SHIP RUNNER) Anatomical Region Laterality Modality Ultrasound 06/09/2023 2:18 PM SHIP RUNNER Impressions 06/09/2023 3:19 PM SHIP RUNNER IMPRESSION ----- 1) Growth parameters and estimated weight were consistent with appropriate for gestational age pattern of growth. 2) anatomy appeared normal for gestational age. Narrative 06/09/2023 3:19 PM SHIP RUNNER ?Comp Follow Up ----- Pat. Name: AUNDREAJuly ? Study Date: ??06/09/2023 2:18pm Pat. NO: ??[id number] ?Referring ??MD: JONN GIRON Site: ??[facility] ? Fight Manager: Bladimir Cox RDMS : ??1990 ?Age: [...] 1 lb 4 ?oz EFW by ?Hadlock ([id number]) Head / Face / Neck Biometry: CM ?5.9 ? mm ANATOMY ----- The following structures appear normal: Head / Neck ? Cranium. Head size. Head shape. Lateral ventricles. Midline falx. Cavum septi pellucidi. Cerebellum. Cisterna magna. Thalami. Face ? Lips. Profile. Nose. Maxilla. Mandible. Heart / Thorax ?4-chamber view. RVOT view. LVOT view. Aortic arch view. 0-iyhglt-iixeyki view. ? Diaphragm. Abdomen ? Stomach. Kidneys. [...] July Study Date: 06/09/2023 2:18pm Pat. NO: [id number] Referring MD: JONN GIRON Site: [facility] Fight Manager: Bladimir RUSTY Cox : 1990 Age: [...] 1 lb 4 oz EFW by Serjio ([id number]-FL) Head / Face / Neck Biometry: CM 5.9 mm ANATOMY ----- The following structures appear normal: Head / Neck Cranium. Head size. Head shape.Lateral ventricles. Midline falx. Cavum septi pellucidi. Cerebellum.Cisterna magna. Thalami. Face Lips. Profile. Nose. Maxilla.Mandible. Heart / Thorax 4-chamber view. RVOT view. LVOT view.Aortic arch view. 3-txehvh-uoqxbso view. Diaphragm. Abdomen Stomach. Kidneys. Bladder. Spine [...] anatomy documented in this encounter Care Teams Adult Basic Education Instructor Relationship Specialty Start Date End Date Mj Oliver PA-C [address] [address] PCP - General Family Practice 04/24/11 documented as of this encounter
--- OUTSIDE RECORDS SUMMARY | 2023-09-12 08:27 | XMS_ITS | Encounter Summary ---
Author Organization [place] Address [address] [place] [address] Care Team Providers Care English Tutor Name Role Phone Mj Oliver PA-C Primary [...] on filedocumented in this encounter Care Teams English Tutor Relationship Specialty Start Date End Date Mj Oliver PA-C [address] [address] PCP - General Family Practice 04/24/11 documented as of this encounter
--- OUTSIDE RECORDS SUMMARY | 2023-09-12 08:27 | XMS_ITS | Encounter Summary ---
Author Organization [facility] Address formerly [facility] [place] [address] Care Team Providers Care Well Drill Operator Name Role Phone Mj Oliver PA-C Primary Care Provide r Reason for Visit * Reason Comments Ultrasound RL2- Subopt anatomy Encounter Details Date Type Department Care Team (Late st Contact Info) Description 06/09/2023 2:45 PM ELEVATOR REPAIRER APPRENTICE Office Visit [facility] Maternal Medicine [facility] [place] [address] [facility] [place] [address] Chloe Crowder MD [address] [place] [address] Skip Hilliard MD [address] [place] [address] Encounter for follow-up ultrasound of [...] for details of today's US at the [facility]. Skip Hilliard MD Maternal- Medicine ATOR REPAIRER APPRENTICE documented in this encounter Nursing Notes * Loretta Zapata RN - 06/09/2023 2:45 PM CST Patient reports positive movement, denies pain, denies contractions/pre- term labor, leaking of fluid, or bleeding. Patient denies headache, visual changes, nausea/vomiting, epigastric pain related to preeclampsia. Education provided to patient on RL2. SBAR given to [facility] MD, see their note in Epic. Loretta Zapata RN ATOR REPAIRER APPRENTICE documented in this encounter Plan of Treatment Not on file documented as of this encounter Visit Diagnoses Diagnosis Encounter for follow-up ultrasound of anatomy- Primary documented in this encounter Care Teams Well Drill Operator Relationship Specialty Start Date End Date Mj Oliver PA-C [address] [address] PCP - General Family Practice 04/24/11 documented as of this encounter
--- OUTSIDE RECORDS SUMMARY | 2023-09-12 08:27 | XMS_ITS | Clinical Summary ---
Author Organization [facility] Address [place], [place] [address] Care Team Providers Care Credit Checker Name Role Phone None Primary Care Provider [...] Outcome GA Total Labor Labor/2nd/3rd Weight Sex Type Anes PTL Lynne A1 A5 Name Clin Comments:System Genera doyle. Please review and update [...] 16 Negative Negative 07/16/2021 2:43 PM CDT [facility] TRAL LABORATORY TYPE 18 Negative Negative 07/16/2021 2:43 PM CDT [facility] TR[facility] LABORATORY OTHER HIGH RISK TYPES Negative Negative 07/16/2021 2:43 PM CDT [facility] Other (Cervical/Vagina l) 07/13/2021 5:30 PM CDT 07/15/2021 8:15 AM CDT Narrative [facility] - 07/16/2021 2:43 PM CDT HPV types 16, 18, 31, 33, 35, 39, 45, 51, 52, 56, 58, 59, 66 and 68 DNA were undetectable or below the pre-set threshold. Methodology: Junior Job 4800 HPV Test July Nel CASTELLANO MICROBIOLOGY [facility] [address] [place] [address], from Last 3 Months or Most Recently Relevant to Health Maintenance Advance Directives * Full Code (Latest Code Status on File) Date Activated Date Inactivated Comments 10/15/2008 7:15 AM 10/17/2008 7:25 PM * Full Code Date Activated Date Inactivated Comments 10/14/2008 7:48 PM 10/15/2008 7:15 AM Care Teams Credit Checker Relationship Specialty Start Date End Date None . PCP - General 12/08/12
--- OUTSIDE RECORDS SUMMARY | 2023-09-12 08:27 | XMS_ITS | Encounter Summary ---
Author Organization [place] Address [address] [place] [address] Care Team Providers Care Able Bodied Seaman Name Role Phone Unavailable Primary Care Provider Unavailabl e Encounter Details Date Type Department Care Team (Late st Contact Info) Description 04/06/2008 11:30 AM [facility] [address] [place] [phone] Elmo Roa MD [address] [place] [address] Social History Tobacco Use Types Packs/Day Years [...]
--- OUTSIDE RECORDS SUMMARY | 2023-09-12 08:27 | XMS_ITS | Encounter Summary ---
Author Organization [place] Address [address] [place] [address] Care Team Providers Care Supervisor Bindery Name Role Phone Mj Oliver PA-C Primary Care Provide r Encounter Details Date Type Department Care Team (Late st Contact Info) Description 07/06/2017 [facility] Medical Advice [address] [address] Peri Carter RN Social History [...] filedocumented in this encounter Care Teams Supervisor Bindery Relationship Specialty Start Date End Date Mj Oliver PA-C [address] [address] PCP - General Family Practice 04/24/11 documented as of this encounter
--- OUTSIDE RECORDS SUMMARY | 2023-09-12 08:27 | XMS_ITS | Encounter Summary ---
Author Organization [place] Address [address] [place] [address] Care Team Providers Care Soa Integration Developer Name Role Phone Mj Oliver PA-C Primary Care Provide r Encounter Details Date Type Department Care Team (Late st Contact Info) Description 11/18/2011 [facility] Medical Advice [address] [place] [address] [address] [facility] Social History Tobacco Use Types Packs/Day [...] on filedocumented in this encounter Care Teams Soa Integration Developer Relationship Specialty Start Date End Date Mj Oliver PA-C [address] [address] PCP - General Family Practice 04/24/11 documented as of this encounter
--- OUTSIDE RECORDS SUMMARY | 2023-09-12 08:27 | XMS_ITS | Referral Summary ---
Author Organization [place] Address [address] [place] [address] Care Team Providers Care Joiner Helper Name Role Phone Mj Oliver PA-C [...] Age 20. Plan colp per MD 03/16/11: [place] - BRAEDEN I. Plan pap in 6 [...] Comments Blood Pressure 135/75 02/19/2016 11:55 AM VEIN PUMPER Pulse 93 02/19/2016 11:55 AM VEIN PUMPER Temperature 36.6 ??C (97.9 ??F) 05/30/2013 9:57 AM CS T Respiratory Rate 16 06/20/2011 2:44 PM CDT Oxygen Saturation 97% 02/19/2016 11:55 AM VEIN PUMPER Inhaled Oxygen Concentration - - Weight 59 kg (130 lb) 05/30/2013 9:57 AM VEIN PUMPER Height 152.4 cm (5') 05/30/2013 9:57 AM VEIN PUMPER Body Mass Index 25.39 05/30/2013 9:57 AM VEIN PUMPER Plan of Treatment Not on file Procedures Procedure Name Priority Date/Time Associated Diagnosis Comments PAP IMAGED THIN LAYER, DIAGNOSTIC Routine 05/14/2013 12:00 AM VEIN PUMPER LSIL (low grade squamous intraepithelial lesion) on Pap smear ASTHMA ACTION PLAN Routine 02/20/2013 10 :19 AM VEIN PUMPER Intermittent asthma HCL HIV 1 & 2 ANTIBODY Routine 02/29/2008 1:52 PM VEIN PUMPER Supervision of Other Normal from Last 3 Months or Most Recently Relevant to Health Maintenance Results * PAP imaged thin layer, diagnostic (05/14/2013 12:00 AM VEIN PUMPER) ANASTASIYA Alcazar Report Patient Name: ZINA HALL MR#: [id number] Specimen #: [id number] Collected: 05/14/2013 Received: 05/15/2013 Reported: 05/16/2013 11:24 [...] by: SHAHZAD Irizarry(ASCP) Processed and screened at [facility] CLINICAL HISTORY: LMP: 04/30/13 Oral Control Pill Intra-Uterine Device, Previous normal pap Date of Last Pap: 11/26/11, Papanicolaou Test Limitations: ??Cervical cytology is a screening test with limited sensitivity; regular screening is critical for cancer prevention; Pap tests are primarily effective for the diagnosis/preventi on of squamous cell carcinoma, not adenocarcinomas or other cancers. TESTING LAB LOCATION: [address] ??[address] COLLECTION SITE: Client: ??[facility] Location: [facility] (R) COPATH Cytologic material (specimen) 05/14/2013 05/15/2013 2:17 PM VEIN PUMPER Claire Pierre DO LAB - [facility] ICAL SPECIMEN COPATH * HIV Screening (02/29/2008 1:52 PM VEIN PUMPER) HIV 1&2 Antibody Negative NEG [facility] 02/29/2008 1:52 PM VEIN PUMPER 02/29/2008 1:53 PM VEIN PUMPER Iza Mancilla MD LABORATORY [facility] from Last 3 Months or Most Recently Relevant to Health Maintenance Care Teams Joiner Helper Relationship Specialty Start Date End Date Mj Oliver PA-C [address] [address] PCP - General Family Practice 04/24/11
--- OUTSIDE RECORDS SUMMARY | 2023-09-12 08:27 | XMS_ITS | Encounter Summary ---
Author Organization [place] Address [address] [place] [address] Care Team Providers Care Communications Operator Name Role Phone Mj Oliver PA-C Primary Care Provide r Reason for Referral * Consultation (Routine: Next available opening) - Pending Review Specialty Diagnoses / Procedures Referred By Contac t Referred To Contact Diagnoses Hepatitis B carrier (H) Mohsen Lundy MD [address] [address] Referral ID Status Reason Start Date Expiration Date V isits Requested Visits Authorized [id number] Pending Review 03/23/2023 03/22/2024 1 1 Question Answer MFM Consult Yes Comments [facility] radiologic and comp Us ENTRY ASSISTANT * Diagnostic Imaging Ultrasound (Routine) - Pending Review Specialty Diagnoses / Procedures Referred By Contac t Referred To Contact Radiology. Diagnoses Hepatitis B carrier (H) Procedures [facility] US Comprehensive Single Mohsen Lundy MD [address] [address] Referral ID Status Reason Start Date Expiration Date V isits Requested Visits Authorized [id number] Pending Review 03/23/2023 03/22/2024 1 1 ENTRY ASSISTANT Encounter Details Date Type Department Care Team (Late st Contact Info) Description 03/23/2023 Orders Only [facility] Maternal Medicine [address] [place] [phone] Marquita To RN Hepatitis B carrier (H) [...] Type Priority Associated Diagnoses Orde r Schedule [facility] Office Visit Referral Routine: Next available opening Hepatitis B carrier (H) Expected: 03/23/2023 (Approximate), Expires: 03/23/2024 documented as of this encounter Results * [facility] US Comprehensive Single (05/05/2023 2:39 PM DATA ENTRY ASSISTANT) Anatomical Region Laterality Modality Ultrasound 05/05/2023 1:32 PM DATA ENTRY ASSISTANT Impressions 05/05/2023 4:01 PM DATA ENTRY ASSISTANT IMPRESSION ----- 1. Forman intrauterine at 18w [...] long and closed. Narrative 05/05/2023 4:01 PM DATA ENTRY ASSISTANT ?Comprehensive ----- Pat. Name: July ? Study Date: ??05/05/2023 1:32pm Pat. NO: ??[id number] ?Referring ??MD: JONN GIRON Site: ??[facility] ? Master Ocean: Bladimir Cox RDMS : ??1990 ?Age: ?? [...] ? 0 lb 8 ?oz EFW by ?[facility] ([id number]) Head / Face / Neck Biometry: Silhouette Artist ? 6.0 ? mm CM ?1.9 [...] apical view. RVOT view. Aortic arch view. 3-djktiw-ntekzew view. ? Diaphragm. Abdomen ? Kidneys. Spine [...] AUNDREAJuly Study Date: 05/05/2023 1:32pm Pat. NO: [id number] Referring MD: JONN GIRON Site: [facility] Master Ocean: Bladimir Cox RDMS : 1990 Age: 33 [...] 0 lb 8 oz EFW by [facility] ([id number]) Head / Face / Neck Biometry: Silhouette Artist 6.0 mm CM 1.9 mm Nasal [...] Suboptimal apicalview. RVOT view. Aortic arch view. 1-flebob-hrgnxsj view. Diaphragm. Abdomen Kidneys. Spine Sacral spine. [...] [facility] US ORDERABLE S documented in this encounter Visit Diagnoses Diagnosis Hepatitis B carrier (H)- Primary Hepatitis B carrier Hepatitis B carrier (H) Hepatitis B carrier documented in this encounter Care Teams Communications Operator Relationship Specialty Start Date End Date Mj Oliver PA-C [address] [address] PCP - General Family Practice 04/24/11 documented as of this encounter
--- OUTSIDE RECORDS SUMMARY | 2023-09-12 08:27 | XMS_ITS | Clinical Summary ---
Author Organization [place] Address [address] [place] [address] Care Team Providers Care Primary Health Care Nurse Name Role Phone Mj Oliver PA-C [...] Age 20. Plan colp per MD 03/16/11: [place] - BRAEDEN I. Plan pap in 6 [...] Comments Blood Pressure 135/75 02/19/2016 11:55 AM RN NEW GRADUATE Pulse 93 02/19/2016 11:55 AM RN NEW GRADUATE Temperature 36.6 ??C (97.9 ??F) 05/30/2013 9:57 AM CS T Respiratory Rate 16 06/20/2011 2:44 PM CDT Oxygen Saturation 97% 02/19/2016 11:55 AM RN NEW GRADUATE Inhaled Oxygen Concentration - - Weight 59 kg (130 lb) 05/30/2013 9:57 AM RN NEW GRADUATE Height 152.4 cm (5') 05/30/2013 9:57 AM RN NEW GRADUATE Body Mass Index 25.39 05/30/2013 9:57 AM RN NEW GRADUATE Plan of Treatment Health Maintenance Due Date [...] THIN LAYER, DIAGNOSTIC Routine 05/14/2013 12:00 AM RN NEW GRADUATE LSIL (low grade squamous intraepithelial lesion) on Pap smear ASTHMA ACTION PLAN Routine 02/20/2013 10 :19 AM RN NEW GRADUATE Intermittent asthma HCL HIV 1 & 2 ANTIBODY Routine 02/29/2008 1:52 PM RN NEW GRADUATE Supervision of Other Normal from Last 3 Months or Most Recently Relevant to Health Maintenance Results * PAP imaged thin layer, diagnostic (05/14/2013 12:00 AM RN NEW GRADUATE) PAP MARIE Alcazar Report Patient Name: JORDYN ZINA Remedios MR#: [id number] Specimen #: [id number] Collected: 05/14/2013 Received: 05/15/2013 Reported: 05/16/2013 11:24 [...] by: SHAHZAD Irizarry(ASCP) Processed and screened at [facility] CLINICAL HISTORY: LMP: 04/30/13 Oral Control Pill Intra-Uterine Device, Previous normal pap Date of Last Pap: 11/26/11, Papanicolaou Test Limitations: ??Cervical cytology is a screening test with limited sensitivity; regular screening is critical for cancer prevention; Pap tests are primarily effective for the diagnosis/preventi on of squamous cell carcinoma, not adenocarcinomas or other cancers. TESTING LAB LOCATION: [address] ??[address] COLLECTION SITE: Client: ??[facility] Location: [facility] (R) NIKA Cytologic material (specimen) 05/14/2013 05/15/2013 2:17 PM RN NEW GRADUATE Claire Pierre DO LAB - [facility] ICAL SPECIMEN Performing Organization Address City/[facility]/ZIP Co de Phone Number COPATH * HIV Screening (02/29/2008 1:52 PM RN NEW GRADUATE) HIV 1&2 Antibody Negative NEG [facility] 02/29/2008 1:52 PM RN NEW GRADUATE 02/29/2008 1:53 PM RN NEW GRADUATE Iza Mancilla MD LABORATORY Performing Organization Address City/[facility]/ZIP Co de Phone Number [facility] from Last 3 Months or Most Recently Relevant to Health Maintenance Care Teams Primary Health Care Nurse Relationship Specialty Start Date End Date Mj Oliver PA-C [address] [address] PCP - General Family Practice 04/24/11
[2023-09-12 08:51] VITALS: BP 132/64; PULSE 95; PULSE 97; TEMP 37.2; O2SAT 96
[2023-09-12] MEDS: TERBUTALINE 1 MG/ML INJ 0.25 MG SUBCUT (09:38)
--- NOTE | 2023-09-12 11:01 | W.PM.GYNPROC ---
Procedure Note Time Seen by Provider: 09:30 Date of procedure: 09/12/23 Will [facility] bill your pro fee for this procedure?: Yes Pre-op diagnosis: Breech malpresentation Post-op diagnosis: Breech malpresentation Procedure: External cephalic version, unsuccessful Anesthesia: none Complications: None Surgeon: Marlene Hernández MD Client Services Associate: Tayler Rodriguez Estimated blood loss (mL): 0 IV fluids (mL): 0 Urine Output (mL): 0 Condition: stable Disposition: observation Findings: Pre-procedure TAUS: [place] breech malpresentation, back to maternal right with head to maternal RUQ Post-procedure TAUS: [place] breech malpresentation Procedure Description: Ms. Hernandez is a 33yo at 37w0d GA seen for ECV. is complicated by hepB carrier, obesity and maternal mood disorder. She has been breech since at least 32 weeks, desires ECV today. She is feeling well, denies any regular/painful contractions, vaginal bleeding or leaking of fluids. She endorses active movement. Reactive NST prior to procedure. The risks, benefits, and alternatives of performing an ECV were discussed on admission, including the risk of risks of a non-reassuring heart rate, PROM, placental abruption, possible emergency , and fetomaternal hemorrhage. We reviewed that success rate is dependent upon provider experience, amniotic fluid volume, placental location, and maternal weight. We discussed that in the case of a failed ECV, we plan a delivery at 39 weeks for persistent malpresentation. Consent was obtained and the patient desired to proceed. Ultrasound confirmed [place] breech malpresentation prior to procedure. Procedure Note: Patient was seen and examined with the above findings. Terbutaline 0.25 mg SQ was given and we then proceeded with the procedure. With manual pressure applied to the maternal abdomen, we attempted version in both the clockwise fashion. A total of 4 attempts were made. Ultimately the procedure was unsuccessful and presentation at the conclusion was [place] breech. Both mom and baby were stable. During a period of recovery, she had a reactive and reassuring heart tracing with no uterine contractions. She was discharged to home in stable condition, return precautions reviewed. Surgical scheduling for completed for primary C/S at 39 weeks. Discussed re-scanning for presentation prior to proceeding with procedure. Encouraged spinning babies exercise in the interim.
--- NOTE | 2023-09-12 11:20 | PC.OBNST ---
NST Note NST Note Start: 09/12/23 08:37 Freq: ONCE Status: Active Protocol: Document 09/12/23 11:19 CUDDYH (Rec: 09/12/23 11:19 CUDDYH [id number]) NST Note 3 Para (# of births) 1 EDC 10/03/23 Gestational Age In Weeks & Days 37 Weeks & 0 Days Other Complaints ECV Reactive Yes Appropriate for Gestational Age Yes RN Kitty Marrero RN Date 09/12/23 Reactive Yes Appropriate for Gestational Age Yes ANAY Freeman RN Date 09/12/23 OB NST charge Yes Complete NST Note via Write Note Yes The provider's electronic signature indicates the NST is reactive/appropriate for gestational age. *Note to provider: If an addendum is required, open the patient's chart and click on the note under the Nurse/Allied Health tab.
--- OUTSIDE RECORDS SUMMARY | 2023-09-12 11:30 | XMS_ITS | Referral Summary ---
Author Organization [place] Address [address] [place] [address] Care Team Providers Care Drive Away Driver Name Role Phone Mj Oliver PA-C Primary [...] Age 20. Plan colp per MD 03/16/11: [place] - BRAEDEN I. Plan pap in 6 [...] Comments Blood Pressure 135/75 02/19/2016 11:55 AM HYDRANT SETTER Pulse 93 02/19/2016 11:55 AM HYDRANT SETTER Temperature 36.6 ??C (97.9 ??F) 05/30/2013 9:57 AM CS T Respiratory Rate 16 06/20/2011 2:44 PM CDT Oxygen Saturation 97% 02/19/2016 11:55 AM HYDRANT SETTER Inhaled Oxygen Concentration - - Weight 59 kg (130 lb) 05/30/2013 9:57 AM HYDRANT SETTER Height 152.4 cm (5') 05/30/2013 9:57 AM HYDRANT SETTER Body Mass Index 25.39 05/30/2013 9:57 AM HYDRANT SETTER Plan of Treatment Not on file Procedures Procedure Name Priority Date/Time Associated Diagnosis Comments PAP IMAGED THIN LAYER, DIAGNOSTIC Routine 05/14/2013 12:00 AM HYDRANT SETTER LSIL (low grade squamous intraepithelial lesion) on Pap smear ASTHMA ACTION PLAN Routine 02/20/2013 10 :19 AM HYDRANT SETTER Intermittent asthma HCL HIV 1 & 2 ANTIBODY Routine 02/29/2008 1:52 PM HYDRANT SETTER Supervision of Other Normal from Last 3 Months or Most Recently Relevant to Health Maintenance Results * PAP imaged thin layer, diagnostic (05/14/2013 12:00 AM HYDRANT SETTER) ANASTASIYA Alcazar Report Patient Name: ZINA HALL MR#: [id number] Specimen #: [id number] Collected: 05/14/2013 Received: 05/15/2013 Reported: 05/16/2013 11:24 [...] by: SHAHZAD Irizarry(ASCP) Processed and screened at [facility] CLINICAL HISTORY: LMP: 04/30/13 Oral Control Pill Intra-Uterine Device, Previous normal pap Date of Last Pap: 11/26/11, Papanicolaou Test Limitations: ??Cervical cytology is a screening test with limited sensitivity; regular screening is critical for cancer prevention; Pap tests are primarily effective for the diagnosis/preventi on of squamous cell carcinoma, not adenocarcinomas or other cancers. TESTING LAB LOCATION: [address] ??[address] COLLECTION SITE: Client: ??[facility] Location: [facility] (R) COPATH Cytologic material (specimen) 05/14/2013 05/15/2013 2:17 PM HYDRANT SETTER Claire Pierre DO LAB - [facility] ICAL SPECIMEN COPATH * HIV Screening (02/29/2008 1:52 PM HYDRANT SETTER) HIV 1&2 Antibody Negative NEG [facility] 02/29/2008 1:52 PM HYDRANT SETTER 02/29/2008 1:53 PM HYDRANT SETTER Iza Mancilla MD LABORATORY [facility] from Last 3 Months or Most Recently Relevant to Health Maintenance Care Teams Drive Away Driver Relationship Specialty Start Date End Date Mj Oliver PA-C [address] [address] PCP - General Family Practice 04/24/11
--- OUTSIDE RECORDS SUMMARY | 2023-09-12 11:30 | XMS_ITS | Encounter Summary ---
Author Organization [place] Address [address] [place] [address] Care Team Providers Care Casting Operator Name Role Phone Mj Oliver PA-C [...] on filedocumented in this encounter Care Teams Casting Operator Relationship Specialty Start Date End Date Mj Oliver PA-C [address] [address] PCP - General Family Practice 04/24/11 documented as of this encounter
--- OUTSIDE RECORDS SUMMARY | 2023-09-12 11:30 | XMS_ITS | Encounter Summary ---
Author Organization [place] Address [address] [place] [address] Care Team Providers Care Equipment Maintenance Tech Name Role Phone Mj Oliver PA-C Primary Care Provide r Reason for Referral * Consultation (Routine: Next available opening) - Pending Review Specialty Diagnoses / Procedures Referred By Contac t Referred To Contact Diagnoses Hepatitis B carrier (H) Mohsen Lundy MD [address] [address] Referral ID Status Reason Start Date Expiration Date V isits Requested Visits Authorized [id number] Pending Review 03/23/2023 03/22/2024 1 1 Question Answer MFM Consult Yes Comments [facility] radiologic and comp Us NE FARMER * Diagnostic Imaging Ultrasound (Routine) - Pending Review Specialty Diagnoses / Procedures Referred By Contac t Referred To Contact Radiology. Diagnoses Hepatitis B carrier (H) Procedures [facility] US Comprehensive Single Mohsen Lundy MD [address] [address] Referral ID Status Reason Start Date Expiration Date V isits Requested Visits Authorized [id number] Pending Review 03/23/2023 03/22/2024 1 1 NE FARMER Encounter Details Date Type Department Care Team (Late st Contact Info) Description 03/23/[address] [facility] Maternal Medicine [address] [place] [address] Marquita To RN Hepatitis B carrier (H) [...] Type Priority Associated Diagnoses Orde r Schedule [facility] Office Visit Referral Routine: Next available opening Hepatitis B carrier (H) Expected: 03/23/2023 (Approximate), Expires: 03/23/2024 documented as of this encounter Results * [facility] US Comprehensive Single (05/05/2023 2:39 PM MARINE FARMER) Anatomical Region Laterality Modality Ultrasound 05/05/2023 1:32 PM MARINE FARMER Impressions 05/05/2023 4:01 PM MARINE FARMER IMPRESSION ----- 1. Forman intrauterine at 18w [...] long and closed. Narrative 05/05/2023 4:01 PM MARINE FARMER ?Comprehensive ----- Pat. Name: July ? Study Date: ??05/05/2023 1:32pm Pat. NO: ??[id number] ?Referring ??MD: JONN GIRON Site: ??[facility] ? Bilingual Counter Sales Retail: Bladimir Cox RDMS : ??1990 ?Age: ?? [...] ? 0 lb 8 ?oz EFW by ?[facility] ([id number]) Head / Face / Neck Biometry: Press Hand Supervisor ? 6.0 ? mm CM ?1.9 ? [...] apical view. RVOT view. Aortic arch view. 4-miqnxr-visnvqw view. ? Diaphragm. Abdomen ? Kidneys. Spine [...] AUNDREAJuly Study Date: 05/05/2023 1:32pm Pat. NO: [id number] Referring MD: JONN GIRON Site: [facility] Bilingual Counter Sales Retail: Bladimir Cox RDMS : 1990 Age: 33 [...] 0 lb 8 oz EFW by [facility] ([id number]) Head / Face / Neck Biometry: Press Hand Supervisor 6.0 mm CM 1.9 mm Nasal bone [...] Suboptimal apicalview. RVOT view. Aortic arch view. 6-mmfjak-sejaezf view. Diaphragm. Abdomen Kidneys. Spine Sacral spine. [...] appears long and closed. Mohsen Lundy MD [facility] US ORDERABLE S documented in this encounter Visit Diagnoses Diagnosis Hepatitis B carrier (H)- Primary Hepatitis B carrier Hepatitis B carrier (H) Hepatitis B carrier documented in this encounter Care Teams Equipment Maintenance Tech Relationship Specialty Start Date End Date Mj Oliver PA-C [address] [address] PCP - General Family Practice 04/24/11 documented as of this encounter
--- OUTSIDE RECORDS SUMMARY | 2023-09-12 11:30 | XMS_ITS | Clinical Summary ---
Author Organization [place] Address [address] [place] [address] Care Team Providers Care Hospital Pharmacist Name Role Phone Mj Oliver PA-C Primary [...] Age 20. Plan colp per MD 03/16/11: [place] - BRAEDEN I. Plan pap in 6 [...] Comments Blood Pressure 135/75 02/19/2016 11:55 AM CLINICAL TECHNICIAN Pulse 93 02/19/2016 11:55 AM CLINICAL TECHNICIAN Temperature 36.6 ??C (97.9 ??F) 05/30/2013 9:57 AM CS T Respiratory Rate 16 06/20/2011 2:44 PM CDT Oxygen Saturation 97% 02/19/2016 11:55 AM CLINICAL TECHNICIAN Inhaled Oxygen Concentration - - Weight 59 kg (130 lb) 05/30/2013 9:57 AM CLINICAL TECHNICIAN Height 152.4 cm (5') 05/30/2013 9:57 AM CLINICAL TECHNICIAN Body Mass Index 25.39 05/30/2013 9:57 AM CLINICAL TECHNICIAN Plan of Treatment Health Maintenance Due Date [...] THIN LAYER, DIAGNOSTIC Routine 05/14/2013 12:00 AM CLINICAL TECHNICIAN LSIL (low grade squamous intraepithelial lesion) on Pap smear ASTHMA ACTION PLAN Routine 02/20/2013 10 :19 AM CLINICAL TECHNICIAN Intermittent asthma HCL HIV 1 & 2 ANTIBODY Routine 02/29/2008 1:52 PM CLINICAL TECHNICIAN Supervision of Other Normal from Last 3 Months or Most Recently Relevant to Health Maintenance Results * PAP imaged thin layer, diagnostic (05/14/2013 12:00 AM CLINICAL TECHNICIAN) PAP MARIE Alcazar Report Patient Name: JORDYN ZINA Remedios MR#: [id number] Specimen #: [id number] Collected: 05/14/2013 Received: 05/15/2013 Reported: 05/16/2013 11:24 [...] SHAHZAD Irizarry(ASCP) Processed and screened at [facility] CLINICAL HISTORY: LMP: 04/30/13 Oral Control Pill Intra-Uterine Device, Previous normal pap Date of Last Pap: 11/26/11, Papanicolaou Test Limitations: ??Cervical cytology is a screening test with limited sensitivity; regular screening is critical for cancer prevention; Pap tests are primarily effective for the diagnosis/preventi on of squamous cell carcinoma, not adenocarcinomas or other cancers. TESTING LAB LOCATION: [address] ??[address] COLLECTION SITE: Client: ??[facility] Location: [facility] (R) NIKA Cytologic material (specimen) 05/14/2013 05/15/2013 2:17 PM CLINICAL TECHNICIAN Claire Pierre DO LAB - [facility] ICAL SPECIMEN Performing Organization Address City/[facility]/ZIP Co de Phone Number COPATH * HIV Screening (02/29/2008 1:52 PM CLINICAL TECHNICIAN) HIV 1&2 Antibody Negative NEG [facility] 02/29/2008 1:52 PM CLINICAL TECHNICIAN 02/29/2008 1:53 PM CLINICAL TECHNICIAN Iza Mancilla MD LABORATORY Performing Organization Address City/[facility]/ZIP Co de Phone Number [facility] from Last 3 Months or Most Recently Relevant to Health Maintenance Care Teams Hospital Pharmacist Relationship Specialty Start Date End Date Mj Oliver PA-C [address] [address] PCP - General Family Practice 04/24/11
--- OUTSIDE RECORDS SUMMARY | 2023-09-12 11:30 | XMS_ITS | Clinical Summary ---
Author Organization [facility] Address [place], [place] [address] Care Team Providers Care Asbestos Shingle Inspector Name Role Phone None Primary Care Provider [...] 16 Negative Negative 07/16/2021 2:43 PM CDT [facility] TRAL LABORAT[facility] TYPE 18 Negative Negative 07/16/2021 2:43 PM CDT [facility] LABORAT[facility] OTHER HIGH RISK TYPES Negative Negative 07/16/2021 2:43 PM CDT [facility] TR[facility] LABORAT[facility] Other (Cervical/Vagina l) 07/13/2021 5:30 PM CDT 07/15/2021 8:15 AM CDT Narrative [facility]-CENTRAL LABORATORY - 07/16/2021 2:43 PM CDT HPV types 16, 18, 31, 33, 35, 39, 45, 51, 52, 56, 58, 59, 66 and 68 DNA were undetectable or below the pre-set threshold. Methodology: Junior Job 4800 HPV Test July Nel [facility]CENTRAL LABORATORY [address] [place] [address], from Last 3 Months or Most Recently Relevant to Health Maintenance Advance Directives * Full Code (Latest Code Status on File) Date Activated Date Inactivated Comments 10/15/2008 7:15 AM 10/17/2008 7:25 PM * Full Code Date Activated Date Inactivated Comments 10/14/2008 7:48 PM 10/15/2008 7:15 AM Care Teams Asbestos Shingle Inspector Relationship Specialty Start Date End Date None . PCP - General 12/08/12
--- OUTSIDE RECORDS SUMMARY | 2023-09-12 11:30 | XMS_ITS | Encounter Summary ---
Author Organization [place] Address [address] [place] [address] Care Team Providers Care Stitcher Hand Name Role Phone Unavailable Primary Care Provider Unavailabl e Encounter Details Date Type Department Care Team (Late st Contact Info) Description 04/06/2008 11:30 AM [facility] in [facility] [address] [place] [phone] Elmo Roa MD [address] [place] [address] Social History Tobacco Use Types Packs/Day Years [...]
--- OUTSIDE RECORDS SUMMARY | 2023-09-12 11:30 | XMS_ITS | Encounter Summary ---
Author Organization [facility] Address [address] [place] [address] Care Team Providers Care Executive Sales Assistant Name Role Phone Mj Oliver PA-C Primary Care Provide r Encounter Details Date Type Department Care Team (Late st Contact Info) Description 07/06/2017 [facility] Medical Advice [address] [address] Peri Carter RN Social History [...] on filedocumented in this encounter Care Teams Executive Sales Assistant Relationship Specialty Start Date End Date Mj Oliver PA-C [address] [address] PCP - General Family Practice 04/24/11 documented as of this encounter
--- OUTSIDE RECORDS SUMMARY | 2023-09-12 11:30 | XMS_ITS | Encounter Summary ---
Author Organization [facility] Address [address] [place] [address] Care Team Providers Care Instrument Technician Helper Name Role Phone Mj Oliver PA-C Primary Care Provide r Reason for Referral * Diagnostic Imaging Ultrasound (Routine) - Pending Review Specialty Diagnoses / Procedures Referred By Contac t Referred To Contact Radiology. Diagnoses Encounter for follow-up ultrasound of anatomy Procedures [facility] US Comprehensive Single F/U Chloe Crowder MD [address] [place], [place] [address] Referral ID Status Reason Start Date Expiration Date V isits Requested Visits Authorized [id number] Pending Review 05/05/2023 05/04/2024 1 1 RTER Reason for Visit * Diagnostic Imaging Ultrasound (Routine) - Pending Review Specialty Diagnoses / Procedures Referred By Contac t Referred To Contact Radiology. Diagnoses Encounter for follow-up ultrasound of anatomy Procedures [facility] US Comprehensive Single F/U Chloe Crowder MD [address] [place] [address] Referral ID Status Reason Start Date Expiration Date V isits Requested Visits Authorized [id number] Pending Review 05/05/2023 05/04/2024 1 1 Encounter Details Date Type Department Care Team (Latest Contact Info) Description 06/09/2023 2:11 PM REPORTER - 06/09/2023 11:59 PM REPORTER Hospital Encounter [facility] [place] [address] [facility] [address] [place] [phone] Chloe Crowder MD [address] [place] [address] Skip Hilliard MD [address] [place], [place] [address] Encounter for follow-up ultrasound of anatomy Discharge [...] Procedure Name Priority Date/Time Associated Diagnosis Comments [facility] US COMPREHENSIVE SINGLE F/U Routine 06/09/2023 3:09 PM REPORTER Encounter for follow-up ultrasound of anatomy documented in this encounter Results * [facility] US Comprehensive Single F/U (06/09/2023 3:09 PM REPORTER) Anatomical Region Laterality Modality Ultrasound 06/09/2023 2:18 PM REPORTER Impressions 06/09/2023 3:19 PM REPORTER IMPRESSION ----- 1) Growth parameters and estimated weight were consistent with appropriate for gestational age pattern of growth. 2) anatomy appeared normal for gestational age. Narrative 06/09/2023 3:19 PM REPORTER ?Comp Follow Up ----- Pat. Name: AUNDREAJuly ? Study Date: ??06/09/2023 2:18pm Pat. NO: ??[id number] ?Referring ??MD: JONN GIRON Site: ??[facility] ? Head Mechanic: Bladimir Cox RDMS : ??1990 ?Age: [...] 1 lb 4 ?oz EFW by ?Hadlock ([id number]) Head / Face / Neck Biometry: CM ?5.9 ? mm ANATOMY ----- The following structures appear normal: Head / Neck ? Cranium. Head size. Head shape. Lateral ventricles. Midline falx. Cavum septi pellucidi. Cerebellum. Cisterna magna. Thalami. Face ? Lips. Profile. Nose. Maxilla. Mandible. Heart / Thorax ?4-chamber view. RVOT view. LVOT view. Aortic arch view. 1-hbvbxu-kmqscth view. ? Diaphragm. Abdomen ? Stomach. Kidneys. [...] July Study Date: 06/09/2023 2:18pm Pat. NO: [id number] Referring MD: JONN GIRON Site: [facility] Head Mechanic: Bladimir RUSTY Cox : 1990 Age: 33 [...] 1 lb 4 oz EFW by Serjio ([id number]) Head / Face / Neck Biometry: CM 5.9 mm ANATOMY ----- The following structures appear normal: Head / Neck Cranium. Head size. Head shape.Lateral ventricles. Midline falx. Cavum septi pellucidi. Cerebellum.Cisterna magna. Thalami. Face Lips. Profile. Nose. Maxilla.Mandible. Heart / Thorax 4-chamber view. RVOT view. LVOT view.Aortic arch view. 9-oevbas-kiowhcm view. Diaphragm. Abdomen Stomach. Kidneys. Bladder. Spine [...] anatomy documented in this encounter Care Teams Instrument Technician Helper Relationship Specialty Start Date End Date Mj Oliver PA-C [address] [address] PCP - General Family Practice 04/24/11 documented as of this encounter
--- OUTSIDE RECORDS SUMMARY | 2023-09-12 11:30 | XMS_ITS | Encounter Summary ---
Author Organization [place] Address [address] [place] [address] Care Team Providers Care Telemedicine Physician Name Role Phone Mj Oliver PA-C Primary Care Provide r Encounter Details Date Type Department Care Team (Late st Contact Info) Description 07/06/2012 [facility] Medical Advice [address] [address] [facility] Social History Tobacco Use Types Packs/Day [...] on filedocumented in this encounter Care Teams Telemedicine Physician Relationship Specialty Start Date End Date Mj Oliver PA-C [address] [address] PCP - General Family Practice 04/24/11 documented as of this encounter
--- OUTSIDE RECORDS SUMMARY | 2023-09-12 11:30 | XMS_ITS | Encounter Summary ---
Author Organization [place] Address [address] [address] Care Team Providers Care Coding Educator Name Role Phone Mj Oliver PA-C Primary Care Provide r Encounter Details Date Type Department Care Team (Late st Contact Info) Description 12/13/2011 [facility] Medical Advice [address] [address] [facility] Social History Tobacco Use Types [...] on filedocumented in this encounter Care Teams Coding Educator Relationship Specialty Start Date End Date Mj Oliver PA-C [address] [address] PCP - General Family Practice 04/24/11 documented as of this encounter
--- OUTSIDE RECORDS SUMMARY | 2023-09-12 11:30 | XMS_ITS | Encounter Summary ---
Author Organization [place] Address [facility] [place] [address] Care Team Providers Care Ruby Software Developer Name Role Phone Mj Oliver PA-C Primary Care Provide r Reason for Visit * Reason Comments Ultrasound RL2- Subopt anatomy Encounter Details Date Type Department Care Team (Late st Contact Info) Description 06/09/2023 2:45 PM TNT POWDER WORKER Office Visit [facility] [place] [address] [facility] [address] [place] [address] Chloe Crowder MD [address] [place] [address] Skip Hilliard MD [address] [place] [address] Encounter for follow-up ultrasound of [...] for details of today's US at the [facility]. Skip Hilliard MD Maternal- Medicine POWDER WORKER documented in this encounter Nursing Notes * Loretta Zapata RN - 06/09/2023 2:45 PM CST Patient reports positive movement, denies pain, denies contractions/pre- term labor, leaking of fluid, or bleeding. Patient denies headache, visual changes, nausea/vomiting, epigastric pain related to preeclampsia. Education provided to patient on RL2. SBAR given to [facility] MD, see their note in Epic. Loretta Zapata RN POWDER WORKER documented in this encounter Plan of Treatment Not on file documented as of this encounter Visit Diagnoses Diagnosis Encounter for follow-up ultrasound of anatomy- Primary documented in this encounter Care Teams Ruby Software Developer Relationship Specialty Start Date End Date Mj Oliver PA-C [address] [address] PCP - General Family Practice 04/24/11 documented as of this encounter
--- OUTSIDE RECORDS SUMMARY | 2023-09-12 11:30 | XMS_ITS | Encounter Summary ---
Author Organization [place] Address [address] [place] [address] Care Team Providers Care Director Of Donor Relations Name Role Phone Mj Oliver PA-C Primary Care Provide r Encounter Details Date Type Department Care Team (Late st Contact Info) Description 11/18/2011 [facility] Medical Advice [address] [address] [facility] Social History Tobacco Use [...] on filedocumented in this encounter Care Teams Director Of Donor Relations Relationship Specialty Start Date End Date Mj Oliver PA-C [address] [address] PCP - General Family Practice 04/24/11 documented as of this encounter
== END 2023-09-12 11:15 | disposition home or self-care (01) ==
LOC: OB 11:11 → OB CLI 11:28 → OB 11:29
PROVIDERS: Visit Provider Obstetrics & Gynecology
DX: Z34.93 Encounter for supervision of normal pregnancy, unspecified, third trimester (principal); Z3A.37 37 weeks gestation of pregnancy
CPT/HCPCS: 59025; 59412; 76815; G0463; J3105

== ENCOUNTER 2023-09-16 19:20 | Inpatient (IN) | payer BC, SELFPAY ==
[2023-09-16] VITALS (19 sets, daily range): BP systolic 126–169; BP diastolic 60–101; PULSE 72–120; RESP 16–17; TEMP 36.6–36.8; O2SAT 93–100; BMI 48.0
--- OUTSIDE RECORDS SUMMARY | 2023-09-16 15:57 | XMS_ITS | Encounter Summary ---
Author Organization [place] Address [address] [place] [address] Care Team Providers Care Cotton Grader Name Role Phone Mj Oliver PA-C Primary Care Provide r Encounter Details Date Type Department Care Team (Late st Contact Info) Description 12/13/2011 [facility] Medical Advice [address] [address] [facility] Social History Tobacco Use Types Packs/Day [...] on filedocumented in this encounter Care Teams Cotton Grader Relationship Specialty Start Date End Date Mj Oliver PA-C [address] [address] PCP - General Family Practice 04/24/11 documented as of this encounter
--- OUTSIDE RECORDS SUMMARY | 2023-09-16 15:57 | XMS_ITS | Clinical Summary ---
Author Organization [facility] Address [address] [place] [address] Care Team Providers Care Cage Shift Manager Name Role Phone Mj Oliver PA-C [...] Age 20. Plan colp per MD 03/16/11: [place] - BRAEDEN I. Plan pap in 6 [...] Comments Blood Pressure 135/75 02/19/2016 11:55 AM SECTION BEAMER Pulse 93 02/19/2016 11:55 AM SECTION BEAMER Temperature 36.6 ??C (97.9 ??F) 05/30/2013 9:57 AM CS T Respiratory Rate 16 06/20/2011 2:44 PM CDT Oxygen Saturation 97% 02/19/2016 11:55 AM SECTION BEAMER Inhaled Oxygen Concentration - - Weight 59 kg (130 lb) 05/30/2013 9:57 AM SECTION BEAMER Height 152.4 cm (5') 05/30/2013 9:57 AM SECTION BEAMER Body Mass Index 25.39 05/30/2013 9:57 AM SECTION BEAMER Plan of Treatment Health Maintenance Due Date [...] THIN LAYER, DIAGNOSTIC Routine 05/14/2013 12:00 AM SECTION BEAMER LSIL (low grade squamous intraepithelial lesion) on Pap smear ASTHMA ACTION PLAN Routine 02/20/2013 10 :19 AM SECTION BEAMER Intermittent asthma HCL HIV 1 & 2 ANTIBODY Routine 02/29/2008 1:52 PM SECTION BEAMER Supervision of Other Normal from Last 3 Months or Most Recently Relevant to Health Maintenance Results * PAP imaged thin layer, diagnostic (05/14/2013 12:00 AM SECTION BEAMER) PAP MARIE Alcazar Report Patient Name: JORDYN ZINA Remedios MR#: [id number] Specimen #: [id number] Collected: 05/14/2013 Received: 05/15/2013 Reported: 05/16/2013 11:24 [...] by: SHAHZAD Irizarry(ASCP) Processed and screened at [facility] CLINICAL HISTORY: LMP: 04/30/13 Oral Control Pill Intra-Uterine Device, Previous normal pap Date of Last Pap: 11/26/11, Papanicolaou Test Limitations: ??Cervical cytology is a screening test with limited sensitivity; regular screening is critical for cancer prevention; Pap tests are primarily effective for the diagnosis/preventi on of squamous cell carcinoma, not adenocarcinomas or other cancers. TESTING LAB LOCATION: [address] ??[address] COLLECTION SITE: Client: ??[facility] Location: [facility] Cytologic material (specimen) 05/14/2013 05/15/2013 2:17 PM SECTION BEAMER Claire Pierre DO LAB - [facility] ICAL SPECIMEN Performing Organization Address City/[facility]/ZIP Co de Phone Number COPATH * HIV Screening (02/29/2008 1:52 PM SECTION BEAMER) HIV 1&2 Antibody Negative [facility]G [facility] 02/29/2008 1:52 PM SECTION BEAMER 02/29/2008 1:53 PM SECTION BEAMER Iza Mancilla MD LABORATORY Performing Organization Address City/[facility]/ZIP Co de Phone Number [facility] from Last 3 Months or Most Recently Relevant to Health Maintenance Care Teams Cage Shift Manager Relationship Specialty Start Date End Date Mj Oliver PA-C [address] [address] PCP - General Family Practice 04/24/11
--- OUTSIDE RECORDS SUMMARY | 2023-09-16 15:57 | XMS_ITS | Encounter Summary ---
Author Organization [facility] Address [address] [place] [address] Care Team Providers Care J2Ee Engineer Name Role Phone Mj Oliver PA-C Primary Care Provide r Reason for Referral * Diagnostic Imaging Ultrasound (Routine) - Pending Review Specialty Diagnoses / Procedures Referred By Contac t Referred To Contact Radiology. Diagnoses Encounter for follow-up ultrasound of anatomy Procedures [facility] US Comprehensive Single F/U Chloe Crowder MD [address] [place], [place] [address] Referral ID Status Reason Start Date Expiration Date V isits Requested Visits Authorized [id number] Pending Review 05/05/2023 05/04/2024 1 1 TRAINER Reason for Visit * Diagnostic Imaging Ultrasound (Routine) - Pending Review Specialty Diagnoses / Procedures Referred By Contac t Referred To Contact Radiology. Diagnoses Encounter for follow-up ultrasound of anatomy Procedures [facility] US Comprehensive Single F/U Chloe Crowder MD [address] [place] [address] Referral ID Status Reason Start Date Expiration Date V isits Requested Visits Authorized [id number] Pending Review 05/05/2023 05/04/2024 1 1 Encounter Details Date Type Department Care Team (Latest Contact Info) Description 06/09/2023 2:11 PM EHR TRAINER - 06/09/2023 11:59 PM EHR TRAINER Hospital Encounter [facility] [place] [address] [facility] [address] [place] [phone] Chloe Crowder MD [address] [place] [address] Skip Hilliard MD [address] [place], [place] [address] Encounter for follow-up ultrasound of anatomy Discharge [...] Procedure Name Priority Date/Time Associated Diagnosis Comments [facility] US COMPREHENSIVE SINGLE F/U Routine 06/09/2023 3:09 PM EHR TRAINER Encounter for follow-up ultrasound of anatomy documented in this encounter Results * [facility] US Comprehensive Single F/U (06/09/2023 3:09 PM EHR TRAINER) Anatomical Region Laterality Modality Ultrasound 06/09/2023 2:18 PM EHR TRAINER Impressions 06/09/2023 3:19 PM EHR TRAINER IMPRESSION ----- 1) Growth parameters and estimated weight were consistent with appropriate for gestational age pattern of growth. 2) anatomy appeared normal for gestational age. Narrative 06/09/2023 3:19 PM EHR TRAINER ?Comp Follow Up ----- Pat. Name: AUNDREAJuly ? Study Date: ??06/09/2023 2:18pm Pat. NO: ??[id number] ?Referring ??MD: JONN GIRON Site: ??[facility] ? Public Speaking Teacher: Bladimir Cox RDMS : ??1990 ?Age: ?? [...] 1 lb 4 ?oz EFW by ?Hadlock ([id number]) Head / Face / Neck Biometry: CM ?5.9 ? mm ANATOMY ----- The following structures appear normal: Head / Neck ? Cranium. Head size. Head shape. Lateral ventricles. Midline falx. Cavum septi pellucidi. Cerebellum. Cisterna magna. Thalami. Face ? Lips. Profile. Nose. Maxilla. Mandible. Heart / Thorax ?4-chamber view. RVOT view. LVOT view. Aortic arch view. 2-kqwytx-ckeimbu view. ? Diaphragm. Abdomen ? Stomach. Kidneys. [...] July Study Date: 06/09/2023 2:18pm Pat. NO: [id number] Referring MD: JONN GIRON Site: [facility] Public Speaking Teacher: Bladimir RUSTY Cox : 1990 Age: 33 [...] 1 lb 4 oz EFW by Serjio ([id number]) Head / Face / Neck Biometry: CM 5.9 mm ANATOMY ----- The following structures appear normal: Head / Neck Cranium. Head size. Head shape.Lateral ventricles. Midline falx. Cavum septi pellucidi. Cerebellum.Cisterna magna. Thalami. Face Lips. Profile. Nose. Maxilla.Mandible. Heart / Thorax 4-chamber view. RVOT view. LVOT view.Aortic arch view. 2-optoum-zebrcss view. Diaphragm. Abdomen Stomach. Kidneys. Bladder. Spine [...] anatomy documented in this encounter Care Teams J2Ee Engineer Relationship Specialty Start Date End Date Mj Oliver PA-C [address] [address] PCP - General Family Practice 04/24/11 documented as of this encounter
--- OUTSIDE RECORDS SUMMARY | 2023-09-16 15:57 | XMS_ITS | Encounter Summary ---
Author Organization [facility] Address [address] [place] [address] Care Team Providers Care Industrial Gas Production Operator Name Role Phone Mj Oliver PA-C Primary Care Provide r Encounter Details Date Type Department Care Team (Late st Contact Info) Description 11/18/2011 [facility] Medical Advice [address] [address] [facility] Social History Tobacco Use Types [...] on filedocumented in this encounter Care Teams Industrial Gas Production Operator Relationship Specialty Start Date End Date Mj Oliver PA-C [address] [address] PCP - General Family Practice 04/24/11 documented as of this encounter
--- OUTSIDE RECORDS SUMMARY | 2023-09-16 15:57 | XMS_ITS | Encounter Summary ---
Author Organization [place] Address [address] [place] [address] Care Team Providers Care Conveyor System Operator Name Role Phone Mj Oliver PA-C Primary Care Provide r Encounter Details Date Type Department Care Team (Late st Contact Info) Description 07/06/2017 [facility] Medical Advice [address] [address] Peri Carter RN Social History [...] on filedocumented in this encounter Care Teams Conveyor System Operator Relationship Specialty Start Date End Date Mj Oliver PA-C [address] [address] PCP - General Family Practice 04/24/11 documented as of this encounter
--- OUTSIDE RECORDS SUMMARY | 2023-09-16 15:57 | XMS_ITS | Encounter Summary ---
Author Organization [place] Address [address] [place] [address] Care Team Providers Care Environmental Services Aide Name Role Phone Unavailable Primary Care Provider Unavailabl e Encounter Details Date Type Department Care Team (Late st Contact Info) Description 04/06/2008 11:30 AM [facility] [address] [place] [phone] Elmo Roa MD [address] [place] [address] Social History Tobacco Use Types Packs/Day Years [...]
--- OUTSIDE RECORDS SUMMARY | 2023-09-16 15:57 | XMS_ITS | Referral Summary ---
Author Organization [facility] Address [address] [place] [address] Care Team Providers Care Telegraph Installer Name Role Phone Mj Oliver PA-C [...] Age 20. Plan colp per MD 03/16/11: [place] - BRAEDEN I. Plan pap in 6 [...] Comments Blood Pressure 135/75 02/19/2016 11:55 AM BRAZER PRODUCTION LINE Pulse 93 02/19/2016 11:55 AM BRAZER PRODUCTION LINE Temperature 36.6 ??C (97.9 ??F) 05/30/2013 9:57 AM CS T Respiratory Rate 16 06/20/2011 2:44 PM CDT Oxygen Saturation 97% 02/19/2016 11:55 AM BRAZER PRODUCTION LINE Inhaled Oxygen Concentration - - Weight 59 kg (130 lb) 05/30/2013 9:57 AM BRAZER PRODUCTION LINE Height 152.4 cm (5') 05/30/2013 9:57 AM BRAZER PRODUCTION LINE Body Mass Index 25.39 05/30/2013 9:57 AM BRAZER PRODUCTION LINE Plan of Treatment Not on file Procedures Procedure Name Priority Date/Time Associated Diagnosis Comments PAP IMAGED THIN LAYER, DIAGNOSTIC Routine 05/14/2013 12:00 AM BRAZER PRODUCTION LINE LSIL (low grade squamous intraepithelial lesion) on Pap smear ASTHMA ACTION PLAN Routine 02/20/2013 10 :19 AM BRAZER PRODUCTION LINE Intermittent asthma HCL HIV 1 & 2 ANTIBODY Routine 02/29/2008 1:52 PM BRAZER PRODUCTION LINE Supervision of Other Normal from Last 3 Months or Most Recently Relevant to Health Maintenance Results * PAP imaged thin layer, diagnostic (05/14/2013 12:00 AM BRAZER PRODUCTION LINE) ANASTASIYA Alcazar Report Patient Name: ZINA HALL MR#: [id number] Specimen #: [id number] Collected: 05/14/2013 Received: 05/15/2013 Reported: 05/16/2013 11:24 [...] by: SHAHZAD Irizarry(ASCP) Processed and screened at [facility] CLINICAL HISTORY: LMP: 04/30/13 Oral Control Pill Intra-Uterine Device, Previous normal pap Date of Last Pap: 11/26/11, Papanicolaou Test Limitations: ??Cervical cytology is a screening test with limited sensitivity; regular screening is critical for cancer prevention; Pap tests are primarily effective for the diagnosis/preventi on of squamous cell carcinoma, not adenocarcinomas or other cancers. TESTING LAB LOCATION: [address] ??[address] COLLECTION SITE: Client: ??[facility] Location: [facility] (R) COPATH Cytologic material (specimen) 05/14/2013 05/15/2013 2:17 PM BRAZER PRODUCTION LINE Claire Pierre DO LAB - [facility] ICAL SPECIMEN COPATH * HIV Screening (02/29/2008 1:52 PM BRAZER PRODUCTION LINE) HIV 1&2 Antibody Negative [facility]G [facility] 02/29/2008 1:52 PM BRAZER PRODUCTION LINE 02/29/2008 1:53 PM BRAZER PRODUCTION LINE Iza Mancilla MD LABORATORY [facility] LAB[facility] from Last 3 Months or Most Recently Relevant to Health Maintenance Care Teams Telegraph Installer Relationship Specialty Start Date End Date Mj Oliver PA-C [address] [address] PCP - General Family Practice 04/24/11
--- OUTSIDE RECORDS SUMMARY | 2023-09-16 15:57 | XMS_ITS | Encounter Summary ---
Author Organization [place] Address [address] [place] [address] Care Team Providers Care Steel Checker Name Role Phone Mj Oliver PA-C Primary Care Provide r Encounter Details Date Type Department Care Team (Late st Contact Info) Description 07/06/2012 [facility] Medical Advice [address] [address] [facility] Social History Tobacco Use Types Packs/Day Years [...] on filedocumented in this encounter Care Teams Steel Checker Relationship Specialty Start Date End Date jM Oliver PA-C [address] [address] PCP - General Family Practice 04/24/11 documented as of this encounter
--- OUTSIDE RECORDS SUMMARY | 2023-09-16 15:57 | XMS_ITS | Encounter Summary ---
Author Organization [place] Address [address] [place] [address] Care Team Providers Care Radio Rigger Name Role Phone Mj Oliver PA-C Primary [...] on filedocumented in this encounter Care Teams Radio Rigger Relationship Specialty Start Date End Date Mj Oliver PA-C [address] [address] PCP - General Family Practice 04/24/11 documented as of this encounter
--- OUTSIDE RECORDS SUMMARY | 2023-09-16 15:57 | XMS_ITS | Encounter Summary ---
Author Organization [place] Address [facility] [place] [address] Care Team Providers Care Course Instructor Name Role Phone Mj Oliver PA-C Primary Care Provide r Reason for Visit * Reason Comments Ultrasound RL2- Subopt anatomy Encounter Details Date Type Department Care Team (Late st Contact Info) Description 06/09/2023 2:45 PM INTAKE ASSESSOR Office Visit [facility] [place] [address] [facility] [address] [place] [address] Chloe Crowder MD [address] [place] [address] Skip Hliliard MD [address] [place] [address] Encounter for follow-up ultrasound of [...] for details of today's US at the [facility]. Skip Hilliard MD Maternal- Medicine KE ASSESSOR documented in this encounter Nursing Notes * Loretta Zapata RN - 06/09/2023 2:45 PM CST Patient reports positive movement, denies pain, denies contractions/pre- term labor, leaking of fluid, or bleeding. Patient denies headache, visual changes, nausea/vomiting, epigastric pain related to preeclampsia. Education provided to patient on RL2. SBAR given to [facility] MD, see their note in Epic. Loretta Zapata RN KE ASSESSOR documented in this encounter Plan of Treatment Not on file documented as of this encounter Visit Diagnoses Diagnosis Encounter for follow-up ultrasound of anatomy- Primary documented in this encounter Care Teams Course Instructor Relationship Specialty Start Date End Date Mj Oliver PA-C [address] [address] PCP - General Family Practice 04/24/11 documented as of this encounter
--- OUTSIDE RECORDS SUMMARY | 2023-09-16 15:57 | XMS_ITS | Clinical Summary ---
Author Organization [facility] Address [place], [place] [address] Care Team Providers Care Material Handling Equipment Stevedore Name Role Phone None Primary Care Provider [...] 16 Negative Negative 07/16/2021 2:43 PM CDT [facility] TRAL LABORATORY TYPE 18 Negative Negative 07/16/2021 2:43 PM CDT [facility] TRAL LABORATORY OTHER HIGH RISK TYPES Negative Negative 07/16/2021 2:43 PM CDT [facility] TRAL LABORATORY Other (Cervical/Vagina l) 07/13/2021 5:30 PM CDT 07/15/2021 8:15 AM CDT Narrative [facility] [employer]-CENTRAL [facility]ORAT[facility] - 07/16/2021 2:43 PM CDT HPV types 16, 18, 31, 33, 35, 39, 45, 51, 52, 56, 58, 59, 66 and 68 DNA were undetectable or below the pre-set threshold. Methodology: Junior Job 4800 HPV Test July Nel [facility] [employer] [facility] [employer] [address] [place] [address], from Last 3 Months or Most Recently Relevant to Health Maintenance Advance Directives * Full Code (Latest Code Status on File) Date Activated Date Inactivated Comments 10/15/2008 7:15 AM 10/17/2008 7:25 PM * Full Code Date Activated Date Inactivated Comments 10/14/2008 7:48 PM 10/15/2008 7:15 AM Care Teams Material Handling Equipment Stevedore Relationship Specialty Start Date End Date None . PCP - General 12/08/12
--- OUTSIDE RECORDS SUMMARY | 2023-09-16 15:57 | XMS_ITS | Encounter Summary ---
Author Organization [facility] Address [address] [place] [address] Care Team Providers Care Conditioning Yard Supervisor Name Role Phone Mj Oliver PA-C Primary Care Provide r Reason for Referral * Consultation (Routine: Next available opening) - Pending Review Specialty Diagnoses / Procedures Referred By Contac t Referred To Contact Diagnoses Hepatitis B carrier (H) Mohsen Lundy MD [address] [address] Referral ID Status Reason Start Date Expiration Date V isits Requested Visits Authorized [id number] Pending Review 03/23/2023 03/22/2024 1 1 Question Answer MFM Consult Yes Comments [facility] radiologic and comp Us * Diagnostic Imaging Ultrasound (Routine) - Pending Review Specialty Diagnoses / Procedures Referred By Contac t Referred To Contact Radiology. Diagnoses Hepatitis B carrier (H) Procedures [facility] US Comprehensive Single Mohsen Lundy MD [address] [address] Referral ID Status Reason Start Date Expiration Date V isits Requested Visits Authorized [id number] Pending Review 03/23/2023 03/22/2024 1 1 Encounter Details Date Type Department Care Team (Late st Contact Info) Description 03/23/2023 Orders Only [facility] Maternal Medicine [address] [place] [id number] Marquita To RN Hepatitis B carrier (H) [...] Type Priority Associated Diagnoses Orde r Schedule [facility] Office Visit Referral Routine: Next available opening Hepatitis B carrier (H) Expected: 03/23/2023 (Approximate), Expires: 03/23/2024 documented as of this encounter Results * [facility] US Comprehensive Single (05/05/2023 2:39 PM CFO) Anatomical Region Laterality Modality Ultrasound 05/05/2023 1:32 PM CFO Impressions 05/05/2023 4:01 PM CFO IMPRESSION ----- 1. Forman intrauterine at 18w [...] long and closed. Narrative 05/05/2023 4:01 PM CFO ?Comprehensive ----- Pat. Name: July ? Study Date: ??05/05/2023 1:32pm Pat. NO: ??[id number] ?Referring ??MD: JONN GIRON Site: ??[facility] ? Rocket Motor Tester: Bladimir Cox RDMS : ??1990 ?Age: [...] ? 0 lb 8 ?oz EFW by ?[facility] ([id number]) Head / Face / Neck Biometry: Butter Wrapper ? 6.0 ? mm CM ?1.9 ? [...] apical view. RVOT view. Aortic arch view. 5-lmoqsx-rdqekin view. ? Diaphragm. Abdomen ? Kidneys. Spine [...] AUNDREAJuly Study Date: 05/05/2023 1:32pm Pat. NO: [id number] Referring MD: JONN GIRON Site: [facility] Rocket Motor Tester: Bladimir Cox RDMS : 1990 Age: [...] 0 lb 8 oz EFW by [facility] ([id number]) Head / Face / Neck Biometry: Butter Wrapper 6.0 mm CM 1.9 mm Nasal bone [...] Suboptimal apicalview. RVOT view. Aortic arch view. 0-pyzxfw-rwytqhw view. Diaphragm. Abdomen Kidneys. Spine Sacral spine. [...] [facility] US ORDERABLE S documented in this encounter Visit Diagnoses Diagnosis Hepatitis B carrier (H)- Primary Hepatitis B carrier Hepatitis B carrier (H) Hepatitis B carrier documented in this encounter Care Teams Conditioning Yard Supervisor Relationship Specialty Start Date End Date Mj Oliver PA-C [address] [address] PCP - General Family Practice 04/24/11 documented as of this encounter
[2023-09-16 17:33] LABS: Hematocrit 39.2 % (33.0-51.0); Hemoglobin* 13.1 gm/dL (12.0-16.0); Mean Corpuscular HGB Conc 33 gm/dL (32-36); Mean Corpuscular Hemoglobin 28 pg (26-34); Mean Corpuscular Volume 83 fL (80-100); Platelet Count* 305 K/uL (140-440); Red Blood Count 4.74 m/uL (4.00-5.20); White Blood Count* 12.63 K/uL (4.50-11.00)
[2023-09-16 17:38] LABS: Slide Review Reflex No
[2023-09-16 17:51] LABS: Creatinine* 0.4 mg/dL (0.5-1.5); Estimated Glomerular Filt Rate 134 ml/min
[2023-09-16 17:52] LABS: Alanine Aminotransferase* 17 U/L (4-35); Aspartate Amino Transferase* 21 U/L (12-35); Blood Urea Nitrogen* 7 mg/dL (5-24)
[2023-09-16] MEDS: LACTATED RINGERS 1000 ML 1,000 ML IV (18:21)
[2023-09-16] MEDS: AZITHROMYCIN 500 MG in 0.9 % SODIUM CHLORIDE 250 ml 250 ML 255 MG IVPB (20:02)
--- NOTE | 2023-09-16 20:11 | P.LDBA_ITS ---
Subjective History of Present Illness Date Seen: 09/16/23 Narrative: Patient is being admitted to Labor and Delivery for labor. She is a 33 year old at 37 weeks, 4 days gestation. Her fetus is in breech presentation after a failed attempt at external cephalic version earlier this week. Plan is for primary cearean delivery. Her cervix has dilated from 2.5 to 4 cm during her time here in observation. Her full history and physical was dictated by Nabila Shaver CNM on 09/15/23. Cherelle jones see this for details. Specific Issues/Plans (1st baby was adopted out) : Josue Review therapy referral for at 38 weeks. # [place] breech at term - s/p unsuccessful ECV on 09/11 - primary C/S scheduling form requested, date 09/25. # Obesity, BMI 46.7 Hemoglobin A1c: Nutrition referral: Placed Anesthesia referral: Level 2 ultrasound and consult with MFM: Normal anatomy scan but suboptimal views. F/U normal anatomy with EFW 25% Early 1 hour GTT : Elevated 1 hr-failed; Passed 3 hr GTT at 24 weeks. Declined repeat at 28 weeks. Consider re discussing if EFW is high on growth u/s. Weekly BPP or NST starting at 32 weeks. Scheduled. Growth ultrasound (& BPP) at 28 and 34 week per MFM. -32 weeks: breech, EFW 13% -36 weeks: ASA 81 mg # Hepatitis-B carrier: she has been told she can not transmit, hepatology referral: [facility] recommendation to repeat hep B viral level in 6 weeks. Hep Bs antigen:+ Hep Bs antibody:- Hep B core:+ Hepatology consult: They will perform baseline liver panel and HBV DNA. They will repeat HPV DNA and the end 2nd trimester. Viral load > 200,000, would treat with antiviral therapy. Baby should receive 1st dose of hepatitis-B vaccine within the 1st 24 hours of Labs leaked so unable to result. Did not go back and declines. # OCD/depression/anxiety. Increased fluoxetine to 50 mg due to concerns about increased anger and mood swings. PHQ=0 HENRIK =4 at 24 weeks Has anxiety around being a family due to history of adopting out her 1st child and trauma surrounding that situation. History of depression. Therapy referral for : DISCUSS again at 38 weeks. # SOB/air hunger in 1st trimester. No associated symptoms. Normal vitals. EKG normal sinus rhythm #right nipple, bloody discharge with hand expression US ordered for follow up Flu and COVID shot: Declined TDAP OB - Problem Based A/P Additional Plan (1) Breech presentation: Status: Acute (2) BMI 45.0-49.9, adult: Status: Acute (3) : Status: Acute Plan Plan is for primary delivery. She declines tubal sterilization. We discussed risks of delivery, including bleeding/hemorrhage, infecti on, damage to internal organs, thromboembolism, uterine scarring, impact on future pregnancies, and the likely postoperative restrictions and precautions. Consent form is reviewed with and signed by patient. Cefazolin 3 g and azithromycin 500 mg for preoperative prophylaxis. SCDs and Lovenox for thromboprophylaxis. Given her hepatitis-B status, to be vaccinated within 24 hours of life. She requests hydroxyzine at a small dose to help with preoperative anxiety. Delivery/Labor/Induction Plan Plan: Section OB Exam Physical Exam Vital signs: Temp Pulse BP Pulse Ox 98.2 F 91 130/72 98 09/16/23 16:13 09/16/23 16:20 09/16/23 16:20 09/16/23 19:12 Narrative: Physical exam: General: No acute distress Psych: Alert and oriented x3, full affect HEENT: Normocephalic, atraumatic Neck: No cervical adenopathy, no thyromegaly Heart: Regular rate and rhythm, no murmur rub or gallop Lungs: Clear to auscultation bilaterally Abdomen: Soft, nontender, gravid. Confirmed breech on bedside ultrasound. Pannus obscures lower abdomen. Lower extremities: No edema or erythema Pelvic exam: 4 /80 / -3 per RN
[2023-09-16 20:22] LABS: Hemoglobin* 12.9 gm/dL (12.0-16.0)
[2023-09-16 20:43] LABS: Total Protein Urine 17 mg/dL
[2023-09-16 20:44] LABS: Creatinine Urine 128.2 mg/dL; Protein Creatinine Ratio Urine 0.13 (0-0.19)
[2023-09-16] MEDS: hydrOXYzine pamoate 25 MG CAPSULE PO (20:46)
[2023-09-16] MEDS: LACTATED RINGERS 1000 ML 1,000 ML 125 ML IV ×2 (20:50→23:15)
[2023-09-16] MEDS: CEFAZOLIN 1 GM inj 3 GM IVP (20:55)
--- NOTE | 2023-09-16 22:12 | PM.OBPRCCS ---
Procedure Date of procedure: 09/16/23 Procedure Done: Global Will [facility] bill your pro fee for this procedure?: Yes Procedure Description: PREOPERATIVE DIAGNOSIS: 37 weeks, 4 days gestation Early labor Breech presentation POSTOPERATIVE DIAGNOSIS: 37 weeks, 4 days gestation Early labor Breech presentation PROCEDURE: Primary low-transverse section SURGEON: Tayler Rodriguez MD ANESTHESIA: Spinal IV FLUIDS: 950 mL QBL: 722 mL FINDINGS: 1. Female , vladimir breech presentation with sacrum left anterior, Apgars of 8, 8, and 9, weight 5 lb and 13 oz 2. Normal appearance to uterus, bilateral tubes and ovaries; simple 1 cm cyst containing clear fluid adjacent to the right fimbria. COMPLICATIONS: None PROCEDURE IN DETAIL: Patient was taken to the operating room with IV running. She received 3 g cefazolin and 500 mg of azithromycin in preoperative prophylaxis. Spinal anesthesia was administered. Sue catheter was inserted. She was prepped and draped in the usual sterile fashion. Anesthesia was tested and found to be adequate. A low-transverse skin incision was made with a scalpel and carried through to the underlying layer of fascia with the scalpel. The subcutaneous fat was bluntly dissected off the underlying fascia. Bovie was used on bleeding vessels. The fascia was nicked in the midline with a scalpel, and this incision was extended laterally with scissors. The rectus muscles were bluntly in the midline. Peritoneum was identified and entered bluntly. Bovie was used to widen this opening laterally. Mayo O retractor was inserted and tightened down, providing excellent visualization of the lower uterine segment. The bladder reflection was found to be well below the planned site for hysterotomy. Low-transverse uterine incision was made with a scalpel. Incision was widened bluntly. The 's breech was grasped through the hysterotomy until both feet were brought through the hysterotomy and knees were flexed. First the right, the left arm were delivered by sweeping the arms in front of the infant's body. The head was delivered whilst maintaining a neutral to a flexed position. Cord was clamped and cut after 30 seconds. was handed off to attending pediatric provider The placenta was delivered with gentle traction on the cord. The uterus was cleaned of all clots and debris with the dry lap pad. The hysterotomy was reapproximated with 0 Vicryl in a running, locked fashion. Second layer of the same suture was used in imbricating fashion to obtain hemostasis. The adnexa were examined and noted to be normal in appearance. The cul-de-sac and gutters were cleansed with dampened laparotomy sponge, removing any further clots and debris. The Mayo O retractor was removed. The hysterotomy was reexamined and found to be hemostatic. The peritoneum was reapproximated with 2 0 Vicryl in a running fashion. The rectus muscles were examined and found to be hemostatic. The fascia was reapproximated with 0 Vicryl in a running fashion. Subcutaneous fat was irrigated and Bovie used on oozing vessels. The subcutaneous fat was reapproximated with 2 0 plain gut suture in an interrupted fashion. The skin was closed with a subcuticular stitch of 4-0 Monocryl. Steri-Strips, then silver dressing was applied above this. Patient tolerated procedure well was taken to recovery area in stable condition. Surgery Debrief Performed: Yes Surgery Debrief Comment: Placenta to be sent home with patient per patient request
--- NOTE | 2023-09-16 22:47 | P.ANES_ITS ---
Anesthesia Charges Start Date/Time Anesthesia Start Date: 09/16/23 Anesthesia Start Time: 20:50 Stop Date/Time Anesthesia Stop Date: 09/16/23 Anesthesia Stop Time: 22:35 Summary Emergency: HARDWARE PRESS OPERATOR
--- NOTE | 2023-09-16 22:48 | W.PM.NB ---
Nerve Block Nerve Block Time Seen by Provider: 22:30 Date Seen: 09/16/23 Type of block requested by surgeon for post-operative analgesia: TAP Side: bilateral Time out performed: Yes Verification of patient name: Yes Verification of date of : Yes Site marking: site marked Name of person performing procedure: frederic Continuous monitoring Was continuous monitoring of O2 sat, B/P, playground monitor, recorded every 15 minutes?: Yes Procedure Checklist: sterile prep, needles and gloves Ultrasound guided. Images saved: Yes Medications given in 5ml increments after negative aspiration: Marcaine %: 0.25 mL: 30 and Exparel mL: 10 Patient tolerated procedure well: Yes Block Charges Block Charge (with Pro Fee): TAP Bilateral Use of Ultrasound Machine for Block: Yes- US Guidance/pain block
[2023-09-17] VITALS (22 sets, daily range): BP systolic 115–142; BP diastolic 68–92; PULSE 70–83; RESP 15–17; TEMP 36.6–36.9; O2SAT 96–99
[2023-09-17] MEDS: KETOROLAC 30 MG/ML inj IVP ×4 (03:16→21:38)
[2023-09-17] MEDS: ACETAMINOPHEN 500 MG TABLET 1000 MG PO ×3 (06:52→19:22)
[2023-09-17 07:23] LABS: Hemoglobin* 11.6 gm/dL (12.0-16.0)
--- NOTE | 2023-09-17 09:52 | PM.OBPNVD1 ---
OB - PN:Subj Subjective Date Seen: 09/17/23 Patient comments OB post-: no complaints, pain well controlled, tolerating diet and flatus present [place] status: and doing well Narrative: Zina feels well.? Her pain is well controlled with current medications.? She has no new complaints.? Urinary output is adequate and she is voiding without difficulty.? Has a good appetite, is tolerating a general diet, is passing flatus, and has not had a bowel movement.? Has scant amount of rubra lochia.? She has not yet been out of bed but plans to get up with the nurses assistance after her company leaves. Encouraged ambulation.?She is syringe feeding baby and that is going well. Baby is under the warmer for temperature stabilization at this time. OB - PN: Obj Exam Physical Exam: Vital signs: Temp Pulse Resp BP Pulse Ox O2 Del Method 97.8 F 70 16 135/87 100 Room Air 09/17/23 03:18 09/17/23 03:18 09/17/23 07:46 09/17/23 03:18 09/16/23 23:03 09/17/23 03:18 Narrative: GENERAL APPEARANCE:? normal affect, alert, no distress? MOOD:? appropriate? CHEST:? clear to auscultation and percussion? HEART:? regular rate and rhythm? ABDOMEN:? soft, non-tender the uterine fundus is U/2 and is appropriate for the stage of recovery. Incision dressing is clean dry and intact.? EXTREMITIES:? normal and no edema? Urinary Catheter Management: Urethral: Cath placed during this visit: yes Urethral indwelling: Yes Reason for continuing: surgical procedure Insertion date: 09/16/23 Insertion time: 21:14 OB - PN: Obj Data Labs Labs: Laboratory Results - last 24 hr 09/16/23 09/16/23 09/16/23 16:47 16:47 16:47 WBC RBC Hgb Hct MCV MCH MCHC Plt Count BUN Creatinine Estimated GFR AST ALT Urine Creatinine Cancelled 128.2 Protein/Creatinin Ratio Cancelled 0.13 Urine Total Protein Cancelled Hep Bs Ag Confirmation Blood Type Antibody Screen 09/16/23 09/16/23 09/16/23 16:47 17:21 20:15 WBC 12.63 H RBC 4.74 Hgb 13.1 12.9 Hct 39.2 MCV 83 MCH 28 MCHC 33 Plt Count 305 BUN 7 Creatinine 0.4 L Estimated GFR 134 AST 21 ALT 17 Urine Creatinine Protein/Creatinin Ratio Urine Total Protein 17 Hep Bs Ag Confirmation Blood Type O Positive Antibody Screen NEGATIVE 09/17/23 09/17/23 07:11 17:21 WBC RBC Hgb 11.6 L Hct MCV MCH MCHC Plt Count BUN Creatinine Estimated GFR AST ALT Urine Creatinine Protein/Creatinin Ratio Urine Total Protein Hep Bs Ag Confirmation Cancelled Blood Type Antibody Screen OB - PN: A/P Delivery Assessment and Plan (1) BMI 45.0-49.9, adult: Status: Acute (2) Lactating mother: Status: Acute (3) care following delivery: Status: Acute (4) Depression: Status: Acute (5) Anxiety: Status: Acute Plan day: 1 Plan: routine care Comments: Anticipate discharge home tomorrow or the following day.
[2023-09-17] MEDS: ENOXAPARIN 40 MG/0.4 ML INJ SUBCUT (19:21)
[2023-09-17] MEDS: MAGNESIUM HYDROXIDE 30 ML ORAL.SUSP PO (21:43)
[2023-09-17] MEDS: DOCUSATE SODIUM 100 MG CAPSULE PO (21:43)
[2023-09-18] MEDS: ACETAMINOPHEN 500 MG TABLET 1000 MG PO ×2 (02:12→09:46)
[2023-09-18] MEDS: KETOROLAC 30 MG/ML inj IVP (03:10)
--- NOTE | 2023-09-18 08:16 | PM.OBPNVD1 ---
OB - PN:Subj Subjective Date Seen: 09/18/23 Narrative: Zina is a 33 y.o. G 3 P 2 who was admitted to L & D for spontaneous onset of labor. ?She had a section that was uncomplicated for breech presentation. The patient feels well. ?The pain is well controlled with current medications. ?She has no new complaints. ?She is breast feeding and reports things are going well. the patient has done well.? Vitals have been stable.? She has remained afebrile.? Has a good appetite, is tolerating a general diet. ?She is voiding without difficulty.? She is passing gas and has not had a bowel movement.? She is ambulating and denies any dizziness.? Has small amount of rubra lochia. OB - PN: Obj Exam Physical Exam: Vital signs: Temp Pulse Resp BP Pulse Ox O2 Del Method 98.1 F 82 16 129/83 97 Room Air 09/17/23 23:00 09/17/23 23:00 09/17/23 23:00 09/17/23 23:00 09/17/23 23:00 09/17/23 23:00 Narrative: GENERAL APPEARANCE:? normal affect, alert, no distress MOOD:? appropriate CHEST:? clear to auscultation HEART:? regular rate and rhythm ABDOMEN:? soft, non-tender the uterine fundus is At Umbilicus, Midline and is appropriate for the stage of recovery. EXTREMITIES:? normal and trace edema INCISION: Healing well, no surrounding erythema, abnormal induration or discharge Urinary Catheter Management: Urethral: Cath placed during this visit: yes Urethral indwelling: Yes Reason for continuing: surgical procedure Insertion date: 09/16/23 Insertion time: 21:14 OB - PN: Obj Data Labs Labs: Laboratory Results - last 24 hr 09/17/23 17:21 Hep Bs Ag Confirmation Cancelled OB - PN: A/P Delivery Assessment and Plan (1) care following delivery: Status: Acute (2) BMI 45.0-49.9, adult: Status: Acute (3) Lactating mother: Status: Acute (4) Depression: Status: Acute (5) Anxiety: Status: Acute (6) Gestational hypertension: Status: Acute Plan day: 2 Plan: routine care Comments: plan: , may see if needed Hgb 11.6. GHTN diagnosed by elevated BP greater than 4 hours apart Labs WNL or stable with trending Discharge home with BP cuff if does not already have one Follow up in 3-5 days Call for signs/symptoms of preeclampsia Discharge home tomorrow
[2023-09-18 09:36] VITALS: BP 111/72; PULSE 89; RESP 16; TEMP 36.6
[2023-09-18] MEDS: ENOXAPARIN 40 MG/0.4 ML INJ SUBCUT (11:19)
[2023-09-18] MEDS: IBUPROFEN 600 MG TABLET PO (11:22)
--- NOTE | 2023-09-18 12:28 | PM.OBDSVD1 ---
DS: Providers Provider Date Seen: 09/18/23 Date of admission: 09/16/23 19:20 Primary care physician: Not a Local Provider Admitting Clinician: Tayler Rodriguez MD Attending Physician on discharge: Maty Soni CNM DS: Diagnosis Discharge Diagnosis (1) Gestational hypertension: Status: Acute (2) care following delivery: Status: Acute (3) Lactating mother: Status: Acute (4) BMI 45.0-49.9, adult: Status: Acute (5) Depression: Status: Acute (6) Anxiety: Status: Acute Exam Const: Vital Signs, click to edit/add: Vital Signs - 24 hr 09/17/23 13:00 09/17/23 15:25 09/17/23 15:35 Temperature 98.1 F 98.3 F Pulse Rate [Blood Pressure Cuff] 79 Pulse Rate [Pulse Oximeter] 81 Respiratory Rate 16 16 16 Blood Pressure [Le ft Arm] 115/71 117/80 Pulse Oximetry 97 96 Oxygen Delivery Me thod Room Air 09/17/23 16:46 09/17/23 17:46 09/17/23 18:46 Temperature Pulse Rate [Blood Pressure Cuff] Pulse Rate [Pulse Oximeter] Respiratory Rate 16 17 16 Blood Pressure [Le ft Arm] Pulse Oximetry Oxygen Delivery Me thod 09/17/23 23:00 09/18/23 09:36 Temperature 98.1 F 97.8 F Pulse Rate [Blood Pressure Cuff] 82 Pulse Rate [Pulse Oximeter] 89 Respiratory Rate 16 16 Blood Pressure [Le ft Arm] 129/83 111/72 Pulse Oximetry 97 Oxygen Delivery Me thod Room Air OB - DS: Summary Hospital Course Hospital Course: See previous note from today. Patient initially had declined to discharge today but is now requesting discharge. Peripartum Data Infant delivery method: Primary C/S; Labored Procedures: Procedures Operation Date: 09/16/23 21:00 Actual Procedure Side Surgeon p Section Tayler Rodriguez MD complications: none Gender: Female Infant Discharge Plan: Home Status at Discharge Functional status at discharge: independent ambulation Overall status at discharge: patient is progressing back to baseline Time Spent with Patient Time attestation: Total time spent providing and/or coordinating discharge services: Discharge Plan Discharge Disposition: Home, Self-Care Date of Admission: 09/16/23 19:20 Attending Provider on Discharge: Maty Soni Primary Care Provider: Provider,Not a Local Condition: Stable Anticipated Discharge Date/Time: 09/18/23 13:00 Discharge Medications: New docusate sodium 100 mg Capsule 100 mg PO DAILY Qty: 90 0RF ibuprofen 600 mg Tablet 600 mg PO Q6H PRN (Reason: Pain) Qty: 60 0RF oxycodone 5 mg Tablet 5 - 10 mg PO Q4H PRN (Reason: Pain) Qty: 10 0RF acetaminophen 500 mg Tablet 1,000 mg PO Q6H PRNQty: 0 0RF Continued fluoxetine 40 mg capsule 40 mg PO QDAY Qty: 90 3RF magnesium citrate 125 mg capsule 250 mg PO QDAY fluoxetine 10 mg capsule 10 mg PO QDAY Qty: 90 3RF Rx Instructions: Take the 10mg capsule along with the previously prescribed 40mg capsule daily. acetaminophen [Tylenol Extra Strength] 500 mg tablet 1,000 mg PO Q6H PRN Zyrtec 10 mg capsule 10 mg PO QDAY PRN (Reason: allergy symptoms) Qty: 90 3RF PNV-DHA 27 mg iron-1 mg -300 mg capsule 1 cap PO DAILY Qty: 100 0RF Hold Instructions: pg Discontinued aspirin 81 mg tablet,chewable 81 mg PO QDAY Discharge Orders: Discharge Order (Routine); Ordered 09/18/23 Ordered By: Maty Soni Patient Education: OB Over the Counter Medication Information, OB /Breast Feeding Additional Instructions: Discharge instructions were reviewed with the patient including signs and symptoms of infection and home going medications Lifting Restrictions: 20 pounds for 6 weeks No not submerge incision under water X 2 weeks? Nothing vaginally for 6 weeks: no tampons or intercourse Do not drive while taking narcotic pain medication(s) Off Work or School for 8 weeks Follow [facility] for a BP check?3-5 days Call with BP greater than or equal to 160/110 2-week visit: incision check, discuss feeding concerns, review control options and screen for anxiety/depression. 6-week visit for an annual exam. consultation services are available to all mothers and babies for the first year after delivery.? To make an appointment, please call [phone]. Activity Level: Activity as Tolerated Discharge Diet: Regular Follow Up Appointments[facility] [Provider Group] Forms: MyHealth Info Instructions
== END 2023-09-18 14:55 | disposition home or self-care (01) | DRG 540 ==
LOC: OB OUT 22:08 → OB 22:08
PROVIDERS: Admitting Provider Obstetrics & Gynecology; Visit Provider Advanced Practice Midwife
PROC: 10D00Z1 Extraction of Products of Conception, Low, Open Approach (ICD-10-PCS; CPT 59514; principal; 2023-09-16 20:45)
DX: O32.1XX0 Maternal care for breech presentation, not applicable or unspecified (principal); O99.214 Obesity complicating childbirth; O13.4 Gestational [pregnancy-induced] hypertension without significant proteinuria, complicating childbirth; G89.18 Other acute postprocedural pain; O98.42 Viral hepatitis complicating childbirth; B18.1 Chronic viral hepatitis B without delta-agent; O99.344 Other mental disorders complicating childbirth; F32.A Depression, unspecified; F41.9 Anxiety disorder, unspecified; F42.9 Obsessive-compulsive disorder, unspecified; Z37.0 Single live birth; Z3A.37 37 weeks gestation of pregnancy
CPT/HCPCS: 01961; 36415; 64488; 76942; 82565; 82570; 84156; 84450; 84460; 84520; 85018; 85027; 86592; 86850; 86900; 86901; 87341; 99140; A4344; A9270; C9290; J0456; J0665; J0690; J1100; J1650; J1885; J2274; J2371; J2405; J2590; J7050; J7120

== ENCOUNTER 2024-03-12 12:00 | Outpatient (CLI) | payer BC, SELFPAY ==
--- OUTSIDE RECORDS SUMMARY | 2024-03-12 12:03 | XMS_ITS | Encounter Summary ---
Author Organization [facility] Address [address] [place] [address] Care Team Providers Care Mock Up Builder Name Role Phone Mj Oliver PA-C Primary Care Provide r Encounter Details Date Type Department Care Team (Late st Contact Info) Description 12/13/2011 [facility] Medical Advice [address] [phone] [facility] Social History Tobacco Use Types Packs/Day Years Used Date Smoking Tobacco: Every Day Cigarettes Smokeless Tobacco: Never Comments:7-9 cigs a day Alcohol Use Standard Drinks/Week Comments No 0 (1 standard drink = 0.6 oz pur e alcohol) Comments No Sex and Gender Information Value Date Recorded Sex Assigned at Not on file Legal Sex Female 3:32 AM WHALE TRAINER Gender Identity Not on file Sexual Orientation Not on file 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
--- OUTSIDE RECORDS SUMMARY | 2024-03-12 12:03 | XMS_ITS | Encounter Summary ---
Author Organization [facility] Address [address] [place] [address] Care Team Providers Care Production Support Specialist Name Role Phone Mj Oliver PA-C Primary Care Provide r Encounter Details Date Type Department Care Team (Late st Contact Info) Description 07/06/2017 [facility] Medical Advice [address] [address] Peri Carter RN Social History Tobacco Use Types Packs/Day Years Used Date Smoking Tobacco: Every Day Cigarettes Smokeless Tobacco: Never Comments:7-9 cigs a day Alcohol Use Standard Drinks/Week Comments No 0 (1 standard drink = 0.6 oz pur e alcohol) Comments No Sex and Gender Information Value Date Recorded Sex Assigned at Not on file Legal Sex Female 3:32 AM FROZEN MEAT CUTTER Gender Identity Not on file Sexual Orientation Not on file 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
--- OUTSIDE RECORDS SUMMARY | 2024-03-12 12:03 | XMS_ITS | Encounter Summary ---
Author Organization [facility] Address [address] [place] [address] Care Team Providers Care Rehab Trainer Name Role Phone Mj Oliver PA-C Primary Care Provide r Reason for Referral * Consultation (Routine: Next available opening) - Pending Review Specialty Diagnoses / Procedures Referred By Contac t Referred To Contact Diagnoses Hepatitis B carrier (H) Mohsen Lundy MD [address] [place] [address] Phone: tel: fax: Referral ID Status Reason Start Date Expiration Date V isits Requested Visits Authorized [id number] Pending Review 03/23/2023 03/22/2024 1 1 Question Answer MFM Consult Yes Comments Mfm radiologic and comp Us ETING COPYWRITER * Diagnostic Imaging Ultrasound (Routine) - Pending Review Specialty Diagnoses / Procedures Referred By Contac t Referred To Contact Radiology. Diagnoses Hepatitis B carrier (H) Procedures M[facility] US Comprehensive Single Mohsen Lundy MD [address] [place] [address] Phone: tel: fax: Referral ID Status Reason Start Date Expiration Date V isits Requested Visits Authorized [id number] Pending Review 03/23/2023 03/22/2024 1 1 ETING COPYWRITER Encounter Details Date Type Department Care Team (Late st Contact Info) Description 03/23/2023 [facility] Only [facility] [address] [place] [address] Marquita To RN Hepatitis B carrier (H) (Primary Dx) Social History Tobacco Use Types Packs/Day Years Used Date Smoking Tobacco: Every Day Cigarettes Smokeless Tobacco: Never Comments:7-9 cigs a day Alcohol Use Standard Drinks/Week Comments No 0 (1 standard drink = 0.6 oz pur e alcohol) Adolescent Education Answer Date Record ed Getting School Help Needed Not on file 01/08 Comments No Sex and Gender Information Value Date Recorded Sex Assigned at Not on file Legal Sex Female 3:32 AM MARKETING COPYWRITER Gender Identity Not on file Sexual Orientation Not on file Occupation Industry 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 student Not on file Not on file Not on file documented as of this encounter Plan of Treatment Scheduled Referrals Name Type Priority Associated Diagnoses Orde r Schedule [facility] Office Visit Referral Routine: Next available opening Hepatitis B carrier (H) Expected: 03/23/2023 (Approximate), Expires: 03/23/2024 documented as of this encounter Results * [facility] US Comprehensive Single (05/05/2023 2:39 PM MARKETING COPYWRITER) Anatomical Region Laterality Modality Ultrasound 05/05/2023 1:32 PM MARKETING COPYWRITER Impressions 05/05/2023 4:01 PM MARKETING COPYWRITER IMPRESSION ----- 1. Forman intrauterine at 18w [...] long and closed. Narrative 05/05/2023 4:01 PM MARKETING COPYWRITER Comprehensive ----- Pat. Name: AUNDREAJuly Study Date: 05/05/2023 1:32pm Pat. NO: [id number] Referring MD: JONN GIRON Site: [facility] Social Responsibility: Bladimir Cox RDMS : 1990 Age: 33 ----- INDICATION ----- Elevated BMI: 46. Chronic viral Hepatitis B. METHOD ----- Transabdominal ultrasound examination. View: Suboptimal view: limited by maternal body habitus. Suboptimal view: limited by position ----- Forman . Number of fetuses: 1 DATING ----- Date Details Gest. age KIARA Prior assessment 02/17/2023 GA: 7 w + 3 d 18 w + 3 d 10/03/2023 U/S 05/05/2023 based upon AC, BPD, Femur, HC 18 w + 1 d 10/05/2023 Assigned dating Dating performed on 05/05/2023, based on the prior assessment (on 02/17/2023) 18 w + 3 d 10/03/2023 GENERAL EVALUATION ----- Cardiac activity present. FHR 144 bpm. movements present. Presentation cephalic. Placenta Anterior, No Previa, > 2 cm from internal os. Umbilical cord 3 vessel cord. Amniotic fluid Amount of AF: normal. MVP 3.3 cm. BIOMETRY ----- Main Biometry: BPD 38.4 mm 17w 5d Hadlock OFD 56.4 mm 18w 4d Nicolaides HC 152.8 mm 18w 2d Hadlock Cerebellum tr 18.3 mm 18w 1d Nicolaides AC 130.3 mm 18w 4d 51% Hadlock Femur 26.8 mm 18w 1d Hadlock Humerus 26.5 mm 18w 3d Viral Weight Calculation: EFW 235 g 39% Hadlock EFW (lb,oz) 0 lb 8 oz EFW by Hadlock ([id number]) Head / Face / Neck Biometry: Inspector 6.0 mm CM 1.9 mm Nasal bone 5.7 mm Nuchal fold 3.4 mm ANATOMY ----- The following structures appear normal: Head / Neck Cranium. Head size. Head shape. Lateral ventricles. Choroid plexus. Midline falx. Cavum septi pellucidi. Cerebellum. Cisterna magna. Parenchyma. Thalami. Vermis. Neck. Nuchal fold. Face Lips. Profile. Nose. Maxilla. Orbits. Lens. Heart / Thorax LVOT view. Situs. Bicaval view. Ductal arch view. Superior vena cava. Inferior vena cava. 3-vessel view. Cardiac position. Cardiac size. Cardiac rhythm. Right lung. Left lung. Abdomen Abdominal wall. Cord insertion. Stomach. Bladder. Liver. Bowel. Genitals. Spine Cervical spine. Thoracic spine. Lumbar spine. Extremities / Skeleton Right arm. Right hand. Left arm. Left hand. Right leg. Left leg. Left foot. The following structures could not be adequately visualized: Face Mandible. Heart / Thorax 4-chamber view: Suboptimal apical view. RVOT view. Aortic arch view. 4-lfghwo-mshclji view. Diaphragm. Abdomen Kidneys. Spine Sacral spine. Extremities / Skeleton Right foot. Gender: female. MATERNAL STRUCTURES ----- Cervix Visualized Appearance: Appears Closed Approach - Transabdominal: Cervical length 43.5 mm Right Ovary Visualized Left [...] AUNDREAJuly Study Date: 05/05/2023 1:32pm Pat. NO: [id number] Referring MD: JONN GIRON Site: [facility] Manager Social Responsibility: Bladimir Cox RDMS : 1990 Age: 33 [...] 0 lb 8 oz EFW by Hadlock ([id number]) Head / Face / Neck Biometry: Inspector 6.0 mm CM 1.9 mm Nasal bone [...] Suboptimal apicalview. RVOT view. Aortic arch view. 8-jqmnsz-gnnrgdx view. Diaphragm. Abdomen Kidneys. Spine Sacral spine. [...] imaging the cervix appears long and closed. us Mohsen Lundy MD [facility] US ORDERABLES Edited Result - Final documented in this encounter Visit Diagnoses Diagnosis Hepatitis B carrier (H)- Primary Hepatitis B carrier Hepatitis B carrier (H) Hepatitis B carrier documented in this encounter Care Teams Rehab Trainer Relationship Specialty Start Date End Date Mj Oliver PA-C [address] [address] PCP - General Family Practice 04/24/11 documented as of this encounter
--- OUTSIDE RECORDS SUMMARY | 2024-03-12 12:03 | XMS_ITS | Referral Summary ---
Author Organization [facility] Address [address] [place] [address] Care Team Providers Care National Secretary Name Role Phone Mj Oliver PA-C Primary Care Provide r Allergies Active Allergy Reactions Criticality Noted Date Comments Doxycycline Diarrhea,GI Disturbance 07/21/2015 Penicillins Rash Low 07/21/2015 Medications albuterol (PROVENTIL HFA: VENTOLIN HFA) 108 (90 BASE) MCG/ACT inhalerIndicatio ns:Intermittent asthma Inhale 2 puffs into the lungs every 6 hours as needed for shortness of breath / dyspnea. 1 Inhaler 0 2 Active CLONAZEPAM PO Take 5 mg by mouth Once daily Active levonorgestrel-e thinyl estradiol (SEASONALE) 0.15-0.03 MG per tabletIndication s:Contraception Take 1 tablet by mouth daily 91 tablet 3 5 Active clindamycin (CLINDAMAX) 1 % lotionIndication s:Hidradenitis suppurativa Apply topically 2 times daily 60 mL 11 6 Active doxycycline Monohydrate 100 MG TABSIndications: Hidradenitis suppurativa 1 tab PO BID 60 tablet 2 6 Active fluconazole (DIFLUCAN) 200 MG tabletIndication s:Hidradenitis suppurativa 1 tab PO at symptom onset, 1 tab PO 3 days later if sx still present 30 tablet 2 6 Active cephALEXin (KEFLEX) 500 MG capsuleIndicatio ns:Hidradenitis suppurativa Take 1 capsule (500 mg) by mouth 2 times daily 60 capsule 1 6 Active cetirizine (ZYRTEC) 10 MG tabletIndication s:Itching Take 1 tablet (10 mg) by mouth daily Need appointment for refills 30 tablet 7 Active hydrOXYzine (ATARAX) 25 MG tabletIndication s:Itching Take 1-2 tablets (25-50 mg) by mouth At Bedtime 180 tablet 8 Active Active Problems Problem Noted Date Diagnosed Date Encounter for routine gynecological examination 05/18/2013 Overview (01/02/2015): Problem list name updated by automated process. Provider to review GERD (gastroesophageal reflux disease) 1 Mixed anxiety depressive disorder 01/20/2011 Overview (01/02/2012): (Problem list name updated by automated process. Provider to review and confirm.) CARDIOVASCULAR SCREENING; LDL GOAL LESS THAN 160 01/20/2011 Intermittent asthma 01/20/2011 LSIL (low grade squamous int raepithelial lesion) on Pap smear 01/20/2011 Overview (05/22/2013): 01/20/11: LSIL. Age 20. Plan colp per MD 03/16/11: [place] - [facility] I. Plan pap in 6 months. 11/03/11: NIL pap. Plan pap in 6 months. 07/03/12 Lost to pap tracking 05/14/13: NIL pap, neg HPV. Plan pap in 3 years. Hepatitis B carrier 03/05/2008 Overview (05/08/2008): Hep B core arnav + LFTs normal 02/2008. Notify peds at delivery, baby will need Hep B immunoglobulin and vaccine AVOID OPERATIVE DELIVERY, SCALP ELECTRODES, ETC Resolved Problems Problem Noted Date Diagnosed Date Resolved Date Asthma, mild intermittent 01/20/2011 Asthma, mild intermittent 01/20/2011 Depressive state 04/30/2008 01/20/2011 Supervision of other high-risk 03/25/2008 01/20/2011 Overview (01/02/2015): Problem list name updated by automated process. [...] on file Legal Sex Female 3:32 AM VENEER GRADER Gender Identity Not on file Sexual Orientation Not on file Occupation Industry 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 student Not on file Not on file Not on file Last Filed Vital Signs Vital Sign Reading Time Taken Comments Blood Pressure 135/75 02/19/2016 11:55 AM VENEER GRADER Pulse 93 02/19/2016 11:55 AM VENEER GRADER Temperature 36.6 C (97.9 F) 05/30/2013 9:57 AM VENEER GRADER Respiratory Rate 16 06/20/2011 2:44 PM CDT Oxygen Saturation 97% 02/19/2016 11:55 AM VENEER GRADER Inhaled Oxygen Concentration - - Weight 59 kg (130 lb) 05/30/2013 9:57 AM VENEER GRADER Height 152.4 cm (5') 05/30/2013 9:57 AM VENEER GRADER Body Mass Index 25.39 05/30/2013 9:57 AM VENEER GRADER Plan of Treatment Not on file Procedures Procedure Name Priority Date/Time Associated Diagnosis Comments PAP IMAGED THIN LAYER, DIAGNOSTIC Routine 05/14/2013 12:00 AM VENEER GRADER LSIL (low grade squamous intraepithelial lesion) on Pap smear ASTHMA ACTION PLAN Routine 02/20/2013 10 :19 AM VENEER GRADER Intermittent asthma HCL HIV 1 & 2 ANTIBODY Routine 02/29/2008 1:52 PM VENEER GRADER Supervision of Other Normal from Last 3 Months or Most Recently Relevant to Health Maintenance Results * PAP imaged thin layer, diagnostic (05/14/2013 12:00 AM VENEER GRADER) PAP MARIE Alcazar Report Patient Name: ZINA HALL MR#: [id number] Specimen #: [id number] Collected: 05/14/2013 Received: 05/15/2013 Reported: 05/16/2013 11:24 Ordering Phy(s): CLAIRE PIERRE SPECIMEN/STAIN PROCESS: Pap Imaged thin layer prep diagnostic (SurePath, FocalPoint with guided screening) Pap-Cyto x 1, HPV ordered x 1 SOURCE: Cervical, endocervical Pap Imaged thin layer prep diagnostic (SurePath, FocalPoint with guided screening) SPECIMEN ADEQUACY: Satisfactory for evaluation. -Transformation zone component absent. CYTOLOGIC INTERPRETATION: Negative for Intraepithelial Lesion or Malignancy Other Non-Neoplastic Findings: -Inflammation present. Electronically signed out by: SHAHZAD Irizarry(ASCP) Processed and screened at [facility] CLINICAL HISTORY: LMP: 04/30/13 Oral Control Pill Intra-Uterine Device, Previous normal pap Date of Last Pap: 11/26/11, Papanicolaou Test Limitations: Cervical cytology is a screening test with limited sensitivity; regular screening is critical for cancer prevention; Pap tests are primarily effective for the diagnosis/preventi on of squamous cell carcinoma, not adenocarcinomas or other cancers. TESTING LAB LOCATION: [address] [id number] COLLECTION SITE: Client: [facility] Location: LVOB (R) COPATH Cytologic material (specimen) 05/14/2013 05/15/2013 2:17 PM VENEER GRADER us Claire Pierre DO LAB - OPTIME CLINICAL SPE CIMEN Final Result COPATH * HIV Screening (02/29/2008 1:52 PM VENEER GRADER) HIV 1&2 Antibody Negative NEG [facility] 02/29/2008 1:52 PM VENEER GRADER 02/29/2008 1:53 PM VENEER GRADER us Iza Mancilla MD LABORATORY Final Result Performing Organization Address City/State/[facility] Co de Phone Number [address] [address] from Last 3 Months or Most Recently Relevant to Health Maintenance Insurance BC [facility] OF [facility] BCBS OUT OF STATE Care Teams National Secretary Relationship Specialty Start Date End Date Mj Oliver PA-C [address] [address] PCP - General Family Practice 04/24/11
--- OUTSIDE RECORDS SUMMARY | 2024-03-12 12:03 | XMS_ITS | Clinical Summary ---
Author Organization [facility] Address [address] [place] [address] Care Team Providers Care Couples Therapist Name Role Phone Mj Oliver PA-C Primary [...] Age 20. Plan colp per MD 03/16/11: [place] - BRAEDEN I. Plan pap in 6 [...] on file Legal Sex Female 3:32 AM DATA MANAGEMENT CONSULTANT Gender Identity Not on file Sexual Orientation Not on file Occupation Industry 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 student Not on file Not on file Not on file Last Filed Vital Signs Vital Sign Reading Time Taken Comments Blood Pressure 135/75 02/19/2016 11:55 AM DATA MANAGEMENT CONSULTANT Pulse 93 02/19/2016 11:55 AM DATA MANAGEMENT CONSULTANT Temperature 36.6 C (97.9 F) 05/30/2013 9:57 AM DATA MANAGEMENT CONSULTANT Respiratory Rate 16 06/20/2011 2:44 PM CDT Oxygen Saturation 97% 02/19/2016 11:55 AM DATA MANAGEMENT CONSULTANT Inhaled Oxygen Concentration - - Weight 59 kg (130 lb) 05/30/2013 9:57 AM DATA MANAGEMENT CONSULTANT Height 152.4 cm (5') 05/30/2013 9:57 AM DATA MANAGEMENT CONSULTANT Body Mass Index 25.39 05/30/2013 9:57 AM DATA MANAGEMENT CONSULTANT Plan of Treatment Health Maintenance Due Date [...] 12/10/2013, 10/26/2006, 10/26/2006 YEARLY PREVENTIVE VISIT 04/13/2018 04/13/19, 05/14/2013, 05/13/2013, Additional history exists PHQ-2 (once per calendar year) 2023 COVID-19 Vaccine ( - season) 2023 INFLUENZA VACCINE (#1) 2023 DTAP/TDAP/TD IMMUNIZATION (5 - Td or Tdap) 12/11/2023 12/10/2013, 04/22/2011, 10/02/2003, Additional history exists PAP 07/13/2024 07/13/2021, 07/02, 05/14/2013, Additional history exists RSV VACCINE (1 - 1-dose 75+ series) 2065 HIV SCREENING Completed 02/29/2008 MENINGITIS IMMUNIZATION Aged Out No l onger eligible based on patient's age to complete this topic RSV MONOCLONAL ANTIBODY Aged Out No l onger eligible based on patient's age to complete this topic Procedures Procedure Name Priority Date/Time Associated Diagnosis Comments PAP IMAGED THIN LAYER, DIAGNOSTIC Routine 05/14/2013 12:00 AM DATA MANAGEMENT CONSULTANT LSIL (low grade squamous intraepithelial lesion) on Pap smear ASTHMA ACTION PLAN Routine 02/20/2013 10 :19 AM DATA MANAGEMENT CONSULTANT Intermittent asthma HCL HIV 1 & 2 ANTIBODY Routine 02/29/2008 1:52 PM DATA MANAGEMENT CONSULTANT Supervision of Other Normal from Last 3 Months or Most Recently Relevant to Health Maintenance Results * PAP imaged thin layer, diagnostic (05/14/2013 12:00 AM DATA MANAGEMENT CONSULTANT) PAP MARIE Alcazar Report Patient Name: JORDYN JULY Remedios MR#: [id number] Specimen #: [id number] Collected: 05/14/2013 Received: 05/15/2013 Reported: 05/16/2013 11:24 [...] SHAHZAD Irizarry(ASCP) Processed and screened at [facility] CLINICAL HISTORY: LMP: 04/30/13 Oral Control Pill Intra-Uterine Device, Previous normal pap Date of Last Pap: 11/26/11, Papanicolaou Test Limitations: Cervical cytology is a screening test with limited sensitivity; regular screening is critical for cancer prevention; Pap tests are primarily effective for the diagnosis/preventi on of squamous cell carcinoma, not adenocarcinomas or other cancers. TESTING LAB LOCATION: [address] [phone] COLLECTION SITE: Client: [facility] Location: LVOB (R) COPATH Cytologic material (specimen) 05/14/2013 05/15/2013 2:17 PM DATA MANAGEMENT CONSULTANT us Claire Pierre DO LAB - [facility] CLINICAL SPE CIMEN Final Result Performing Organization Address City/[facility]/ZIP Co de Phone Number COPATH * HIV Screening (02/29/2008 1:52 PM DATA MANAGEMENT CONSULTANT) HIV 1&2 Antibody Negative NEG [facility] 02/29/2008 1:52 PM DATA MANAGEMENT CONSULTANT 02/29/2008 1:53 PM DATA MANAGEMENT CONSULTANT us Iza Mancilla MD LABORATORY Final Result [facility] [address] [place] [address] from Last 3 Months or Most Recently Relevant to Health Maintenance Insurance BCBS OUT OF STATE BCBS OUT OF STATE Care Teams Couples Therapist Relationship Specialty Start Date End Date Mj Oliver PA-C [address] [address] PCP - General Family Practice 04/24/11
--- OUTSIDE RECORDS SUMMARY | 2024-03-12 12:03 | XMS_ITS | Encounter Summary ---
Author Organization [facility] Address [address] [place] [address] Care Team Providers Care Tool Checker Name Role Phone Mj Oliver PA-C Primary Care Provide r Encounter Details Date Type Department Care Team (Late st Contact Info) Description 07/06/2012 [facility] Medical Advice [address] [address] [facility] Social History Tobacco Use Types Packs/Day Years Used Date Smoking Tobacco: Every Day Cigarettes Smokeless Tobacco: Never Comments:7-9 cigs a day Alcohol Use Standard Drinks/Week Comments No 0 (1 standard drink = 0.6 oz pur e alcohol) Comments No Sex and Gender Information Value Date Recorded Sex Assigned at Not on file Legal Sex Female 3:32 AM PUBLIC HEALTH EPIDEMIOLOGIST Gender Identity Not on file Sexual Orientation Not on file Occupation Industry 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
--- OUTSIDE RECORDS SUMMARY | 2024-03-12 12:03 | XMS_ITS | Encounter Summary ---
Author Organization [facility] Address [address] [place] [address] Care Team Providers Care Pharmacy Informaticist Name Role Phone Unavailable Primary Care Provider Unavailabl e Encounter Details Date Type Department Care Team (Late st Contact Info) Description 04/06/2008 11:30 AM [facility] in [facility] [address] [place] [phone] Elmo Roa MD [address] [place] [address] Social History Tobacco Use Types Packs/Day Years Used Date Smoking Tobacco: Every Day Cigarettes Smokeless Tobacco: Never Comments:7-9 cigs a day Alcohol Use Standard Drinks/Week Comments No 0 (1 standard drink = 0.6 oz pur e alcohol) Comments No Sex and Gender Information Value Date Recorded Sex Assigned at Not on file Legal Sex Female 3:32 AM CASTING TESTER Gender Identity Not on file Sexual Orientation Not on file Occupation Industry 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
--- OUTSIDE RECORDS SUMMARY | 2024-03-12 12:03 | XMS_ITS | Encounter Summary ---
Author Organization [facility] Address [address] [place] [address] Care Team Providers Care Clinical Laboratory Scientist Name Role Phone Mj Oliver PA-C Primary Care Provide r Encounter Details Date Type Department Care Team (Late st Contact Info) Description 11[place]18[place]2011 [facility] [address] [address] [facility] Social History Tobacco Use Types Packs/Day Years Used Date Smoking Tobacco: Every Day Cigarettes Smokeless Tobacco: Never Comments:7-9 cigs a day Alcohol Use Standard Drinks/Week Comments No 0 (1 standard drink = 0.6 oz pur e alcohol) Comments No Sex and Gender Information Value Date Recorded Sex Assigned at Not on file Legal Sex Female 3:32 AM FIBERGLASS ROLLER Gender Identity Not on file Sexual Orientation Not on file Occupation Industry 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
--- OUTSIDE RECORDS SUMMARY | 2024-03-12 12:03 | XMS_ITS | Clinical Summary ---
Author Organization [facility] Address [place], [place] [address] Care Team Providers Care Plant Operations Worker Name Role Phone None Primary Care Provider Unavailabl e Allergies Active Allergy Reactions Criticality Noted Date Comments Morphine Nausea And Vomiting 12/08/2012 Medications clonazePAM (KLONOPIN) 0.5 mg tablet Take 0.5 mg by mouth 2 times daily if needed. Active HYDROcodone-ac etaminophen, 5-325 mg, (NORCO) per tablet Take 1 tablet by mouth every 4 hours if needed for Pain. Max acetaminophen dose: 4000mg in 24 hrs. 15 tablet 0 3 Active Active Problems Problem Noted Date Diagnosed [...] at Not on file Legal Sex Female 7:08 AM EMPLOYEE DEVELOPMENT DIRECTOR Gender Identity Not on file Sexual Orientation [...] 92 12/08/2012 2:09 AM CDT Temperature 37.1 C (98.8 F) 12/08/2012 12:47 AM CDT Respiratory Rate 16 12/08/2012 12:47 AM CDT [...] 02/24/2008 Tetanus booster 2010 COVID-19 vaccine series ( season) 2023 Influenza for age 9-49 12/03/2023 Pap test for age 21-65 07/13/2024 2, 07/13/2021 Pneumococcal series for age 6-64 Aged Out No longer eligible b ased on patient's age to complete this topic Procedures Procedure Name Priority Date/Time Associated Diagnosis Comments HPV HIGH RISK Routine 07/13/2021 5:30 PM CDT from Last 3 Months or Most Recently Relevant to Health Maintenance Results * HPV HIGH RISK (07/13/2021 5:30 PM CDT) TYPE 16 Negative Negative 07/16/2021 2:43 PM CDT [facility] TYPE 18 Negative Negative 07/16/2021 2:43 PM CDT [facility] OTHER HIGH RISK TYPES Negative Negative 07/16/2021 2:43 PM CDT [facility] Other (Cervical/Vagina l) 07/13/2021 5:30 PM CDT 07/15/2021 8:15 AM CDT Narrative [facility] - 07/16/2021 2:43 PM CDT HPV types 16, 18, 31, 33, 35, 39, 45, 51, 52, 56, 58, 59, 66 and 68 DNA were undetectable or below the pre-set threshold. Methodology: Junior Job 4800 HPV Test July Nel CASTELLANO MICROBIOLOGY Final Resu lt [facility] [address] [place] [address], from Last 3 Months or Most Recently Relevant to Health Maintenance Insurance [facility] Advance Directives * Full Code (Latest Code Status on File) Date Activated Date Inactivated Comments 10/15/2008 7:15 AM 10/17/2008 7:25 PM * Full Code Date Activated Date Inactivated Comments 10/14/2008 7:48 PM 10/15/2008 7:15 AM Care Teams Plant Operations Worker Relationship Specialty Start Date End Date None . PCP - General 12/08/12
--- NOTE | 2024-03-12 12:15 | CRLHL7_ITS ---
For Patients: As a result of the Century Cures Act, medical imaging exams and procedure reports are released immediately into your electronic medical record. You may view this report before your referring provider. If you have questions, please contact your health care provider. Indication: Dating and viability LMP: 01/13/2024. Technique: Real-time sonographic images of the pelvis were obtained transabdominally and transvaginally using grayscale, color, and Doppler imaging. Comparison: None. Findings: Uterus: Normal. Gestational sac: Mean sac diameter measures 1.8 centimeter. pole: [place]-rump length measures 0.35 centimeter, compatible with an average ultrasound age of 6 weeks 0 days. Yolk sac: Present. heart rate: 109 beats/min. Right ovary: Not visualized. Left ovary: Size: 2.5 x 1.9 x 1.8 centimeter. Appearance: Normal morphology. No masses. Bladder: Visualized bladder is normal. Other: No free fluid. Impression: Single live intrauterine with crown-rump length corresponding to 6 weeks 0 days. Dictated by Chase Londono MD @ 03/12/2024 6:55:16 PM (Electronically Signed)
== END 2024-03-12 12:01 | disposition home or self-care (01) ==
LOC: US 12:01
PROVIDERS: Visit Provider Advanced Practice Midwife
DX: Z34.91 Encounter for supervision of normal pregnancy, unspecified, first trimester (principal)
CPT/HCPCS: 76817

== ENCOUNTER 2024-03-12 13:45 | Outpatient (CLI) | payer BC, SELFPAY ==
--- OUTSIDE RECORDS SUMMARY | 2024-03-12 13:54 | XMS_ITS | Clinical Summary ---
Author Organization [place] Address [address] [place] [address] Care Team Providers Care Knitter Machine Name Role Phone Mj Oliver PA-C Primary [...] Age 20. Plan colp per MD 03/16/11: [place] - BRAEDEN I. 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 Gender Identity Not on file Sexual Orientation Not on file Occupation Industry 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 student Not on file Not on file Not on file Last Filed Vital Signs Vital Sign Reading Time Taken Comments Blood Pressure 135/75 02/19/2016 11:55 AM BUSH AND VINE FARMER FRUIT CROPS Pulse 93 02/19/2016 11:55 AM BUSH AND VINE FARMER FRUIT CROPS Temperature 36.6 C (97.9 F) 05/30/2013 9:57 AM BUSH AND VINE FARMER FRUIT CROPS Respiratory Rate 16 06/20/2011 2:44 PM CDT Oxygen Saturation 97% 02/19/2016 11:55 AM BUSH AND VINE FARMER FRUIT CROPS Inhaled Oxygen Concentration - - Weight 59 kg (130 lb) 05/30/2013 9:57 AM BUSH AND VINE FARMER FRUIT CROPS Height 152.4 cm (5') 05/30/2013 9:57 AM BUSH AND VINE FARMER FRUIT CROPS Body Mass Index 25.39 05/30/2013 9:57 AM BUSH AND VINE FARMER FRUIT CROPS Plan of Treatment Health Maintenance Due Date [...] THIN LAYER, DIAGNOSTIC Routine 05/14/2013 12:00 AM BUSH AND VINE FARMER FRUIT CROPS LSIL (low grade squamous intraepithelial lesion) on Pap smear ASTHMA ACTION PLAN Routine 02/20/2013 10 :19 AM BUSH AND VINE FARMER FRUIT CROPS Intermittent asthma HCL HIV 1 & 2 ANTIBODY Routine 02/29/2008 1:52 PM BUSH AND VINE FARMER FRUIT CROPS Supervision of Other Normal from Last 3 Months or Most Recently Relevant to Health Maintenance Results * PAP imaged thin layer, diagnostic (05/14/2013 12:00 AM BUSH AND VINE FARMER FRUIT CROPS) PAP MARIE Alcazar Report Patient Name: JORDYN JULY Remedios MR#: [id number] Specimen #: [id number] Collected: 05/14/2013 Received: 05/15/2013 Reported: 05/16/2013 11:24 [...] by: SHAHZAD Irizarry(ASCP) Processed and screened at [facility], [facility] CLINICAL HISTORY: LMP: 04/30/13 Oral Control Pill Intra-Uterine Device, Previous normal pap Date of Last Pap: 11/26/11, Papanicolaou Test Limitations: Cervical cytology is a screening test with limited sensitivity; regular screening is critical for cancer prevention; Pap tests are primarily effective for the diagnosis/preventi on of squamous cell carcinoma, not adenocarcinomas or other cancers. TESTING LAB LOCATION: [address] [address] COLLECTION SITE: Client: [facility] Location: LVOB (R) COPATH Cytologic material (specimen) 05/14/2013 05/15/2013 2:17 PM BUSH AND VINE FARMER FRUIT CROPS us Claire Pierre DO LAB - OPTIME CLINICAL SPE CIMEN Final Result Performing Organization Address City/[facility]/ZIP Co de Phone Number COPATH * HIV Screening (02/29/2008 1:52 PM BUSH AND VINE FARMER FRUIT CROPS) HIV 1&2 Antibody Negative NEG [facility] 02/29/2008 1:52 PM BUSH AND VINE FARMER FRUIT CROPS 02/29/2008 1:53 PM BUSH AND VINE FARMER FRUIT CROPS us Iza Mancilla MD LABORATORY Final Result [facility] [address] [place] [address] from Last 3 Months or Most Recently Relevant to Health Maintenance Insurance BCBS OUT OF STATE BCBS OUT OF STATE Care Teams Knitter Machine Relationship Specialty Start Date End Date Mj Oliver PA-C [address] [address] PCP - General Family Practice 04/24/11
--- OUTSIDE RECORDS SUMMARY | 2024-03-12 13:54 | XMS_ITS | Encounter Summary ---
Author Organization [place] Address [address] [place] [address] Care Team Providers Care Technical Developer Name Role Phone Mj Oliver PA-C Primary Care Provide r Encounter Details Date Type Department Care Team (Late st Contact Info) Description 11/18/2011 [facility] Medical Advice [address] [address] [facility] Social History Tobacco Use Types Packs/Day Years Used Date Smoking Tobacco: Every Day Cigarettes Smokeless Tobacco: Never Comments:7-9 cigs a day Alcohol Use Standard Drinks/Week Comments No 0 (1 standard drink = 0.6 oz pur e alcohol) Comments No Sex and Gender Information Value Date Recorded Sex Assigned at Not on file Legal Sex Female 3:32 AM CREDIT CARD CLERK Gender Identity Not on file Sexual Orientation Not on file Occupation Industry 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 Care Teams Technical Developer Relationship Specialty Start Date End Date Mj Oliver PA-C [address] [address] PCP - General Family Practice 04/24/11 documented as of this encounter
--- OUTSIDE RECORDS SUMMARY | 2024-03-12 13:54 | XMS_ITS | Encounter Summary ---
Author Organization [facility] Address [address] [place] [address] Care Team Providers Care Brass Burnisher Name Role Phone Mj Oliver PA-C Primary Care Provide r Encounter Details Date Type Department Care Team (Late st Contact Info) Description 07/06/2017 [facility] Medical Advice [address] [address] Peri Carter RN Social History Tobacco Use Types Packs/Day Years Used Date Smoking Tobacco: Every Day Cigarettes Smokeless Tobacco: Never Comments:7-9 cigs a day Alcohol Use Standard Drinks/Week Comments No 0 (1 standard drink = 0.6 oz pur e alcohol) Comments No Sex and Gender Information Value Date Recorded Sex Assigned at Not on file Legal Sex Female 3:32 AM BUNDLE TIER AND LABELER Gender Identity Not on file Sexual Orientation Not on file Occupation Industry 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
--- OUTSIDE RECORDS SUMMARY | 2024-03-12 13:54 | XMS_ITS | Referral Summary ---
Author Organization [facility] Address [address] [place] [address] Care Team Providers Care Senior It Specialist Name Role Phone Mj Oliver PA-C [...] Age 20. Plan colp per MD 03/16/11: [place] - BRAEDEN I. Plan pap in 6 [...] on file Legal Sex Female 3:32 AM SENIOR CHEMIST Gender Identity Not on file Sexual Orientation Not on file Occupation Industry 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 student Not on file Not on file Not on file Last Filed Vital Signs Vital Sign Reading Time Taken Comments Blood Pressure 135/75 02/19/2016 11:55 AM SENIOR CHEMIST Pulse 93 02/19/2016 11:55 AM SENIOR CHEMIST Temperature 36.6 C (97.9 F) 05/30/2013 9:57 AM SENIOR CHEMIST Respiratory Rate 16 06/20/2011 2:44 PM CDT Oxygen Saturation 97% 02/19/2016 11:55 AM SENIOR CHEMIST Inhaled Oxygen Concentration - - Weight 59 kg (130 lb) 05/30/2013 9:57 AM SENIOR CHEMIST Height 152.4 cm (5') 05/30/2013 9:57 AM SENIOR CHEMIST Body Mass Index 25.39 05/30/2013 9:57 AM SENIOR CHEMIST Plan of Treatment Not on file Procedures Procedure Name Priority Date/Time Associated Diagnosis Comments PAP IMAGED THIN LAYER, DIAGNOSTIC Routine 05/14/2013 12:00 AM SENIOR CHEMIST LSIL (low grade squamous intraepithelial lesion) on Pap smear ASTHMA ACTION PLAN Routine 02/20/2013 10 :19 AM SENIOR CHEMIST Intermittent asthma HCL HIV 1 & 2 ANTIBODY Routine 02/29/2008 1:52 PM SENIOR CHEMIST Supervision of Other Normal from Last 3 Months or Most Recently Relevant to Health Maintenance Results * PAP imaged thin layer, diagnostic (05/14/2013 12:00 AM SENIOR CHEMIST) PAP MARIE Alcazar Report Patient Name: ZINA HALL MR#: [id number] Specimen #: [id number] Collected: 05/14/2013 Received: 05/15/2013 Reported: 05/16/2013 11:24 [...] by: SHAHZAD Irizarry(ASCP) Processed and screened at [facility], [facility] CLINICAL HISTORY: LMP: 04/30/13 Oral Control Pill Intra-Uterine Device, Previous normal pap Date of Last Pap: 11/26/11, Papanicolaou Test Limitations: Cervical cytology is a screening test with limited sensitivity; regular screening is critical for cancer prevention; Pap tests are primarily effective for the diagnosis/preventi on of squamous cell carcinoma, not adenocarcinomas or other cancers. TESTING LAB LOCATION: [address] [id number] COLLECTION SITE: Client: [facility] Location: LVOB (R) COPATH Cytologic material (specimen) 05/14/2013 05/15/2013 2:17 PM SENIOR CHEMIST us Claire Pierre DO LAB - OPTIME CLINICAL SPE CIMEN Final Result COPATH * HIV Screening (02/29/2008 1:52 PM SENIOR CHEMIST) HIV 1&2 Antibody Negative NEG [facility] 02/29/2008 1:52 PM SENIOR CHEMIST 02/29/2008 1:53 PM SENIOR CHEMIST us Iza Mancilla MD LABORATORY Final Result Performing Organization Address City/State/[facility] Co de Phone Number [address] [address] from Last 3 Months or Most Recently Relevant to Health Maintenance Insurance BC OUT OF [facility] BCBS OUT OF STATE Care Teams Senior It Specialist Relationship Specialty Start Date End Date Mj Oliver PA-C [address] [address] PCP - General Family Practice 04/24/11
--- OUTSIDE RECORDS SUMMARY | 2024-03-12 13:54 | XMS_ITS | Encounter Summary ---
Author Organization [place] Address [address] [place] [address] Care Team Providers Care Mathematics Academic Chair Name Role Phone Unavailable Primary Care Provider Unavailabl e Encounter Details Date Type Department Care Team (Late st Contact Info) Description 04/06/2008 11:30 AM [facility] [address] [place] [phone] Elmo Roa MD [address] [place] [address] Social History Tobacco Use Types Packs/Day Years Used Date Smoking Tobacco: Every Day Cigarettes Smokeless Tobacco: Never Comments:7-9 cigs a day Alcohol Use Standard Drinks/Week Comments No 0 (1 standard drink = 0.6 oz pur e alcohol) Comments No Sex and Gender Information Value Date Recorded Sex Assigned at Not on file Legal Sex Female 3:32 AM CAR SHAKEOUT OPERATOR Gender Identity Not on file Sexual Orientation Not on file Occupation Industry 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
--- OUTSIDE RECORDS SUMMARY | 2024-03-12 13:54 | XMS_ITS | Encounter Summary ---
Author Organization [place] Address [address] [place] [address] Care Team Providers Care Speaking Unit Assembler Name Role Phone Mj Oliver PA-C Primary Care Provide r Encounter Details Date Type Department Care Team (Late st Contact Info) Description 12/13/2011 [facility] Medical Advice [address] [address] [facility] Social History Tobacco Use Types Packs/Day Years Used Date Smoking Tobacco: Every Day Cigarettes Smokeless Tobacco: Never Comments:7-9 cigs a day Alcohol Use Standard Drinks/Week Comments No 0 (1 standard drink = 0.6 oz pur e alcohol) Comments No Sex and Gender Information Value Date Recorded Sex Assigned at Not on file Legal Sex Female 3:32 AM WELDER FITTER ARC Gender Identity Not on file Sexual Orientation Not on file Occupation Industry 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
--- OUTSIDE RECORDS SUMMARY | 2024-03-12 13:54 | XMS_ITS | Encounter Summary ---
Author Organization [facility] Address [address] [place] [address] Care Team Providers Care Metal Tube Cutter Name Role Phone Mj Oliver PA-C Primary Care Provide r Reason for Referral * Consultation (Routine: Next available opening) - Pending Review Specialty Diagnoses / Procedures Referred By Contac t Referred To Contact Diagnoses Hepatitis B carrier (H) Mohsen Lundy MD [address] [place] [address] Phone: tel: fax: Referral ID Status Reason Start Date Expiration Date V isits Requested Visits Authorized [id number] Pending Review 03/23/2023 03/22/2024 1 1 Question Answer MFM Consult Yes Comments Mfm radiologic and comp Us CHUTE MARKER * Diagnostic Imaging Ultrasound (Routine) - Pending Review Specialty Diagnoses / Procedures Referred By Contac t Referred To Contact Radiology. Diagnoses Hepatitis B carrier (H) Procedures M[facility] US Comprehensive Single Mohsen Lundy MD [address] [place] [address] Phone: tel: fax: Referral ID Status Reason Start Date Expiration Date V isits Requested Visits Authorized [id number] Pending Review 03/23/2023 03/22/2024 1 1 CHUTE MARKER Encounter Details Date Type Department Care Team (Late st Contact Info) Description 03/23/2023 [facility] Only [facility] [place] [address] [place] [address] Marquita To RN Hepatitis B carrier (H) [...] on file Legal Sex Female 3:32 AM PARACHUTE MARKER Gender Identity Not on file Sexual Orientation Not on file 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 Forman intrauterine at 18w [...] long and closed. Narrative 05/05/2023 4:01 PM PARACHUTE MARKER Comprehensive ----- Pat. Name: AUNDREAJuly Study Date: 05/05/2023 1:32pm Pat. NO: [id number] Referring MD: JONN GIRON Site: [facility] F[facility] Cigar Maker Machine: Bladimir Cox RDMS : 1990 Age: 33 [...] 0 lb 8 oz EFW by Hadlock ([id number]) Head / Face / Neck Biometry: Stopper Grinder 6.0 mm CM 1.9 mm Nasal bone [...] apical view. RVOT view. Aortic arch view. 2-pozbbm-hkfyjyk view. Diaphragm. Abdomen Kidneys. Spine Sacral spine. [...] AUNDREAJuly Study Date: 05/05/2023 1:32pm Pat. NO: [id number] Referring MD: JONN GIRON Site: [facility] Shredded Filler Cigar Maker Machine: Bladimir Cox RDMS : 1990 Age: 33 [...] 0 lb 8 oz EFW by Hadlock ([id number]) Head / Face / Neck Biometry: Stopper Grinder 6.0 mm CM 1.9 mm Nasal bone [...] Suboptimal apicalview. RVOT view. Aortic arch view. 2-lzutee-dsqzfzj view. Diaphragm. Abdomen Kidneys. Spine Sacral spine. [...] and closed. us Mohsen Lundy MD [facility] US ORDERABLES Edited Result - Final documented in this encounter Visit Diagnoses Diagnosis Hepatitis B carrier (H)- Primary Hepatitis B carrier Hepatitis B carrier (H) Hepatitis B carrier documented in this encounter Care Teams Metal Tube Cutter Relationship Specialty Start Date End Date Mj Oliver PA-C [address] [address] PCP - General Family Practice 04/24/11 documented as of this encounter
--- OUTSIDE RECORDS SUMMARY | 2024-03-12 13:54 | XMS_ITS | Clinical Summary ---
Author Organization [email or web address] [facility] Address [place], [place] [address] Care Team Providers Care Casting Operator Name Role Phone None Primary Care Provider [...] on file Legal Sex Female 7:08 AM PHOTO STYLIST Gender Identity Not on file Sexual Orientation [...] 16 Negative Negative 07/16/2021 2:43 PM CDT [facility] TYPE 18 Negative Negative 07/16/2021 2:43 PM CDT [facility] OTHER HIGH RISK TYPES Negative Negative 07/16/2021 2:43 PM CDT [facility] Other (Cervical/Vagina l) 07/13/2021 5:30 PM CDT 07/15/2021 8:15 AM CDT Narrative [facility] - 07/16/2021 2:43 PM CDT HPV types 16, 18, 31, 33, 35, 39, 45, 51, 52, 56, 58, 59, 66 and 68 DNA were undetectable or below the pre-set threshold. Methodology: Junior Job 4800 HPV Test July Nel CASTELLANO MICROBIOLOGY Final Resu lt [facility] [address] [place] [address], from Last 3 Months or Most Recently Relevant to Health Maintenance Insurance [facility] Advance Directives * Full Code (Latest Code Status on File) Date Activated Date Inactivated Comments 10/15/2008 7:15 AM 10/17/2008 7:25 PM * Full Code Date Activated Date Inactivated Comments 10/14/2008 7:48 PM 10/15/2008 7:15 AM Care Teams Casting Operator Relationship Specialty Start Date End Date None . PCP - General 12/08/12
== END 2024-03-12 13:46 | disposition home or self-care (01) ==
PROVIDERS: Visit Provider Advanced Practice Midwife
DX: Z34.91 Encounter for supervision of normal pregnancy, unspecified, first trimester (principal); Z3A.01 Less than 8 weeks gestation of pregnancy
CPT/HCPCS: 82565; 82570; 83021; 84156; 84450; 84460; 86592; 86703; 86704; 86706; 86762; 86787; 86803; 86850; 87086; 87340

== ENCOUNTER 2024-03-25 15:49 | Outpatient (CLI) | payer BC, SELFPAY ==
--- NOTE | 2024-03-25 16:00 | CRLHL7_ITS ---
For Patients: As a result of the Century Cures Act, medical imaging exams and procedure reports are released immediately into your electronic medical record. You may view this report before your referring provider. If you have questions, please contact your health care provider. INDICATION: Follow-up low heart rate and dating TECHNIQUE: Ultrasound OB pelvis transabdominal and transvaginal. Real-time gagnon-scale imaging of the pelvis was performed. COMPARISON: First-trimester ultrasound 03/12/2024 FINDINGS: Intrauterine gestation: Single. heart activity: 167 BPM [place]-rump length: 1.7 cm. Estimated ultrasound age: 8 weeks 1 day. KIARA by ultrasound: 11/03/2024. Yolk sac: Normal. Perigestational hemorrhage: None. Ovaries and adnexa: The right ovary measures 3.4 x 2.9 x 2.9 cm with corpus luteal cyst. Right paraovarian cyst measuring 1.3 x 1.2 x 1.3 cm. The left ovary measures 3.6 x 2.1 x 2.5 cm. Suspicious pelvic fluid collections: None. IMPRESSION: Single viable intrauterine with normal heart rate measuring 8 weeks 1 day and KIARA by ultrasound of 11/03/2024. Dictated by Mariam Delgado MD @ 03/26/2024 3:25:06 PM (Electronically Signed)
== END 2024-03-25 15:50 | disposition home or self-care (01) ==
LOC: US 15:50
PROVIDERS: Visit Provider Advanced Practice Midwife
DX: O36.8310 Maternal care for abnormalities of the fetal heart rate or rhythm, first trimester, not applicable or unspecified (principal); Z3A.08 8 weeks gestation of pregnancy
CPT/HCPCS: 76817

== ENCOUNTER 2024-04-28 08:41 | Emergency (ER) | payer SELFPAY ==
--- OUTSIDE RECORDS SUMMARY | 2024-04-28 08:44 | XMS_ITS | Encounter Summary ---
Author Organization [facility] Address [address] [place] [address] Care Team Providers Care Air Conditioning Mechanic Name Role Phone Mj Oliver PA-C Primary Care Provide r Reason for Referral * Consultation (Routine: Next available opening) - Closed Specialty Diagnoses / Procedures Referred By Contac t Referred To Contact Diagnoses Hepatitis B carrier (H) Mohsen Lundy MD [address] [place] [address] Phone: tel: fax: Referral ID Status Reason Start Date Expiration Date Visits Re quested Visits Authorized [id number] Closed 03/23/2023 03/22/2024 1 1 Question Answer M Consult Yes Comments [facility] radiologic and comp Us ATER * Diagnostic Imaging Ultrasound (Routine) - Closed Specialty Diagnoses / Procedures Referred By Contac t Referred To Contact Radiology. Diagnoses Hepatitis B carrier (H) Procedures [facility] US Comprehensive Single Mohsen Lundy MD [address] [place] [address] Phone: tel: fax: Referral ID Status Reason Start Date Expiration Date Visits Re quested Visits Authorized [id number] Closed 03/23/2023 03/22/2024 1 1 ATER Encounter Details Date Type Department Care Team (Late st Contact Info) Description 03/23/2023 [facility] [place] [address] [place] [address] Marquita To RN Hepatitis B carrier (H) [...] on file Legal Sex Female 3:32 AM RECOATER Gender Identity Not on file Sexual Orientation Not on file 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 Forman intrauterine at 18w [...] long and closed. Narrative 05/05/2023 4:01 PM RECOATER Comprehensive ----- Pat. Name: AUNDREAJuly Study Date: 05/05/2023 1:32pm Pat. NO: [id number] Referring MD: JONN GIRON Site: [facility] Cold Press Loader: Bladimir Cox RDMS : 1990 Age: 33 [...] 0 lb 8 oz EFW by Hadlock ([id number]) Head / Face / Neck Biometry: Forge Operator 6.0 mm CM 1.9 mm Nasal bone [...] apical view. RVOT view. Aortic arch view. 0-xynyyq-diriyow view. Diaphragm. Abdomen Kidneys. Spine Sacral spine. [...] AUNDREAJuly Study Date: 05/05/2023 1:32pm Pat. NO: [id number] Referring MD: JONN GIRON Site: [facility] Cold Press Loader: Bladimir Cox RDMS : 1990 Age: 33 [...] 0 lb 8 oz EFW by Hadlock ([id number]) Head / Face / Neck Biometry: Forge Operator 6.0 mm CM 1.9 mm Nasal bone [...] Suboptimal apicalview. RVOT view. Aortic arch view. 4-skdgew-tkrwnjz view. Diaphragm. Abdomen Kidneys. Spine Sacral spine. [...] long and closed. us Mohsen Lundy MD [facility] US ORDERABLES Edited Result - Final documented in this encounter Visit Diagnoses Diagnosis Hepatitis B carrier (H)- Primary Hepatitis B carrier Hepatitis B carrier (H) Hepatitis B carrier documented in this encounter Care Teams Air Conditioning Mechanic Relationship Specialty Start Date End Date Mj Oliver PA-C [address] [address] PCP - General Family Practice 04/24/11 documented as of this encounter
--- OUTSIDE RECORDS SUMMARY | 2024-04-28 08:44 | XMS_ITS | Encounter Summary ---
Author Organization [facility] Address [address] [place] [address] Care Team Providers Care Pulp Grinder And Blender Name Role Phone Mj Oliver PA-C Primary Care Provide r Encounter Details Date Type Department Care Team (Late st Contact Info) Description 12/13/2011 [facility] Medical Advice [address] [address] [facility] Social History Tobacco Use Types Packs/Day Years Used Date Smoking Tobacco: Every Day Cigarettes Smokeless Tobacco: Never Comments:7-9 cigs a day Alcohol Use Standard Drinks/Week Comments No 0 (1 standard drink = 0.6 oz pur e alcohol) Comments No Sex and Gender Information Value Date Recorded Sex Assigned at Not on file Legal Sex Female 3:32 AM RETAIL FIELD REPRESENTATIVE Gender Identity Not on file Sexual Orientation Not on file 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
--- OUTSIDE RECORDS SUMMARY | 2024-04-28 08:44 | XMS_ITS | Continuity of Care Document ---
Author Organization [facility] Address [address] [address] [place] [address] Phone Care Team Providers Care Boilerhouse Mechanic Name Role Phone Donaldrocio BOSTON Linda Unavailable Unavailable Allergies, Adverse Reactions, Alerts Substance Reaction Status Criticality peanut HivesHives Active No Information sulfamethoxazole ItchingItching Active No Inform ation trimethoprim Itching Active No Information doxycycline ItchingItching Active No Informatio n PENICILLIN HivesHives Active No Information Medications Medication Instructions Dosage Effective Dates (start - stop) Status Comments fluoxetine 40 mg capsule take 1 capsule by oral route every day in the morning 40 MG - Active (unknown strength) 300mg Not Available - Active All Day Allergy (cetirizine) 10 mg capsule - Active magnesium 250 mg tablet - Active Vazalore 81 mg capsule take 1 capsule by oral route every day 81 MG - Active Procedures Procedure Date Offic/outpt E&m Estab Mod-hi 2 Routine Serum Collection Offic/outpt E&m New Mod Sever 4 Routine Serum Collection Advance Directives Directive Yes / No Effective Date File Name No Information Encounters Encounter Description Practice Location Reason(s) For Visit Diagnoses Date Provider Providers Copied on Encounter [facility], [address] [address], [place], [id number], [place] tel:[phone] [facility] No Information 5 Bertram Mckeon. [address], [id number], [place]. tel:[phone] [facility], [address] [address], [place], [id number], [place] tel:[phone] [facility] Chronic hepatitis B 4 Ting Evans. [address] [address], [place], [place], [id number], [place]. tel:[phone] Offic/outpt E&m Estab Mod-hi [address] [facility], [address] [address], [place], [id number], [place] tel:[phone] [facility] GI Symptoms or Concerns (chief complaint) Chronic hepatitis B 4 Bertram Mckeon. [facility] [address], [id number], [place]. tel:[phone] Referring Provider: Stoney SHAH Ever, [address] [place], [address]. tel:[phone] [facility], [address] [address], [place], [id number], [place] tel:[phone] [facility] Chronic viral hepatitis B without delta-agent Jul- 4 Lakisha Case. [facility] [address], [id number], [place]. tel:[phone] [facility], [address] [address], [place], [id number], [place] tel:[phone] [facility] Chronic viral hepatitis B without delta-agent Jul- 4 Lakisha Case. [address] [place] [address], [id number], [place]. tel:[phone] Referring Provider: Referral Self, USE FOR SELF REFERRALS. Offic/outpt E&m New Mod Sever [facility], [address] [address], [place], [id number], tel:[phone] [facility] GI Symptoms or Concerns (chief complaint) Chronic hepatitis B21 weeks gestation of 4 Lakisha Case. [address] [facility], [facility] [address], [place], [place], [id number], [place]. tel:[phone] Referring Provider: Zina Whittaker, [address], [place], [address]. tel:[phone] Family History Family Member Type Diagnosis Age At Onset No Information Payers Payer name Insurance type Covered green party ID Neva betancourt(s) [facility] [id number] Social History Type Description Quantity Date Captured Comments Alcohol Use Details Unknown Caffeine Use Details Unknown Tobacco Use Status No Information Smoking Status No Information Sex Female Chief Complaint And Reason For Visit No Information Reason For Referral Reason For Referral No Information Plan Of Treatment Date Type Action Status Referral Ordered: Hepatic Function Panel Appointment date/timeframe: 08/19/2024 ordered Referral Ordered: HBV Real-Time PCR, Quant Appointment date/timeframe: 07/06/2023 ordered History Of Present Illness Encounter Date Complaint History Of Prese nt Illness GI Symptoms or Concerns Zina bradley is a 34-year-old female who presents to clinic for follow-up regarding chronic hepatitis B infection. She was last seen in clinic by Evie Banuelos on May 25, 2023. She was 21 weeks at that time and was found to have low hepatitis B viral load at 2470. Liver function tests were within normal limits and treatment was not required. It was recommend that she have follow-up testing at 28 weeks however this was never completed.The patient reports a lifelong history of chronic hepatitis B. She was adopted from [place] as a baby. This was followed closely until her teens but she reports that it has always been an active. She does not drink alcohol. She is a former smoker.Today she presents that she is now 7 weeks again. Blood work completed on March 12 showed mildly elevated transaminases with an AST of 50 and an ALT of 39. Hepatitis B labs again show a positive hepatitis B surface antigen and core antibody. Viral load was not evaluated.The patient's does report that she was feeling under the weather at the time of that blood work. She was not on any new or changed medications at that time. GI Symptoms or Concerns Zina is a pleasant 33-year-old female with a history of chronic hepatitis-B who is and referred to us for further workup and management. We were asked to see her in consultation by Zina Neumann PA-C. Patient is currently 21 weeks . She has a history of chronic hepatitis-B And was initially diagnosed at the time for adoption. She is originally from [facility]. She states that it was followed closely until her teens and she was previously told that she does not have risk of transmitting the infection. She denies any abdominal pain, jaundice, dark urine, pale stools. Recent blood work including CBC was normal. Hep Bs Ag positive, hep Bs Ab negative, anti-HBc (IgG + IgM) positive. Blood work also showed Hepatitis-C antibody negative and HIV negative Past medical history of arthritis and anxiety. She is adopted and does not know her family history. She does not drink alcohol. Former tobacco use. Functional Status Date Functional Assessmen t No Information Instructions Date Instruction Additional Infor catherine July is a pleasant 34-year-old female who presents to clinic for follow-up regarding chronic hepatitis B infection. She is currently 7 weeks . This has been inactive and was likely contracted at . She was found on recent blood work on March 12 to have mildly elevated transaminases.We will recheck liver function test today, as well as, a hepatitis B viral load. If hepatitis B studies are unrevealing and liver test continue to be elevated, I would recommend an ultrasound as well as additional serologies for further evaluation. The patient was not feeling well at the time of her last blood work and is possible that a nonspecific viral infection could have contributed to the elevation.The patient was encouraged to call at anytime with questions or concerns. Regardless I would recommend rechecking viral load and liver function test at the end of her second trimester. Neck steps will be based on the results of her testing. Related to Chronic hepatitis B Assessments Type Assessment Date No Information Patient Care Teams Name Effective Dates (start - stop) Status Members No Information
--- OUTSIDE RECORDS SUMMARY | 2024-04-28 08:44 | XMS_ITS | Encounter Summary ---
Author Organization [facility] Address [address] [place] [address] Care Team Providers Care Md Pediatric Allergist Name Role Phone Mj Oliver PA-C Primary Care Provide r Encounter Details Date Type Department Care Team (Late st Contact Info) Description 11/18/2011 [facility] [place] [address] [address] 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
--- OUTSIDE RECORDS SUMMARY | 2024-04-28 08:44 | XMS_ITS | Encounter Summary ---
Author Organization [facility] Address [address] [place] [address] Care Team Providers Care Cytogenetic Technologist Name Role Phone Unavailable Primary Care Provider Unavailabl e Encounter Details Date Type Department Care Team (Late st Contact Info) Description 04/06/2008 11:30 AM [facility] [address] [place] [id number] Elmo Roa MD [address] [place], [place] [id number] Social History Tobacco Use Types Packs/Day Years Used Date Smoking Tobacco: Every Day Cigarettes Smokeless Tobacco: Never Comments:7-9 cigs a day Alcohol Use Standard Drinks/Week Comments No 0 (1 standard drink = 0.6 oz pur e alcohol) Comments No Sex and Gender Information Value Date Recorded Sex Assigned at Not on file Legal Sex Female 3:32 AM BOAT ASSEMBLER Gender Identity Not on file Sexual Orientation Not on file Occupation Industry 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
--- OUTSIDE RECORDS SUMMARY | 2024-04-28 08:44 | XMS_ITS | Encounter Summary ---
Author Organization [facility] Address [address] [place] [address] Care Team Providers Care Business Office Manager Name Role Phone Mj Oliver PA-C Primary Care Provide r Encounter Details Date Type Department Care Team (Late st Contact Info) Description 07/06/2017 [facility] Advice [address] [address] Peri Carter RN Social History Tobacco Use Types Packs/Day Years Used Date Smoking Tobacco: Every Day Cigarettes Smokeless Tobacco: Never Comments:7-9 cigs a day Alcohol Use Standard Drinks/Week Comments No 0 (1 standard drink = 0.6 oz pur e alcohol) Comments No Sex and Gender Information Value Date Recorded Sex Assigned at Not on file Legal Sex Female 3:32 AM DIETITIAN THERAPEUTIC Gender Identity Not on file Sexual Orientation Not on file Occupation Industry 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
--- OUTSIDE RECORDS SUMMARY | 2024-04-28 08:44 | XMS_ITS | Encounter Summary ---
Author Organization [facility] Address [address] [address] Care Team Providers Care Duralumin Metalworker Name Role Phone Mj Oliver PA-C Primary Care Provide r Encounter Details Date Type Department Care Team (Late st Contact Info) Description 07/06/2012 [facility]ice [address] [address] [facility] Social History Tobacco Use Types Packs/Day Years Used Date Smoking Tobacco: Every Day Cigarettes Smokeless Tobacco: Never Comments:7-9 cigs a day Alcohol Use Standard Drinks/Week Comments No 0 (1 standard drink = 0.6 oz pur e alcohol) Comments No Sex and Gender Information Value Date Recorded Sex Assigned at Not on file Legal Sex Female 3:32 AM OWNER ORAL SURGEON Gender Identity Not on file Sexual Orientation Not on file Occupation Industry 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
--- OUTSIDE RECORDS SUMMARY | 2024-04-28 08:44 | XMS_ITS | Clinical Summary ---
Author Organization [facility] Address [address] [place] [address] Care Team Providers Care Plasma Cutting Machine Operator Name Role Phone Mj Oliver PA-C [...] Age 20. Plan colp per MD 03/16/11: [facility] - BRAEDEN I. Plan pap in 6 [...] on file Legal Sex Female 3:32 AM DAYTIME BABYSITTER Gender Identity Not on file Sexual Orientation Not on file Occupation Industry 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 student Not on file Not on file Not on file Last Filed Vital Signs Vital Sign Reading Time Taken Comments Blood Pressure 135/75 02/19/2016 11:55 AM DAYTIME BABYSITTER Pulse 93 02/19/2016 11:55 AM DAYTIME BABYSITTER Temperature 36.6 C (97.9 F) 05/30/2013 9:57 AM DAYTIME BABYSITTER Respiratory Rate 16 06/20/2011 2:44 PM CDT Oxygen Saturation 97% 02/19/2016 11:55 AM DAYTIME BABYSITTER Inhaled Oxygen Concentration - - Weight 59 kg (130 lb) 05/30/2013 9:57 AM DAYTIME BABYSITTER Height 152.4 cm (5') 05/30/2013 9:57 AM DAYTIME BABYSITTER Body Mass Index 25.39 05/30/2013 9:57 AM DAYTIME BABYSITTER Plan of Treatment Health Maintenance Due Date Last Done Comments ADVANCE CARE PLANNING 1990 ANNUAL REVIEW OF HM ORDERS 1990 ASTHMA CONTROL TEST 1990 HEPATITIS C SCREENING 02/24/2008 HEPATITIS A IMMUNIZATION (1 of 2 - Risk 2-dose series) 2009 Pneumococcal Vaccine: Pediatrics (0 to 5 Years) and At-Risk Patients (6 to 49 Years) (1 of 2 - PCV) 2009 NICOTINE/TOBACCO CESSATION COUNSELING Q 1 YR 04/30/2009 04/30/2008, 04/09/2008, 02/29/2008 ASTHMA ACTION PLAN 02/20/2014 02/20/2013, 0 04/22/2011, 01/20/2011 HPV IMMUNIZATION (3 - 3-dose series) 03/04/2014 12/10/2013, 10/26/2006, 10/26/2006 YEARLY PREVENTIVE VISIT 04/13/2018 04/13/19, 05/14/2013, 05/13/2013, Additional history exists COVID-19 Vaccine ( - 2023- season) 2023 INFLUENZA VACCINE (#1) 2023 DTAP/TDAP/TD IMMUNIZATION (5 - Td or Tdap) 12/11/2023 12/10/2013, 04/22/2011, 10/02/2003, Additional history exists PHQ-2 (once per calendar year) 2024 PAP 07/13/2024 07/13/2021, 07/02, 05/14/2013, Additional history exists ZOSTER IMMUNIZATION (1 of 2) 02/24/2040 RSV VACCINE (1 - 1-dose 75+ series) 2065 HIV SCREENING Completed 02/29/2008 MENINGITIS IMMUNIZATION Aged Out No l onger eligible based on patient's age to complete this topic RSV MONOCLONAL ANTIBODY Aged Out No l onger eligible based on patient's age to complete this topic Procedures Procedure Name Priority Date/Time Associated Diagnosis Comments PAP IMAGED THIN LAYER, DIAGNOSTIC Routine 05/14/2013 12:00 AM DAYTIME BABYSITTER LSIL (low grade squamous intraepithelial lesion) on Pap smear ASTHMA ACTION PLAN Routine 02/20/2013 10 :19 AM DAYTIME BABYSITTER Intermittent asthma HCL HIV 1 & 2 ANTIBODY Routine 02/29/2008 1:52 PM DAYTIME BABYSITTER Supervision of Other Normal from Last 3 Months or Most Recently Relevant to Health Maintenance Results * PAP imaged thin layer, diagnostic (05/14/2013 12:00 AM DAYTIME BABYSITTER) PAP MARIE Alcazar Report Patient Name: JORDYN JULY Remedios MR#: [id number] Specimen #: [id number] Collected: 05/14/2013 Received: 05/15/2013 Reported: 05/16/2013 11:24 Ordering Phy(s): SATYA PIERRE SPECIMEN/STAIN PROCESS: Pap Imaged thin layer [...] by: SHAHZAD Irizarry(ASCP) Processed and screened at [facility] CLINICAL HISTORY: LMP: 04/30/13 Oral Control Pill Intra-Uterine Device, Previous normal pap Date of Last Pap: 11/26/11, Papanicolaou Test Limitations: Cervical cytology is a screening test with limited sensitivity; regular screening is critical for cancer prevention; Pap tests are primarily effective for the diagnosis/preventi on of squamous cell carcinoma, not adenocarcinomas or other cancers. TESTING LAB LOCATION: [address] [address] COLLECTION SITE: Client: [facility] Location: [facility] (R) NIKA Cytologic material (specimen) 05/14/2013 05/15/2013 2:17 PM DAYTIME BABYSITTER us Satya Pierre DO LAB - [facility] Final Result Performing Organization Address City/[facility]/ZIP Co de Phone Number COPATH * HIV Screening (02/29/2008 1:52 PM DAYTIME BABYSITTER) HIV 1&2 Antibody Negative NEG [facility] 02/29/2008 1:52 PM DAYTIME BABYSITTER 02/29/2008 1:53 PM DAYTIME BABYSITTER us Iza Mancilla MD LABORATORY Final Result Performing Organization Address City/[facility]/ZIP Co de Phone Number [facility] [address] [place] [address] from Last 3 Months or Most Recently Relevant to Health Maintenance Insurance BCBS OUT OF STATE BCBS OUT OF STATE Care Teams Plasma Cutting Machine Operator Relationship Specialty Start Date End Date Mj Oliver PA-C [address] [address] PCP - General Family Practice 04/24/11
--- OUTSIDE RECORDS SUMMARY | 2024-04-28 08:44 | XMS_ITS | Referral Summary ---
Author Organization [facility] Address [address] [place] [address] Care Team Providers Care Email Deployment Specialist Name Role Phone Mj Oliver PA-C [...] Age 20. Plan colp per MD 03/16/11: [place] - BRAEDEN I. 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 Gender Identity Not on file Sexual Orientation Not on file Occupation Industry 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 student Not on file Not on file Not on file Last Filed Vital Signs Vital Sign Reading Time Taken Comments Blood Pressure 135/75 02/19/2016 11:55 AM ASSURANCE SENIOR MANAGER Pulse 93 02/19/2016 11:55 AM ASSURANCE SENIOR MANAGER Temperature 36.6 C (97.9 F) 05/30/2013 9:57 AM ASSURANCE SENIOR MANAGER Respiratory Rate 16 06/20/2011 2:44 PM CDT Oxygen Saturation 97% 02/19/2016 11:55 AM ASSURANCE SENIOR MANAGER Inhaled Oxygen Concentration - - Weight 59 kg (130 lb) 05/30/2013 9:57 AM ASSURANCE SENIOR MANAGER Height 152.4 cm (5') 05/30/2013 9:57 AM ASSURANCE SENIOR MANAGER Body Mass Index 25.39 05/30/2013 9:57 AM ASSURANCE SENIOR MANAGER Plan of Treatment Not on file Procedures Procedure Name Priority Date/Time Associated Diagnosis Comments PAP IMAGED THIN LAYER, DIAGNOSTIC Routine 05/14/2013 12:00 AM ASSURANCE SENIOR MANAGER LSIL (low grade squamous intraepithelial lesion) on Pap smear ASTHMA ACTION PLAN Routine 02/20/2013 10 :19 AM ASSURANCE SENIOR MANAGER Intermittent asthma HCL HIV 1 & 2 ANTIBODY Routine 02/29/2008 1:52 PM ASSURANCE SENIOR MANAGER Supervision of Other Normal from Last 3 Months or Most Recently Relevant to Health Maintenance Results * PAP imaged thin layer, diagnostic (05/14/2013 12:00 AM ASSURANCE SENIOR MANAGER) PAP MARIE Alcazar Report Patient Name: ZINA HALL MR#: [id number] Specimen #: [id number] Collected: 05/14/2013 Received: 05/15/2013 Reported: 05/16/2013 11:24 [...] [facility] CLINICAL HISTORY: LMP: 04/30/13 Oral Control Pill Intra-Uterine Device, Previous normal pap Date of Last Pap: 11/26/11, Papanicolaou Test Limitations: Cervical cytology is a screening test with limited sensitivity; regular screening is critical for cancer prevention; Pap tests are primarily effective for the diagnosis/preventi on of squamous cell carcinoma, not adenocarcinomas or other cancers. TESTING LAB LOCATION: [address] [id number] COLLECTION SITE: Client: [facility] Location: LVOB (R) COPATH Cytologic material (specimen) 05/14/2013 05/15/2013 2:17 PM ASSURANCE SENIOR MANAGER us Claire Pierre DO LAB - [facility] CLINICAL SPE CIMEN Final Result COPATH * HIV Screening (02/29/2008 1:52 PM ASSURANCE SENIOR MANAGER) HIV 1&2 Antibody Negative [facility]G [facility] 02/29/2008 1:52 PM ASSURANCE SENIOR MANAGER 02/29/2008 1:53 PM ASSURANCE SENIOR MANAGER us Iza Mancilla MD LABORATORY Final Result Performing Organization Address City/State/[facility] Co de Phone Number [address] [address] from Last 3 Months or Most Recently Relevant to Health Maintenance Insurance BC OUT OF [facility] BCBS OUT OF STATE Care Teams Email Deployment Specialist Relationship Specialty Start Date End Date Mj Oliver PA-C [address] [address] PCP - General Family Practice 04/24/11
--- OUTSIDE RECORDS SUMMARY | 2024-04-28 08:44 | XMS_ITS | Clinical Summary ---
Author Organization [employer] [facility] Address [place], [place] [address] Care Team Providers Care Computer Mechanic Name Role Phone None Primary Care Provider [...] on file Legal Sex Female 7:08 AM CARD HAND Gender Identity Not on file Sexual Orientation [...] 07/13/2024 2, 07/13/2021 Pneumococcal series for age 6-49 Aged Out No longer eligible b ased on patient's age to complete this topic Procedures Procedure Name Priority Date/Time Associated Diagnosis Comments HPV HIGH RISK Routine 07/13/2021 5:30 PM CDT from Last 3 Months or Most Recently Relevant to Health Maintenance Results * HPV HIGH RISK (07/13/2021 5:30 PM CDT) TYPE 16 Negative Negative 07/16/2021 2:43 PM CDT [facility] TYPE 18 Negative Negative 07/16/2021 2:43 PM CDT [facility] OTHER HIGH RISK TYPES Negative Negative 07/16/2021 2:43 PM CDT [facility] Other (Cervical/Vagina l) 07/13/2021 5:30 PM CDT 07/15/2021 8:15 AM CDT Narrative [facility] - 07/16/2021 2:43 PM CDT HPV types 16, 18, 31, 33, 35, 39, 45, 51, 52, 56, 58, 59, 66 and 68 DNA were undetectable or below the pre-set threshold. Methodology: Junior Job 4800 HPV Test July Nel [facility] [employer] Final Resu lt [facility] [address] [place] [address], from Last 3 Months or Most Recently Relevant to Health Maintenance Insurance [facility] Advance Directives * Full Code (Latest Code Status on File) Date Activated Date Inactivated Comments 10/15/2008 7:15 AM 10/17/2008 7:25 PM * Full Code Date Activated Date Inactivated Comments 10/14/2008 7:48 PM 10/15/2008 7:15 AM Care Teams Computer Mechanic Relationship Specialty Start Date End Date None . PCP - General 12/08/12
[2024-04-28 09:01] VITALS: BP 113/81; PULSE 92; RESP 18; TEMP 36.9; O2SAT 97; BMI 42.0
--- NOTE | 2024-04-28 09:11 | ED.GENADULT ---
HPI - General Adult General Chief complaint: Vaginal Bleeding Stated complaint: 13 wks preg/heavily bleeding Time Seen by Provider: 04/28/24 09:05 History of Present Illness HPI narrative: Patient reports bleeding that started at 5AM. She has soaked through a maternity pad and continues to bleed. She has some cramping but denies lightheadedness , nausea or vision changes. KIARA by ultrasound is 11/03/2024. 34-year-old woman presenting to the emergency department with concern of vaginal bleeding. Would look to be about 13 weeks with On ultrasound did KIARA of 11/03/2024. Last ultrasound was done at 8 weeks. Bleeding began about 4 hours ago. She isn't feeling lightheaded or short of breath. She does have a headache. She has a picture of small super ball sized clot. Having some intense cramping again. Does have a history of earlier miscarriage. Related Data Home Medications ?Medication ?Instructions ?Recorded ?Confirmed magnesium citrate 125 mg capsule 250 mg PO QDAY 03/17/23 05/02/24 Previous Rx's ?Medication ?Instructions ?Recorded cetirizine 10 mg capsule (Zyrtec) 10 mg PO QDAY PRN allergy symptoms 12/31/21 #90 caps fluoxetine 10 mg capsule 10 mg PO QDAY #90 caps 06/15/23 fluoxetine 40 mg capsule 40 mg PO DAILY #90 ea 03/07/24 vits no.126-ferrous fum 1 tab PO QDAY #90 tabs 03/12/24 28 mg iron-folic acid 800 mcg tablet (Classic ) scopolamine base 1 mg over 3 days 1 patch transdermal Q3D PRN motion 03/12/24 transdermal patch sickness #4 ea Allergies Allergy/AdvReac Type Severity Reaction Status Date / Time peanut Allergy Mild Verified 05/02/24 08:04 trazodone Allergy Mild Verified 05/02/24 08:04 doxycycline Allergy Unknown Verified 05/02/24 08:04 Penicillins Allergy Unknown Verified 05/02/24 08:04 Review of Systems Status of ROS: Reports: 6 or more systems reviewed and unremarkable except as noted in History and below [facility] Medical History Gestational hypertension ?O13.9 - Gestational [-induced] hypertension without significant proteinuria, unspecified trimester (ICD-10) Shortness of breath with ?O26.899 - Other specified related conditions, unspecified trimester (ICD-10) ?R06.02 - Shortness of breath (ICD-10) Bloody discharge from right nipple ?N64.52 - Nipple discharge (ICD-10) Breech presentation ?O32.1XX0 - Maternal care for breech presentation, not applicable or unspecified (ICD-10) OCD (obsessive compulsive disorder) ?F42.9 - Obsessive-compulsive disorder, unspecified (ICD-10) Obesity ?E66.9 - Obesity, unspecified (ICD-10) Microscopic hematuria ?R31.29 - Other microscopic hematuria (ICD-10) Hepatitis B carrier ?B18.1 - Chronic viral hepatitis B without delta-agent (ICD-10) Depression ?F32.A - Depression, unspecified (ICD-10) Anxiety ?F41.9 - Anxiety disorder, unspecified (ICD-10) Surgical History Hx of section ?Z98.891 - History of uterine scar from previous surgery (ICD-10) [place] teeth extracted ?K08.409 - Partial loss of teeth, unspecified cause, unspecified class (ICD-10) Family History Unknown Adopted Social History Narrative: SOCIAL? ? Education: High school degree? ? 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 Partner: Josue? 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 Pets: cats, dogs horses dogs chickens and ducks at the house only cat inside. Josue changes litter. ? ? Abuse: Denies past ? Unable to assess current, partner present? ? Special Diet: Denies? ? Ok with a blood transfusion: yes? ? Culture or evangelical beliefs: denies? RISK FACTORS? ? 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 ? Depression/Anxiety: history currently on meds? ? Previous Treatments Prozac currently 50mg daily ? Therapy long time ago saw a therapist HENRIK: 1 PHQ 9: 0? ? Seat Belt Use: Routinely ? Smoking: Denies past/present? ?Smoked quit 15 years ago for 10 years, pack per day Alcohol/day: Denies while ? ?rare use when not Caffeine: coffee a cup a day? ? Drug Use: Denies past/present What is your current living situation?: I presently have a place to live Problems where you live: no known problems In the past 12 months, utilities in danger of being shut off: no In past 12 months, lack of transportation kept you from medical appts, meetings, work, or getting things needed for daily living: no In the past 12 mos, have been you worried that your food would run out before you had money to buy more?: never true In the past 12 mos, the food you bought just didn't last and you didn't have money to buy more?: never true Smoking Status: Never smoker How often do you have a drink containing alcohol: never AUDIT-C Alcohol total score: 0 Non-prescribed substance use: denies use How often does anyone, including family, friends and others, physically hurt you: never How often does anyone, including family, friends and others, insult or talk down to you: never How often does anyone, including family, friends and others, threaten you with harm: never How often does anyone, including family, friends and others, scream or curse at you: never service: No Exam Narrative: Exam Narrative: Pleasant. NAD. Seems a little uncomfortable. Skin is warm and dry. She is well-perfused. Breathing easily. Heart rate little elevated but in regular rhythm. No murmur rub or gallop. Abdomen is soft. She is little tender in suprapubic area. Lungs are clear. Cranial nerves 2-12 intact. Genitourinary is deferred Const: Vital Signs, click to edit/add: Vital Signs - 24 hr 04/28/24 09:01 Temperature 98.4 F Pulse Rate [Pulse Oximeter] 92 Respiratory Rate 18 Blood Pressure [Ri ght Upper Arm] 113/81 Pulse Oximetry 97 Oxygen Delivery Me thod Room Air Documenting provider has reviewed patient's vital signs: yes Course Vital Signs Vital signs: Initial Vital Signs Temperature 98.4 F 04/28/24 09:01 Temperature Source Temporal Artery Scan 04/28/24 09:01 Pulse Rate 92 04/28/24 09:01 Respiratory Rate 18 04/28/24 09:01 Blood Pressure 113/81 04/28/24 09:01 Blood Pressure Mean 91 04/28/24 09:01 Pulse Oximetry 97 04/28/24 09:01 Oxygen Delivery Method Room Air 04/28/24 09:01 Vital Signs Temperature 98.4 F 04/28/24 09:01 Pulse Rate 92 04/28/24 09:01 Respiratory Rate 18 04/28/24 09:01 Blood Pressure 113/81 04/28/24 09:01 Pulse Oximetry 97 04/28/24 09:01 Oxygen Delivery Method Room Air 04/28/24 09:01 Temperature 98.4 F 04/28/24 09:01 Pulse Rate 92 04/28/24 09:01 Respiratory Rate 18 04/28/24 09:01 Blood Pressure 113/81 04/28/24 09:01 Pulse Oximetry 97 04/28/24 09:01 Oxygen Delivery Method Room Air 04/28/24 09:01 Medications Administered Medications: Discontinued Medications Generic Name Dose Route Start Last Admin Trade Name Freq PRN Reason Stop Dose Admin Sodium Chloride 500 mls @ 500 mls/hr 04/28/24 09:31 04/28/24 09:50 0.9 % Sodium Chloride 500 Ml IV 04/28/24 10:30 Not Given .Q1H ONE Medical Decision Making MDM Narrative Medical decision making narrative: Will need ultrasound to verify viability of this . Check hemoglobin. This maybe subchorionic bleed but I have concerns about loss. Review of records shows O positive blood type. Most recent antibiotic screen is negative. Should not require RhoGAM equivalent Did discussed ultrasound findings with receiver bulk system. Looks like there is a subchorionic bleed. This should be self-limited I would think. otherwise looks well. TECHNIQUE: A transabdominal scan was performed. COMPARISON: 03/25/2024 or 01/03/2024. FINDINGS: There is a single living intrauterine gestation. The crown-rump length measures 7.26 cm corresponding to an estimated gestational age of 13 weeks and 3 days. heart rate is confirmed with a heart rate of 147 beats per minute. There is a subchorionic hemorrhage along the anterior and superior aspect of the gestational sac measures 5.3 x 4.2 x 0.4 cm. Neither maternal ovary was successfully visualized. IMPRESSION: Estimated gestational age based on today`s ultrasound: Thirteen weeks and 3 days. KIARA by today`s ultrasound: 10/31/2024. There is a viable intrauterine gestation with a new subchorionic hemorrhages as described above. Discussed findings with Ms. Hernandez and . With finding of subchorionic bleed and that we had not yet collected hemoglobin, and she remains otherwise relatively asymptomatic I think we can wait with laboratory analysis. She did use restroom during time in the emergency department. Still blood in the toilet perhaps not unexpected. Unclear to me that bleeding has increased. We did discuss speculum exam given concerns to assess otherwise briskness of bleeding but ultimately she decided to defer. Otherwise feeling well. See patient discharge plan for further discussion Your vitals looked pretty good here today. That is reassuring. Take it easy today but otherwise no new physical restrictions. Be seen for increasing bleeding such that your soaking through 1 heavy pad an hour for 2 consecutive hours. Persistent golf ball size clots particularly after tomorrow morning would be concerning. Be seen also for increasing lightheadedness or shortness of breath. Otherwise follow-up as scheduled. Medical Records Medical records reviewed: Yes I reviewed the patient's medical records Discharge Plan Discharge Clinical Impression: Subchorionic bleed Patient Disposition: Home w/ Parent or Adult Condition: Stable Additional Instructions: Your vitals looked pretty good here today. That is reassuring. Take it easy today but otherwise no new physical restrictions. Be seen for increasing bleeding such that your soaking through 1 heavy pad an hour for 2 consecutive hours. Persistent golf ball size clots particularly after tomorrow morning would be concerning. Be seen also for increasing lightheadedness or shortness of breath. Otherwise follow-up as scheduled. Prescriptions: No Action magnesium citrate 125 mg capsule 250 mg PO QDAY fluoxetine 10 mg capsule 10 mg PO QDAY Qty: 90 3RF Rx Instructions: Take the 10mg capsule along with the previously prescribed 40mg capsule daily. Zyrtec 10 mg capsule 10 mg PO QDAY PRN (Reason: allergy symptoms) Qty: 90 3RF Classic 28 mg iron- 800 mcg tablet 1 tab PO QDAY Qty: 90 4RF scopolamine base 1 mg over 3 days patch 3 day 1 patch transdermal Q3D PRN (Reason: motion sickness) Qty: 4 0RF fluoxetine 40 mg capsule 40 mg PO DAILY Qty: 90 2RF Follow Up/Referrals: Provider,Not a Local [Primary Care Provider] - Stand Alone Forms: MyHealth Info Instructions
--- NOTE | 2024-04-28 09:25 | CRLHL7_ITS ---
For Patients: As a result of the Century Cures Act, medical imaging exams and procedure reports are released immediately into your electronic medical record. You may view this report before your referring provider. If you have questions, please contact your health care provider. INDICATION: Thirteen weeks . Heavy bleeding. KIARA by ultrasound: 11/05/2024. Gestational age: 13 weeks and 3 days. TECHNIQUE: A transabdominal scan was performed. COMPARISON: 03/25/2024 or 01/03/2024. FINDINGS: There is a single living intrauterine gestation. The crown-rump length measures 7.26 cm corresponding to an estimated gestational age of 13 weeks and 3 days. heart rate is confirmed with a heart rate of 147 beats per minute. There is a subchorionic hemorrhage along the anterior and superior aspect of the gestational sac measures 5.3 x 4.2 x 0.4 cm. Neither maternal ovary was successfully visualized. IMPRESSION: Estimated gestational age based on today`s ultrasound: Thirteen weeks and 3 days. KIARA by today`s ultrasound: 10/31/2024. There is a viable intrauterine gestation with a new subchorionic hemorrhages as described above. Dictated by Colt Craig MD @ 04/28/2024 10:19:42 AM (Electronically Signed)
--- OUTSIDE RECORDS SUMMARY | 2024-04-28 10:08 | XMS_ITS | Referral Summary ---
Author Organization [facility] Address [address] [place] [address] Care Team Providers Care Nurses' Aide Name Role Phone Mj Oliver PA-C Primary [...] Age 20. Plan colp per MD 03/16/11: [place] - BRAEDEN I. 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 Not on file Not on file Not on file Last Filed Vital Signs Vital Sign Reading Time Taken Comments Blood Pressure 135/75 02/19/2016 11:55 AM SAT ACT INSTRUCTOR Pulse 93 02/19/2016 11:55 AM SAT ACT INSTRUCTOR Temperature 36.6 C (97.9 F) 05/30/2013 9:57 AM SAT ACT INSTRUCTOR Respiratory Rate 16 06/20/2011 2:44 PM CDT Oxygen Saturation 97% 02/19/2016 11:55 AM SAT ACT INSTRUCTOR Inhaled Oxygen Concentration - - Weight 59 kg (130 lb) 05/30/2013 9:57 AM SAT ACT INSTRUCTOR Height 152.4 cm (5') 05/30/2013 9:57 AM SAT ACT INSTRUCTOR Body Mass Index 25.39 05/30/2013 9:57 AM SAT ACT INSTRUCTOR Plan of Treatment Not on file Procedures Procedure Name Priority Date/Time Associated Diagnosis Comments PAP IMAGED THIN LAYER, DIAGNOSTIC Routine 05/14/2013 12:00 AM SAT ACT INSTRUCTOR LSIL (low grade squamous intraepithelial lesion) on Pap smear ASTHMA ACTION PLAN Routine 02/20/2013 10 :19 AM SAT ACT INSTRUCTOR Intermittent asthma HCL HIV 1 & 2 ANTIBODY Routine 02/29/2008 1:52 PM SAT ACT INSTRUCTOR Supervision of Other Normal from Last 3 Months or Most Recently Relevant to Health Maintenance Results * PAP imaged thin layer, diagnostic (05/14/2013 12:00 AM SAT ACT INSTRUCTOR) PAP MARIE Alcazar Report Patient Name: ZINA HALL MR#: [id number] Specimen #: [id number] Collected: 05/14/2013 Received: 05/15/2013 Reported: 05/16/2013 11:24 [...] by: SHAHZAD Irizarry(ASCP) Processed and screened at [facility], [facility] CLINICAL HISTORY: LMP: 04/30/13 Oral Control Pill Intra-Uterine Device, Previous normal pap Date of Last Pap: 11/26/11, Papanicolaou Test Limitations: Cervical cytology is a screening test with limited sensitivity; regular screening is critical for cancer prevention; Pap tests are primarily effective for the diagnosis/preventi on of squamous cell carcinoma, not adenocarcinomas or other cancers. TESTING LAB LOCATION: [address] [id number] COLLECTION SITE: Client: [facility] Location: LVOB (R) COPATH Cytologic material (specimen) 05/14/2013 05/15/2013 2:17 PM SAT ACT INSTRUCTOR us Claire Pierre DO LAB - [facility] CLINICAL SPE CIMEN Final Result COPATH * HIV Screening (02/29/2008 1:52 PM SAT ACT INSTRUCTOR) HIV 1&2 Antibody Negative NEG [facility] 02/29/2008 1:52 PM SAT ACT INSTRUCTOR 02/29/2008 1:53 PM SAT ACT INSTRUCTOR us Iza Mancilla MD LABORATORY Final Result Performing Organization Address City/State/[facility] Co de Phone Number [address] [address] from Last 3 Months or Most Recently Relevant to Health Maintenance Insurance BC OUT OF [facility] BCBS OUT OF STATE Care Teams Nurses' Aide Relationship Specialty Start Date End Date Mj Oliver PA-C [address] [address] PCP - General Family Practice 04/24/11
--- OUTSIDE RECORDS SUMMARY | 2024-04-28 10:08 | XMS_ITS | Encounter Summary ---
Author Organization [place] Address [address] [place] [address] Care Team Providers Care Appeals Coordinator Name Role Phone Mj Oliver PA-C Primary Care Provide r Encounter Details Date Type Department Care Team (Late st Contact Info) Description 07/06/2012 [facility] Medical Advice [address] [address] [facility] Social History Tobacco Use Types Packs/Day Years Used Date Smoking Tobacco: Every Day Cigarettes Smokeless Tobacco: Never Comments:7-9 cigs a day Alcohol Use Standard Drinks/Week Comments No 0 (1 standard drink = 0.6 oz pur e alcohol) Comments No Sex and Gender Information Value Date Recorded Sex Assigned at Not on file Legal Sex Female 3:32 AM PARTS PERSON Gender Identity Not on file Sexual Orientation Not on file Occupation Industry 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
--- OUTSIDE RECORDS SUMMARY | 2024-04-28 10:08 | XMS_ITS | Encounter Summary ---
Author Organization [facility] Address [address] [place] [address] Care Team Providers Care Personnel Recruiter Name Role Phone Mj Oliver PA-C Primary Care Provide r Encounter Details Date Type Department Care Team (Late st Contact Info) Description 12/13/2011 [facility] [address] [address] [facility] Social History Tobacco Use Types Packs/Day Years Used Date Smoking Tobacco: Every Day Cigarettes Smokeless Tobacco: Never Comments:7-9 cigs a day Alcohol Use Standard Drinks/Week Comments No 0 (1 standard drink = 0.6 oz pur e alcohol) Comments No Sex and Gender Information Value Date Recorded Sex Assigned at Not on file Legal Sex Female 3:32 AM AMBULATORY TECHNOLOGIST Gender Identity Not on file Sexual Orientation Not on file Occupation Industry 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
--- OUTSIDE RECORDS SUMMARY | 2024-04-28 10:08 | XMS_ITS | Encounter Summary ---
Author Organization [facility] Address [address] [place] [address] Care Team Providers Care Sql Etl Developer Name Role Phone Mj Oliver PA-C Primary Care Provide r Encounter Details Date Type Department Care Team (Late st Contact Info) Description 07/06/2017 [facility] Medical Advice [address] [address] Peri Carter RN Social History Tobacco Use Types Packs/Day Years Used Date Smoking Tobacco: Every Day Cigarettes Smokeless Tobacco: Never Comments:7-9 cigs a day Alcohol Use Standard Drinks/Week Comments No 0 (1 standard drink = 0.6 oz pur e alcohol) Comments No Sex and Gender Information Value Date Recorded Sex Assigned at Not on file Legal Sex Female 3:32 AM 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
--- OUTSIDE RECORDS SUMMARY | 2024-04-28 10:08 | XMS_ITS | Encounter Summary ---
Author Organization [place] Address [address] [place] [address] Care Team Providers Care Product Communications Manager Name Role Phone Mj Oliver PA-C Primary Care Provide r Encounter Details Date Type Department Care Team (Late st Contact Info) Description 11/18/2011 [facility] [place] [address] [address] [facility] Social History Tobacco Use Types Packs/Day Years Used Date Smoking Tobacco: Every Day Cigarettes Smokeless Tobacco: Never Comments:7-9 cigs a day Alcohol Use Standard Drinks/Week Comments No 0 (1 standard drink = 0.6 oz pur e alcohol) Comments No Sex and Gender Information Value Date Recorded Sex Assigned at Not on file Legal Sex Female 3:32 AM LAST GREASER Gender Identity Not on file Sexual Orientation Not on file Occupation Industry 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
--- OUTSIDE RECORDS SUMMARY | 2024-04-28 10:08 | XMS_ITS | Encounter Summary ---
Author Organization [facility] Address [address] [place] [address] Care Team Providers Care Floatman Name Role Phone Unavailable Primary Care Provider Unavailabl e Encounter Details Date Type Department Care Team (Late st Contact Info) Description 04/06/2008 11:30 AM [facility] [address] [place] [id number] Elmo Roa MD [address] [place], [place] [id number] Social History Tobacco Use Types Packs/Day Years Used Date Smoking Tobacco: Every Day Cigarettes Smokeless Tobacco: Never Comments:7-9 cigs a day Alcohol Use Standard Drinks/Week Comments No 0 (1 standard drink = 0.6 oz pur e alcohol) Comments No Sex and Gender Information Value Date Recorded Sex Assigned at Not on file Legal Sex Female 3:32 AM 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
--- OUTSIDE RECORDS SUMMARY | 2024-04-28 10:08 | XMS_ITS | Clinical Summary ---
Author Organization [facility] Address [place], [place] [address] Care Team Providers Care Sand Plant Attendant Name Role Phone None Primary Care Provider [...] on file Legal Sex Female 7:08 AM PLASTIC PRODUCTION MACHINE SETTER Gender Identity Not on file Sexual Orientation [...] 16 Negative Negative 07/16/2021 2:43 PM CDT [facility] TYPE 18 Negative Negative 07/16/2021 2:43 PM CDT [facility] OTHER HIGH RISK TYPES Negative Negative 07/16/2021 2:43 PM CDT [facility] Other (Cervical/Vagina l) 07/13/2021 5:30 PM CDT 07/15/2021 8:15 AM CDT [facility]ative [facility] - 07/16/2021 2:43 PM CDT HPV types 16, 18, 31, 33, 35, 39, 45, 51, 52, 56, 58, 59, 66 and 68 DNA were undetectable or below the pre-set threshold. Methodology: Junior Job 4800 HPV Test July Nel [facility]STELL[facility]O MICROBIOLOGY Final Resu lt [facility] [address] [place] [address], from Last 3 Months or Most Recently Relevant to Health Maintenance Insurance [facility] [address] Advance Directives * Full Code (Latest Code Status on File) Date Activated Date Inactivated Comments 10/15/2008 7:15 AM 10/17/2008 7:25 PM * Full Code Date Activated Date Inactivated Comments 10/14/2008 7:48 PM 10/15/2008 7:15 AM Care Teams Sand Plant Attendant Relationship Specialty Start Date End Date None . PCP - General 12/08/12
--- OUTSIDE RECORDS SUMMARY | 2024-04-28 10:08 | XMS_ITS | Continuity of Care Document ---
Author Organization [facility] Address [address] [address] [place] [address] Phone Care Team Providers Care Herbicide Sprayer Name Role Phone Donaldrocio BOSTON Linda Unavailable [...] Encounter [facility], [address] [address], [place], [id number], [place] tel:[phone] [facility] No Information 5 Bertram Mckeon. [address], [id number], [place]. tel:[phone] [facility], [address] [address], [place], [id number], [place] tel:[phone] [facility] Chronic hepatitis B 4 Ting Evans. [address] [address], [place], [place], [id number], [place]. tel:[phone] Offic/outpt E&m Estab Mod-hi 2 [facility], [address] [address], [place], [id number], [place] tel:[phone] [facility] GI Symptoms or Concerns (chief complaint) Chronic hepatitis B 4 Bertram Mckeon. [facility] [address], [id number], [place]. tel:[phone] Referring Provider: Stoney SHAH Ever, [address] [place], [address]. tel:[phone] [facility], [address] [address], [place], [id number], [place] tel:[phone] [facility] Chronic viral hepatitis B without delta-agent Jul- 4 Lakisha Case. [facility] [address], [id number], [place]. tel:[phone] [facility], [address] [address], [place], [id number], [place] tel:[phone] [facility] Chronic viral hepatitis B without delta-agent Jul- 4 Lakisha Case. [address] [place] [address], [id number], [place]. tel:[phone] Referring Provider: Referral Self, USE FOR SELF REFERRALS. Offic/outpt E&m New Mod [facility], [address] [address], [place], [id number], tel:[phone] [facility] GI Symptoms or Concerns (chief complaint) Chronic hepatitis B21 weeks gestation of 4 Lakisha Case. 3001 [facility], [facility], [place], [place], [id number], [place]. tel:[phone] Referring Provider: Zina Whittaker, [address], [place], [address]. tel:[phone] Family History Family Member Type Diagnosis Age At Onset No Information Payers Payer name Insurance type Covered constitution party ID Neva betancourt(s) [facility] [employer] [id number] Social History Type Description Quantity Date Captured [...] time for adoption. She is originally from [facility]. She states that it was followed closely [...]
--- OUTSIDE RECORDS SUMMARY | 2024-04-28 10:08 | XMS_ITS | Encounter Summary ---
Author Organization [facility] Address [address] [place] [address] Care Team Providers Care Biofuels Research Scientist Name Role Phone Mj Oliver PA-C Primary Care Provide r Reason for Referral * Consultation (Routine: Next available opening) - Closed Specialty Diagnoses / Procedures Referred By Contac t Referred To Contact Diagnoses Hepatitis B carrier (H) Mohsen Lundy MD [address] [place] [address] Phone: tel: fax: Referral ID Status Reason Start Date Expiration Date Visits Re quested Visits Authorized [id number] Closed 03/23/2023 03/22/2024 1 1 Question Answer M Consult Yes Comments [facility] radiologic and comp Us TITATIVE SOFTWARE ENGINEER * Diagnostic Imaging Ultrasound (Routine) - Closed Specialty Diagnoses / Procedures Referred By Contac t Referred To Contact Radiology. Diagnoses Hepatitis B carrier (H) Procedures [facility] US Comprehensive Single Mohsen Lundy MD [address] [place] [address] Phone: tel: fax: Referral ID Status Reason Start Date Expiration Date Visits Re quested Visits Authorized [id number] Closed 03/23/2023 03/22/2024 1 1 TITATIVE SOFTWARE ENGINEER Encounter Details Date Type Department Care Team (Late st Contact Info) Description 03/23/2023 [facility] [place] [address] [place] [address] Marquita To RN Hepatitis B carrier (H) [...] on file Legal Sex Female 3:32 AM QUANTITATIVE SOFTWARE ENGINEER Gender Identity Not on file Sexual Orientation Not on file Occupation Industry 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 student Not on file Not on file Not on file documented as of this encounter Plan of Treatment Scheduled Referrals Name Type Priority Associated Diagnoses Orde r Schedule [facility] Office Visit Referral Routine: Next available opening Hepatitis B carrier (H) Expected: 03/23/2023 (Approximate), Expires: 03/23/2024 documented as of this encounter Results * [facility] US Comprehensive Single (05/05/2023 2:39 PM QUANTITATIVE SOFTWARE ENGINEER) Anatomical Region Laterality Modality Ultrasound 05/05/2023 1:32 PM QUANTITATIVE SOFTWARE ENGINEER Impressions 05/05/2023 4:01 PM QUANTITATIVE SOFTWARE ENGINEER IMPRESSION ----- 1. Forman intrauterine at 18w [...] long and closed. Narrative 05/05/2023 4:01 PM QUANTITATIVE SOFTWARE ENGINEER Comprehensive ----- Pat. Name: AUNDREAJuly Study Date: 05/05/2023 1:32pm Pat. NO: [id number] Referring MD: JONN GIRON Site: [facility] Superintendent Measurement: Bladimir Cox RDMS : 1990 Age: 33 [...] 0 lb 8 oz EFW by Hadlock ([id number]) Head / Face / Neck Biometry: Knuckler 6.0 mm CM 1.9 mm Nasal bone [...] apical view. RVOT view. Aortic arch view. 2-igayzd-izuklxf view. Diaphragm. Abdomen Kidneys. Spine Sacral spine. [...] AUNDREAJuly Study Date: 05/05/2023 1:32pm Pat. NO: [id number] Referring MD: JONN GIRON Site: [facility] Superintendent Measurement: Bladimir Cox RDMS : 1990 Age: 33 [...] 0 lb 8 oz EFW by Hadlock ([id number]) Head / Face / Neck Biometry: Knuckler 6.0 mm CM 1.9 mm Nasal bone [...] Suboptimal apicalview. RVOT view. Aortic arch view. 2-uzztyl-avwrpuv view. Diaphragm. Abdomen Kidneys. Spine Sacral spine. [...] long and closed. us Mohsen Lundy MD [facility] US ORDERABLES Edited Result - Final documented in this encounter Visit Diagnoses Diagnosis Hepatitis B carrier (H)- Primary Hepatitis B carrier Hepatitis B carrier (H) Hepatitis B carrier documented in this encounter Care Teams Biofuels Research Scientist Relationship Specialty Start Date End Date Mj Oliver PA-C [address] [address] PCP - General Family Practice 04/24/11 documented as of this encounter
--- OUTSIDE RECORDS SUMMARY | 2024-04-28 10:08 | XMS_ITS | Clinical Summary ---
Author Organization [facility] Address [address] [place] [address] Care Team Providers Care Rapid Outsole Stitcher Name Role Phone Mj Oliver PA-C Primary [...] Age 20. Plan colp per MD 03/16/11: [place] I. Plan pap in 6 [...] on file Legal Sex Female 3:32 AM HEAD SILVERMAN Gender Identity Not on file Sexual Orientation Not on file Occupation Industry 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 student Not on file Not on file Not on file Last Filed Vital Signs Vital Sign Reading Time Taken Comments Blood Pressure 135/75 02/19/2016 11:55 AM HEAD SILVERMAN Pulse 93 02/19/2016 11:55 AM HEAD SILVERMAN Temperature 36.6 C (97.9 F) 05/30/2013 9:57 AM HEAD SILVERMAN Respiratory Rate 16 06/20/2011 2:44 PM CDT Oxygen Saturation 97% 02/19/2016 11:55 AM HEAD SILVERMAN Inhaled Oxygen Concentration - - Weight 59 kg (130 lb) 05/30/2013 9:57 AM HEAD SILVERMAN Height 152.4 cm (5') 05/30/2013 9:57 AM HEAD SILVERMAN Body Mass Index 25.39 05/30/2013 9:57 AM HEAD SILVERMAN Plan of Treatment Health Maintenance Due Date [...] THIN LAYER, DIAGNOSTIC Routine 05/14/2013 12:00 AM HEAD SILVERMAN LSIL (low grade squamous intraepithelial lesion) on Pap smear ASTHMA ACTION PLAN Routine 02/20/2013 10 :19 AM HEAD SILVERMAN Intermittent asthma HCL HIV 1 & 2 ANTIBODY Routine 02/29/2008 1:52 PM HEAD SILVERMAN Supervision of Other Normal from Last 3 Months or Most Recently Relevant to Health Maintenance Results * PAP imaged thin layer, diagnostic (05/14/2013 12:00 AM HEAD SILVERMAN) PAP MARIE Alcazar Report Patient Name: JORDYN JULY Remedios MR#: [id number] Specimen #: [id number] Collected: 05/14/2013 Received: 05/15/2013 Reported: 05/16/2013 11:24 [...] by: SHAHZAD Irizarry(ASCP) Processed and screened at [facility] CLINICAL HISTORY: LMP: 04/30/13 Oral Control Pill Intra-Uterine Device, Previous normal pap Date of Last Pap: 11/26/11, Papanicolaou Test Limitations: Cervical cytology is a screening test with limited sensitivity; regular screening is critical for cancer prevention; Pap tests are primarily effective for the diagnosis/preventi on of squamous cell carcinoma, not adenocarcinomas or other cancers. TESTING LAB LOCATION: [address] [address] COLLECTION SITE: Client: [facility] Location: CARLY[facility] (R) NIKA Cytologic material (specimen) 05/14/2013 05/15/2013 2:17 PM HEAD SILVERMAN us Satya Pierre DO LAB - [facility] Final Result Performing Organization Address City/[facility]/ZIP Co de Phone Number COPATH * HIV Screening (02/29/2008 1:52 PM HEAD SILVERMAN) HIV 1&2 Antibody Negative NEG [facility] 02/29/2008 1:52 PM HEAD SILVERMAN 02/29/2008 1:53 PM HEAD SILVERMAN us Iza Mancilla MD LABORATORY Final Result Performing Organization Address City/[facility]/ZIP Co de Phone Number [facility] [address] [place] [address] from Last 3 Months or Most Recently Relevant to Health Maintenance Insurance BCBS OUT OF STATE BCBS OUT OF STATE Care Teams Rapid Outsole Stitcher Relationship Specialty Start Date End Date Mj Oliver PA-C [address] [address] PCP - General Family Practice 04/24/11
== END 2024-04-28 11:19 | disposition home or self-care (01) ==
PROVIDERS: Emergency Provider Family Medicine
DX: O46.8X1 Other antepartum hemorrhage, first trimester (principal); Z3A.13 13 weeks gestation of pregnancy
CPT/HCPCS: 76815; 85018; 99284

== ENCOUNTER 2024-05-17 07:21 | Outpatient (CLI) | payer SELFPAY | END 2024-05-17 07:22 | disposition home or self-care (01) | LOC: US 07:21 | PROVIDERS: Visit Provider Advanced Practice Midwife | DX: O46.8X2 Other antepartum hemorrhage, second trimester (principal); Z3A.15 15 weeks gestation of pregnancy | CPT/HCPCS: 76816 ==

== ENCOUNTER 2024-08-14 09:20 | Outpatient (CLI) | payer OTHER, SELFPAY | END 2024-08-14 09:21 | disposition home or self-care (01) | LOC: NFLDREF 08-21 00:54 | PROVIDERS: Visit Provider Midwife | DX: Z34.83 Encounter for supervision of other normal pregnancy, third trimester (principal) | CPT/HCPCS: 86592 ==

== ENCOUNTER 2024-08-21 13:34 | Outpatient (CLI) | payer OTHER, SELFPAY | END 2024-08-21 13:35 | disposition home or self-care (01) | LOC: US 13:34 | PROVIDERS: Visit Provider Obstetrics & Gynecology | DX: Z34.93 Encounter for supervision of normal pregnancy, unspecified, third trimester (principal); Z3A.29 29 weeks gestation of pregnancy | CPT/HCPCS: 76811 ==

== ENCOUNTER 2024-09-06 09:33 | Outpatient (CLI) | payer OTHER, SELFPAY ==
[2024-09-06 16:30] LABS: Bacterial Vaginosis* Negative (Negative); Candida glab/krus NOT DETECTED (No Detected); Candida species DETECTED (No Detected); Trichomonas vaginalis NOT DETECTED (No Detected)
== END 2024-09-06 09:34 | disposition home or self-care (01) ==
LOC: NFLDREF 09:33
PROVIDERS: Visit Provider Midwife
DX: O26.893 Other specified pregnancy related conditions, third trimester (principal); N89.8 Other specified noninflammatory disorders of vagina; Z3A.31 31 weeks gestation of pregnancy
CPT/HCPCS: 81513; 87481; 87661

== ENCOUNTER 2024-09-27 13:50 | Outpatient (CLI) | payer OTHER, SELFPAY ==
--- OUTSIDE RECORDS SUMMARY | 2008-04-06 12:30 | XMS_ITS | Encounter Summary ---
Author Organization [facility] Address [address] [place] [id number] Care Team Providers Care Information Assurance Name Role Phone Unavailable Primary Care Provider Unavailabl e Encounter Details Date Type Department Care Team (Late st Contact Info) Description 04/06/2008 11:30 AM [facility] in [facility] [address] [place] [id number] Elmo Roa MD [address] [place] [address] Social History Tobacco Use Types Packs/Day Years Used Date Smoking Tobacco: Every Day Cigarettes Smokeless Tobacco: Never Comments:7-9 cigs a day Alcohol Use Standard Drinks/Week Comments No 0 (1 standard drink = 0.6 oz pur e alcohol) Estimated Date of Delivery Comme nts Yes 11/05/2024 Based on Ultraso und Sex and Gender Information Value Date Recorded Sex Assigned at Not on file 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
--- NOTE | 2024-09-27 14:00 | CRLHL7_ITS ---
For Patients: As a result of the Century Cures Act, medical imaging exams and procedure reports are released immediately into your electronic medical record. You may view this report before your referring provider. If you have questions, please contact your health care provider. KIARA by US: 11/05/2024. GA: 34w, 4d. Single. INDICATION: Obesity. CERVIX: Not visualized. POSITIONING: Vertex. AMNIOTIC FLUID: 4.5 cm SDP. BIOPHYSICAL PROFILE: Total score: 8. Gross body movements: 2. tone: 2. Respiratory activity: 2. Amniotic fluid: 2. (SDP N: Increase 2 x 1 cm) PLACENTA: Technique: Transabdominal. PLACENTA POSITION: Posterior. DOPPLER: heart rate: 134 bpm.. Biometry: BPD: 8.4 cm. 34w, 0d, 36 percent. HC: 31.3 cm. 35w, 1d, 31 percent. AC: 30.4 cm. 34w, 2d, 53 percent. FL: 6.6 cm. 34w, 0d, 28 percent. FL/AC ratio: 21.68 percent. HC/AC ratio: 1.03. EFW: 2392 g. Weight: 5 lbs, 4 oz. age by this US: 34w, 3d. KIARA by this US: 11/05/2024. Percentile by KIARA: 40 percent. IMPRESSION: 1. Sonographic gestational age 34 weeks 3 days and sonographic due date 11/05/2024. Good correlation with dates. 2. Estimated weight 40th percentile. Abdominal circumference 53rd percentile. 3. Normal biophysical profile 11/08. Esau Solomon M.D. Diagnostic Radiologist [email or web address] bM/Dictated by: Esau Solomon MD @ 09/27/2024 4:12:00 PM (Electronically Signed)
--- OUTSIDE RECORDS SUMMARY | 2024-09-28 00:26 | XMS_ITS | Encounter Summary ---
Author Organization [place] Address [address] [place] [address] Care Team Providers Care Surgical Aide Name Role Phone Mj Oliver PA-C Primary Care Provide r Encounter Details Date Type Department Care Team (Late st Contact Info) Description 07/06/2012 [facility] Medical Advice [address] [address] [facility] Social History Tobacco Use Types Packs/Day Years Used Date Smoking Tobacco: Every Day Cigarettes Smokeless Tobacco: Never Comments:7-9 cigs a day Alcohol Use Standard Drinks/Week Comments No 0 (1 standard drink = 0.6 oz pur e alcohol) Comments No Sex and Gender Information Value Date Recorded Sex Assigned at Not on file Legal Sex Female 3:32 AM PRODUCT MANAGER Gender Identity Not on file Sexual Orientation Not on file Occupation Industry 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
--- OUTSIDE RECORDS SUMMARY | 2024-09-28 00:26 | XMS_ITS | Clinical Summary ---
Author Organization [facility] Address [address] [place] [address] Care Team Providers Care Gas Station Supervisor Name Role Phone None Primary Care Provider [...] on file Legal Sex Female 7:08 AM CAPITAL CAMPAIGN FUNDRAISER Gender Identity Not on file Sexual Orientation [...] C screening for ag e 18-79 02/24/2008 Hepatitis B series for 19+ ( 1 of 3 - 19+ 3-dose series) 2009 Tetanus booster 2010 COVID-19 vaccine series ( - 2023- season) 2023 Pap test for age 21-65 07/13/2024 , 07/13/2021 Influenza Vaccine (Season Ended) 2024 Pneumococcal series for age 6-49 Aged Out [...] 07/16/2021 2:43 PM CDT [facility] TYPE 18 Negative Negative 07/16/2021 2:43 PM CDT [facility] OTHER HIGH RISK TYPES Negative Negative 07/16/2021 2:43 PM CDT [facility] Other (Cervical/Vagina l) 07/13/2021 5:30 PM CDT 07/15/2021 8:15 AM CDT Narrative [facility] - 07/16/2021 2:43 PM CDT HPV types 16, 18, 31, 33, 35, 39, 45, 51, 52, 56, 58, 59, 66 and 68 DNA were undetectable or below the pre-set threshold. Methodology: Junior Job 4800 HPV Test July Remedios Neumann PA-C MICROBIOLOGY Final Resu lt [facility] [address] [place] [address], [place] from Last 3 Months or Most Recently Relevant to Health Maintenance Insurance [facility] Advance Directives * Full Code (Latest Code Status on File) Date Activated Date Inactivated Comments 10/15/2008 7:15 AM 10/17/2008 7:25 PM * Full Code Date Activated Date Inactivated Comments 10/14/2008 7:48 PM 10/15/2008 7:15 AM Care Teams Gas Station Supervisor Relationship Specialty Start Date End Date None . PCP - General 12/08/12
--- OUTSIDE RECORDS SUMMARY | 2024-09-28 00:26 | XMS_ITS | Encounter Summary ---
Author Organization [facility] Address [address] [place] [address] Care Team Providers Care Laboratory Animal Care Veterinarian Name Role Phone Mj Oliver PA-C Primary Care Provide r Encounter Details Date Type Department Care Team (Late st Contact Info) Description 11/18/2011 [facility] Medical Advice [address] [address] [facility] Social History Tobacco Use Types Packs/Day Years Used Date Smoking Tobacco: Every Day Cigarettes Smokeless Tobacco: Never Comments:7-9 cigs a day Alcohol Use Standard Drinks/Week Comments No 0 (1 standard drink = 0.6 oz pur e alcohol) Comments No Sex and Gender Information Value Date Recorded Sex Assigned at Not on file 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
--- OUTSIDE RECORDS SUMMARY | 2024-09-28 00:26 | XMS_ITS | Encounter Summary ---
Author Organization [facility] Address [address] [place] [address] Care Team Providers Care Branch Controller Name Role Phone Mj Oliver PA-C Primary Care Provide r Encounter Details Date Type Department Care Team (Late st Contact Info) Description 12/13/2011 [facility] Medical Advice [address] [address] [facility] Social History Tobacco Use Types Packs/Day Years Used Date Smoking Tobacco: Every Day Cigarettes Smokeless Tobacco: Never Comments:7-9 cigs a day Alcohol Use Standard Drinks/Week Comments No 0 (1 standard drink = 0.6 oz pur e alcohol) Comments No Sex and Gender Information Value Date Recorded Sex Assigned at Not on file 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
--- OUTSIDE RECORDS SUMMARY | 2024-09-28 00:27 | XMS_ITS | Encounter Summary ---
Author Organization [facility] Address [address] [place] [address] Care Team Providers Care Implementation Analyst Name Role Phone Mj Oliver PA-C Primary Care Provide r Reason for Referral * Consultation (Routine: Next available opening) - Closed Specialty Diagnoses / Procedures Referred By Contac t Referred To Contact Diagnoses Hepatitis B carrier (H) Mohsen Lundy MD [address] [place] [address] Phone: tel: fax: Referral ID Status Reason Start Date Expiration Date Visits Re quested Visits Authorized [id number] Closed 03/23/2023 03/22/2024 1 1 Question Answer M Consult Yes Comments [facility] radiologic and comp Us E AND STORAGE CLERK * Diagnostic Imaging Ultrasound (Routine) - Closed Specialty Diagnoses / Procedures Referred By Contac t Referred To Contact Radiology. Diagnoses Hepatitis B carrier (H) Procedures [facility] US Comprehensive Single Mohsen Lundy MD [address] [place] [address] Phone: tel: fax: Referral ID Status Reason Start Date Expiration Date Visits Re quested Visits Authorized [id number] Closed 03/23/2023 03/22/2024 1 1 E AND STORAGE CLERK Encounter Details Date Type Department Care Team (Late st Contact Info) Description 03/23/2023 [facility] [place] [address] [place] [address] Marquita To RN Hepatitis B carrier (H) [...] on file Legal Sex Female 3:32 AM SPACE AND STORAGE CLERK Gender Identity Not on file Sexual Orientation Not on file 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 Industry 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 student Not on file Not on file Not on file documented as of this encounter Plan of Treatment Scheduled Referrals Name Type Priority Associated Diagnoses Orde r Schedule [facility] Office Visit Referral Routine: Next available opening Hepatitis B carrier (H) Expected: 03/23/2023 (Approximate), Expires: 03/23/2024 documented as of this encounter Results * [facility] US Comprehensive Single (05/05/2023 2:39 PM SPACE AND STORAGE CLERK) Anatomical Region Laterality Modality Ultrasound 05/05/2023 1:32 PM SPACE AND STORAGE CLERK Impressions 05/05/2023 4:01 PM SPACE AND STORAGE CLERK IMPRESSION ----- 1. Forman intrauterine at 18w [...] long and closed. Narrative 05/05/2023 4:01 PM SPACE AND STORAGE CLERK Comprehensive ----- Pat. Name: AUNDREAJuly Study Date: 05/05/2023 1:32pm Pat. NO: [id number] Referring MD: JONN GIRON Site: [facility] Knockdown Man: Bladimir Cox RDMS : 1990 Age: 33 [...] 0 lb 8 oz EFW by Hadlock ([id number]) Head / Face / Neck Biometry: Knitter Machine 6.0 mm CM 1.9 mm Nasal bone [...] apical view. RVOT view. Aortic arch view. 7-fpiqtw-xbiwbtp view. Diaphragm. Abdomen Kidneys. Spine Sacral spine. [...] AUNDREAJuly Study Date: 05/05/2023 1:32pm Pat. NO: [id number] Referring MD: JONN GIRON Site: [facility] Knockdown Man: Bladimir Cox RDMS : 1990 Age: 33 [...] 0 lb 8 oz EFW by Hadlock ([id number]) Head / Face / Neck Biometry: Knitter Machine 6.0 mm CM 1.9 mm Nasal bone [...] Suboptimal apicalview. RVOT view. Aortic arch view. 4-gliotp-rfwfuvh view. Diaphragm. Abdomen Kidneys. Spine Sacral spine. [...] long and closed. us Mohsen Lundy MD [facility] US ORDERABLES Edited Result - Final documented in this encounter Visit Diagnoses Diagnosis Hepatitis B carrier (H)- Primary Hepatitis B carrier Hepatitis B carrier (H) Hepatitis B carrier documented in this encounter Care Teams Implementation Analyst Relationship Specialty Start Date End Date Mj Oliver PA-C [address] [address] PCP - General Family Practice 04/24/11 documented as of this encounter
--- OUTSIDE RECORDS SUMMARY | 2024-09-28 00:27 | XMS_ITS | Encounter Summary ---
Author Organization [facility] Address [address] [place] [address] Care Team Providers Care Transportation Solutions Manager Name Role Phone Mj Oliver PA-C Primary Care Provide r Encounter Details Date Type Department Care Team (Late st Contact Info) Description 07/06/2017 [facility] Medical Advice [address] [address] Peri Carter RN Social History Tobacco Use Types Packs/Day Years Used Date Smoking Tobacco: Every Day Cigarettes Smokeless Tobacco: Never Comments:7-9 cigs a day Alcohol Use Standard Drinks/Week Comments No 0 (1 standard drink = 0.6 oz pur e alcohol) Comments No Sex and Gender Information Value Date Recorded Sex Assigned at Not on file Legal Sex Female 3:[address] Gender Identity Not on file Sexual Orientation Not on file 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
--- OUTSIDE RECORDS SUMMARY | 2024-09-28 00:27 | XMS_ITS | Clinical Summary ---
Author Organization [facility] Address [address] [place] [address] Care Team Providers Care Manager Gift Name Role Phone Mj Oliver PA-C Primary [...] Age 20. Plan colp per MD 03/16/11: [place] - [facility]ED[place] I. Plan pap in 6 [...] nts Yes 11/05/2024 Based on Ultraso und Resolved Problems Problem Noted Date Diagnosed Date Resolved Date Asthma, mild intermittent 01/20/2011 Asthma, mild intermittent 01/20/2011 Depressive state 04/30/2008 01/20/2011 Supervision of other high-risk 03/25/2008 01/20/2011 Overview (01/02/2015): Problem list name updated by automated process. 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 Gender Identity Not on file Sexual Orientation Not on file Occupation Industry 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 student Not on file Not on file Not on file Last Filed Vital Signs Vital Sign Reading Time Taken Comments Blood Pressure 135/75 02/19/2016 11:55 AM BESSEMER REGULATOR Pulse 93 02/19/2016 11:55 AM BESSEMER REGULATOR Temperature 36.6 C (97.9 F) 05/30/2013 9:57 AM BESSEMER REGULATOR Respiratory Rate 16 06/20/2011 2:44 PM CDT Oxygen Saturation 97% 02/19/2016 11:55 AM BESSEMER REGULATOR Inhaled Oxygen Concentration - - Weight 59 kg (130 lb) 05/30/2013 9:57 AM BESSEMER REGULATOR Height 152.4 cm (5') 05/30/2013 9:57 AM BESSEMER REGULATOR Body Mass Index 25.39 05/30/2013 9:57 AM BESSEMER REGULATOR Plan of Treatment Health Maintenance Due Date Last Done Comments ADVANCE CARE PLANNING 1990 ANNUAL REVIEW OF HM ORDERS 1990 ASTHMA CONTROL TEST 1990 HEPATITIS C SCREENING 02/24/2008 HEPATITIS A VACCINE (1 of 2 - Risk 2-dose series) 2009 PNEUMOCOCCAL VACCINE: PEDIATRICS (0 to 5 YEARS) AND AT-RISK PATIENTS (6 to 49 YEARS) (1 of 2 - PCV) 2009 NICOTINE/TOBACCO CESSATION COUNSELING Q 1 YR 04/30/2009 04/30/2008, 04/09/2008, 02/29/2008 ASTHMA ACTION PLAN 02/20/2014 02/20/2013, 0 04/22/2011, 01/20/2011 HPV VACCINE (3 - 3-dose series) 03/04/2014 12/10/2013, 10/26/2006 YEARLY PREVENTIVE VISIT 04/13/2018 04/13/19 18, 05/14/2013, 05/13/2013, Additional history exists COVID-19 VACCINE ( season) 2023 PHQ-2 (once per calendar year) 2024 MATERNAL SCREENING DISCUSSION 04/09/2024 PAP 07/13/2024 07/13/2021, 07/02, 05/14/2013, Additional history exists OBGCT (OB) 07/16/2024 TDAP VACCINE () 08/06/2024 04/22/2011 INFLUENZA VACCINE (Season Ended) 2024 DTAP/TDAP/TD VACCINE (6 - Td or Tdap) 08/24/2033 08/25/2023, 12/10/2013, 04/22/2011, Additional history exists ZOSTER VACCINE (1 of 2) 02/24/2040 HIV SCREENING Completed 02/29/2008 MENINGITIS VACCINE Aged Out No longer eligible based on patient's age to complete this topic RSV VACCINE (No Doses Required) Completed Procedures Procedure Name Priority Date/Time Associated Diagnosis Comments PAP IMAGED THIN LAYER, DIAGNOSTIC Routine 05/14/2013 12:00 AM BESSEMER REGULATOR LSIL (low grade squamous intraepithelial lesion) on Pap smear ASTHMA ACTION PLAN Routine 02/20/2013 10 :19 AM BESSEMER REGULATOR Intermittent asthma HCL HIV 1 & 2 ANTIBODY Routine 02/29/2008 1:52 PM BESSEMER REGULATOR Supervision of Other Normal from Last 3 Months or Most Recently Relevant to Health Maintenance Results * PAP imaged thin layer, diagnostic (05/14/2013 12:00 AM BESSEMER REGULATOR) PAP MARIE Alcazar Report Patient Name: JORDYN July MR#: [id number] Specimen #: [id number] Collected: 05/14/2013 Received: 05/15/2013 Reported: 05/16/2013 11:24 [...] by: SHAHZAD Irizarry(ASCP) Processed and screened at [facility] CLINICAL HISTORY: LMP: 04/30/13 Oral Control Pill Intra-Uterine Device, Previous normal pap Date of Last Pap: 11/26/11, Papanicolaou Test Limitations: Cervical cytology is a screening test with limited sensitivity; regular screening is critical for cancer prevention; Pap tests are primarily effective for the diagnosis/preventi on of squamous cell carcinoma, not adenocarcinomas or other cancers. TESTING LAB LOCATION: [address] [address] COLLECTION SITE: Client: [facility] Location: LVOB (R) COPATH Cytologic material (specimen) 05/14/2013 05/15/2013 2:17 PM BESSEMER REGULATOR us Claire Pierre DO LAB - OPTIME CLINICAL SPE CIMEN Final Result COPATH * HIV Screening (02/29/2008 1:52 PM BESSEMER REGULATOR) HIV 1&2 Antibody Negative NEG [facility] 02/29/2008 1:52 PM BESSEMER REGULATOR 02/29/2008 1:53 PM BESSEMER REGULATOR us Iza Mancilla MD LABORATORY Final Result [facility] [address] [place] [address] from Last 3 Months or Most Recently Relevant to Health Maintenance Insurance MED[employer]ICE [employer]ICE Care Teams Manager Gift Relationship Specialty Start Date End Date Mj Oliver PA-C [address] [address] PCP - General Family Practice 04/24/11
== END 2024-09-27 13:51 | disposition home or self-care (01) ==
LOC: US 13:50
PROVIDERS: Visit Provider Advanced Practice Midwife
DX: O99.213 Obesity complicating pregnancy, third trimester (principal); Z68.42 Body mass index [BMI] 45.0-49.9, adult; Z3A.34 34 weeks gestation of pregnancy
CPT/HCPCS: 76816; 76819

== ENCOUNTER 2024-10-03 13:56 | Outpatient (CLI) | payer OTHER, SELFPAY ==
--- NOTE | 2024-10-03 14:00 | CRLHL7_ITS ---
For Patients: As a result of the Century Cures Act, medical imaging exams and procedure reports are released immediately into your electronic medical record. You may view this report before your referring provider. If you have questions, please contact your health care provider. INDICATION: Obesity TECHNIQUE: Ultrasound OB pelvis transabdominal. Real-time gagnon-scale imaging of the fetus was performed with color Doppler and spectral Doppler analysis of the umbilical artery without stress testing. COMPARISON: 09/27/2024 FINDINGS: Sonographic imaging demonstrates a single living intrauterine gestation. Fetus demonstrates a regular cardiac rate of 142 beats per minute. Fetus has a cephalic orientation. The placenta lies posterior. Amniotic fluid volume appears normal with a MVP of 6.6 cm. breathing movements, motion, and tone were all observed. IMPRESSION: Single viable intrauterine with a biophysical profile 11/08. Dictated by Joseph Wagner MD @ 10/03/2024 3:36:13 PM (Electronically Signed)
== END 2024-10-03 13:57 | disposition home or self-care (01) ==
LOC: US 13:56
PROVIDERS: Visit Provider Advanced Practice Midwife
DX: O99.213 Obesity complicating pregnancy, third trimester (principal); Z68.42 Body mass index [BMI] 45.0-49.9, adult; Z3A.34 34 weeks gestation of pregnancy
CPT/HCPCS: 76819

== ENCOUNTER 2024-10-05 08:12 | Inpatient (IN) | payer OTHER, SELFPAY ==
[2024-10-05] VITALS (19 sets, daily range): BP systolic 114–132; BP diastolic 59–80; PULSE 80–99; RESP 16–18; TEMP 36.8–36.9; O2SAT 94–98; BMI 51.5
[2024-10-05] MEDS: LACTATED RINGERS 500 ML 500 ML 1200 ML IV (06:38)
[2024-10-05 08:09] LABS: Appearance Urine Slightly Cloudy (Clear)
--- NOTE | 2024-10-05 08:39 | PM.OBHPLI ---
OB - H&P: HPI Labor/Induction History of Present Illness Time Seen by Provider: 08: Date Seen: 10/05/24 Chief Complaint: The patient is a 31 year old 4 para 2011 at 35 4/7 weeks gestation by early ultrasound, who presents with labor. Chief complaint: maternity : 4 Para: 2 Narrative: Zina Hernandez is a 34 year old female who is being admitted [facility] for labor and repeat section with bilateral salpingectomies. The patient had come in at about 4:00 a.m. complaining of moderately intense uterine contractions. She has had documented cervical record changer assembler the last 3 hours, despite IV fluid hydration, IM morphine, and p.o. Vistaril. Cervix upon admission was 1 cm dilated, and now she is 3.5 cm dilated. Contractions are currently getting more intense again, occurring at 3-6 minute intervals. She has a history of a primary low transverse section for breech, and desires a repeat delivery with bilateral salpingectomies for sterilization. Federal tubal consent form was signed on 08/29/2024. Specific Issues/Plans Partner: Josue? # No GDM testing. Declined 1hr GTT and has not finished 1 week of BS testing as of 32wk visit. Started testing 09/10 but was only doing fasting and 1 PP. Encouraged QID testing. Will plan to send all numbers by 09/19 or sooner if having elevated readings. Sent some numbers on 09/25. 5 fasting (all WNL) and 9 PP (1 elevated at 132). Instructed via portal to take readings QID and bring any she has to her next visit. Continue to have her test, no additional readings brought to visit on 09/27 or 10/03 # Hx of for breech position? Repeat at 39 weeks with bilateral salpingectomy To be scheduled 10/[address] Rodriguez Federal tubal form signed 08/29 #Bleeding in early Seen in ED at 12 weeks, BEBA 5.3 x 4.2 x 0.4cm Continued bleeding at 15.3 weeks BEBA 4.9 x 3.4 x 0.9 cm MFM consult-continues to see BEBA no other concerns Level II BEBA 1.7 x 2.2 x 1.3 cm seen, smaller than previous scans (bleeding resolved at 20 wks) #? Hx of gestational hypertension dx during hospital stay baseline PreE labs?(did not complete 24 hr urine as of 28 weeks) #? Obesity pre- BMI 46.5 -Level II with MFM at 20 wks- some suboptimal views, f/u scheduled with MFM; consult request again placed 08/14 -referral to slate roofer helper-declines -referral to anesthesia-ordered 08/14 -Weekly testing starting at 34 weeks, [facility] also recommends 28 wk and 34 wk growths; scheduled -Delivery recommended 39 0/7- 39 6/7 -referral to OBGYN #OCD/Depression/Anxiety on Prozac 50mg daily # Hepatitis-B carrier: she has been told she can not transmit, hepatology referral: Had visit last , recommendations below: Hepatology consult: They will perform baseline liver panel and HBV DNA. They will repeat HPV DNA and the end 2nd trimester. Viral load > 200,000, would treat with antiviral therapy. Baby should receive 1st dose of hepatitis-B vaccine within the 1st 24 hours of . Labs leaked so unable to result. Did not go back and declines. ) should return to to them at 28 wks for repeat labs. Not completed at 30wk visit. Message sent to referrals to have them help get this scheduled. Declined repeat testing. Feels it was r/t her being sick. States test is expensive and feels it is unnecessary as she is not symptomatic. Feels she would know if there were changes as she has had this a long time. #Closely spaced pregnancies last delivery 09/16/23 # Declines 1 hr GTT. To arrange for 1 week of glucose testing / slate roofer helper visit. Had not picked up testing supplies at 30wk visit. Was to pick them up after that visit and begin testing. She will send numbers after 1 week of testing. ? Imaging:??? Level II Anatomy (08/21/2024): Impression: 1. Forman at 29w1d gestational age. 2. No anomalies commonly detected by ultrasound were identified in the detailed anatomic survey within the limits of ultrasound. 3. Growth parameters and estimated weight were consistent with gestational age predicted by assigned KIARA. 4. The amniotic fluid volume appeared normal. 5. On transabdominal imaging the cervix appeared long and closed. 09/27/24 1.Sonographic gestational age 34 weeks 3 days and sonographic due date 11/05/2024. Good correlation with dates.2.Estimated weight 40th percentile. Abdominal circumference 53rd percentile. 3.Normal biophysical profile 11/08. Vaccinations:?? COVID: declined? Flu: declined? Tdap: declined? RSV: N/A? 32 week mental health: []? Last pap:? [Only high-risk abnormal pap results in problem list]? IMZ: Covid: Declined 03/12/2024 Flu: Declined 03/12/2024 History of Present Dating criteria: based on 1st trimester US only care: good care Ultrasounds: normal 1st trimester US and normal mid trimester US complications: labor and other (See above problem list) Medical complications: other (See above problem list) Labs Blood type: O (+) positive Rubella: immune RPR/VDLR: nonreactive GBS status: unknown HBsAG: positive (Known hepatitis-B carrier) Review of Systems Status of ROS: Reports: 10 or more systems reviewed and unremarkable except as noted in History and below Meds Home Medications and Allergies Home Medications ?Medication ?Instructions ?Recorded ?Confirmed ?Type cetirizine 10 mg capsule (Zyrtec) 10 mg PO QDAY PRN allergy symptoms 12/31/21 10/05/24 Rx #90 caps magnesium citrate 125 mg capsule 250 mg PO QDAY 03/17/23 10/05/24 History fluoxetine 40 mg capsule 40 mg PO DAILY #90 ea 03/07/24 10/05/24 Rx fluoxetine 10 mg capsule 10 mg PO QDAY #90 caps 05/22/24 10/05/24 Rx vits no.126-ferrous fum 1 tab PO QDAY #90 tabs 06/28/24 10/05/24 Rx 28 mg iron-folic acid 800 mcg tablet (Classic ) acetaminophen-caffeine 500 mg-65 1 tab PO Q12H PRN 08/14/24 10/05/24 History mg tablet (Excedrin Tension Headache) omeprazole 10 mg capsule,delayed 10 mg PO ONCE 08/14/24 10/05/24 History release Blood Glucose Meter #1 ea 08/15/24 09/27/24 Rx blood sugar diagnostic (Blood #50 ea 08/15/24 09/27/24 Rx Glucose Test strips) lancets (Accu-Chek Softclix #100 ea 08/15/24 09/27/24 Rx Lancets) Allergies Allergy/AdvReac Type Severity Reaction Status Date / Time Penicillins Allergy Intermediate Hives Verified 10/05/24 04:51 peanut Allergy Mild Verified 10/05/24 04:51 trazodone Allergy Mild Verified 10/05/24 04:51 doxycycline Allergy Unknown Verified 10/05/24 04:51 OB - H&P: Exam Physical Exam: Vital signs: Temp Pulse Resp BP Pulse Ox 98.2 F 88 16 126/71 94 10/05/24 05:03 10/05/24 05:03 10/05/24 05:03 10/05/24 05:03 10/05/24 05:03 Constitutional: Constitutional: no acute distress Routine HEENT Exam: Head: Present normal inspection Routine Respiratory Exam: Respiratory: Present CTA bilaterally; Absent crackles, rhonchi or wheezes Routine Cardiovascular Exam: Cardiovascular: RRR Comments: No murmur Routine Abdominal Exam: Abdominal: Present soft; Absent tenderness Comments: Gravid Detailed Labor and Delivery Exam: Dilation (cm): 3 Effacement (%): 60 Contraction frequency (min): 6 Tachysystole: No Contraction intensity: Moderate Routine Extremities Exam: Extremities: Present normal inspection; Absent calf tenderness or pedal edema Routine Psychiatric Exam: Present normal affect OB - Results Labs Labs: Urine 10/05/24 Range/Units Unknown Urine Color Yellow (Yellow) Urine Appearance Slightly Cloudy A (Clear) Urine pH 7.0 (5.0-8.5) Ur Specific [place] 1.015 (1.000-1.030) Urine Protein Negative (Negative) Urine Glucose (UA) Negative (Negative) OB - Problem Based A/P Additional Plan (1) labor: Status: Acute (2) History of delivery, currently : Status: Acute (3) Hepatitis B carrier: Status: Acute Plan Admit to the center. The patient is NPO. Informed consent was obtained for repeat section with bilateral salpingectomies. She understands that risks of the surgery include, but not are not limited to, bleeding, infection, injury to other organs or infant, or anesthesia reactions, and she understands that the infant is , so could need to be transferred to a tertiary medical center if the baby has problems related to prematurity that cannot be managed at [facility]. During her hospital stay, she will need maintained on her usual daily medications, which include fluoxetine, cetirizine, omeprazole, and magnesium. Delivery/Labor/Induction Plan Plan: Section
[2024-10-05] MEDS: LACTATED RINGERS 1000 ML 1,000 ML 125 ML IV ×2 (08:42→12:14)
[2024-10-05 08:51] LABS: Hematocrit 37.6 % (33.0-51.0); Hemoglobin* 12.4 gm/dL (12.0-16.0); Immature Granulocytes Abs Auto 0.08 K/uL (0.00-0.30); Immature Granulocytes Pct Auto 0.8 %; Mean Corpuscular HGB Conc 33 gm/dL (32-36); Mean Corpuscular Hemoglobin 28 pg (26-34); Mean Corpuscular Volume 84 fL (80-100); RDW Coefficient of Variation % 14.6 % (11.5-15.5); Red Blood Count 4.48 m/uL (4.00-5.20); White Blood Count* 10.21 K/uL (4.50-11.00)
[2024-10-05 08:53] LABS: Lymphocytes Absolute Auto 1.90 K/uL (0.90-2.90); Slide Review Reflex No
[2024-10-05] MEDS: AZITHROMYCIN 500 MG in 0.9 % SODIUM CHLORIDE 250 ml 250 ML 255 MG IVPB (08:53)
--- NOTE | 2024-10-05 11:04 | W.PM.NB ---
Nerve Block Nerve Block Time Seen by Provider: 11:25 Date Seen: 10/05/24 Type of block requested by surgeon for post-operative analgesia: TAP Side: bilateral Time out performed: Yes Verification of patient name: Yes Verification of date of : Yes Site marking: site marked Name of person performing procedure: Bert Mack Continuous monitoring Was continuous monitoring of O2 sat, B/P, conveyor monitor, recorded every 15 minutes?: Yes Procedure Checklist: sterile prep, needles and gloves Ultrasound guided. Images saved: Yes Medications given in 5ml increments after negative aspiration: Marcaine %: 0.25 mL: 30 Needle gauge: 20 and Exparel mL: 10 Needle gauge: 20 Patient tolerated procedure well: Yes Additional comments: Injected in 5 mL increments after negative aspiration Block Charges Block Charge (with Pro Fee): TAP Bilateral Use of Ultrasound Machine for Block: Yes- US Guidance/pain block
--- NOTE | 2024-10-05 11:20 | P.OBPRC_ITS ---
Procedure Date of procedure: 10/05/24 Pre-op diagnosis: 1. 35 4/7 weeks 2. labor 3. h/o prior 4. Undesired fertility Post-op diagnosis: same Procedure Done: Global Will [facility] bill your pro fee for this procedure?: Yes Blood Loss Measurement Type: QBL (341 mL) Bakri Used: No IV fluids (mL): 900 Urine Output (mL): 200 Surgeon: Brooklyn Martinez MD Anesthesia Type: Spinal and TAP Block Findings: Live-born male , cephalic presentation, nuchal cord x1, Apgars 7, 7, and 8 at 1, 5, and 10 minutes respectively. weight 5 lb 9 oz. Normal-appearing uterus, fallopian tubes, and ovaries. Procedure Name: 1. Repeat low transverse section 2. Bilateral salpingectomies Procedure Description: After obtaining informed consent, the patient was taken to the operating room where spinal anesthesia was obtained and found to be adequate. She was prepared and draped in the normal sterile fashion in the dorsal supine position with a leftward tilt. A pannus retractor was utilized. A Pfannenstiel skin incision was made with a scalpel along the line of the patient's previous Pfannenstiel scar. This incision was carried down to the underlying layer of fascia with the Bovie. The fascia was incised in the midline and the incision extended laterally. The superior and inferior aspects of the fascial incision were grasped with Sindhu clamps, elevated and the underlying rectus muscles dissected off sharply and with electrocautery. This dissection took an increased amount of time given the dense adhesions. The rectus muscles were then in the midline. The Mayo O retractor was then placed into the incision. The lower uterine segment was then incised in a transverse fashion with the scalpel. Upon entry into the uterus, clear amniotic fluid was noted. The uterine incision was extended laterally with blunt finger fractionation. The 's head was delivered atraumatically, followed by the remainder of the infant's body after first reducing the umbilical cord over the head. The nose and mouth were suctioned with the bulb suction. The cord was doubly clamped and cut after a 30 second delay, and the infant was handed off the field to the [facility] SIGN HANGER for evaluation. The placenta was delivered spontaneously with umbilical cord traction and fundal massage. The uterus was cleared of all clots and debris. The uterine incision was reapproximated in a running locking fashion with a 0 chromic suture. A 2nd layer of the same suture was used to imbricate in horizontal fashion. The uterus was then exteriorized. Both fallopian tubes were identified to their fimbrial ends. Attention was 1st turned to the left fallopian tube which was elevated in its midsection with a Jennifer clamp. The tube was excised from proximal to distal using the hand-held LigaSure device. Excellent hemostasis was visualized. Attention was then turned to the right fallopian tube, which was isolated, ligated and excised from distal to proximal in a similar fashion. The uterus was returned to the abdomen. The gutters were inspected and clots removed. All instruments and retractors were removed. The anterior peritoneum was reapproximated in a running fashion with a 3-0 Vicryl suture. The subfascial tissues were carefully inspected and hemostasis assured. The fascia was reapproximated in a running fashion with a looped 0 Maxon suture. The subcutaneous tissues were copiously irrigated. Hemostasis was assured. The subcutaneous fat layer was reapproximated with interrupted sutures of 3-0 plain gut. The skin was closed in a subcuticular fashion with 4-0 Vicryl. A silver Mepilex dressing was applied. A TAP block was performed by Anesthesia. The patient tolerated the procedure well. Sponge, lap, needle, and instrument counts were reported as correct x2. The patient was taken to the recovery room, awake, and in stable condition. She did receive 3 grams of IV Ancef and 500 mg azithromycin preoperatively. Complications: None Pathology: specimen obtained, sent to pathology (1. Uterus, 2. Biateral fallopian tubes ) Surgery Debrief Performed: Yes Condition: stable Disposition: floor [place] total score - 1 minute: 7 total score - 5 minute: 7 total score - 10 minute: 8
--- NOTE | 2024-10-05 11:46 | P.ANES_ITS ---
Anesthesia Charges Start Date/Time Anesthesia Start Date: 10/05/24 Anesthesia Start Time: 09:16 Stop Date/Time Anesthesia Stop Date: 10/05/24 Anesthesia Stop Time: 11:35 Coding CPT Codes CPT Codes: ANESTH CS DELIVERY - 88963 ([id number]) P3 - PATIENT W/SEVERE SYS DISEASE, QZ - KITCHEN HELP HANDYMAN SVC W/O TOP STITCHER BY
--- NOTE | 2024-10-05 11:46 | W.ANESCHARGE ---
Anesthesia Charges Start Date/Time Anesthesia Start Date: 10/05/24 Anesthesia Start Time: 09:16 Stop Date/Time Anesthesia Stop Date: 10/05/24 Anesthesia Stop Time: 11:35 Coding CPT Codes CPT Codes: ANESTH CS DELIVERY - 81522 ([id number]) P3 - PATIENT W/SEVERE SYS DISEASE, QZ - DIGITAL MARKETING SPECIALIST SVC W/O COMPLAINT ANALYST BY
[2024-10-05] MEDS: ACETAMINOPHEN 500 MG TABLET 1000 MG PO ×2 (15:58→21:57)
[2024-10-06] MEDS: ONDANSETRON 2 MG/ML inj 4 MG IVP (02:22)
[2024-10-06] MEDS: ACETAMINOPHEN 500 MG TABLET 1000 MG PO ×3 (04:07→20:01)
[2024-10-06 04:11] VITALS: BP 122/79; PULSE 76; RESP 20; TEMP 36.5; O2SAT 96
[2024-10-06 07:12] LABS: Hemoglobin* 11.3 gm/dL (12.0-16.0)
[2024-10-06 07:40] LABS: Strep B DNA Probe Negative (Negative)
--- NOTE | 2024-10-06 07:49 | P.OBPN_ITS ---
OB - PN:Subj Subjective Date Seen: 10/06/24 Patient comments OB post-: pain well controlled and tolerating diet [place] status: bottle and doing well Narrative: The patient is sleepy this morning. She has no concerns. Sue catheter is out. Ambulating well. OB - PN: Obj Exam Physical Exam: Vital signs: Temp Pulse Resp BP Pulse Ox O2 Del Method 97.7 F 76 20 122/79 96 Room Air 10/06/24 04:11 10/06/24 04:11 10/06/24 04:11 10/06/24 04:11 10/06/24 04:11 10/06/24 04:11 Constitutional: Constitutional: no acute distress Routine Neck Exam: Neck: Present normal inspection Routine Respiratory Exam: Respiratory: Present CTA bilaterally; Absent respiratory distress Routine Cardiovascular Exam: Cardiovascular: Present RRR; Absent murmur Routine Abdominal Exam: Abdominal: Present soft; Absent tenderness Fundus: Present firm Routine Extremities Exam: Extremities: Present normal inspection and pedal edema; Absent calf tenderness Routine Neurological Exam: Neurological: Present alert and oriented X3 Routine Psychiatric Exam: Psychiatric: Present normal affect Wound Management: Method: suture Examination: Present clean and dry; Absent erythematous Comments: Silver Mepilex dressing present OB - PN: Obj Data Labs Labs: Laboratory Results - last 24 hr 10/05/24 10/05/24 10/05/24 05:43 08:45 Unknown WBC 10.21 RBC 4.48 Hgb 12.4 Hct 37.6 MCV 84 MCH 28 MCHC 33 RDW Coeff of Bertha 14.6 Plt Count 249 Neut % (Auto) 72.2 H Lymph % (Auto) 18.5 L [place] % (Auto) 7.4 Eos % (Auto) 0.9 Baso % (Auto) 0.2 Neut # (Auto) 7.40 H Lymph # (Auto) 1.90 [place] # (Auto) 0.80 Eos # (Auto) 0.09 Baso # (Auto) 0.02 Abs Immat Gran (auto) 0.08 Imm/Tot Granulo (auto) 0.8 Urine Color Yellow Urine Appearance Slightly Cloudy A Urine pH 7.0 Ur Specific [place] 1.015 Urine Protein Negative Urine Glucose (UA) Negative Urine Ketones 2+ A Urine Blood 1+ A Urine Nitrite Negative Urine Bilirubin Negative Urine Urobilinogen 0.2 Ur Leukocyte Esterase 1+ A Urine RBC 2-5 A Urine WBC 2-5 Ur Squamous Epith Cells Moderate A Urine Bacteria Moderate A Group B Strep DNA Negative Blood Type O Positive Antibody Screen NEGATIVE 10/06/24 06:55 WBC RBC Hgb 11.3 L Hct MCV MCH MCHC RDW Coeff of Bertha Plt Count Neut % (Auto) Lymph % (Auto) [place] % (Auto) Eos % (Auto) Baso % (Auto) Neut # (Auto) Lymph # (Auto) Dade # (Auto) Eos # (Auto) Baso # (Auto) Abs Immat Gran (auto) Imm/Tot Granulo (auto) Urine Color Urine Appearance Urine pH Ur Specific [place] Urine Protein Urine Glucose (UA) Urine Ketones Urine Blood Urine Nitrite Urine Bilirubin Urine Urobilinogen Ur Leukocyte Esterase Urine RBC Urine WBC Ur Squamous Epith Cells Urine Bacteria Group B Strep DNA Blood Type Antibody Screen OB - PN: A/P Delivery Assessment and Plan (1) labor: Status: Resolved (2) Hepatitis B carrier: Status: Acute (3) S/P section: Problem details: at 35 4/7 weeks Status: Acute Plan day: 1 Plan: routine care
[2024-10-06 08:25] LABS: Strep B Susceptibility Needed? No
[2024-10-06 09:25] VITALS: BP 121/82; PULSE 91; RESP 16; TEMP 36.6; O2SAT 97
[2024-10-06] MEDS: DOCUSATE SODIUM 100 MG CAPSULE PO (09:43)
[2024-10-06 13:46] VITALS: BP 126/80; PULSE 81; RESP 16; TEMP 36.7; O2SAT 97
[2024-10-06 17:11] VITALS: BP 117/78; PULSE 77; RESP 16; TEMP 36.6; O2SAT 96
[2024-10-06 21:04] VITALS: BP 127/84; PULSE 91; RESP 18; TEMP 36.9; O2SAT 98
[2024-10-06] MEDS: IBUPROFEN 600 MG TABLET PO (22:30)
[2024-10-07] MEDS: IBUPROFEN 600 MG TABLET PO (04:56)
[2024-10-07 04:57] VITALS: BP 122/82; PULSE 82; RESP 18; O2SAT 96
--- NOTE | 2024-10-07 08:53 | P.DS_ITS ---
DS: Providers Provider Date Seen: 10/07/24 Date of admission: 10/05/24 08:12 Primary care physician: Not a Local Provider Admitting Clinician: Brooklyn Martinez MD Attending Physician on discharge: Maty Soni CNM DS: Diagnosis Discharge Diagnosis (1) care and examination immediately after delivery: Status: Acute (2) S/P section: Status: Acute Problem details: at 35 4/7 weeks (3) labor: Status: Resolved (4) Hepatitis B carrier: Status: Acute (5) Depression: Status: Acute (6) Anxiety: Status: Acute (7) Lactating mother: Status: Acute Exam Narrative: Exam Narrative: GENERAL APPEARANCE:? normal affect, alert, no distress MOOD:? appropriate CHEST:? clear to auscultation HEART:? regular rate and rhythm ABDOMEN:? soft, non-tender the uterine fundus is At Umbilicus, Midline and is appropriate for the stage of recovery. EXTREMITIES:? normal and no edema INCISION: Silver dressing in place; clean, dry and intact Const: Vital Signs, click to edit/add: Vital Signs - 24 hr 10/06/24 09:25 10/06/24 13:46 10/06/24 17:11 Temperature 97.8 F 98.0 F 97.9 F Pulse Rate [Pulse Oximeter] 91 81 77 Respiratory Rate 16 16 16 Blood Pressure [Le ft Arm] 121/82 126/80 117/78 Pulse Oximetry 97 97 96 Oxygen Delivery Me thod Room Air Room Air Room Air 10/06/24 21:04 10/07/24 04:57 Temperature 98.4 F Pulse Rate [Pulse Oximeter] 91 82 Respiratory Rate 18 18 Blood Pressure [Le ft Arm] 127/84 122/82 Pulse Oximetry 98 96 Oxygen Delivery Me thod Room Air Room Air OB - DS: Summary Hospital Course Hospital Course: July is a 34 y.o. G 4 P 3 who was admitted to [facility] for spontaneous onset of labor and had planned repeat c/s. ?She had a repeat c/s that was uncomplicated. The patient feels well. ?The pain is well controlled with current medications. ?She has no new complaints. ?She is breast feeding and reports things are going well. the patient has done well.? Vitals have been stable.? She has remained afebrile.? Has a good appetite, is tolerating a general diet. ?She is voiding without difficulty.? She is passing gas and has not had a bowel movement.? She is ambulating and denies any dizziness.? Has small amount of rubra lochia. She had a tubal during her c/s for prevention. Problems: none Discharge home with baby.? Follow up in 2 weeks and 6 weeks.? , may see if needed? Hgb 11.3. ?? For pain control of perineum, breast and pelvic pain, take 600 mg Ibuprofen every 6 hours as needed by mouth or 1000 mg acetaminophen (Tylenol) every 6 hours by mouth as needed. You can alternate these so you are taking something every 3 hours as needed. A heating pad can also be used for your abdomen or breasts. You may also take docusate sodium up to twice daily to soften your stools and help to prevent constipation. You may wean off of it when your stools return to normal.? Peripartum Data delivery method: Repeat Section Procedures: Procedures Operation Date: 10/05/24 09:00 Actual Procedure Side Surgeon p Repeat Section, bilateral salpingectomy Brooklyn Martinez MD Procedures: tubal ligation/salpingectomy (during procedure) complications: none [place] Gender: Male Infant Discharge Plan: Home Status at Discharge Functional status at discharge: independent ambulation Overall status at discharge: patient is progressing back to baseline Time Spent with Patient Time attestation: Total time spent providing and/or coordinating discharge services: Time spent: Less than 30 minutes Discharge Plan Discharge Disposition: Home, Self-Care Date of Admission: 10/05/24 08:12 Attending Provider on Discharge: Maty Soni Primary Care Provider: Provider,Not a Local Condition: Stable Anticipated Discharge Date/Time: 10/07/24 12:00 Discharge Medications: New docusate sodium 100 mg Capsule 100 mg PO DAILY Qty: 90 0RF ibuprofen 600 mg Tablet 600 mg PO Q6H PRN (Reason: Pain) Qty: 60 0RF oxycodone 5 mg Tablet 5 - 10 mg PO Q4H PRN (Reason: Pain) Qty: 15 0RF acetaminophen 500 mg Tablet 1,000 mg PO Q6H PRN (Reason: Pain) Qty: 0 0RF Continued magnesium citrate 125 mg capsule 250 mg PO QDAY omeprazole 10 mg capsule,delayed release(DR/EC) 10 mg PO ONCE Excedrin Tension Headache 500-65 mg tablet 1 tab PO Q12H PRN Zyrtec 10 mg capsule 10 mg PO QDAY PRN (Reason: allergy symptoms) Qty: 90 3RF Classic 28 mg iron- 800 mcg tablet 1 tab PO QDAY Qty: 90 4RF fluoxetine 40 mg capsule 40 mg PO DAILY Qty: 90 2RF fluoxetine 10 mg capsule 10 mg PO QDAY Qty: 90 3RF Rx Instructions: Take the 10mg capsule along with the previously prescribed 40mg capsule daily. Discontinued (DME) Blood Glucose Meter Misc See Rx Instructions .Route Qty: 1 0RF Rx Instructions: As directed to check blood glucose four times daily (DME) lancets [Accu-Chek Softclix Lancets] Misc See Rx Instructions .Route Qty: 100 0RF Rx Instructions: As directed to take blood glucose four times daily. (DME) Blood Glucose Test Strip See Rx Instructions .Route Qty: 50 0RF Rx Instructions: As directed to check blood glucose four times daily Discharge Orders: Discharge Order (Routine); Ordered 10/07/24 Ordered By: Maty Soni Patient Education: OB Over the Counter Medication Information, OB /Breast Feeding Additional Instructions: Discharge instructions were reviewed with the patient including signs and symptoms of infection and home going medications Lifting Restrictions: 20 pounds for 6 weeks No not submerge incision under water X 2 weeks? Nothing vaginally for 6 weeks: no tampons or intercourse Do not drive while taking narcotic pain medication(s) Off Work or School for 8 weeks Return in 1 week for silver dressing removal 2-week visit: incision check, discuss feeding concerns, review control options and screen for anxiety/depression. 6-week visit for an annual exam. consultation services are available to all mothers and babies for the first year after delivery.? To make an appointment, please call [phone]. Activity Level: Activity as Tolerated Discharge Diet: Regular Follow Up Appointments: [facility] [Provider Group] Forms: Support Your App Info Instructions
[2024-10-07 09:06] VITALS: BP 137/86; PULSE 88; RESP 18; TEMP 36.6; O2SAT 97
[2024-10-07] MEDS: DOCUSATE SODIUM 100 MG CAPSULE PO (09:21)
[2024-10-07] MEDS: ACETAMINOPHEN 500 MG TABLET 1000 MG PO (09:29)
== END 2024-10-07 11:10 | disposition home or self-care (01) | DRG 784 ==
LOC: OB OUT 08:12 → OB 08:12
PROVIDERS: Admitting Provider Obstetrics & Gynecology; Visit Provider Obstetrics & Gynecology
PROC: 10D00Z1 Extraction of Products of Conception, Low, Open Approach (ICD-10-PCS; CPT 59514; principal; 2024-10-05 09:00)
DX: O60.14X0 Preterm labor third trimester with preterm delivery third trimester, not applicable or unspecified (principal); O98.42 Viral hepatitis complicating childbirth; B18.1 Chronic viral hepatitis B without delta-agent; O34.211 Maternal care for low transverse scar from previous cesarean delivery; G89.18 Other acute postprocedural pain; Z30.2 Encounter for sterilization; O99.214 Obesity complicating childbirth; O99.344 Other mental disorders complicating childbirth; F32.A Depression, unspecified; F41.9 Anxiety disorder, unspecified; F42.9 Obsessive-compulsive disorder, unspecified; Z3A.35 35 weeks gestation of pregnancy; Z37.0 Single live birth
CPT/HCPCS: 01961; 36415; 64488; 76942; 81001; 81003; 85018; 85025; 86592; 86850; 86900; 86901; 87081; 87086; 87653; A4314; A9270; J0456; J0665; J0666; J0690; J1100; J1885; J2270; J2371; J2405; J2590; J3010; J7050; J7120